=== PATIENT | female | born 1955 | race Caucasian/White ===

== ENCOUNTER 2017-12-13 15:14 | Inpatient (IN) | payer MEDICARE, OTHER ==
[~2017-12-13] VITALS: Ht 157.5 cm; Wt 87.1 kg
[2017-12-13 15:25] VITALS: BP 120/90
[2017-12-13] MEDS ORDERED: ACETAMINOPHEN 325 MG TABLET PO PRN (16:00)
[2017-12-13] MEDS ORDERED: MAG HYDROX/AL HYDROX/SIMETH 30 ML ORAL.SUSP PO PRN (16:00)
[2017-12-13] MEDS ORDERED: METHYL SALICYLATE/MENTHOL TOPICAL OINTMENT 29GM TUBE. TP PRN (16:00)
[2017-12-13 17:02] LABS: BASO % 0 % (0-3); EOS % 0 % (0-3); HEMATOCRIT 42.1 % (36.0-47.0); HEMOGLOBIN 13.8 g/dL (12.0-15.5); LYMPH # 1.4 x10^3/uL (1.0-4.8); LYMPH % 12 % (24-48); MEAN CORPUSCULAR HEMOGLOBIN 27 pg (25-35); MEAN CORPUSCULAR HGB CONC 33 g/dL (31-37); MEAN CORPUSCULAR VOLUME 83 fL (79-100); MONO # 0.9 x10^3/uL (0.0-1.1); MONO % 8 % (0-9); NEUT # 8.6 x10^3uL (1.8-7.7); NEUT % 79 % (31-73); PLATELET COUNT 289 x10^3/uL (140-400); RED BLOOD COUNT 5.05 x10^6/uL (3.50-5.40); RED CELL DISTRIBUTION WIDTH 15.6 % (11.5-14.5); WHITE BLOOD COUNT 10.8 x10^3/uL (4.0-11.0)
[2017-12-13 17:16] LABS: ALBUMIN 3.2 g/dL (3.4-5.0); ALBUMIN/GLOBULIN RATIO 0.9 (1.0-1.7); CALCIUM 8.9 mg/dL (8.5-10.1); CREATININE 1.1 mg/dL (0.6-1.0); GFR 50.5; MAGNESIUM 1.9 mg/dL (1.8-2.4); POTASSIUM 4.6 mmol/L (3.5-5.1); TOTAL BILIRUBIN 0.1 mg/dL (0.2-1.0); TOTAL PROTEIN 6.6 g/dL (6.4-8.2)
[2017-12-13] MEDS ORDERED: LOSA50TA7 PO (18:52)
[2017-12-13] MEDS ORDERED: VARI50KI IM (18:52)
[2017-12-13] MEDS ORDERED: BETH25TA PO (18:52)
[2017-12-13] MEDS ORDERED: DOXA4TAB3 PO (18:52)
[2017-12-13] MEDS ORDERED: LORA0.5T PO (18:52)
[2017-12-13] MEDS ORDERED: ATOR20TA PO (18:52)
[2017-12-13] MEDS ORDERED: PANT40TA5 PO (18:52)
[2017-12-13] MEDS ORDERED: CLOZ100T PO (18:52)
[2017-12-13] MEDS ORDERED: TRIA15CR2 TP (18:52)
[2017-12-13] MEDS ORDERED: METO50TA29 PO (18:52)
[2017-12-13] MEDS ORDERED: ZOST1940 SQ (18:52)
[2017-12-13] MEDS ORDERED: CLOT12CR2 TP (18:52)
[2017-12-13] MEDS ORDERED: PHEN100C PO (18:52)
[2017-12-13] MEDS ORDERED: GLIP5TAB10 PO (18:52)
[2017-12-13] MEDS ORDERED: FENO48TA16 PO (18:52)
[2017-12-13] MEDS ORDERED: LEVE100020 PO (18:52)
[2017-12-13] MEDS ORDERED: METF10007 PO (18:52)
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
[2017-12-13] MEDS ORDERED: LORazepam 0.5 MG TABLET PO PRN (20:45)
[2017-12-13] MEDS: TRIAMCINOLONE ACETONIDE 0.025% TP SCH (21:00)
[2017-12-13] MEDS: CLOTRIMAZOLE 1% TOPICAL CREAM 30GM TUBE. TP SCH (21:00)
--- NOTE | 2017-12-13 21:02 | PDOC ---
Exam Note: Arash Note: Please also refer to the separate dictated note~for this date of service dictated separately.~Patient seen individually. Discussed the patient with Nursing staff reviewed the chart.~Reviewed interim history and current functioning. Reviewed vital signs,~Labs/ Radiology~and current medications noted below. Continue current treatment with the changes noted in the dictated addendum note Assessment: Vital Signs: Vital Signs Date Time Temp Pulse Resp B/P (MAP) Pulse Ox O2 Delivery O2 Flow Rate FiO2 12/13/17 15:25 98.2 110 20 120/90 (100) 94 Labs: Laboratory Tests Test 12/13/17 16:45 White Blood Count 10.8 x10^3/uL (4.0-11.0) Red Blood Count 5.05 x10^6/uL (3.50-5.40) Hemoglobin 13.8 g/dL (12.0-15.5) Hematocrit 42.1 % (36.0-47.0) Mean Corpuscular Volume 83 fL (79-100) Mean Corpuscular Hemoglobin 27 pg (25-35) Mean Corpuscular Hemoglobin Concent 33 g/dL (31-37) Red Cell Distribution Width 15.6 % (11.5-14.5) H Platelet Count 289 x10^3/uL (140-400) Neutrophils (%) (Auto) 79 % (31-73) H Lymphocytes (%) (Auto) 12 % (24-48) L Monocytes (%) (Auto) 8 % (0-9) Eosinophils (%) (Auto) 0 % (0-3) Basophils (%) (Auto) 0 % (0-3) Neutrophils # (Auto) 8.6 x10^3uL (1.8-7.7) H Lymphocytes # (Auto) 1.4 x10^3/uL (1.0-4.8) Monocytes # (Auto) 0.9 x10^3/uL (0.0-1.1) Eosinophils # (Auto) 0.0 x10^3/uL (0.0-0.7) Basophils # (Auto) 0.0 x10^3/uL (0.0-0.2) Sodium Level 137 mmol/L (136-145) Potassium Level 4.6 mmol/L (3.5-5.1) Chloride Level 103 mmol/L (98-107) Carbon Dioxide Level 27 mmol/L (21-32) Anion Gap 7 (6-14) Blood Urea Nitrogen 19 mg/dL (7-20) Creatinine 1.1 mg/dL (0.6-1.0) H Estimated GFR (Cockcroft-Gault) 50.5 BUN/Creatinine Ratio 17 (6-20) Glucose Level 174 mg/dL (70-99) H Calcium Level 8.9 mg/dL (8.5-10.1) Magnesium Level 1.9 mg/dL (1.8-2.4) Total Bilirubin 0.1 mg/dL (0.2-1.0) L Aspartate Amino Transferase (AST) 39 U/L (15-37) H Alanine Aminotransferase (ALT) 39 U/L (14-59) Alkaline Phosphatase 79 U/L (46-116) Total Protein 6.6 g/dL (6.4-8.2) Albumin 3.2 g/dL (3.4-5.0) L Albumin/Globulin Ratio 0.9 (1.0-1.7) L Current Medications: Meds: Current Medications Acetaminophen (Tylenol) 650 mg PRN Q6HRS PRN PO PAIN / TEMP; Start 12/13/17 at 16:00 Multi-Ingredient Ointment (Analgesic Ono) 1 joey PRN QID PRN TP MUSCLE PAIN; Start 12/13/17 at 16:00 Al Hydroxide/Mg Hydroxide (Mylanta Plus Xs) 15 ml PRN AFTMEALHC PRN PO DYSPEPSIA; Start 12/13/17 at 16:00 Magnesium Hydroxide (Milk Of Magnesia) 2,400 mg PRN QHS PRN PO CONSTIPATION; Start 12/13/17 at 16:00 Clozapine (Clozaril) 300 mg DAILY PO ; Start 12/14/17 at 09:00 Lorazepam (Ativan) 0.5 mg PRN Q6HRS PRN PO ANXIETY / AGITATION; Start 12/13/17 at 20:45 Atorvastatin Calcium (Lipitor) 20 mg QHS PO ; Start 12/13/17 at 21:00 Bethanechol Chloride (Urecholine) 25 mg QID PO ; Start 12/13/17 at 21:00 Losartan Potassium (Cozaar) 50 mg DAILY PO ; Start 12/14/17 at 09:00 Triamcinolone Acetonide (Kenalog) 15 joey BID TP ; Start 12/13/17 at 21:00 Clotrimazole (Lotrimin) 1 joey BID TP ; Start 12/13/17 at 21:00 Fenofibrate (Tricor) 48 mg DAILY PO ; Start 12/14/17 at 09:00 Glipizide (Glucotrol Er) 5 mg DAILY08 PO ; Start 12/14/17 at 08:00 Levetiracetam (Keppra) 1,000 mg BID PO ; Start 12/13/17 at 21:00 Metformin HCl (Glucophage) 1,000 mg BIDWMEALS PO ; Start 12/14/17 at 08:00 Metoprolol Succinate (Toprol Xl) 50 mg DAILY PO ; Start 12/14/17 at 09:00 Pantoprazole Sodium (Protonix) 40 mg PRN DAILY PRN PO HEARTBURN / GAS; Start at 07:30 Phenytoin Sodium (Dilantin) 100 mg Q8HRS PO ; Start 12/13/17 at 22:00 Active Scripts Active Reported Shingrix Vial Kit (Varicella-Zoster Ge/As01b/Pf) 50 Mcg/0.5 Ml Kit 50 Mcg IM Zostavax Vial (Zoster Vaccine Live/Pf) 19,400 Unit/0.65 Ml Vial 19,400 Unit SQ Triamcinolone Acetonide 15 Gm Cream..g. 15 Gm TP BID Pantoprazole Sodium 40 Mg Tablet.dr 40 Mg PO PRN DAILY PRN Losartan Potassium 50 Mg Tablet 50 Mg PO DAILY Glipizide 5 Mg Tablet 5 Mg PO DAILY Tricor (Fenofibrate Nanocrystallized) 48 Mg Tablet 48 Mg PO DAILY Doxazosin Mesylate 4 Mg Tablet 4 Mg PO Lotrimin Af (Clotrimazole) 12 Gm Cream..g. 12 Gm TP BID Bethanechol Chloride 25 Mg Tablet 25 Mg PO QID Metoprolol Succinate ( Xl ) (Metoprolol Succinate) 50 Mg Tab.er.24h 50 Mg PO DAILY Metformin Hcl 1,000 Mg Tablet 1,000 Mg PO BID Clozaril (Clozapine) 100 Mg Tablet 300 Mg PO DAILY Dilantin (Phenytoin Sodium Extended) 100 Mg Capsule 100 Mg PO Q8HRS Lorazepam 0.5 Mg Tablet 0.5 Mg PO PRN Q6HRS PRN MDD 2mg Keppra (Levetiracetam) 1,000 Mg Tablet 1,000 Mg PO BID Lipitor (Atorvastatin Calcium) 20 Mg Tablet 20 Mg PO QHS I have reviewed the current psychotropics carefully including drug interactions. Risk benefit ratio favors no change other than as noted in my dictated progress note. Diagnosis: Problems: (1) Anxiety disorder (2) Bipolar affective, mixed, sev w/ psych (3) Schizoaffective disorder, chronic condition with acute exacerbation MANAS SHANKAR MD Dec 13, 2017 21:02
[2017-12-13] MEDS: PHENYTOIN SODIUM EXTENDED 100 MG CAPSULE PO SCH (21:05)
[2017-12-13] MEDS: ATORVASTATIN CALCIUM 20 MG TABLET PO SCH (21:05)
[2017-12-13] MEDS: levETIRAcetam 500 MG TABLET PO SCH (21:05)
[2017-12-13] MEDS: BETHANECHOL CHLORIDE 25 MG TABLET PO SCH (21:07)
[2017-12-14 03:10] LABS: THYROXINE 6.6 ug/dL (4.5-12.0)
[2017-12-14 04:08] LABS: HEMOGLOBIN A1C 6.6 % (4.8-5.6)
[2017-12-14 05:42] VITALS: BP 103/65
[2017-12-14] MEDS: PHENYTOIN SODIUM EXTENDED 100 MG CAPSULE PO SCH ×4 (06:33→20:06)
[2017-12-14] MEDS ORDERED: PANTOPRAZOLE 40 MG TABLET. PO PRN (07:30)
[2017-12-14 07:53] LABS: BACTERIA,URINE MOD /HPF (0-FEW); BILIRUBIN,URINE NEG (NEG); CLARITY,URINE CLOUDY; COLOR,URINE AMBER; GLUCOSE,URINE NEG (NEG); GRANULAR CASTS,URINE OCC /HPF; HYALINE CASTS, URINE MOD /HPF; NITRITE,URINE NEG (NEG); SQUAMOUS EPITHELIAL CELL,UR MANY /LPF; UROBILINOGEN,URINE 0.2 mg/dL (0.2 mg/dL)
[2017-12-14] MEDS ORDERED: cloZAPine 100 MG TABLET PO SCH (09:00)
[2017-12-14] MEDS: BETHANECHOL CHLORIDE 25 MG TABLET PO SCH ×6 (10:03→20:06)
[2017-12-14] MEDS: FENOFIBRATE NANOCRYSTALLIZED 48 MG TABLET PO SCH (10:03)
[2017-12-14] MEDS: METOPROLOL SUCC 24HR ER 50 MG TAB.ER.24H. PO SCH (10:03)
[2017-12-14] MEDS: levETIRAcetam 500 MG TABLET PO SCH ×2 (10:03→20:05)
[2017-12-14] MEDS: metFORMIN 500 MG TABLET PO SCH ×3 (10:03→17:22)
[2017-12-14] MEDS: LOSARTAN 50 MG TABLET. PO SCH (10:04)
[2017-12-14] MEDS: TRIAMCINOLONE ACETONIDE 0.025% TP SCH ×2 (10:04→20:06)
[2017-12-14] MEDS: CLOTRIMAZOLE 1% TOPICAL CREAM 30GM TUBE. TP SCH ×2 (10:04→20:06)
[2017-12-14 11:18] LABS: BASO % 0 % (0-3); EOS % 0 % (0-3); HEMOGLOBIN 12.5 g/dL (12.0-15.5); LYMPH # 1.7 x10^3/uL (1.0-4.8); LYMPH % 18 % (24-48); MEAN CORPUSCULAR HEMOGLOBIN 28 pg (25-35); MEAN CORPUSCULAR HGB CONC 33 g/dL (31-37); MEAN CORPUSCULAR VOLUME 84 fL (79-100); MONO # 0.8 x10^3/uL (0.0-1.1); MONO % 9 % (0-9); NEUT # 6.6 x10^3uL (1.8-7.7); NEUT % 73 % (31-73); PLATELET COUNT 244 x10^3/uL (140-400); RED BLOOD COUNT 4.53 x10^6/uL (3.50-5.40); RED CELL DISTRIBUTION WIDTH 15.6 % (11.5-14.5); WHITE BLOOD COUNT 9.1 x10^3/uL (4.0-11.0)
[2017-12-14 13:46] LABS: THYROID STIM HORMONE (TSH) 1.437 uIU/mL (0.358-3.740)
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
[2017-12-14 16:13] VITALS: BP 103/68
[2017-12-14] MEDS: DIVALPROEX ER 500 MG TAB.ER.24H PO SCH (20:05)
[2017-12-14] MEDS: ATORVASTATIN CALCIUM 20 MG TABLET PO SCH (20:05)
[2017-12-14] MEDS: cloZAPine 100 MG TABLET PO SCH (20:06)
--- NOTE | 2017-12-14 20:55 | PDOC ---
Exam Note: Arash Note: Please also refer to the separate dictated note~for this date of service dictated separately.~Patient seen individually. Discussed the patient with Nursing staff reviewed the chart.~Reviewed interim history and current functioning. Reviewed vital signs,~Labs/ Radiology~and current medications noted below. Continue current treatment with the changes noted in the dictated addendum note Assessment: Vital Signs: Vital Signs Date Time Temp Pulse Resp B/P (MAP) Pulse Ox O2 Delivery O2 Flow Rate FiO2 12/14/17 16:13 97.6 107 20 103/68 (80) 94 I&O Intake and Output 12/14/17 07:00 Intake Total 240 ml Balance 240 ml Intake Oral 240 ml Labs: Laboratory Tests Test 12/14/17 07:28 12/14/17 07:59 12/14/17 10:50 12/14/17 12:12 Urine Collection Type Unknown Urine Color [place] Urine Clarity Cloudy Urine pH 5.5 Urine Specific [place] 1.015 Urine Protein Neg (NEG-TRACE) Urine Glucose (UA) Neg mg/dL (NEG) Urine Ketones (Stick) Neg mg/dL (NEG) Urine Blood Neg (NEG) Urine Nitrite Neg (NEG) Urine Bilirubin Neg (NEG) Urine Urobilinogen Dipstick 0.2 mg/dL (0.2 mg/dL) Urine Leukocyte Esterase Mod (NEG) Urine RBC 1-2 /HPF (0-2) Urine WBC 5-10 /HPF (0-4) Urine Squamous Epithelial Cells Many /LPF Urine Transitional Epithelial Cells Few /LPF Urine Bacteria Mod /HPF (0-FEW) Urine Hyaline Casts Mod /HPF Urine Granular Casts Occ /HPF Urine Mucus Slight /LPF Glucose (Fingerstick) 155 mg/dL (70-99) H 200 mg/dL (70-99) H White Blood Count 9.1 x10^3/uL (4.0-11.0) Red Blood Count 4.53 x10^6/uL (3.50-5.40) Hemoglobin 12.5 g/dL (12.0-15.5) Hematocrit 38.0 % (36.0-47.0) Mean Corpuscular Volume 84 fL (79-100) Mean Corpuscular Hemoglobin 28 pg (25-35) Mean Corpuscular Hemoglobin Concent 33 g/dL (31-37) Red Cell Distribution Width 15.6 % (11.5-14.5) H Platelet Count 244 x10^3/uL (140-400) Neutrophils (%) (Auto) 73 % (31-73) Lymphocytes (%) (Auto) 18 % (24-48) L Monocytes (%) (Auto) 9 % (0-9) Eosinophils (%) (Auto) 0 % (0-3) Basophils (%) (Auto) 0 % (0-3) Neutrophils # (Auto) 6.6 x10^3uL (1.8-7.7) Lymphocytes # (Auto) 1.7 x10^3/uL (1.0-4.8) Monocytes # (Auto) 0.8 x10^3/uL (0.0-1.1) Eosinophils # (Auto) 0.0 x10^3/uL (0.0-0.7) Basophils # (Auto) 0.0 x10^3/uL (0.0-0.2) Test 12/14/17 16:43 12/14/17 19:01 Glucose (Fingerstick) 133 mg/dL (70-99) H 169 mg/dL (70-99) H Current Medications: Meds: Current Medications Acetaminophen (Tylenol) 650 mg PRN Q6HRS PRN PO PAIN / TEMP; Start 12/13/17 at 16:00 Multi-Ingredient Ointment (Analgesic [place]) 1 joey PRN QID PRN TP MUSCLE PAIN; Start 12/13/17 at 16:00 Al Hydroxide/Mg Hydroxide (Mylanta Plus Xs) 15 ml PRN AFTMEALHC PRN PO DYSPEPSIA Last administered on 12/13/17at 21:05; Start 12/13/17 at 16:00 Magnesium Hydroxide (Milk Of Magnesia) 2,400 mg PRN QHS PRN PO CONSTIPATION; Start 12/13/17 at 16:00 Clozapine (Clozaril) 300 mg DAILY PO Last administered on 12/14/17at 10:03; Start 12/14/17 at 09:00; Stop 12/14/17 at 10:27; Status DC Lorazepam (Ativan) 0.5 mg PRN Q6HRS PRN PO ANXIETY / AGITATION; Start 12/13/17 at 20:45 Atorvastatin Calcium (Lipitor) 20 mg QHS PO Last administered on 12/14/17 20: 05; Start 12/13/17 at 21:00 Bethanechol Chloride (Urecholine) 25 mg QID PO Last administered on 12/14/17 20:06; Start 12/13/17 at 21:00 Losartan Potassium (Cozaar) 50 mg DAILY PO Last administered on 12/14/17at 10:04 ; Start 12/14/17 at 09:00 Triamcinolone Acetonide (Kenalog) 15 joey BID TP Last administered on 12/14/17 20:06; Start 12/13/17 at 21:00 Clotrimazole (Lotrimin) 1 joey BID TP Last administered on 12/14/17 20:06; Start 12/13/17 at 21:00 Fenofibrate (Tricor) 48 mg DAILY PO Last administered on 12/14/17 10:03; Start 12/14/17 at 09:00 Glipizide (Glucotrol Er) 5 mg DAILY08 PO Last administered on 12/14/17 10:04; Start 12/14/17 at 08:00 Levetiracetam (Keppra) 1,000 mg BID PO Last administered on 12/14/17 20:05; Start 12/13/17 at 21:00 Metformin HCl (Glucophage) 1,000 mg BIDWMEALS PO Last administered on at 10:03; Start 12/14/17 at 08:00 Metoprolol Succinate (Toprol Xl) 50 mg DAILY PO Last administered on 12/14/17at 10:03; Start 12/14/17 at 09:00 Pantoprazole Sodium (Protonix) 40 mg PRN DAILY PRN PO HEARTBURN / GAS; Start at 07:30 Phenytoin Sodium (Dilantin) 100 mg Q8HRS PO Last administered on 12/14/17 20: 06; Start 12/13/17 at 22:00 Clozapine (Clozaril) 300 mg QHS PO Last administered on 12/14/17at 20:06; Start 12/14/17 at 21:00 Divalproex Sodium (Depakote Er) 500 mg QHS PO Last administered on 12/14/17at 20 :05; Start 12/14/17 at 21:00 Active Scripts Active Reported Shingrix Vial Kit (Varicella-Zoster Ge/As01b/Pf) 50 Mcg/0.5 Ml Kit 50 Mcg IM Zostavax Vial (Zoster Vaccine Live/Pf) 19,400 Unit/0.65 Ml Vial 19,400 Unit SQ Triamcinolone Acetonide 15 Gm Cream..g. 15 Gm TP BID Pantoprazole Sodium 40 Mg Tablet.dr 40 Mg PO PRN DAILY PRN Losartan Potassium 50 Mg Tablet 50 Mg PO DAILY Glipizide 5 Mg Tablet 5 Mg PO DAILY Tricor (Fenofibrate Nanocrystallized) 48 Mg Tablet 48 Mg PO DAILY Doxazosin Mesylate 4 Mg Tablet 4 Mg PO Lotrimin Af (Clotrimazole) 12 Gm Cream..g. 12 Gm TP BID Bethanechol Chloride 25 Mg Tablet 25 Mg PO QID Metoprolol Succinate ( Xl ) (Metoprolol Succinate) 50 Mg Tab.er.24h 50 Mg PO DAILY Metformin Hcl 1,000 Mg Tablet 1,000 Mg PO BID Clozaril (Clozapine) 100 Mg Tablet 300 Mg PO DAILY Dilantin (Phenytoin Sodium Extended) 100 Mg Capsule 100 Mg PO Q8HRS Lorazepam 0.5 Mg Tablet 0.5 Mg PO PRN Q6HRS PRN MDD 2mg Keppra (Levetiracetam) 1,000 Mg Tablet 1,000 Mg PO BID Lipitor (Atorvastatin Calcium) 20 Mg Tablet 20 Mg PO QHS I have reviewed the current psychotropics carefully including drug interactions. Risk benefit ratio favors no change other than as noted in my dictated progress note. Diagnosis: Problems: (1) Anxiety disorder (2) Bipolar affective, mixed, sev w/ psych (3) Schizoaffective disorder, chronic condition with acute exacerbation MANAS SHANKAR MD Dec 14, 2017 20:55
[2017-12-15 06:07] VITALS: BP 108/60
[2017-12-15] MEDS: PHENYTOIN SODIUM EXTENDED 100 MG CAPSULE PO SCH ×3 (06:31→20:30)
[2017-12-15] MEDS: metFORMIN 500 MG TABLET PO SCH ×2 (08:36→18:34)
[2017-12-15] MEDS: BETHANECHOL CHLORIDE 25 MG TABLET PO SCH ×4 (08:36→20:29)
[2017-12-15] MEDS: levETIRAcetam 500 MG TABLET PO SCH ×2 (08:36→20:26)
[2017-12-15] MEDS: CLOTRIMAZOLE 1% TOPICAL CREAM 30GM TUBE. TP SCH ×2 (08:38→20:28)
[2017-12-15] MEDS: TRIAMCINOLONE ACETONIDE 0.025% TP SCH ×2 (08:38→20:27)
[2017-12-15 08:48] VITALS: BP 98/62
[2017-12-15] MEDS: LOSARTAN 50 MG TABLET. PO SCH (08:49)
[2017-12-15] MEDS: METOPROLOL SUCC 24HR ER 50 MG TAB.ER.24H. PO SCH (08:50)
[2017-12-15] MEDS: FENOFIBRATE NANOCRYSTALLIZED 48 MG TABLET PO SCH (08:50)
[2017-12-15 15:37] VITALS: BP 121/65
[2017-12-15] MEDS: cloZAPine 100 MG TABLET PO SCH (20:25)
[2017-12-15] MEDS: ATORVASTATIN CALCIUM 20 MG TABLET PO SCH (20:26)
[2017-12-15] MEDS: DIVALPROEX ER 500 MG TAB.ER.24H PO SCH (20:26)
[2017-12-15] MEDS: CEPHALEXIN 250 MG CAPSULE PO SCH (20:28)
--- NOTE | 2017-12-15 20:51 | PDOC ---
Exam Note: Arash Note: Please also refer to the separate dictated note~for this date of service dictated separately.~Patient seen individually. Discussed the patient with Nursing staff reviewed the chart.~Reviewed interim history and current functioning. Reviewed vital signs,~Labs/ Radiology~and current medications noted below. Continue current treatment with the changes noted in the dictated addendum note Assessment: Vital Signs: Vital Signs Date Time Temp Pulse Resp B/P (MAP) Pulse Ox O2 Delivery O2 Flow Rate FiO2 12/15/17 15:37 98.1 95 18 121/65 (83) 95 Room Air I&O Intake and Output 12/15/17 07:00 Intake Total 720 ml Balance 720 ml Intake Oral 720 ml # Voids 2 # Bowel Movements 3 Labs: Laboratory Tests Test 12/15/17 11:55 12/15/17 19:02 Glucose (Fingerstick) 165 mg/dL (70-99) H 131 mg/dL (70-99) H Current Medications: Meds: Current Medications Acetaminophen (Tylenol) 650 mg PRN Q6HRS PRN PO PAIN / TEMP; Start 12/13/17 at 16:00 Multi-Ingredient Ointment (Analgesic [place]) 1 joey PRN QID PRN TP MUSCLE PAIN; Start 12/13/17 at 16:00 Al Hydroxide/Mg Hydroxide (Mylanta Plus Xs) 15 ml PRN AFTMEALHC PRN PO DYSPEPSIA Last administered on 12/13/17at 21:05; Start 12/13/17 at 16:00 Magnesium Hydroxide (Milk Of Magnesia) 2,400 mg PRN QHS PRN PO CONSTIPATION; Start 12/13/17 at 16:00 Clozapine (Clozaril) 300 mg DAILY PO Last administered on 12/14/17at 10:03; Start 12/14/17 at 09:00; Stop 12/14/17 at 10:27; Status DC Lorazepam (Ativan) 0.5 mg PRN Q6HRS PRN PO ANXIETY / AGITATION; Start 12/13/17 at 20:45 Atorvastatin Calcium (Lipitor) 20 mg QHS PO Last administered on 12/14/17at 20: 05; Start 12/13/17 at 21:00; Stop 12/15/17 at 15:00; Status DC Bethanechol Chloride (Urecholine) 25 mg QID PO Last administered on 12/15/17 20:29; Start 12/13/17 at 21:00 Losartan Potassium (Cozaar) 50 mg DAILY PO Last administered on 12/14/17at 10:04 ; Start 12/14/17 at 09:00 Triamcinolone Acetonide (Kenalog) 15 joey BID TP Last administered on 12/15/17 20:27; Start 12/13/17 at 21:00 Clotrimazole (Lotrimin) 1 joey BID TP Last administered on 12/15/17 20:28; Start 12/13/17 at 21:00 Fenofibrate (Tricor) 48 mg DAILY PO Last administered on 12/14/17at 10:03; Start 12/14/17 at 09:00 Glipizide (Glucotrol Er) 5 mg DAILY08 PO Last administered on 12/15/17at 08:36; Start 12/14/17 at 08:00; Stop 12/15/17 at 14:58; Status DC Levetiracetam (Keppra) 1,000 mg BID PO Last administered on 12/15/17 20:26; Start 12/13/17 at 21:00 Metformin HCl (Glucophage) 1,000 mg BIDWMEALS PO Last administered on at 18:34; Start 12/14/17 at 08:00 Metoprolol Succinate (Toprol Xl) 50 mg DAILY PO Last administered on 12/14/17at 10:03; Start 12/14/17 at 09:00 Pantoprazole Sodium (Protonix) 40 mg PRN DAILY PRN PO HEARTBURN / GAS; Start at 07:30 Phenytoin Sodium (Dilantin) 100 mg Q8HRS PO Last administered on 12/15/17at 20: 30; Start 12/13/17 at 22:00 Clozapine (Clozaril) 300 mg QHS PO Last administered on 12/15/17 20:25; Start 12/14/17 at 21:00 Divalproex Sodium (Depakote Er) 500 mg QHS PO Last administered on 12/15/17at 20 :26; Start 12/14/17 at 21:00 Glipizide (Glucotrol Er) 10 mg DAILY08 PO ; Start 12/16/17 at 08:00 Vitamin D (Vitamin D3) 50,000 unit WEEKLY PO ; Start 12/16/17 at 09:00 Cephalexin HCl (Keflex) 500 mg BID PO Last administered on 12/15/17at 20:28; Start 12/15/17 at 21:00; Stop 12/25/17 at 20:59 Atorvastatin Calcium (Lipitor) 40 mg QHS PO Last administered on 12/15/17at 20: 26; Start 12/15/17 at 21:00 Active Scripts Active Reported Shingrix Vial Kit (Varicella-Zoster Ge/As01b/Pf) 50 Mcg/0.5 Ml Kit 50 Mcg IM Zostavax Vial (Zoster Vaccine Live/Pf) 19,400 Unit/0.65 Ml Vial 19,400 Unit SQ Triamcinolone Acetonide 15 Gm Cream..g. 15 Gm TP BID Pantoprazole Sodium 40 Mg Tablet.dr 40 Mg PO PRN DAILY PRN Losartan Potassium 50 Mg Tablet 50 Mg PO DAILY Glipizide 5 Mg Tablet 5 Mg PO DAILY Tricor (Fenofibrate Nanocrystallized) 48 Mg Tablet 48 Mg PO DAILY Doxazosin Mesylate 4 Mg Tablet 4 Mg PO Lotrimin Af (Clotrimazole) 12 Gm Cream..g. 12 Gm TP BID Bethanechol Chloride 25 Mg Tablet 25 Mg PO QID Metoprolol Succinate ( Xl ) (Metoprolol Succinate) 50 Mg Tab.er.24h 50 Mg PO DAILY Metformin Hcl 1,000 Mg Tablet 1,000 Mg PO BID Clozaril (Clozapine) 100 Mg Tablet 300 Mg PO DAILY Dilantin (Phenytoin Sodium Extended) 100 Mg Capsule 100 Mg PO Q8HRS Lorazepam 0.5 Mg Tablet 0.5 Mg PO PRN Q6HRS PRN MDD 2mg Keppra (Levetiracetam) 1,000 Mg Tablet 1,000 Mg PO BID Lipitor (Atorvastatin Calcium) 20 Mg Tablet 20 Mg PO QHS I have reviewed the current psychotropics carefully including drug interactions. Risk benefit ratio favors no change other than as noted in my dictated progress note. Diagnosis: Problems: (1) Anxiety disorder (2) Bipolar affective, mixed, sev w/ psych (3) Schizoaffective disorder, chronic condition with acute exacerbation MANAS SHANKAR MD Dec 15, 2017 20:51
--- NOTE | 2017-12-16 02:59 | PN ---
DATE: 12/14/2017 PSYCHIATRIC PROGRESS NOTE This late entry 12/14/2017 covers elements not covered in my initial note. SUBJECTIVE: I met with the patient in the evening and staffed at a treatment team meeting with the entire team in the morning. The patient has been quite noncompliant with medications, resistive withdrawn, psychotic. She seemed to have significant pressure of speech, disorganized thought processes as I met with her. Her history, diagnosis, placement options, discharge plans, current treatment were addressed at length at the treatment team meeting morning of 12/14/2017. REVIEW OF SYSTEMS: No CV, , pulmonary, eye, ENT system symptoms on review. MENTAL STATUS EXAM: Oriented to herself and situation. Speech coherent, rapid. Abstraction fair, computation impaired, language function intact, attention span short. Mood and affect remain somewhat labile. LABORATORY DATA: Reviewed. IMPRESSION: Schizoaffective disorder, bipolar type, mixed with psychotic features. Rest unchanged from initial note. PLAN: Start Depakote ER 500 mg p.o. at bedtime. Check CBC, CMP, valproic acid level, ammonia level in 3 days. Continue rest, unchanged from initial note and we restarted Clozaril 300 mg at bedtime. CBC, absolute neutrophil count unremarkable for now. MAN Maikel SHANKAR MD DR: ASHLEIGH/cali JOB#: [id number] / [id number]
[2017-12-16] MEDS: PHENYTOIN SODIUM EXTENDED 100 MG CAPSULE PO SCH ×3 (06:00→20:31)
[2017-12-16 06:06] VITALS: BP 113/74
[2017-12-16] MEDS: LOSARTAN 50 MG TABLET. PO SCH (09:00)
[2017-12-16] MEDS: METOPROLOL SUCC 24HR ER 50 MG TAB.ER.24H. PO SCH (09:00)
[2017-12-16] MEDS: metFORMIN 500 MG TABLET PO SCH ×2 (09:32→17:12)
[2017-12-16] MEDS: LACTOBACILLUS RHAMNOSUS GG 1 CAPSULE. PO SCH ×2 (09:35→20:29)
[2017-12-16] MEDS: CHOLECALCIFEROL (VITAMIN D3) 50,000 UNIT CAPSULE PO SCH (09:36)
[2017-12-16] MEDS: BETHANECHOL CHLORIDE 25 MG TABLET PO SCH ×4 (09:36→20:31)
[2017-12-16] MEDS: FENOFIBRATE NANOCRYSTALLIZED 48 MG TABLET PO SCH (09:36)
[2017-12-16] MEDS: CEPHALEXIN 250 MG CAPSULE PO SCH ×2 (09:36→20:29)
[2017-12-16] MEDS: levETIRAcetam 500 MG TABLET PO SCH ×2 (09:36→20:29)
[2017-12-16] MEDS: TRIAMCINOLONE ACETONIDE 0.025% TP SCH ×2 (09:39→20:31)
[2017-12-16] MEDS: CLOTRIMAZOLE 1% TOPICAL CREAM 30GM TUBE. TP SCH ×2 (09:39→20:31)
[2017-12-16 15:47] VITALS: BP 109/62
[2017-12-16] MEDS: cloZAPine 100 MG TABLET PO SCH (20:29)
[2017-12-16] MEDS: ATORVASTATIN CALCIUM 20 MG TABLET PO SCH (20:29)
[2017-12-16] MEDS: DIVALPROEX ER 500 MG TAB.ER.24H PO SCH (20:29)
--- NOTE | 2017-12-16 22:54 | PDOC ---
Exam Note: Arash Note: Please also refer to the separate dictated note~for this date of service dictated separately.~Patient seen individually. Discussed the patient with Nursing staff reviewed the chart.~Reviewed interim history and current functioning. Reviewed vital signs,~Labs/ Radiology~and current medications noted below. Continue current treatment with the changes noted in the dictated addendum note Assessment: Vital Signs: Vital Signs Date Time Temp Pulse Resp B/P (MAP) Pulse Ox O2 Delivery O2 Flow Rate FiO2 12/16/17 15:47 97.3 97 20 109/62 (78) 96 12/15/17 15:37 Room Air I&O Intake and Output 12/16/17 07:00 Intake Total 1565 ml Balance 1565 ml Intake Oral 1565 ml Labs: Laboratory Tests Test 12/16/17 07:17 12/16/17 11:31 12/16/17 16:49 12/16/17 19:18 Glucose (Fingerstick) 149 mg/dL (70-99) H 221 mg/dL (70-99) H 155 mg/dL (70-99) H 152 mg/dL (70-99) H Current Medications: Meds: Current Medications Acetaminophen (Tylenol) 650 mg PRN Q6HRS PRN PO PAIN / TEMP; Start 12/13/17 at 16:00 Multi-Ingredient Ointment (Analgesic [place]) 1 joey PRN QID PRN TP MUSCLE PAIN; Start 12/13/17 at 16:00 Al Hydroxide/Mg Hydroxide (Mylanta Plus Xs) 15 ml PRN AFTMEALHC PRN PO DYSPEPSIA Last administered on 12/13/17at 21:05; Start 12/13/17 at 16:00 Magnesium Hydroxide (Milk Of Magnesia) 2,400 mg PRN QHS PRN PO CONSTIPATION; Start 12/13/17 at 16:00 Clozapine (Clozaril) 300 mg DAILY PO Last administered on 12/14/17at 10:03; Start 12/14/17 at 09:00; Stop 12/14/17 at 10:27; Status DC Lorazepam (Ativan) 0.5 mg PRN Q6HRS PRN PO ANXIETY / AGITATION; Start 12/13/17 at 20:45 Atorvastatin Calcium (Lipitor) 20 mg QHS PO Last administered on 12/14/17at 20: 05; Start 12/13/17 at 21:00; Stop 12/15/17 at 15:00; Status DC Bethanechol Chloride (Urecholine) 25 mg QID PO Last administered on 12/16/17 20:31; Start 12/13/17 at 21:00 Losartan Potassium (Cozaar) 50 mg DAILY PO Last administered on 12/14/17at 10:04 ; Start 12/14/17 at 09:00 Triamcinolone Acetonide (Kenalog) 15 joey BID TP Last administered on 12/16/17 20:31; Start 12/13/17 at 21:00 Clotrimazole (Lotrimin) 1 joey BID TP Last administered on 12/16/17 20:31; Start 12/13/17 at 21:00 Fenofibrate (Tricor) 48 mg DAILY PO Last administered on 12/16/17 09:36; Start 12/14/17 at 09:00 Glipizide (Glucotrol Er) 5 mg DAILY08 PO Last administered on 12/15/17at 08:36; Start 12/14/17 at 08:00; Stop 12/15/17 at 14:58; Status DC Levetiracetam (Keppra) 1,000 mg BID PO Last administered on 12/16/17 20:29; Start 12/13/17 at 21:00 Metformin HCl (Glucophage) 1,000 mg BIDWMEALS PO Last administered on 17:12; Start 12/14/17 at 08:00 Metoprolol Succinate (Toprol Xl) 50 mg DAILY PO Last administered on 12/14/17at 10:03; Start 12/14/17 at 09:00 Pantoprazole Sodium (Protonix) 40 mg PRN DAILY PRN PO HEARTBURN / GAS; Start at 07:30 Phenytoin Sodium (Dilantin) 100 mg Q8HRS PO Last administered on 12/16/17 20: 31; Start 12/13/17 at 22:00 Clozapine (Clozaril) 300 mg QHS PO Last administered on 12/16/17 20:29; Start 12/14/17 at 21:00 Divalproex Sodium (Depakote Er) 500 mg QHS PO Last administered on 12/16/17at 20 :29; Start 12/14/17 at 21:00 Glipizide (Glucotrol Er) 10 mg DAILY08 PO Last administered on 12/16/17at 09:35 ; Start 12/16/17 at 08:00 Vitamin D (Vitamin D3) 50,000 unit WEEKLY PO Last administered on 12/16/17at 09: 36; Start 12/16/17 at 09:00 Cephalexin HCl (Keflex) 500 mg BID PO Last administered on 12/16/17at 20:29; Start 12/15/17 at 21:00; Stop 12/25/17 at 20:59 Atorvastatin Calcium (Lipitor) 40 mg QHS PO Last administered on 12/16/17at 20: 29; Start 12/15/17 at 21:00 Lactobacillus Rhamnosus (Culturelle) 1 cap BID PO Last administered on at 20:29; Start 12/16/17 at 09:00 Active Scripts Active Reported Shingrix Vial Kit (Varicella-Zoster Ge/As01b/Pf) 50 Mcg/0.5 Ml Kit 50 Mcg IM Zostavax Vial (Zoster Vaccine Live/Pf) 19,400 Unit/0.65 Ml Vial 19,400 Unit SQ Triamcinolone Acetonide 15 Gm Cream..g. 15 Gm TP BID Pantoprazole Sodium 40 Mg Tablet.dr 40 Mg PO PRN DAILY PRN Losartan Potassium 50 Mg Tablet 50 Mg PO DAILY Glipizide 5 Mg Tablet 5 Mg PO DAILY Tricor (Fenofibrate Nanocrystallized) 48 Mg Tablet 48 Mg PO DAILY Doxazosin Mesylate 4 Mg Tablet 4 Mg PO Lotrimin Af (Clotrimazole) 12 Gm Cream..g. 12 Gm TP BID Bethanechol Chloride 25 Mg Tablet 25 Mg PO QID Metoprolol Succinate ( Xl ) (Metoprolol Succinate) 50 Mg Tab.er.24h 50 Mg PO DAILY Metformin Hcl 1,000 Mg Tablet 1,000 Mg PO BID Clozaril (Clozapine) 100 Mg Tablet 300 Mg PO DAILY Dilantin (Phenytoin Sodium Extended) 100 Mg Capsule 100 Mg PO Q8HRS Lorazepam 0.5 Mg Tablet 0.5 Mg PO PRN Q6HRS PRN MDD 2mg Keppra (Levetiracetam) 1,000 Mg Tablet 1,000 Mg PO BID Lipitor (Atorvastatin Calcium) 20 Mg Tablet 20 Mg PO QHS I have reviewed the current psychotropics carefully including drug interactions. Risk benefit ratio favors no change other than as noted in my dictated progress note. Diagnosis: Problems: (1) Anxiety disorder (2) Bipolar affective, mixed, sev w/ psych (3) Schizoaffective disorder, chronic condition with acute exacerbation MANAS SHANKAR MD Dec 16, 2017 22:54
[2017-12-17] MEDS: PHENYTOIN SODIUM EXTENDED 100 MG CAPSULE PO SCH ×3 (05:08→21:13)
[2017-12-17 05:56] VITALS: BP 126/62
[2017-12-17] MEDS: CLOTRIMAZOLE 1% TOPICAL CREAM 30GM TUBE. TP SCH ×3 (09:00→23:23)
[2017-12-17] MEDS: TRIAMCINOLONE ACETONIDE 0.025% TP SCH ×3 (09:00→23:23)
[2017-12-17] MEDS: metFORMIN 500 MG TABLET PO SCH ×2 (09:36→17:19)
[2017-12-17] MEDS: LACTOBACILLUS RHAMNOSUS GG 1 CAPSULE. PO SCH ×2 (09:46→21:13)
[2017-12-17] MEDS: CEPHALEXIN 250 MG CAPSULE PO SCH ×2 (09:46→21:13)
[2017-12-17] MEDS: LOSARTAN 50 MG TABLET. PO SCH (09:46)
[2017-12-17] MEDS: levETIRAcetam 500 MG TABLET PO SCH ×2 (09:46→21:13)
[2017-12-17] MEDS: FENOFIBRATE NANOCRYSTALLIZED 48 MG TABLET PO SCH (09:47)
[2017-12-17] MEDS: BETHANECHOL CHLORIDE 25 MG TABLET PO SCH ×4 (09:47→21:17)
[2017-12-17] MEDS: METOPROLOL SUCC 24HR ER 50 MG TAB.ER.24H. PO SCH (09:47)
[2017-12-17 12:01] LABS: BASO % 0 % (0-3); EOS % 0 % (0-3); HEMATOCRIT 39.9 % (36.0-47.0); LYMPH # 1.8 x10^3/uL (1.0-4.8); LYMPH % 26 % (24-48); MEAN CORPUSCULAR HEMOGLOBIN 28 pg (25-35); MEAN CORPUSCULAR HGB CONC 33 g/dL (31-37); MEAN CORPUSCULAR VOLUME 84 fL (79-100); MONO # 0.4 x10^3/uL (0.0-1.1); MONO % 6 % (0-9); NEUT # 4.6 x10^3uL (1.8-7.7); NEUT % 68 % (31-73); PLATELET COUNT 246 x10^3/uL (140-400); RED BLOOD COUNT 4.74 x10^6/uL (3.50-5.40); RED CELL DISTRIBUTION WIDTH 15.6 % (11.5-14.5); WHITE BLOOD COUNT 6.7 x10^3/uL (4.0-11.0)
[2017-12-17 12:12] LABS: ALBUMIN 3.2 g/dL (3.4-5.0); ALBUMIN/GLOBULIN RATIO 0.9 (1.0-1.7); CALCIUM 8.5 mg/dL (8.5-10.1); CREATININE 0.7 mg/dL (0.6-1.0); GFR 85.1; POTASSIUM 4.3 mmol/L (3.5-5.1); TOTAL BILIRUBIN 0.1 mg/dL (0.2-1.0); TOTAL PROTEIN 6.6 g/dL (6.4-8.2)
[2017-12-17 16:08] LABS: PHENY 3.6 mcg/mL (10.0-20.0)
[2017-12-17 16:11] LABS: VAL ACID 41 mcg/mL (50-100)
[2017-12-17 16:40] VITALS: BP 107/60
--- NOTE | 2017-12-17 21:04 | PDOC ---
Exam Note: Arash Note: Please also refer to the separate dictated note~for this date of service dictated separately.~Patient seen individually. Discussed the patient with Nursing staff reviewed the chart.~Reviewed interim history and current functioning. Reviewed vital signs,~Labs/ Radiology~and current medications noted below. Continue current treatment with the changes noted in the dictated addendum note Assessment: Vital Signs: Vital Signs Date Time Temp Pulse Resp B/P (MAP) Pulse Ox O2 Delivery O2 Flow Rate FiO2 12/17/17 16:40 98.6 104 18 107/60 (76) 97 12/15/17 15:37 Room Air I&O Intake and Output 12/17/17 07:00 Intake Total 1440 ml Balance 1440 ml Intake Oral 1440 ml Labs: Laboratory Tests Test 12/17/17 07:20 12/17/17 11:14 12/17/17 11:27 12/17/17 11:44 Glucose (Fingerstick) 126 mg/dL (70-99) H 209 mg/dL (70-99) H White Blood Count 6.7 x10^3/uL (4.0-11.0) Red Blood Count 4.74 x10^6/uL (3.50-5.40) Hemoglobin 13.0 g/dL (12.0-15.5) Hematocrit 39.9 % (36.0-47.0) Mean Corpuscular Volume 84 fL (79-100) Mean Corpuscular Hemoglobin 28 pg (25-35) Mean Corpuscular Hemoglobin Concent 33 g/dL (31-37) Red Cell Distribution Width 15.6 % (11.5-14.5) H Platelet Count 246 x10^3/uL (140-400) Neutrophils (%) (Auto) 68 % (31-73) Lymphocytes (%) (Auto) 26 % (24-48) Monocytes (%) (Auto) 6 % (0-9) Eosinophils (%) (Auto) 0 % (0-3) Basophils (%) (Auto) 0 % (0-3) Neutrophils # (Auto) 4.6 x10^3uL (1.8-7.7) Lymphocytes # (Auto) 1.8 x10^3/uL (1.0-4.8) Monocytes # (Auto) 0.4 x10^3/uL (0.0-1.1) Eosinophils # (Auto) 0.0 x10^3/uL (0.0-0.7) Basophils # (Auto) 0.0 x10^3/uL (0.0-0.2) Sodium Level 139 mmol/L (136-145) Potassium Level 4.3 mmol/L (3.5-5.1) Chloride Level 104 mmol/L (98-107) Carbon Dioxide Level 29 mmol/L (21-32) Anion Gap 6 (6-14) Blood Urea Nitrogen 12 mg/dL (7-20) Creatinine 0.7 mg/dL (0.6-1.0) Estimated GFR (Cockcroft-Gault) 85.1 BUN/Creatinine Ratio 17 (6-20) Glucose Level 217 mg/dL (70-99) H Calcium Level 8.5 mg/dL (8.5-10.1) Total Bilirubin 0.1 mg/dL (0.2-1.0) L Aspartate Amino Transferase (AST) 11 U/L (15-37) L Alanine Aminotransferase (ALT) 29 U/L (14-59) Alkaline Phosphatase 74 U/L (46-116) Total Protein 6.6 g/dL (6.4-8.2) Albumin 3.2 g/dL (3.4-5.0) L Albumin/Globulin Ratio 0.9 (1.0-1.7) L Phenytoin (Dilantin) Level 3.6 mcg/mL (10.0-20.0) L Phenytoin Last Dose Date 12/16/17 Phenytoin Last Dose Time 2200 Valproic Acid Level 41 mcg/mL (50-100) L Valproic Acid Last Dose Date 12/16/17 Valproic Acid Last Dose Time 2100 Ammonia 21 mcmol/L (11-34) Test 12/17/17 16:35 12/17/17 19:13 Glucose (Fingerstick) 91 mg/dL (70-99) 129 mg/dL (70-99) H Current Medications: Meds: Current Medications Acetaminophen (Tylenol) 650 mg PRN Q6HRS PRN PO PAIN / TEMP; Start 12/13/17 at 16:00 Multi-Ingredient Ointment (Analgesic [place]) 1 joey PRN QID PRN TP MUSCLE PAIN; Start 12/13/17 at 16:00 Al Hydroxide/Mg Hydroxide (Mylanta Plus Xs) 15 ml PRN AFTMEALHC PRN PO DYSPEPSIA Last administered on 12/13/17at 21:05; Start 12/13/17 at 16:00 Magnesium Hydroxide (Milk Of Magnesia) 2,400 mg PRN QHS PRN PO CONSTIPATION; Start 12/13/17 at 16:00 Clozapine (Clozaril) 300 mg DAILY PO Last administered on 12/14/17at 10:03; Start 12/14/17 at 09:00; Stop 12/14/17 at 10:27; Status DC Lorazepam (Ativan) 0.5 mg PRN Q6HRS PRN PO ANXIETY / AGITATION; Start 12/13/17 at 20:45 Atorvastatin Calcium (Lipitor) 20 mg QHS PO Last administered on 12/14/17at 20: 05; Start 12/13/17 at 21:00; Stop 12/15/17 at 15:00; Status DC Bethanechol Chloride (Urecholine) 25 mg QID PO Last administered on 12/17/17at 17:19; Start 12/13/17 at 21:00 Losartan Potassium (Cozaar) 50 mg DAILY PO Last administered on 12/17/17at 09:46 ; Start 12/14/17 at 09:00 Triamcinolone Acetonide (Kenalog) 15 joey BID TP Last administered on 12/16/17at 20:31; Start 12/13/17 at 21:00 Clotrimazole (Lotrimin) 1 joey BID TP Last administered on 12/16/17at 20:31; Start 12/13/17 at 21:00 Fenofibrate (Tricor) 48 mg DAILY PO Last administered on 12/17/17at 09:47; Start 12/14/17 at 09:00 Glipizide (Glucotrol Er) 5 mg DAILY08 PO Last administered on 12/15/17at 08:36; Start 12/14/17 at 08:00; Stop 12/15/17 at 14:58; Status DC Levetiracetam (Keppra) 1,000 mg BID PO Last administered on 12/17/17at 09:46; Start 12/13/17 at 21:00 Metformin HCl (Glucophage) 1,000 mg BIDWMEALS PO Last administered on 17:19; Start 12/14/17 at 08:00 Metoprolol Succinate (Toprol Xl) 50 mg DAILY PO Last administered on 12/17/17 09:47; Start 12/14/17 at 09:00 Pantoprazole Sodium (Protonix) 40 mg PRN DAILY PRN PO HEARTBURN / GAS; Start at 07:30 Phenytoin Sodium (Dilantin) 100 mg Q8HRS PO Last administered on 12/17/17 13: 54; Start 12/13/17 at 22:00 Clozapine (Clozaril) 300 mg QHS PO Last administered on 12/16/17 20:29; Start 12/14/17 at 21:00 Divalproex Sodium (Depakote Er) 500 mg QHS PO Last administered on 12/16/17 20 :29; Start 12/14/17 at 21:00; Stop 12/17/17 at 18:41; Status DC Glipizide (Glucotrol Er) 10 mg DAILY08 PO Last administered on 12/17/17 09:45 ; Start 12/16/17 at 08:00 Vitamin D (Vitamin D3) 50,000 unit WEEKLY PO Last administered on 12/16/17 09: 36; Start 12/16/17 at 09:00 Cephalexin HCl (Keflex) 500 mg BID PO Last administered on 12/17/17 09:46; Start 12/15/17 at 21:00; Stop 12/25/17 at 20:59 Atorvastatin Calcium (Lipitor) 40 mg QHS PO Last administered on 12/16/17 20: 29; Start 12/15/17 at 21:00 Lactobacillus Rhamnosus (Culturelle) 1 cap BID PO Last administered on 09:46; Start 12/16/17 at 09:00 Divalproex Sodium (Depakote Er) 1,000 mg QHS PO ; Start 12/17/17 at 21:00 Active Scripts Active Reported Shingrix Vial Kit (Varicella-Zoster Ge/As01b/Pf) 50 Mcg/0.5 Ml Kit 50 Mcg IM Zostavax Vial (Zoster Vaccine Live/Pf) 19,400 Unit/0.65 Ml Vial 19,400 Unit SQ Triamcinolone Acetonide 15 Gm Cream..g. 15 Gm TP BID Pantoprazole Sodium 40 Mg Tablet.dr 40 Mg PO PRN DAILY PRN Losartan Potassium 50 Mg Tablet 50 Mg PO DAILY Glipizide 5 Mg Tablet 5 Mg PO DAILY Tricor (Fenofibrate Nanocrystallized) 48 Mg Tablet 48 Mg PO DAILY Doxazosin Mesylate 4 Mg Tablet 4 Mg PO Lotrimin Af (Clotrimazole) 12 Gm Cream..g. 12 Gm TP BID Bethanechol Chloride 25 Mg Tablet 25 Mg PO QID Metoprolol Succinate ( Xl ) (Metoprolol Succinate) 50 Mg Tab.er.24h 50 Mg PO DAILY Metformin Hcl 1,000 Mg Tablet 1,000 Mg PO BID Clozaril (Clozapine) 100 Mg Tablet 300 Mg PO DAILY Dilantin (Phenytoin Sodium Extended) 100 Mg Capsule 100 Mg PO Q8HRS Lorazepam 0.5 Mg Tablet 0.5 Mg PO PRN Q6HRS PRN MDD 2mg Keppra (Levetiracetam) 1,000 Mg Tablet 1,000 Mg PO BID Lipitor (Atorvastatin Calcium) 20 Mg Tablet 20 Mg PO QHS I have reviewed the current psychotropics carefully including drug interactions. Risk benefit ratio favors no change other than as noted in my dictated progress note. Diagnosis: Problems: (1) Anxiety disorder (2) Bipolar affective, mixed, sev w/ psych (3) Schizoaffective disorder, chronic condition with acute exacerbation MANAS SHANKAR MD Dec 17, 2017 21:04
[2017-12-17] MEDS: ATORVASTATIN CALCIUM 20 MG TABLET PO SCH (21:13)
[2017-12-17] MEDS: DIVALPROEX ER 500 MG TAB.ER.24H PO SCH (21:15)
[2017-12-17] MEDS: cloZAPine 100 MG TABLET PO SCH (21:15)
[2017-12-18 06:29] LABS: BASO % 0 % (0-3); EOS % 0 % (0-3); HEMATOCRIT 38.7 % (36.0-47.0); HEMOGLOBIN 12.6 g/dL (12.0-15.5); LYMPH # 2.2 x10^3/uL (1.0-4.8); LYMPH % 31 % (24-48); MEAN CORPUSCULAR HEMOGLOBIN 27 pg (25-35); MEAN CORPUSCULAR HGB CONC 33 g/dL (31-37); MEAN CORPUSCULAR VOLUME 84 fL (79-100); MONO # 0.4 x10^3/uL (0.0-1.1); MONO % 7 % (0-9); NEUT # 4.3 x10^3uL (1.8-7.7); NEUT % 62 % (31-73); PLATELET COUNT 257 x10^3/uL (140-400); RED BLOOD COUNT 4.61 x10^6/uL (3.50-5.40); RED CELL DISTRIBUTION WIDTH 15.8 % (11.5-14.5); WHITE BLOOD COUNT 6.9 x10^3/uL (4.0-11.0)
[2017-12-18 06:38] LABS: ALBUMIN 2.8 g/dL (3.4-5.0); ALBUMIN/GLOBULIN RATIO 0.9 (1.0-1.7); CALCIUM 8.3 mg/dL (8.5-10.1); CREATININE 0.7 mg/dL (0.6-1.0); GFR 85.1; POTASSIUM 4.4 mmol/L (3.5-5.1); TOTAL BILIRUBIN 0.1 mg/dL (0.2-1.0); TOTAL PROTEIN 5.8 g/dL (6.4-8.2)
[2017-12-18 06:43] VITALS: BP 119/67
[2017-12-18] MEDS: PHENYTOIN SODIUM EXTENDED 100 MG CAPSULE PO SCH ×3 (06:44→20:32)
[2017-12-18] MEDS: metFORMIN 500 MG TABLET PO SCH ×2 (09:22→17:17)
[2017-12-18] MEDS: LACTOBACILLUS RHAMNOSUS GG 1 CAPSULE. PO SCH ×2 (09:24→20:32)
[2017-12-18] MEDS: LOSARTAN 50 MG TABLET. PO SCH (09:24)
[2017-12-18] MEDS: METOPROLOL SUCC 24HR ER 50 MG TAB.ER.24H. PO SCH (09:25)
[2017-12-18] MEDS: CEPHALEXIN 250 MG CAPSULE PO SCH ×2 (09:25→20:31)
[2017-12-18] MEDS: levETIRAcetam 500 MG TABLET PO SCH ×2 (09:25→20:31)
[2017-12-18] MEDS: CLOTRIMAZOLE 1% TOPICAL CREAM 30GM TUBE. TP SCH ×2 (09:26→20:33)
[2017-12-18] MEDS: TRIAMCINOLONE ACETONIDE 0.025% TP SCH ×2 (09:26→20:33)
[2017-12-18] MEDS: FENOFIBRATE NANOCRYSTALLIZED 48 MG TABLET PO SCH (09:26)
[2017-12-18] MEDS: BETHANECHOL CHLORIDE 25 MG TABLET PO SCH ×4 (09:26→20:32)
[2017-12-18 15:56] VITALS: BP 111/52
[2017-12-18] MEDS: cloZAPine 100 MG TABLET PO SCH (20:31)
[2017-12-18] MEDS: ATORVASTATIN CALCIUM 20 MG TABLET PO SCH (20:31)
[2017-12-18] MEDS: DIVALPROEX ER 500 MG TAB.ER.24H PO SCH (20:32)
--- NOTE | 2017-12-18 20:56 | PDOC ---
Exam Note: Arash Note: Please also refer to the separate dictated note~for this date of service dictated separately.~Patient seen individually. Discussed the patient with Nursing staff reviewed the chart.~Reviewed interim history and current functioning. Reviewed vital signs,~Labs/ Radiology~and current medications noted below. Continue current treatment with the changes noted in the dictated addendum note Assessment: Vital Signs: Vital Signs Date Time Temp Pulse Resp B/P (MAP) Pulse Ox O2 Delivery O2 Flow Rate FiO2 12/18/17 15:56 98.2 91 20 111/52 (71) 93 12/18/17 06:43 Room Air I&O Intake and Output 12/18/17 07:00 Intake Total 1897 ml Balance 1897 ml Intake Oral 1897 ml Labs: Laboratory Tests Test 12/18/17 06:13 12/18/17 07:28 12/18/17 11:22 12/18/17 16:28 White Blood Count 6.9 x10^3/uL (4.0-11.0) Red Blood Count 4.61 x10^6/uL (3.50-5.40) Hemoglobin 12.6 g/dL (12.0-15.5) Hematocrit 38.7 % (36.0-47.0) Mean Corpuscular Volume 84 fL (79-100) Mean Corpuscular Hemoglobin 27 pg (25-35) Mean Corpuscular Hemoglobin Concent 33 g/dL (31-37) Red Cell Distribution Width 15.8 % (11.5-14.5) H Platelet Count 257 x10^3/uL (140-400) Neutrophils (%) (Auto) 62 % (31-73) Lymphocytes (%) (Auto) 31 % (24-48) Monocytes (%) (Auto) 7 % (0-9) Eosinophils (%) (Auto) 0 % (0-3) Basophils (%) (Auto) 0 % (0-3) Neutrophils # (Auto) 4.3 x10^3uL (1.8-7.7) Lymphocytes # (Auto) 2.2 x10^3/uL (1.0-4.8) Monocytes # (Auto) 0.4 x10^3/uL (0.0-1.1) Eosinophils # (Auto) 0.0 x10^3/uL (0.0-0.7) Basophils # (Auto) 0.0 x10^3/uL (0.0-0.2) Sodium Level 140 mmol/L (136-145) Potassium Level 4.4 mmol/L (3.5-5.1) Chloride Level 106 mmol/L (98-107) Carbon Dioxide Level 27 mmol/L (21-32) Anion Gap 7 (6-14) Blood Urea Nitrogen 13 mg/dL (7-20) Creatinine 0.7 mg/dL (0.6-1.0) Estimated GFR (Cockcroft-Gault) 85.1 BUN/Creatinine Ratio 19 (6-20) Glucose Level 144 mg/dL (70-99) H Calcium Level 8.3 mg/dL (8.5-10.1) L Total Bilirubin 0.1 mg/dL (0.2-1.0) L Aspartate Amino Transferase (AST) 11 U/L (15-37) L Alanine Aminotransferase (ALT) 25 U/L (14-59) Alkaline Phosphatase 65 U/L (46-116) Total Protein 5.8 g/dL (6.4-8.2) L Albumin 2.8 g/dL (3.4-5.0) L Albumin/Globulin Ratio 0.9 (1.0-1.7) L Glucose (Fingerstick) 141 mg/dL (70-99) H 153 mg/dL (70-99) H 137 mg/dL (70-99) H Current Medications: Meds: Current Medications Acetaminophen (Tylenol) 650 mg PRN Q6HRS PRN PO PAIN / TEMP; Start 12/13/17 at 16:00 Multi-Ingredient Ointment (Analgesic [place]) 1 joey PRN QID PRN TP MUSCLE PAIN; Start 12/13/17 at 16:00 Al Hydroxide/Mg Hydroxide (Mylanta Plus Xs) 15 ml PRN AFTMEALHC PRN PO DYSPEPSIA Last administered on 12/13/17at 21:05; Start 12/13/17 at 16:00 Magnesium Hydroxide (Milk Of Magnesia) 2,400 mg PRN QHS PRN PO CONSTIPATION; Start 12/13/17 at 16:00 Clozapine (Clozaril) 300 mg DAILY PO Last administered on 12/14/17at 10:03; Start 12/14/17 at 09:00; Stop 12/14/17 at 10:27; Status DC Lorazepam (Ativan) 0.5 mg PRN Q6HRS PRN PO ANXIETY / AGITATION; Start 12/13/17 at 20:45 Atorvastatin Calcium (Lipitor) 20 mg QHS PO Last administered on 12/14/17at 20: 05; Start 12/13/17 at 21:00; Stop 12/15/17 at 15:00; Status DC Bethanechol Chloride (Urecholine) 25 mg QID PO Last administered on 12/18/17at 20:32; Start 12/13/17 at 21:00 Losartan Potassium (Cozaar) 50 mg DAILY PO Last administered on 12/18/17at 09:24 ; Start 12/14/17 at 09:00 Triamcinolone Acetonide (Kenalog) 15 joey BID TP Last administered on 12/18/17at 20:33; Start 12/13/17 at 21:00 Clotrimazole (Lotrimin) 1 joey BID TP Last administered on 12/18/17at 20:33; Start 12/13/17 at 21:00 Fenofibrate (Tricor) 48 mg DAILY PO Last administered on 12/18/17at 09:26; Start 12/14/17 at 09:00 Glipizide (Glucotrol Er) 5 mg DAILY08 PO Last administered on 12/15/17at 08:36; Start 12/14/17 at 08:00; Stop 12/15/17 at 14:58; Status DC Levetiracetam (Keppra) 1,000 mg BID PO Last administered on 12/18/17at 20:31; Start 12/13/17 at 21:00 Metformin HCl (Glucophage) 1,000 mg BIDWMEALS PO Last administered on at 17:17; Start 12/14/17 at 08:00 Metoprolol Succinate (Toprol Xl) 50 mg DAILY PO Last administered on 12/18/17at 09:25; Start 12/14/17 at 09:00 Pantoprazole Sodium (Protonix) 40 mg PRN DAILY PRN PO HEARTBURN / GAS; Start at 07:30 Phenytoin Sodium (Dilantin) 100 mg Q8HRS PO Last administered on 12/18/17at 20: 32; Start 12/13/17 at 22:00 Clozapine (Clozaril) 300 mg QHS PO Last administered on 12/18/17 20:31; Start 12/14/17 at 21:00 Divalproex Sodium (Depakote Er) 500 mg QHS PO Last administered on 12/16/17at 20 :29; Start 12/14/17 at 21:00; Stop 12/17/17 at 18:41; Status DC Glipizide (Glucotrol Er) 10 mg DAILY08 PO Last administered on 12/18/17at 09:23 ; Start 12/16/17 at 08:00 Vitamin D (Vitamin D3) 50,000 unit WEEKLY PO Last administered on 12/16/17 09: 36; Start 12/16/17 at 09:00 Cephalexin HCl (Keflex) 500 mg BID PO Last administered on 12/18/17 20:31; Start 12/15/17 at 21:00; Stop 12/25/17 at 20:59 Atorvastatin Calcium (Lipitor) 40 mg QHS PO Last administered on 12/18/17 20: 31; Start 12/15/17 at 21:00 Lactobacillus Rhamnosus (Culturelle) 1 cap BID PO Last administered on at 20:32; Start 12/16/17 at 09:00 Divalproex Sodium (Depakote Er) 1,000 mg QHS PO Last administered on 12/18/17at 20:32; Start 12/17/17 at 21:00 Active Scripts Active Reported Shingrix Vial Kit (Varicella-Zoster Ge/As01b/Pf) 50 Mcg/0.5 Ml Kit 50 Mcg IM Zostavax Vial (Zoster Vaccine Live/Pf) 19,400 Unit/0.65 Ml Vial 19,400 Unit SQ Triamcinolone Acetonide 15 Gm Cream..g. 15 Gm TP BID Pantoprazole Sodium 40 Mg Tablet.dr 40 Mg PO PRN DAILY PRN Losartan Potassium 50 Mg Tablet 50 Mg PO DAILY Glipizide 5 Mg Tablet 5 Mg PO DAILY Tricor (Fenofibrate Nanocrystallized) 48 Mg Tablet 48 Mg PO DAILY Doxazosin Mesylate 4 Mg Tablet 4 Mg PO Lotrimin Af (Clotrimazole) 12 Gm Cream..g. 12 Gm TP BID Bethanechol Chloride 25 Mg Tablet 25 Mg PO QID Metoprolol Succinate ( Xl ) (Metoprolol Succinate) 50 Mg Tab.er.24h 50 Mg PO DAILY Metformin Hcl 1,000 Mg Tablet 1,000 Mg PO BID Clozaril (Clozapine) 100 Mg Tablet 300 Mg PO DAILY Dilantin (Phenytoin Sodium Extended) 100 Mg Capsule 100 Mg PO Q8HRS Lorazepam 0.5 Mg Tablet 0.5 Mg PO PRN Q6HRS PRN MDD 2mg Keppra (Levetiracetam) 1,000 Mg Tablet 1,000 Mg PO BID Lipitor (Atorvastatin Calcium) 20 Mg Tablet 20 Mg PO QHS I have reviewed the current psychotropics carefully including drug interactions. Risk benefit ratio favors no change other than as noted in my dictated progress note. Diagnosis: Problems: (1) Anxiety disorder (2) Bipolar affective, mixed, sev w/ psych (3) Schizoaffective disorder, chronic condition with acute exacerbation MANAS SHANKAR MD Dec 18, 2017 20:56
--- NOTE | 2017-12-19 00:14 | PN ---
DATE: 12/15/2017 This is a late entry for 12/15/2017 covers elements not covered in my initial note. SUBJECTIVE: I met with the patient in the evening. The patient slept 7-1/4 hours previous night. She is compliant with her medications at night, arguing about her 06:00 a.m. Dilantin, took it later, irritable with Med [facility], somewhat withdrawn to her room. She was started on Keflex for possible UTI at 500 twice a day. REVIEW OF SYSTEMS: Ambulation impaired. No CV, , pulmonary, eye system symptoms on review. MENTAL STATUS EXAM: Oriented to herself and situation. Speech moderate latency, often responses monosyllabic. Abstraction fair, computation impaired, language function intact, attention span short. Mood and affect somewhat withdrawn. LABORATORY DATA: Reviewed. CBC and ANC unremarkable. IMPRESSION: Schizoaffective disorder, bipolar type, mixed with psychotic features. Rest unchanged. PLAN: Treat the UTI. Continue rest of psychotropics. She has been started on Depakote ER 500 at bedtime with CBC, CMP, valproic acid level to be checked on 12/17/2017 and then adjusted. MAN Maikel SHANKAR MD DR: ASHLEIGH/cali JOB#: [id number] / [id number]
--- NOTE | 2017-12-19 01:06 | PN ---
DATE: 12/17/2017 This is a late entry for 12/17/2017 covers elements not covered in my initial note. SUBJECTIVE: I met with the patient in the evening in her room. The patient slept 8-1/4 hours previous night. She remains somewhat withdrawn, resistive with medications. Valproic acid level is in the 40s, on Depakote ER 500 at bedtime. We will increase this to 1 gram at bedtime. Check CBC, CMP, valproic acid level in 3 days. REVIEW OF SYSTEMS: No CV, , pulmonary, eye, ENT system symptoms on review. MENTAL STATUS EXAM: Oriented to herself and situation. Speech coherent, abstraction fair, computation impaired, language function intact. Mood and affect somewhat withdrawn, spends much time in her room, still paranoid. LABORATORY DATA: Reviewed. IMPRESSION: Unchanged from initial note. PLAN: Continue current psychotropics including Clozaril 300 mg at bedtime. We may need to increase this as we adjust the Depakote. Rest unchanged. MAN Maikel SHANKAR MD DR: ASHLEIGH/cali JOB#: [id number] / [id number]
--- NOTE | 2017-12-19 01:41 | PN ---
DATE: 12/16/2017 PSYCHIATRIC PROGRESS NOTE This is a late entry 12/16/2017 and covers elements not covered in my initial note. SUBJECTIVE: I met with the patient in the evening. Overall, the patient tried to refuse her fingersticks and meds and took it after firmly being told that she had to have her fingersticks done. She spends much time in bed and remains somewhat psychotic per nursing report. REVIEW OF SYSTEMS: I met with her in her room, complains of some tiredness. No CV, , pulmonary, eye, ENT system symptoms on review. MENTAL STATUS EXAM: The patient is reasonably oriented. Speech has some latency, coherent. Abstraction fair, computation impaired, language function intact, still somewhat paranoid. No suicidal or homicidal ideation. LABORATORY DATA: Reviewed. IMPRESSION: Unchanged from initial note. PLAN: Continue psychotropics mentioned in my initial note including Keppra 1000 b.i.d., Ativan p.r.n., Dilantin 100 mg q. 8 hours, Clozaril 300 mg at bedtime, Depakote ER started 500 mg p.o. at bedtime. We are awaiting past records from ____ and we have just received records from [facility] with a diagnosis of schizoaffective disorder, diabetes, hyperlipidemia, hypertension, seizure disorder, and the patient had bilateral humeral heads subluxed inferiorly, consequent to a seizure. The CT head shows no acute changes. Plan is as noted, we will adjust the Depakote following the next set of labs. MANAS SHANKAR MD DR: ASHLEIGH/cali JOB#: [id number] / [id number]
[2017-12-19 06:06] VITALS: BP 139/77
[2017-12-19] MEDS: PHENYTOIN SODIUM EXTENDED 100 MG CAPSULE PO SCH ×3 (06:27→20:36)
[2017-12-19] MEDS: levETIRAcetam 500 MG TABLET PO SCH ×2 (08:55→20:37)
[2017-12-19] MEDS: LOSARTAN 50 MG TABLET. PO SCH (08:55)
[2017-12-19] MEDS: LACTOBACILLUS RHAMNOSUS GG 1 CAPSULE. PO SCH ×2 (08:55→20:37)
[2017-12-19] MEDS: BETHANECHOL CHLORIDE 25 MG TABLET PO SCH ×4 (08:56→20:39)
[2017-12-19] MEDS: METOPROLOL SUCC 24HR ER 50 MG TAB.ER.24H. PO SCH (08:56)
[2017-12-19] MEDS: metFORMIN 500 MG TABLET PO SCH ×2 (08:56→17:42)
[2017-12-19] MEDS: FENOFIBRATE NANOCRYSTALLIZED 48 MG TABLET PO SCH (08:56)
[2017-12-19] MEDS: CEPHALEXIN 250 MG CAPSULE PO SCH ×2 (08:56→20:37)
[2017-12-19] MEDS: TRIAMCINOLONE ACETONIDE 0.025% TP SCH ×2 (09:00→20:37)
[2017-12-19] MEDS: CLOTRIMAZOLE 1% TOPICAL CREAM 30GM TUBE. TP SCH ×2 (09:00→20:37)
[2017-12-19 15:56] VITALS: BP 131/86
[2017-12-19] MEDS: ATORVASTATIN CALCIUM 20 MG TABLET PO SCH (20:36)
[2017-12-19] MEDS: DIVALPROEX ER 500 MG TAB.ER.24H PO SCH (20:36)
[2017-12-19] MEDS: cloZAPine 100 MG TABLET PO SCH (20:36)
[2017-12-19] MEDS: cloZAPine 25 MG TABLET PO SCH (20:41)
--- NOTE | 2017-12-19 20:55 | PDOC ---
Exam Note: Arash Note: Please also refer to the separate dictated note~for this date of service dictated separately.~Patient seen individually. Discussed the patient with Nursing staff reviewed the chart.~Reviewed interim history and current functioning. Reviewed vital signs,~Labs/ Radiology~and current medications noted below. Continue current treatment with the changes noted in the dictated addendum note Assessment: Vital Signs: Vital Signs Date Time Temp Pulse Resp B/P (MAP) Pulse Ox O2 Delivery O2 Flow Rate FiO2 12/19/17 15:56 98.0 98 18 131/86 (101) 95 12/18/17 06:43 Room Air I&O Intake and Output 12/19/17 07:00 Intake Total 1560 ml Balance 1560 ml Intake Oral 1560 ml # Voids 1 # Bowel Movements 1 Labs: Laboratory Tests Test 12/19/17 07:30 12/19/17 11:40 12/19/17 16:50 12/19/17 19:23 Glucose (Fingerstick) 168 mg/dL (70-99) H 139 mg/dL (70-99) H 134 mg/dL (70-99) H 126 mg/dL (70-99) H Current Medications: Meds: Current Medications Acetaminophen (Tylenol) 650 mg PRN Q6HRS PRN PO PAIN / TEMP; Start 12/13/17 at 16:00 Multi-Ingredient Ointment (Analgesic [place]) 1 joey PRN QID PRN TP MUSCLE PAIN; Start 12/13/17 at 16:00 Al Hydroxide/Mg Hydroxide (Mylanta Plus Xs) 15 ml PRN AFTMEALHC PRN PO DYSPEPSIA Last administered on 12/13/17at 21:05; Start 12/13/17 at 16:00 Magnesium Hydroxide (Milk Of Magnesia) 2,400 mg PRN QHS PRN PO CONSTIPATION; Start 12/13/17 at 16:00 Clozapine (Clozaril) 300 mg DAILY PO Last administered on 12/14/17at 10:03; Start 12/14/17 at 09:00; Stop 12/14/17 at 10:27; Status DC Lorazepam (Ativan) 0.5 mg PRN Q6HRS PRN PO ANXIETY / AGITATION; Start 12/13/17 at 20:45 Atorvastatin Calcium (Lipitor) 20 mg QHS PO Last administered on 12/14/17at 20: 05; Start 12/13/17 at 21:00; Stop 12/15/17 at 15:00; Status DC Bethanechol Chloride (Urecholine) 25 mg QID PO Last administered on 12/19/17 20:39; Start 12/13/17 at 21:00 Losartan Potassium (Cozaar) 50 mg DAILY PO Last administered on 12/19/17at 08:55 ; Start 12/14/17 at 09:00 Triamcinolone Acetonide (Kenalog) 15 joey BID TP Last administered on 12/18/17at 20:33; Start 12/13/17 at 21:00 Clotrimazole (Lotrimin) 1 joey BID TP Last administered on 12/18/17 20:33; Start 12/13/17 at 21:00 Fenofibrate (Tricor) 48 mg DAILY PO Last administered on 12/19/17 08:56; Start 12/14/17 at 09:00 Glipizide (Glucotrol Er) 5 mg DAILY08 PO Last administered on 12/15/17at 08:36; Start 12/14/17 at 08:00; Stop 12/15/17 at 14:58; Status DC Levetiracetam (Keppra) 1,000 mg BID PO Last administered on 12/19/17 20:37; Start 12/13/17 at 21:00 Metformin HCl (Glucophage) 1,000 mg BIDWMEALS PO Last administered on at 17:42; Start 12/14/17 at 08:00 Metoprolol Succinate (Toprol Xl) 50 mg DAILY PO Last administered on 12/19/17at 08:56; Start 12/14/17 at 09:00 Pantoprazole Sodium (Protonix) 40 mg PRN DAILY PRN PO HEARTBURN / GAS; Start at 07:30 Phenytoin Sodium (Dilantin) 100 mg Q8HRS PO Last administered on 12/19/17 20: 36; Start 12/13/17 at 22:00 Clozapine (Clozaril) 300 mg QHS PO Last administered on 12/18/17at 20:31; Start 12/14/17 at 21:00; Stop 12/19/17 at 17:05; Status DC Divalproex Sodium (Depakote Er) 500 mg QHS PO Last administered on 12/16/17at 20 :29; Start 12/14/17 at 21:00; Stop 12/17/17 at 18:41; Status DC Glipizide (Glucotrol Er) 10 mg DAILY08 PO Last administered on 12/19/17 08:56 ; Start 12/16/17 at 08:00 Vitamin D (Vitamin D3) 50,000 unit WEEKLY PO Last administered on 12/16/17at 09: 36; Start 12/16/17 at 09:00 Cephalexin HCl (Keflex) 500 mg BID PO Last administered on 12/19/17 20:37; Start 12/15/17 at 21:00; Stop 12/25/17 at 20:59 Atorvastatin Calcium (Lipitor) 40 mg QHS PO Last administered on 12/19/17at 20: 36; Start 12/15/17 at 21:00 Lactobacillus Rhamnosus (Culturelle) 1 cap BID PO Last administered on 20:37; Start 12/16/17 at 09:00 Divalproex Sodium (Depakote Er) 1,000 mg QHS PO Last administered on 12/19/17at 20:36; Start 12/17/17 at 21:00 Clozapine (Clozaril) 300 mg QHS PO Last administered on 12/19/17 20:36; Start 12/19/17 at 21:00 Clozapine (Clozaril) 25 mg QHS PO Last administered on 12/19/17at 20:41; Start 12/19/17 at 21:00 Active Scripts Active Reported Shingrix Vial Kit (Varicella-Zoster Ge/As01b/Pf) 50 Mcg/0.5 Ml Kit 50 Mcg IM Zostavax Vial (Zoster Vaccine Live/Pf) 19,400 Unit/0.65 Ml Vial 19,400 Unit SQ Triamcinolone Acetonide 15 Gm Cream..g. 15 Gm TP BID Pantoprazole Sodium 40 Mg Tablet.dr 40 Mg PO PRN DAILY PRN Losartan Potassium 50 Mg Tablet 50 Mg PO DAILY Glipizide 5 Mg Tablet 5 Mg PO DAILY Tricor (Fenofibrate Nanocrystallized) 48 Mg Tablet 48 Mg PO DAILY Doxazosin Mesylate 4 Mg Tablet 4 Mg PO Lotrimin Af (Clotrimazole) 12 Gm Cream..g. 12 Gm TP BID Bethanechol Chloride 25 Mg Tablet 25 Mg PO QID Metoprolol Succinate ( Xl ) (Metoprolol Succinate) 50 Mg Tab.er.24h 50 Mg PO DAILY Metformin Hcl 1,000 Mg Tablet 1,000 Mg PO BID Clozaril (Clozapine) 100 Mg Tablet 300 Mg PO DAILY Dilantin (Phenytoin Sodium Extended) 100 Mg Capsule 100 Mg PO Q8HRS Lorazepam 0.5 Mg Tablet 0.5 Mg PO PRN Q6HRS PRN MDD 2mg Keppra (Levetiracetam) 1,000 Mg Tablet 1,000 Mg PO BID Lipitor (Atorvastatin Calcium) 20 Mg Tablet 20 Mg PO QHS I have reviewed the current psychotropics carefully including drug interactions. Risk benefit ratio favors no change other than as noted in my dictated progress note. Diagnosis: Problems: (1) Anxiety disorder (2) Bipolar affective, mixed, sev w/ psych (3) Schizoaffective disorder, chronic condition with acute exacerbation MANAS SHANKAR MD Dec 19, 2017 20:55
--- NOTE | 2017-12-19 23:26 | PN ---
DATE: 12/18/2017 PSYCHIATRIC PROGRESS NOTE This is a late entry of 12/18/2017, covers elements not covered in my initial note. SUBJECTIVE: I met with the patient in the evening at length in her room. The patient slept 6-1/2 hours previous evening, did well at night, good in the evening hours, refused 2 p.m. medications 12/18/2017 and took it later. She was convinced the medication was causing leukemia. She wanted to talk to me. I discussed this with her at some length the evening of 12/18/2017, and she was later agreeable to taking her medications. REVIEW OF SYSTEMS: No CV, , pulmonary, eye, ENT system symptoms on review. MENTAL STATUS EXAM: Oriented to herself and situation. Speech is coherent, has some latency. Abstraction fair, computation impaired, language function intact, attention span short. Mood and affect still somewhat withdrawn. LABORATORY DATA: Reviewed. Depakote has been increased. IMPRESSION: Unchanged from initial note. PLAN: Follow labs level on the increased Depakote. Rest unchanged, and we will increase the Clozaril on 12/19/2017 to 325 mg instead of the 300 mg at bedtime she is getting at this time. MANAS SHANKAR MD DR: ASHLEIGH/cali JOB#: [id number] / [id number]
[2017-12-20 06:00] VITALS: BP 122/70
[2017-12-20] MEDS: PHENYTOIN SODIUM EXTENDED 100 MG CAPSULE PO SCH ×3 (06:16→20:50)
[2017-12-20 07:34] LABS: BASO % 0 % (0-3); EOS % 0 % (0-3); HEMATOCRIT 36.4 % (36.0-47.0); HEMOGLOBIN 11.9 g/dL (12.0-15.5); LYMPH # 2.2 x10^3/uL (1.0-4.8); LYMPH % 33 % (24-48); MEAN CORPUSCULAR HEMOGLOBIN 27 pg (25-35); MEAN CORPUSCULAR HGB CONC 33 g/dL (31-37); MEAN CORPUSCULAR VOLUME 84 fL (79-100); MONO # 0.5 x10^3/uL (0.0-1.1); MONO % 7 % (0-9); NEUT % 60 % (31-73); PLATELET COUNT 226 x10^3/uL (140-400); RED BLOOD COUNT 4.33 x10^6/uL (3.50-5.40); RED CELL DISTRIBUTION WIDTH 15.7 % (11.5-14.5); WHITE BLOOD COUNT 6.6 x10^3/uL (4.0-11.0)
[2017-12-20 07:46] LABS: ALBUMIN 2.6 g/dL (3.4-5.0); ALBUMIN/GLOBULIN RATIO 0.9 (1.0-1.7); ALK PHOS 54 U/L (46-116); ALT (SGPT) 19 U/L (14-59); ANION GAP 5 (6-14); AST (SGOT) 8 U/L (15-37); BLOOD UREA NITROGEN 15 mg/dL (7-20); BUN/CREATININE RATIO 21 (6-20); CALCIUM 7.9 mg/dL (8.5-10.1); CARBON DIOXIDE 30 mmol/L (21-32); CHLORIDE 105 mmol/L (98-107); CREATININE 0.7 mg/dL (0.6-1.0); GFR 85.1; GLUCOSE 95 mg/dL (70-99); POTASSIUM 4.3 mmol/L (3.5-5.1); SODIUM 140 mmol/L (136-145); TOTAL BILIRUBIN 0.1 mg/dL (0.2-1.0); TOTAL PROTEIN 5.5 g/dL (6.4-8.2)
[2017-12-20] MEDS: METOPROLOL SUCC 24HR ER 50 MG TAB.ER.24H. PO SCH (07:47)
[2017-12-20] MEDS: CEPHALEXIN 250 MG CAPSULE PO SCH ×2 (07:47→20:51)
[2017-12-20] MEDS: LACTOBACILLUS RHAMNOSUS GG 1 CAPSULE. PO SCH ×2 (07:47→20:50)
[2017-12-20] MEDS: levETIRAcetam 500 MG TABLET PO SCH ×2 (07:47→20:51)
[2017-12-20] MEDS: FENOFIBRATE NANOCRYSTALLIZED 48 MG TABLET PO SCH (07:47)
[2017-12-20] MEDS: metFORMIN 500 MG TABLET PO SCH ×2 (07:47→15:53)
[2017-12-20] MEDS: BETHANECHOL CHLORIDE 25 MG TABLET PO SCH ×4 (07:48→20:50)
[2017-12-20] MEDS: LOSARTAN 50 MG TABLET. PO SCH (07:48)
[2017-12-20 07:49] LABS: VAL ACID 44 mcg/mL (50-100)
[2017-12-20] MEDS: TRIAMCINOLONE ACETONIDE 0.025% TP SCH ×2 (07:49→20:51)
[2017-12-20] MEDS: CLOTRIMAZOLE 1% TOPICAL CREAM 30GM TUBE. TP SCH ×2 (07:49→20:51)
[2017-12-20 16:59] VITALS: BP 110/70
[2017-12-20] MEDS: DIVALPROEX ER 500 MG TAB.ER.24H PO SCH (20:50)
[2017-12-20] MEDS: cloZAPine 100 MG TABLET PO SCH (20:50)
[2017-12-20] MEDS: cloZAPine 25 MG TABLET PO SCH (20:50)
[2017-12-20] MEDS: ATORVASTATIN CALCIUM 20 MG TABLET PO SCH (20:51)
--- NOTE | 2017-12-20 21:15 | PDOC ---
Exam Note: Arash Note: Please also refer to the separate dictated note~for this date of service dictated separately.~Patient seen individually. Discussed the patient with Nursing staff reviewed the chart.~Reviewed interim history and current functioning. Reviewed vital signs,~Labs/ Radiology~and current medications noted below. Continue current treatment with the changes noted in the dictated addendum note Assessment: Vital Signs: Vital Signs Date Time Temp Pulse Resp B/P (MAP) Pulse Ox O2 Delivery O2 Flow Rate FiO2 12/20/17 16:59 97.7 98 18 110/70 (83) 97 Room Air I&O Intake and Output 12/20/17 07:00 Intake Total 1800 ml Balance 1800 ml Intake Oral 1800 ml # Voids 1 # Bowel Movements 1 Labs: Laboratory Tests Test 12/20/17 07:18 12/20/17 07:46 12/20/17 11:42 12/20/17 16:38 White Blood Count 6.6 x10^3/uL (4.0-11.0) Red Blood Count 4.33 x10^6/uL (3.50-5.40) Hemoglobin 11.9 g/dL (12.0-15.5) L Hematocrit 36.4 % (36.0-47.0) Mean Corpuscular Volume 84 fL (79-100) Mean Corpuscular Hemoglobin 27 pg (25-35) Mean Corpuscular Hemoglobin Concent 33 g/dL (31-37) Red Cell Distribution Width 15.7 % (11.5-14.5) H Platelet Count 226 x10^3/uL (140-400) Neutrophils (%) (Auto) 60 % (31-73) Lymphocytes (%) (Auto) 33 % (24-48) Monocytes (%) (Auto) 7 % (0-9) Eosinophils (%) (Auto) 0 % (0-3) Basophils (%) (Auto) 0 % (0-3) Neutrophils # (Auto) 4.0 x10^3uL (1.8-7.7) Lymphocytes # (Auto) 2.2 x10^3/uL (1.0-4.8) Monocytes # (Auto) 0.5 x10^3/uL (0.0-1.1) Eosinophils # (Auto) 0.0 x10^3/uL (0.0-0.7) Basophils # (Auto) 0.0 x10^3/uL (0.0-0.2) Sodium Level 140 mmol/L (136-145) Potassium Level 4.3 mmol/L (3.5-5.1) Chloride Level 105 mmol/L (98-107) Carbon Dioxide Level 30 mmol/L (21-32) Anion Gap 5 (6-14) L Blood Urea Nitrogen 15 mg/dL (7-20) Creatinine 0.7 mg/dL (0.6-1.0) Estimated GFR (Cockcroft-Gault) 85.1 BUN/Creatinine Ratio 21 (6-20) H Glucose Level 95 mg/dL (70-99) Calcium Level 7.9 mg/dL (8.5-10.1) L Total Bilirubin 0.1 mg/dL (0.2-1.0) L Aspartate Amino Transferase (AST) 8 U/L (15-37) L Alanine Aminotransferase (ALT) 19 U/L (14-59) Alkaline Phosphatase 54 U/L (46-116) Total Protein 5.5 g/dL (6.4-8.2) L Albumin 2.6 g/dL (3.4-5.0) L Albumin/Globulin Ratio 0.9 (1.0-1.7) L Valproic Acid Level 44 mcg/mL (50-100) L Valproic Acid Last Dose Date 12/19/2017 Valproic Acid Last Dose Time 2100 Glucose (Fingerstick) 157 mg/dL (70-99) H 146 mg/dL (70-99) H 95 mg/dL (70-99) Test 12/20/17 19:28 Glucose (Fingerstick) 98 mg/dL (70-99) Current Medications: Meds: Current Medications Acetaminophen (Tylenol) 650 mg PRN Q6HRS PRN PO PAIN / TEMP; Start 12/13/17 at 16:00 Multi-Ingredient Ointment (Analgesic [place]) 1 joey PRN QID PRN TP MUSCLE PAIN; Start 12/13/17 at 16:00 Al Hydroxide/Mg Hydroxide (Mylanta Plus Xs) 15 ml PRN AFTMEALHC PRN PO DYSPEPSIA Last administered on 12/13/17at 21:05; Start 12/13/17 at 16:00 Magnesium Hydroxide (Milk Of Magnesia) 2,400 mg PRN QHS PRN PO CONSTIPATION; Start 12/13/17 at 16:00 Clozapine (Clozaril) 300 mg DAILY PO Last administered on 12/14/17at 10:03; Start 12/14/17 at 09:00; Stop 12/14/17 at 10:27; Status DC Lorazepam (Ativan) 0.5 mg PRN Q6HRS PRN PO ANXIETY / AGITATION; Start 12/13/17 at 20:45 Atorvastatin Calcium (Lipitor) 20 mg QHS PO Last administered on 12/14/17at 20: 05; Start 12/13/17 at 21:00; Stop 12/15/17 at 15:00; Status DC Bethanechol Chloride (Urecholine) 25 mg QID PO Last administered on 12/20/17at 20:50; Start 12/13/17 at 21:00 Losartan Potassium (Cozaar) 50 mg DAILY PO Last administered on 12/20/17at 07:48 ; Start 12/14/17 at 09:00 Triamcinolone Acetonide (Kenalog) 15 joey BID TP Last administered on 12/20/17at 07:49; Start 12/13/17 at 21:00 Clotrimazole (Lotrimin) 1 joey BID TP Last administered on 12/20/17at 07:49; Start 12/13/17 at 21:00 Fenofibrate (Tricor) 48 mg DAILY PO Last administered on 12/20/17at 07:47; Start 12/14/17 at 09:00 Glipizide (Glucotrol Er) 5 mg DAILY08 PO Last administered on 12/15/17at 08:36; Start 12/14/17 at 08:00; Stop 12/15/17 at 14:58; Status DC Levetiracetam (Keppra) 1,000 mg BID PO Last administered on 12/20/17at 20:51; Start 12/13/17 at 21:00 Metformin HCl (Glucophage) 1,000 mg BIDWMEALS PO Last administered on at 15:53; Start 12/14/17 at 08:00 Metoprolol Succinate (Toprol Xl) 50 mg DAILY PO Last administered on 12/20/17at 07:47; Start 12/14/17 at 09:00 Pantoprazole Sodium (Protonix) 40 mg PRN DAILY PRN PO HEARTBURN / GAS; Start at 07:30 Phenytoin Sodium (Dilantin) 100 mg Q8HRS PO Last administered on 12/20/17 20: 50; Start 12/13/17 at 22:00 Clozapine (Clozaril) 300 mg QHS PO Last administered on 12/18/17at 20:31; Start 12/14/17 at 21:00; Stop 12/19/17 at 17:05; Status DC Divalproex Sodium (Depakote Er) 500 mg QHS PO Last administered on 12/16/17 20 :29; Start 12/14/17 at 21:00; Stop 12/17/17 at 18:41; Status DC Glipizide (Glucotrol Er) 10 mg DAILY08 PO Last administered on 12/20/17at 07:47 ; Start 12/16/17 at 08:00 Vitamin D (Vitamin D3) 50,000 unit WEEKLY PO Last administered on 12/16/17 09: 36; Start 12/16/17 at 09:00 Cephalexin HCl (Keflex) 500 mg BID PO Last administered on 12/20/17at 20:51; Start 12/15/17 at 21:00; Stop 12/25/17 at 20:59 Atorvastatin Calcium (Lipitor) 40 mg QHS PO Last administered on 12/20/17 20: 51; Start 12/15/17 at 21:00 Lactobacillus Rhamnosus (Culturelle) 1 cap BID PO Last administered on at 20:50; Start 12/16/17 at 09:00 Divalproex Sodium (Depakote Er) 1,000 mg QHS PO Last administered on 12/20/17at 20:50; Start 12/17/17 at 21:00 Clozapine (Clozaril) 300 mg QHS PO Last administered on 12/20/17 20:50; Start 12/19/17 at 21:00 Clozapine (Clozaril) 25 mg QHS PO Last administered on 12/20/17at 20:50; Start 12/19/17 at 21:00 Active Scripts Active Reported Shingrix Vial Kit (Varicella-Zoster Ge/As01b/Pf) 50 Mcg/0.5 Ml Kit 50 Mcg IM Zostavax Vial (Zoster Vaccine Live/Pf) 19,400 Unit/0.65 Ml Vial 19,400 Unit SQ Triamcinolone Acetonide 15 Gm Cream..g. 15 Gm TP BID Pantoprazole Sodium 40 Mg Tablet.dr 40 Mg PO PRN DAILY PRN Losartan Potassium 50 Mg Tablet 50 Mg PO DAILY Glipizide 5 Mg Tablet 5 Mg PO DAILY Tricor (Fenofibrate Nanocrystallized) 48 Mg Tablet 48 Mg PO DAILY Doxazosin Mesylate 4 Mg Tablet 4 Mg PO Lotrimin Af (Clotrimazole) 12 Gm Cream..g. 12 Gm TP BID Bethanechol Chloride 25 Mg Tablet 25 Mg PO QID Metoprolol Succinate ( Xl ) (Metoprolol Succinate) 50 Mg Tab.er.24h 50 Mg PO DAILY Metformin Hcl 1,000 Mg Tablet 1,000 Mg PO BID Clozaril (Clozapine) 100 Mg Tablet 300 Mg PO DAILY Dilantin (Phenytoin Sodium Extended) 100 Mg Capsule 100 Mg PO Q8HRS Lorazepam 0.5 Mg Tablet 0.5 Mg PO PRN Q6HRS PRN MDD 2mg Keppra (Levetiracetam) 1,000 Mg Tablet 1,000 Mg PO BID Lipitor (Atorvastatin Calcium) 20 Mg Tablet 20 Mg PO QHS I have reviewed the current psychotropics carefully including drug interactions. Risk benefit ratio favors no change other than as noted in my dictated progress note. Diagnosis: Problems: (1) Anxiety disorder (2) Bipolar affective, mixed, sev w/ psych (3) Schizoaffective disorder, chronic condition with acute exacerbation MANAS SHANKAR MD Dec 20, 2017 21:15
--- NOTE | 2017-12-21 00:07 | PN ---
DATE: 12/19/2017 PSYCHIATRIC PROGRESS NOTE This late entry 12/19/2017 covers elements, not covered in my initial note. SUBJECTIVE: I met with the patient in the evening. I also met with the patient's [id number] since the patient's sister is her court-appointed guardian. Discussed treatment team meeting on to address their concerns and discussed the patient's progress, noncompliance with medications. The patient slept 7-1/2 hours previous night. She has been a little more compliant with her medication, took a nap after lunch, still paranoid. REVIEW OF SYSTEMS: No CV, , pulmonary, eye, ENT system symptoms on review. I met with her in her room. MENTAL STATUS EXAM: Reasonably oriented. Speech is coherent, somewhat pressured at times. Abstraction fair, computation impaired, language function intact, attention span short. Mood and affect remains withdrawn and she is paranoid, psychotic, but improved. LABORATORY DATA: Reviewed. IMPRESSION: Schizoaffective disorder, bipolar type, mixed with psychotic features. Rest unchanged. PLAN: Continue Depakote ER 1000 mg at bedtime. Check CBC, CMP, valproic acid level on 12/20/2017. Maintain Keppra 1000 b.i.d. for her seizures, Ativan p.r.n., Dilantin, Clozaril 325 mg p.o. at bedtime. Adjust further as clinically indicated. MANAS SHANKAR MD DR: ASHLEIGH/cali JOB#: [id number] / [id number]
[2017-12-21 05:57] VITALS: BP 108/64
[2017-12-21 06:01] VITALS: BP 108/64
[2017-12-21] MEDS: PHENYTOIN SODIUM EXTENDED 100 MG CAPSULE PO SCH ×3 (06:07→20:16)
[2017-12-21] MEDS: METOPROLOL SUCC 24HR ER 50 MG TAB.ER.24H. PO SCH (09:00)
[2017-12-21] MEDS: LOSARTAN 50 MG TABLET. PO SCH (09:00)
[2017-12-21] MEDS: CLOTRIMAZOLE 1% TOPICAL CREAM 30GM TUBE. TP SCH ×2 (09:00→20:17)
[2017-12-21] MEDS: TRIAMCINOLONE ACETONIDE 0.025% TP SCH ×2 (09:00→20:17)
[2017-12-21] MEDS: metFORMIN 500 MG TABLET PO SCH ×2 (09:23→17:17)
[2017-12-21] MEDS: levETIRAcetam 500 MG TABLET PO SCH ×2 (09:24→20:15)
[2017-12-21] MEDS: LACTOBACILLUS RHAMNOSUS GG 1 CAPSULE. PO SCH ×2 (09:24→20:15)
[2017-12-21] MEDS: CEPHALEXIN 250 MG CAPSULE PO SCH ×2 (09:24→20:16)
[2017-12-21] MEDS: BETHANECHOL CHLORIDE 25 MG TABLET PO SCH ×4 (09:25→20:17)
[2017-12-21] MEDS: FENOFIBRATE NANOCRYSTALLIZED 48 MG TABLET PO SCH (09:25)
[2017-12-21 16:54] VITALS: BP 119/72
[2017-12-21] MEDS: ATORVASTATIN CALCIUM 20 MG TABLET PO SCH (20:14)
[2017-12-21] MEDS: DIVALPROEX ER 500 MG TAB.ER.24H PO SCH (20:15)
[2017-12-21] MEDS: cloZAPine 100 MG TABLET PO SCH (20:15)
[2017-12-21] MEDS: cloZAPine 25 MG TABLET PO SCH (20:16)
--- NOTE | 2017-12-21 20:48 | PDOC ---
Exam Note: Arash Note: Please also refer to the separate dictated note~for this date of service dictated separately.~Patient seen individually. Discussed the patient with Nursing staff reviewed the chart.~Reviewed interim history and current functioning. Reviewed vital signs,~Labs/ Radiology~and current medications noted below. Continue current treatment with the changes noted in the dictated addendum note Assessment: Vital Signs: Vital Signs Date Time Temp Pulse Resp B/P (MAP) Pulse Ox O2 Delivery O2 Flow Rate FiO2 12/21/17 16:54 98.6 103 20 119/72 (88) 95 12/20/17 16:59 Room Air I&O Intake and Output 12/21/17 07:00 Intake Total 1200 ml Balance 1200 ml Intake Oral 1200 ml # Voids 1 Labs: Laboratory Tests Test 12/21/17 07:41 12/21/17 12:06 12/21/17 16:47 12/21/17 19:08 Glucose (Fingerstick) 103 mg/dL (70-99) H 232 mg/dL (70-99) H 116 mg/dL (70-99) H 172 mg/dL (70-99) H Current Medications: Meds: Current Medications Acetaminophen (Tylenol) 650 mg PRN Q6HRS PRN PO PAIN / TEMP; Start 12/13/17 at 16:00 Multi-Ingredient Ointment (Analgesic [place]) 1 joey PRN QID PRN TP MUSCLE PAIN; Start 12/13/17 at 16:00 Al Hydroxide/Mg Hydroxide (Mylanta Plus Xs) 15 ml PRN AFTMEALHC PRN PO DYSPEPSIA Last administered on 12/13/17at 21:05; Start 12/13/17 at 16:00 Magnesium Hydroxide (Milk Of Magnesia) 2,400 mg PRN QHS PRN PO CONSTIPATION; Start 12/13/17 at 16:00 Clozapine (Clozaril) 300 mg DAILY PO Last administered on 12/14/17at 10:03; Start 12/14/17 at 09:00; Stop 12/14/17 at 10:27; Status DC Lorazepam (Ativan) 0.5 mg PRN Q6HRS PRN PO ANXIETY / AGITATION; Start 12/13/17 at 20:45 Atorvastatin Calcium (Lipitor) 20 mg QHS PO Last administered on 12/14/17at 20: 05; Start 12/13/17 at 21:00; Stop 12/15/17 at 15:00; Status DC Bethanechol Chloride (Urecholine) 25 mg QID PO Last administered on 12/21/17at 20:17; Start 12/13/17 at 21:00 Losartan Potassium (Cozaar) 50 mg DAILY PO Last administered on 12/20/17at 07:48 ; Start 12/14/17 at 09:00 Triamcinolone Acetonide (Kenalog) 15 joey BID TP Last administered on 12/21/17at 20:17; Start 12/13/17 at 21:00 Clotrimazole (Lotrimin) 1 joey BID TP Last administered on 12/21/17at 20:17; Start 12/13/17 at 21:00 Fenofibrate (Tricor) 48 mg DAILY PO Last administered on 12/21/17at 09:25; Start 12/14/17 at 09:00 Glipizide (Glucotrol Er) 5 mg DAILY08 PO Last administered on 12/15/17at 08:36; Start 12/14/17 at 08:00; Stop 12/15/17 at 14:58; Status DC Levetiracetam (Keppra) 1,000 mg BID PO Last administered on 12/21/17at 20:15; Start 12/13/17 at 21:00 Metformin HCl (Glucophage) 1,000 mg BIDWMEALS PO Last administered on at 17:17; Start 12/14/17 at 08:00 Metoprolol Succinate (Toprol Xl) 50 mg DAILY PO Last administered on 12/20/17at 07:47; Start 12/14/17 at 09:00 Pantoprazole Sodium (Protonix) 40 mg PRN DAILY PRN PO HEARTBURN / GAS; Start at 07:30 Phenytoin Sodium (Dilantin) 100 mg Q8HRS PO Last administered on 12/21/17at 20: 16; Start 12/13/17 at 22:00 Clozapine (Clozaril) 300 mg QHS PO Last administered on 12/18/17at 20:31; Start 12/14/17 at 21:00; Stop 12/19/17 at 17:05; Status DC Divalproex Sodium (Depakote Er) 500 mg QHS PO Last administered on 12/16/17 20 :29; Start 12/14/17 at 21:00; Stop 12/17/17 at 18:41; Status DC Glipizide (Glucotrol Er) 10 mg DAILY08 PO Last administered on 12/21/17at 09:24 ; Start 12/16/17 at 08:00 Vitamin D (Vitamin D3) 50,000 unit WEEKLY PO Last administered on 12/16/17at 09: 36; Start 12/16/17 at 09:00 Cephalexin HCl (Keflex) 500 mg BID PO Last administered on 12/21/17 20:16; Start 12/15/17 at 21:00; Stop 12/25/17 at 20:59 Atorvastatin Calcium (Lipitor) 40 mg QHS PO Last administered on 12/21/17 20: 14; Start 12/15/17 at 21:00 Lactobacillus Rhamnosus (Culturelle) 1 cap BID PO Last administered on 20:15; Start 12/16/17 at 09:00 Divalproex Sodium (Depakote Er) 1,000 mg QHS PO Last administered on 12/21/17 20:15; Start 12/17/17 at 21:00 Clozapine (Clozaril) 300 mg QHS PO Last administered on 12/21/17 20:15; Start 12/19/17 at 21:00 Clozapine (Clozaril) 25 mg QHS PO Last administered on 12/21/17at 20:16; Start 12/19/17 at 21:00 Active Scripts Active Reported Shingrix Vial Kit (Varicella-Zoster Ge/As01b/Pf) 50 Mcg/0.5 Ml Kit 50 Mcg IM Zostavax Vial (Zoster Vaccine Live/Pf) 19,400 Unit/0.65 Ml Vial 19,400 Unit SQ Triamcinolone Acetonide 15 Gm Cream..g. 15 Gm TP BID Pantoprazole Sodium 40 Mg Tablet.dr 40 Mg PO PRN DAILY PRN Losartan Potassium 50 Mg Tablet 50 Mg PO DAILY Glipizide 5 Mg Tablet 5 Mg PO DAILY Tricor (Fenofibrate Nanocrystallized) 48 Mg Tablet 48 Mg PO DAILY Doxazosin Mesylate 4 Mg Tablet 4 Mg PO Lotrimin Af (Clotrimazole) 12 Gm Cream..g. 12 Gm TP BID Bethanechol Chloride 25 Mg Tablet 25 Mg PO QID Metoprolol Succinate ( Xl ) (Metoprolol Succinate) 50 Mg Tab.er.24h 50 Mg PO DAILY Metformin Hcl 1,000 Mg Tablet 1,000 Mg PO BID Clozaril (Clozapine) 100 Mg Tablet 300 Mg PO DAILY Dilantin (Phenytoin Sodium Extended) 100 Mg Capsule 100 Mg PO Q8HRS Lorazepam 0.5 Mg Tablet 0.5 Mg PO PRN Q6HRS PRN MDD 2mg Keppra (Levetiracetam) 1,000 Mg Tablet 1,000 Mg PO BID Lipitor (Atorvastatin Calcium) 20 Mg Tablet 20 Mg PO QHS I have reviewed the current psychotropics carefully including drug interactions. Risk benefit ratio favors no change other than as noted in my dictated progress note. Diagnosis: Problems: (1) Anxiety disorder (2) Bipolar affective, mixed, sev w/ psych (3) Schizoaffective disorder, chronic condition with acute exacerbation MANAS SHANKAR MD Dec 21, 2017 20:48
[2017-12-22] MEDS ORDERED: ONDANSETRON ODT 4 MG TAB.RAPDIS PO PRN (00:30)
[2017-12-22] MEDS: PHENYTOIN SODIUM EXTENDED 100 MG CAPSULE PO SCH ×3 (05:23→20:10)
[2017-12-22 06:32] VITALS: BP 132/62
[2017-12-22 07:50] LABS: VAL ACID 64 mcg/mL (50-100)
[2017-12-22] MEDS: TRIAMCINOLONE ACETONIDE 0.025% TP SCH ×2 (09:00→20:10)
[2017-12-22] MEDS: CLOTRIMAZOLE 1% TOPICAL CREAM 30GM TUBE. TP SCH ×2 (09:00→20:10)
[2017-12-22] MEDS: FENOFIBRATE NANOCRYSTALLIZED 48 MG TABLET PO SCH (10:17)
[2017-12-22] MEDS: metFORMIN 500 MG TABLET PO SCH ×2 (10:17→17:09)
[2017-12-22] MEDS: LACTOBACILLUS RHAMNOSUS GG 1 CAPSULE. PO SCH ×2 (10:18→20:09)
[2017-12-22] MEDS: levETIRAcetam 500 MG TABLET PO SCH ×2 (10:18→20:09)
[2017-12-22] MEDS: CEPHALEXIN 250 MG CAPSULE PO SCH ×2 (10:18→20:09)
[2017-12-22] MEDS: LOSARTAN 50 MG TABLET. PO SCH (10:18)
[2017-12-22] MEDS: METOPROLOL SUCC 24HR ER 50 MG TAB.ER.24H. PO SCH (10:18)
[2017-12-22] MEDS: BETHANECHOL CHLORIDE 25 MG TABLET PO SCH ×4 (10:19→20:10)
[2017-12-22 16:56] VITALS: BP 97/60
[2017-12-22] MEDS: DIVALPROEX ER 500 MG TAB.ER.24H PO SCH (20:09)
[2017-12-22] MEDS: ATORVASTATIN CALCIUM 20 MG TABLET PO SCH (20:09)
[2017-12-22] MEDS: cloZAPine 100 MG TABLET PO SCH (20:09)
[2017-12-22] MEDS: cloZAPine 25 MG TABLET PO SCH (20:09)
--- NOTE | 2017-12-22 20:56 | PDOC ---
Exam Note: Arash Note: Please also refer to the separate dictated note~for this date of service dictated separately.~Patient seen individually. Discussed the patient with Nursing staff reviewed the chart.~Reviewed interim history and current functioning. Reviewed vital signs,~Labs/ Radiology~and current medications noted below. Continue current treatment with the changes noted in the dictated addendum note Assessment: Vital Signs: Vital Signs Date Time Temp Pulse Resp B/P (MAP) Pulse Ox O2 Delivery O2 Flow Rate FiO2 12/22/17 16:56 98.0 90 18 97/60 (72) 95 12/20/17 16:59 Room Air I&O Intake and Output 12/22/17 07:00 Intake Total 1200 ml Balance 1200 ml Intake Oral 1200 ml # Voids 1 Labs: Laboratory Tests Test 12/22/17 07:24 12/22/17 07:42 12/22/17 12:11 12/22/17 16:56 Valproic Acid Level 64 mcg/mL (50-100) Valproic Acid Last Dose Date 12/21/17 Valproic Acid Last Dose Time 2100 Glucose (Fingerstick) 129 mg/dL (70-99) H 147 mg/dL (70-99) H 129 mg/dL (70-99) H Test 12/22/17 19:22 Glucose (Fingerstick) 143 mg/dL (70-99) H Current Medications: Meds: Current Medications Acetaminophen (Tylenol) 650 mg PRN Q6HRS PRN PO PAIN / TEMP; Start 12/13/17 at 16:00 Multi-Ingredient Ointment (Analgesic [place]) 1 joey PRN QID PRN TP MUSCLE PAIN; Start 12/13/17 at 16:00 Al Hydroxide/Mg Hydroxide (Mylanta Plus Xs) 15 ml PRN AFTMEALHC PRN PO DYSPEPSIA Last administered on 12/13/17at 21:05; Start 12/13/17 at 16:00 Magnesium Hydroxide (Milk Of Magnesia) 2,400 mg PRN QHS PRN PO CONSTIPATION; Start 12/13/17 at 16:00 Clozapine (Clozaril) 300 mg DAILY PO Last administered on 12/14/17at 10:03; Start 12/14/17 at 09:00; Stop 12/14/17 at 10:27; Status DC Lorazepam (Ativan) 0.5 mg PRN Q6HRS PRN PO ANXIETY / AGITATION; Start 12/13/17 at 20:45 Atorvastatin Calcium (Lipitor) 20 mg QHS PO Last administered on 12/14/17at 20: 05; Start 12/13/17 at 21:00; Stop 12/15/17 at 15:00; Status DC Bethanechol Chloride (Urecholine) 25 mg QID PO Last administered on 12/22/17at 20:10; Start 12/13/17 at 21:00 Losartan Potassium (Cozaar) 50 mg DAILY PO Last administered on 12/22/17at 10:18 ; Start 12/14/17 at 09:00 Triamcinolone Acetonide (Kenalog) 15 joey BID TP Last administered on 12/22/17at 20:10; Start 12/13/17 at 21:00 Clotrimazole (Lotrimin) 1 joey BID TP Last administered on 12/22/17at 20:10; Start 12/13/17 at 21:00 Fenofibrate (Tricor) 48 mg DAILY PO Last administered on 12/22/17at 10:17; Start 12/14/17 at 09:00 Glipizide (Glucotrol Er) 5 mg DAILY08 PO Last administered on 12/15/17at 08:36; Start 12/14/17 at 08:00; Stop 12/15/17 at 14:58; Status DC Levetiracetam (Keppra) 1,000 mg BID PO Last administered on 12/22/17at 20:09; Start 12/13/17 at 21:00 Metformin HCl (Glucophage) 1,000 mg BIDWMEALS PO Last administered on at 17:09; Start 12/14/17 at 08:00 Metoprolol Succinate (Toprol Xl) 50 mg DAILY PO Last administered on 12/22/17at 10:18; Start 12/14/17 at 09:00 Pantoprazole Sodium (Protonix) 40 mg PRN DAILY PRN PO HEARTBURN / GAS; Start at 07:30 Phenytoin Sodium (Dilantin) 100 mg Q8HRS PO Last administered on 12/22/17at 20: 10; Start 12/13/17 at 22:00 Clozapine (Clozaril) 300 mg QHS PO Last administered on 12/18/17at 20:31; Start 12/14/17 at 21:00; Stop 12/19/17 at 17:05; Status DC Divalproex Sodium (Depakote Er) 500 mg QHS PO Last administered on 12/16/17 20 :29; Start 12/14/17 at 21:00; Stop 12/17/17 at 18:41; Status DC Glipizide (Glucotrol Er) 10 mg DAILY08 PO Last administered on 12/22/17 10:17 ; Start 12/16/17 at 08:00 Vitamin D (Vitamin D3) 50,000 unit WEEKLY PO Last administered on 12/16/17 09: 36; Start 12/16/17 at 09:00 Cephalexin HCl (Keflex) 500 mg BID PO Last administered on 12/22/17 20:09; Start 12/15/17 at 21:00; Stop 12/25/17 at 20:59 Atorvastatin Calcium (Lipitor) 40 mg QHS PO Last administered on 12/22/17 20: 09; Start 12/15/17 at 21:00 Lactobacillus Rhamnosus (Culturelle) 1 cap BID PO Last administered on 20:09; Start 12/16/17 at 09:00 Divalproex Sodium (Depakote Er) 1,000 mg QHS PO Last administered on 12/22/17 20:09; Start 12/17/17 at 21:00 Clozapine (Clozaril) 300 mg QHS PO Last administered on 12/22/17 20:09; Start 12/19/17 at 21:00 Clozapine (Clozaril) 25 mg QHS PO Last administered on 12/22/17at 20:09; Start 12/19/17 at 21:00 Ondansetron HCl (Zofran Odt) 4 mg PRN Q8HRS PRN PO NAUSEA/VOMITING Last administered on 12/22/17at 05:50; Start 12/22/17 at 00:30 Active Scripts Active Reported Shingrix Vial Kit (Varicella-Zoster Ge/As01b/Pf) 50 Mcg/0.5 Ml Kit 50 Mcg IM Zostavax Vial (Zoster Vaccine Live/Pf) 19,400 Unit/0.65 Ml Vial 19,400 Unit SQ Triamcinolone Acetonide 15 Gm Cream..g. 15 Gm TP BID Pantoprazole Sodium 40 Mg Tablet.dr 40 Mg PO PRN DAILY PRN Losartan Potassium 50 Mg Tablet 50 Mg PO DAILY Glipizide 5 Mg Tablet 5 Mg PO DAILY Tricor (Fenofibrate Nanocrystallized) 48 Mg Tablet 48 Mg PO DAILY Doxazosin Mesylate 4 Mg Tablet 4 Mg PO Lotrimin Af (Clotrimazole) 12 Gm Cream..g. 12 Gm TP BID Bethanechol Chloride 25 Mg Tablet 25 Mg PO QID Metoprolol Succinate ( Xl ) (Metoprolol Succinate) 50 Mg Tab.er.24h 50 Mg PO DAILY Metformin Hcl 1,000 Mg Tablet 1,000 Mg PO BID Clozaril (Clozapine) 100 Mg Tablet 300 Mg PO DAILY Dilantin (Phenytoin Sodium Extended) 100 Mg Capsule 100 Mg PO Q8HRS Lorazepam 0.5 Mg Tablet 0.5 Mg PO PRN Q6HRS PRN MDD 2mg Keppra (Levetiracetam) 1,000 Mg Tablet 1,000 Mg PO BID Lipitor (Atorvastatin Calcium) 20 Mg Tablet 20 Mg PO QHS I have reviewed the current psychotropics carefully including drug interactions. Risk benefit ratio favors no change other than as noted in my dictated progress note. Diagnosis: Problems: (1) Anxiety disorder (2) Bipolar affective, mixed, sev w/ psych (3) Schizoaffective disorder, chronic condition with acute exacerbation MANAS SHANKAR MD Dec 22, 2017 20:56
--- NOTE | 2017-12-23 00:02 | PN ---
DATE: 12/20/2017 This is a late entry for 12/20/2017 covers elements not covered in my initial note. SUBJECTIVE: I met with the patient in the evening. The patient slept 7-3/4 hours previous night, pleasant, compliant. Valproic acid level 44. Nursing doing mouth check to make sure she takes her medications since we have increased the Depakote, level has not changed very much if anything dropped a little. We will repeat a level on 12/22/2017. I met with her in her room. REVIEW OF SYSTEMS: No CV, , pulmonary, eye system symptoms on review. MENTAL STATUS EXAM: Oriented to herself and situation. Speech is coherent, abstraction fair, computation somewhat impaired, language function intact, attention span short. Mood and affect showing improvement. LABORATORY DATA: Reviewed. IMPRESSION: Unchanged from initial note. PLAN: No change from initial note. MAN Maikel SHANKAR MD DR: ASHLEIGH/cali JOB#: [id number] / [id number]
--- NOTE | 2017-12-23 00:04 | PN ---
DATE: 12/21/2017 This is a late entry for 12/21/2017 covers elements not covered in my initial note. SUBJECTIVE: I met with the patient in the evening and staffed at a treatment team meeting with the entire team in the morning. The patient's sister who is the DPOA/guardian, Moiz attended the conference together with Moiz's , Zander. Lengthy discussion about the patient's diagnosis, guardians suggestion about placement in a secure facility rather than returning home due to her repeated noncompliance with psychotropics, which I am agreeable with. Social service staff will facilitate this. REVIEW OF SYSTEMS: No CV, , pulmonary, eye system symptoms on review. MENTAL STATUS EXAM: Reasonably oriented. Abstraction fair, computation impaired, language function intact. No suicidal or homicidal ideation. Mood and affect is improved. I talked to her at length about compliance with her medications. IMPRESSION: Unchanged from initial note. PLAN: No change from initial note. MANAS SHANKAR MD DR: ASHLEIGH/cali JOB#: [id number] / [id number]
[2017-12-23] MEDS: PHENYTOIN SODIUM EXTENDED 100 MG CAPSULE PO SCH ×3 (05:36→20:16)
[2017-12-23 06:51] VITALS: BP 126/87
[2017-12-23] MEDS: metFORMIN 500 MG TABLET PO SCH ×2 (09:10→17:14)
[2017-12-23] MEDS: levETIRAcetam 500 MG TABLET PO SCH ×2 (09:11→20:16)
[2017-12-23] MEDS: LOSARTAN 50 MG TABLET. PO SCH (09:11)
[2017-12-23] MEDS: CEPHALEXIN 250 MG CAPSULE PO SCH ×2 (09:11→20:16)
[2017-12-23] MEDS: LACTOBACILLUS RHAMNOSUS GG 1 CAPSULE. PO SCH ×2 (09:11→20:15)
[2017-12-23] MEDS: BETHANECHOL CHLORIDE 25 MG TABLET PO SCH ×4 (09:12→20:17)
[2017-12-23] MEDS: METOPROLOL SUCC 24HR ER 50 MG TAB.ER.24H. PO SCH (09:12)
[2017-12-23] MEDS: FENOFIBRATE NANOCRYSTALLIZED 48 MG TABLET PO SCH (09:12)
[2017-12-23] MEDS: TRIAMCINOLONE ACETONIDE 0.025% TP SCH ×2 (09:13→20:17)
[2017-12-23] MEDS: CHOLECALCIFEROL (VITAMIN D3) 50,000 UNIT CAPSULE PO SCH (09:13)
[2017-12-23] MEDS: CLOTRIMAZOLE 1% TOPICAL CREAM 30GM TUBE. TP SCH ×2 (09:13→20:17)
[2017-12-23 16:38] VITALS: BP 108/68
[2017-12-23] MEDS: cloZAPine 100 MG TABLET PO SCH (20:15)
[2017-12-23] MEDS: cloZAPine 25 MG TABLET PO SCH (20:15)
[2017-12-23] MEDS: ATORVASTATIN CALCIUM 20 MG TABLET PO SCH (20:15)
[2017-12-23] MEDS: DIVALPROEX ER 500 MG TAB.ER.24H PO SCH (20:16)
--- NOTE | 2017-12-23 23:07 | PDOC ---
Exam Note: Arash Note: Please also refer to the separate dictated note~for this date of service dictated separately.~Patient seen individually. Discussed the patient with Nursing staff reviewed the chart.~Reviewed interim history and current functioning. Reviewed vital signs,~Labs/ Radiology~and current medications noted below. Continue current treatment with the changes noted in the dictated addendum note Assessment: Vital Signs: Vital Signs Date Time Temp Pulse Resp B/P (MAP) Pulse Ox O2 Delivery O2 Flow Rate FiO2 12/23/17 16:38 99.0 92 18 108/68 (81) 93 12/20/17 16:59 Room Air I&O Intake and Output 12/23/17 07:00 Intake Total 1200 ml Balance 1200 ml Intake Oral 1200 ml Labs: Laboratory Tests Test 12/23/17 07:37 12/23/17 12:17 12/23/17 16:41 Glucose (Fingerstick) 114 mg/dL (70-99) H 174 mg/dL (70-99) H 81 mg/dL (70-99) Current Medications: Meds: Current Medications Acetaminophen (Tylenol) 650 mg PRN Q6HRS PRN PO PAIN / TEMP; Start 12/13/17 at 16:00 Multi-Ingredient Ointment (Analgesic [place]) 1 joey PRN QID PRN TP MUSCLE PAIN; Start 12/13/17 at 16:00 Al Hydroxide/Mg Hydroxide (Mylanta Plus Xs) 15 ml PRN AFTMEALHC PRN PO DYSPEPSIA Last administered on 12/13/17at 21:05; Start 12/13/17 at 16:00 Magnesium Hydroxide (Milk Of Magnesia) 2,400 mg PRN QHS PRN PO CONSTIPATION; Start 12/13/17 at 16:00 Clozapine (Clozaril) 300 mg DAILY PO Last administered on 12/14/17at 10:03; Start 12/14/17 at 09:00; Stop 12/14/17 at 10:27; Status DC Lorazepam (Ativan) 0.5 mg PRN Q6HRS PRN PO ANXIETY / AGITATION; Start 12/13/17 at 20:45 Atorvastatin Calcium (Lipitor) 20 mg QHS PO Last administered on 12/14/17at 20: 05; Start 12/13/17 at 21:00; Stop 12/15/17 at 15:00; Status DC Bethanechol Chloride (Urecholine) 25 mg QID PO Last administered on 12/23/17 20:17; Start 12/13/17 at 21:00 Losartan Potassium (Cozaar) 50 mg DAILY PO Last administered on 12/23/17at 09:11 ; Start 12/14/17 at 09:00 Triamcinolone Acetonide (Kenalog) 15 joey BID TP Last administered on 12/23/17 20:17; Start 12/13/17 at 21:00 Clotrimazole (Lotrimin) 1 joey BID TP Last administered on 12/23/17 20:17; Start 12/13/17 at 21:00 Fenofibrate (Tricor) 48 mg DAILY PO Last administered on 12/23/17 09:12; Start 12/14/17 at 09:00 Glipizide (Glucotrol Er) 5 mg DAILY08 PO Last administered on 12/15/17at 08:36; Start 12/14/17 at 08:00; Stop 12/15/17 at 14:58; Status DC Levetiracetam (Keppra) 1,000 mg BID PO Last administered on 12/23/17 20:16; Start 12/13/17 at 21:00 Metformin HCl (Glucophage) 1,000 mg BIDWMEALS PO Last administered on at 17:14; Start 12/14/17 at 08:00 Metoprolol Succinate (Toprol Xl) 50 mg DAILY PO Last administered on 12/23/17at 09:12; Start 12/14/17 at 09:00 Pantoprazole Sodium (Protonix) 40 mg PRN DAILY PRN PO HEARTBURN / GAS; Start at 07:30 Phenytoin Sodium (Dilantin) 100 mg Q8HRS PO Last administered on 12/23/17 20: 16; Start 12/13/17 at 22:00 Clozapine (Clozaril) 300 mg QHS PO Last administered on 12/18/17at 20:31; Start 12/14/17 at 21:00; Stop 12/19/17 at 17:05; Status DC Divalproex Sodium (Depakote Er) 500 mg QHS PO Last administered on 12/16/17at 20 :29; Start 12/14/17 at 21:00; Stop 12/17/17 at 18:41; Status DC Glipizide (Glucotrol Er) 10 mg DAILY08 PO Last administered on 12/23/17at 09:10 ; Start 12/16/17 at 08:00 Vitamin D (Vitamin D3) 50,000 unit WEEKLY PO Last administered on 12/23/17at 09: 13; Start 12/16/17 at 09:00 Cephalexin HCl (Keflex) 500 mg BID PO Last administered on 12/23/17at 20:16; Start 12/15/17 at 21:00; Stop 12/25/17 at 20:59 Atorvastatin Calcium (Lipitor) 40 mg QHS PO Last administered on 12/23/17at 20: 15; Start 12/15/17 at 21:00 Lactobacillus Rhamnosus (Culturelle) 1 cap BID PO Last administered on at 20:15; Start 12/16/17 at 09:00 Divalproex Sodium (Depakote Er) 1,000 mg QHS PO Last administered on 12/23/17at 20:16; Start 12/17/17 at 21:00 Clozapine (Clozaril) 300 mg QHS PO Last administered on 12/23/17at 20:15; Start 12/19/17 at 21:00 Clozapine (Clozaril) 25 mg QHS PO Last administered on 12/23/17at 20:15; Start 12/19/17 at 21:00 Ondansetron HCl (Zofran Odt) 4 mg PRN Q8HRS PRN PO NAUSEA/VOMITING Last administered on 12/22/17at 05:50; Start 12/22/17 at 00:30 Active Scripts Active Reported Shingrix Vial Kit (Varicella-Zoster Ge/As01b/Pf) 50 Mcg/0.5 Ml Kit 50 Mcg IM Zostavax Vial (Zoster Vaccine Live/Pf) 19,400 Unit/0.65 Ml Vial 19,400 Unit SQ Triamcinolone Acetonide 15 Gm Cream..g. 15 Gm TP BID Pantoprazole Sodium 40 Mg Tablet.dr 40 Mg PO PRN DAILY PRN Losartan Potassium 50 Mg Tablet 50 Mg PO DAILY Glipizide 5 Mg Tablet 5 Mg PO DAILY Tricor (Fenofibrate Nanocrystallized) 48 Mg Tablet 48 Mg PO DAILY Doxazosin Mesylate 4 Mg Tablet 4 Mg PO Lotrimin Af (Clotrimazole) 12 Gm Cream..g. 12 Gm TP BID Bethanechol Chloride 25 Mg Tablet 25 Mg PO QID Metoprolol Succinate ( Xl ) (Metoprolol Succinate) 50 Mg Tab.er.24h 50 Mg PO DAILY Metformin Hcl 1,000 Mg Tablet 1,000 Mg PO BID Clozaril (Clozapine) 100 Mg Tablet 300 Mg PO DAILY Dilantin (Phenytoin Sodium Extended) 100 Mg Capsule 100 Mg PO Q8HRS Lorazepam 0.5 Mg Tablet 0.5 Mg PO PRN Q6HRS PRN MDD 2mg Keppra (Levetiracetam) 1,000 Mg Tablet 1,000 Mg PO BID Lipitor (Atorvastatin Calcium) 20 Mg Tablet 20 Mg PO QHS I have reviewed the current psychotropics carefully including drug interactions. Risk benefit ratio favors no change other than as noted in my dictated progress note. Diagnosis: Problems: (1) Anxiety disorder (2) Bipolar affective, mixed, sev w/ psych (3) Schizoaffective disorder, chronic condition with acute exacerbation MANAS SHANKAR MD Dec 23, 2017 23:07
[2017-12-24] MEDS: PHENYTOIN SODIUM EXTENDED 100 MG CAPSULE PO SCH ×3 (05:21→20:58)
[2017-12-24 06:30] VITALS: BP 118/70
[2017-12-24] MEDS: LOSARTAN 50 MG TABLET. PO SCH (09:43)
[2017-12-24] MEDS: metFORMIN 500 MG TABLET PO SCH ×2 (09:43→17:33)
[2017-12-24] MEDS: levETIRAcetam 500 MG TABLET PO SCH ×2 (09:44→20:57)
[2017-12-24] MEDS: CEPHALEXIN 250 MG CAPSULE PO SCH ×2 (09:44→20:57)
[2017-12-24] MEDS: LACTOBACILLUS RHAMNOSUS GG 1 CAPSULE. PO SCH ×2 (09:44→20:56)
[2017-12-24] MEDS: TRIAMCINOLONE ACETONIDE 0.025% TP SCH ×2 (09:45→21:02)
[2017-12-24] MEDS: FENOFIBRATE NANOCRYSTALLIZED 48 MG TABLET PO SCH (09:45)
[2017-12-24] MEDS: BETHANECHOL CHLORIDE 25 MG TABLET PO SCH ×4 (09:45→20:59)
[2017-12-24] MEDS: METOPROLOL SUCC 24HR ER 50 MG TAB.ER.24H. PO SCH (09:45)
[2017-12-24] MEDS: CLOTRIMAZOLE 1% TOPICAL CREAM 30GM TUBE. TP SCH ×2 (09:46→21:02)
[2017-12-24 16:47] VITALS: BP 128/83
--- NOTE | 2017-12-24 17:59 | PN ---
DATE: 12/22/2017 PSYCHIATRIC PROGRESS NOTE This is a late entry of 12/22/2017, covers elements not covered in my initial note. SUBJECTIVE: I met with the patient in the evening. The patient has been pleasant and tranquil per nursing report, at times resistive to medications and I addressed this at length with her. She took them later. REVIEW OF SYSTEMS: No CV, , pulmonary, eye, ENT system symptoms on review. MENTAL STATUS EXAMINATION: Oriented to herself and situation. Speech coherent, abstraction fair, computation impaired, language function intact, attention span short. Mood and affect somewhat improved, more amiable and forthcoming, less paranoid. LABORATORY DATA: Reviewed. IMPRESSION: Unchanged from initial note. PLAN: Continue psychotropics from initial note, encourage compliance. Adjust as clinically indicated. MAN Maikel SHANKAR MD DR: ASHLEIGH/cali JOB#: [id number] / [id number]
[2017-12-24] MEDS: ATORVASTATIN CALCIUM 20 MG TABLET PO SCH (20:56)
[2017-12-24] MEDS: cloZAPine 100 MG TABLET PO SCH (20:57)
[2017-12-24] MEDS: cloZAPine 25 MG TABLET PO SCH (20:57)
[2017-12-24] MEDS: DIVALPROEX ER 500 MG TAB.ER.24H PO SCH (20:57)
--- NOTE | 2017-12-24 21:09 | PDOC ---
Exam Note: Arash Note: Please also refer to the separate dictated note~for this date of service dictated separately.~Patient seen individually. Discussed the patient with Nursing staff reviewed the chart.~Reviewed interim history and current functioning. Reviewed vital signs,~Labs/ Radiology~and current medications noted below. Continue current treatment with the changes noted in the dictated addendum note Assessment: Vital Signs: Vital Signs Date Time Temp Pulse Resp B/P (MAP) Pulse Ox O2 Delivery O2 Flow Rate FiO2 12/24/17 16:47 98.2 92 18 128/83 (98) 97 12/24/17 06:30 Room Air I&O Intake and Output 12/24/17 07:00 Intake Total 1200 ml Balance 1200 ml Intake Oral 1200 ml Labs: Laboratory Tests Test 12/24/17 07:21 12/24/17 12:35 12/24/17 16:43 12/24/17 19:59 Glucose (Fingerstick) 122 mg/dL (70-99) H 167 mg/dL (70-99) H 99 mg/dL (70-99) 70 mg/dL (70-99) Current Medications: Meds: Current Medications Acetaminophen (Tylenol) 650 mg PRN Q6HRS PRN PO PAIN / TEMP; Start 12/13/17 at 16:00 Multi-Ingredient Ointment (Analgesic [place]) 1 joey PRN QID PRN TP MUSCLE PAIN; Start 12/13/17 at 16:00 Al Hydroxide/Mg Hydroxide (Mylanta Plus Xs) 15 ml PRN AFTMEALHC PRN PO DYSPEPSIA Last administered on 12/13/17at 21:05; Start 12/13/17 at 16:00 Magnesium Hydroxide (Milk Of Magnesia) 2,400 mg PRN QHS PRN PO CONSTIPATION; Start 12/13/17 at 16:00 Clozapine (Clozaril) 300 mg DAILY PO Last administered on 12/14/17at 10:03; Start 12/14/17 at 09:00; Stop 12/14/17 at 10:27; Status DC Lorazepam (Ativan) 0.5 mg PRN Q6HRS PRN PO ANXIETY / AGITATION; Start 12/13/17 at 20:45 Atorvastatin Calcium (Lipitor) 20 mg QHS PO Last administered on 12/14/17at 20: 05; Start 12/13/17 at 21:00; Stop 12/15/17 at 15:00; Status DC Bethanechol Chloride (Urecholine) 25 mg QID PO Last administered on 12/24/17 20:59; Start 12/13/17 at 21:00 Losartan Potassium (Cozaar) 50 mg DAILY PO Last administered on 12/24/17 09:43 ; Start 12/14/17 at 09:00 Triamcinolone Acetonide (Kenalog) 15 joey BID TP Last administered on 12/23/17 20:17; Start 12/13/17 at 21:00 Clotrimazole (Lotrimin) 1 joey BID TP Last administered on 12/23/17 20:17; Start 12/13/17 at 21:00 Fenofibrate (Tricor) 48 mg DAILY PO Last administered on 12/24/17 09:45; Start 12/14/17 at 09:00 Glipizide (Glucotrol Er) 5 mg DAILY08 PO Last administered on 12/15/17at 08:36; Start 12/14/17 at 08:00; Stop 12/15/17 at 14:58; Status DC Levetiracetam (Keppra) 1,000 mg BID PO Last administered on 12/24/17 20:57; Start 12/13/17 at 21:00 Metformin HCl (Glucophage) 1,000 mg BIDWMEALS PO Last administered on 17:33; Start 12/14/17 at 08:00 Metoprolol Succinate (Toprol Xl) 50 mg DAILY PO Last administered on 12/24/17 09:45; Start 12/14/17 at 09:00 Pantoprazole Sodium (Protonix) 40 mg PRN DAILY PRN PO HEARTBURN / GAS; Start at 07:30 Phenytoin Sodium (Dilantin) 100 mg Q8HRS PO Last administered on 12/24/17 20: 58; Start 12/13/17 at 22:00 Clozapine (Clozaril) 300 mg QHS PO Last administered on 12/18/17at 20:31; Start 12/14/17 at 21:00; Stop 12/19/17 at 17:05; Status DC Divalproex Sodium (Depakote Er) 500 mg QHS PO Last administered on 9/15/18at 20 :29; Start 12/14/17 at 21:00; Stop 12/17/17 at 18:41; Status DC Glipizide (Glucotrol Er) 10 mg DAILY08 PO Last administered on 12/24/17at 09:42 ; Start 12/16/17 at 08:00 Vitamin D (Vitamin D3) 50,000 unit WEEKLY PO Last administered on 12/23/17 09: 13; Start 12/16/17 at 09:00 Cephalexin HCl (Keflex) 500 mg BID PO Last administered on 12/24/17 20:57; Start 12/15/17 at 21:00; Stop 12/25/17 at 20:59 Atorvastatin Calcium (Lipitor) 40 mg QHS PO Last administered on 12/24/17 20: 56; Start 12/15/17 at 21:00 Lactobacillus Rhamnosus (Culturelle) 1 cap BID PO Last administered on 20:56; Start 12/16/17 at 09:00 Divalproex Sodium (Depakote Er) 1,000 mg QHS PO Last administered on 12/24/17at 20:57; Start 12/17/17 at 21:00 Clozapine (Clozaril) 300 mg QHS PO Last administered on 12/24/17 20:57; Start 12/19/17 at 21:00 Clozapine (Clozaril) 25 mg QHS PO Last administered on 12/24/17at 20:57; Start 12/19/17 at 21:00 Ondansetron HCl (Zofran Odt) 4 mg PRN Q8HRS PRN PO NAUSEA/VOMITING Last administered on 12/22/17at 05:50; Start 12/22/17 at 00:30 Active Scripts Active Reported Shingrix Vial Kit (Varicella-Zoster Ge/As01b/Pf) 50 Mcg/0.5 Ml Kit 50 Mcg IM Zostavax Vial (Zoster Vaccine Live/Pf) 19,400 Unit/0.65 Ml Vial 19,400 Unit SQ Triamcinolone Acetonide 15 Gm Cream..g. 15 Gm TP BID Pantoprazole Sodium 40 Mg Tablet.dr 40 Mg PO PRN DAILY PRN Losartan Potassium 50 Mg Tablet 50 Mg PO DAILY Glipizide 5 Mg Tablet 5 Mg PO DAILY Tricor (Fenofibrate Nanocrystallized) 48 Mg Tablet 48 Mg PO DAILY Doxazosin Mesylate 4 Mg Tablet 4 Mg PO Lotrimin Af (Clotrimazole) 12 Gm Cream..g. 12 Gm TP BID Bethanechol Chloride 25 Mg Tablet 25 Mg PO QID Metoprolol Succinate ( Xl ) (Metoprolol Succinate) 50 Mg Tab.er.24h 50 Mg PO DAILY Metformin Hcl 1,000 Mg Tablet 1,000 Mg PO BID Clozaril (Clozapine) 100 Mg Tablet 300 Mg PO DAILY Dilantin (Phenytoin Sodium Extended) 100 Mg Capsule 100 Mg PO Q8HRS Lorazepam 0.5 Mg Tablet 0.5 Mg PO PRN Q6HRS PRN MDD 2mg Keppra (Levetiracetam) 1,000 Mg Tablet 1,000 Mg PO BID Lipitor (Atorvastatin Calcium) 20 Mg Tablet 20 Mg PO QHS I have reviewed the current psychotropics carefully including drug interactions. Risk benefit ratio favors no change other than as noted in my dictated progress note. Diagnosis: Problems: (1) Anxiety disorder (2) Bipolar affective, mixed, sev w/ psych (3) Schizoaffective disorder, chronic condition with acute exacerbation MANAS SHANKAR MD Dec 24, 2017 21:09
[2017-12-25 06:11] VITALS: BP 96/67
[2017-12-25] MEDS: PHENYTOIN SODIUM EXTENDED 100 MG CAPSULE PO SCH ×3 (06:15→19:47)
[2017-12-25 07:06] LABS: BASO % 0 % (0-3); EOS % 0 % (0-3); HEMATOCRIT 36.4 % (36.0-47.0); LYMPH # 2.4 x10^3/uL (1.0-4.8); LYMPH % 35 % (24-48); MEAN CORPUSCULAR HEMOGLOBIN 28 pg (25-35); MEAN CORPUSCULAR HGB CONC 33 g/dL (31-37); MEAN CORPUSCULAR VOLUME 84 fL (79-100); MONO # 0.4 x10^3/uL (0.0-1.1); MONO % 6 % (0-9); NEUT # 4.1 x10^3uL (1.8-7.7); NEUT % 59 % (31-73); PLATELET COUNT 236 x10^3/uL (140-400); RED BLOOD COUNT 4.32 x10^6/uL (3.50-5.40); RED CELL DISTRIBUTION WIDTH 15.9 % (11.5-14.5); WHITE BLOOD COUNT 6.9 x10^3/uL (4.0-11.0)
[2017-12-25 07:19] LABS: ALBUMIN 2.7 g/dL (3.4-5.0); ALBUMIN/GLOBULIN RATIO 0.9 (1.0-1.7); CALCIUM 8.2 mg/dL (8.5-10.1); CREATININE 0.7 mg/dL (0.6-1.0); GFR 85.1; POTASSIUM 4.2 mmol/L (3.5-5.1); TOTAL BILIRUBIN 0.1 mg/dL (0.2-1.0); TOTAL PROTEIN 5.6 g/dL (6.4-8.2)
[2017-12-25] MEDS: levETIRAcetam 500 MG TABLET PO SCH ×2 (08:11→19:47)
[2017-12-25] MEDS: LOSARTAN 50 MG TABLET. PO SCH (08:11)
[2017-12-25] MEDS: LACTOBACILLUS RHAMNOSUS GG 1 CAPSULE. PO SCH ×2 (08:11→19:47)
[2017-12-25] MEDS: metFORMIN 500 MG TABLET PO SCH ×2 (08:12→18:06)
[2017-12-25] MEDS: CEPHALEXIN 250 MG CAPSULE PO SCH (08:13)
[2017-12-25] MEDS: METOPROLOL SUCC 24HR ER 50 MG TAB.ER.24H. PO SCH (08:13)
[2017-12-25] MEDS: FENOFIBRATE NANOCRYSTALLIZED 48 MG TABLET PO SCH (08:17)
[2017-12-25] MEDS: BETHANECHOL CHLORIDE 25 MG TABLET PO SCH ×4 (08:17→19:47)
[2017-12-25] MEDS: TRIAMCINOLONE ACETONIDE 0.025% TP SCH ×2 (08:19→19:48)
[2017-12-25] MEDS: CLOTRIMAZOLE 1% TOPICAL CREAM 30GM TUBE. TP SCH ×2 (08:20→19:48)
[2017-12-25 16:15] VITALS: BP 108/67
[2017-12-25] MEDS: ATORVASTATIN CALCIUM 20 MG TABLET PO SCH (19:47)
[2017-12-25] MEDS: DIVALPROEX ER 500 MG TAB.ER.24H PO SCH (19:48)
[2017-12-25] MEDS: cloZAPine 100 MG TABLET PO SCH (19:48)
[2017-12-25] MEDS: cloZAPine 25 MG TABLET PO SCH (19:48)
--- NOTE | 2017-12-25 22:42 | PN ---
DATE: 12/23/2017 This is a late entry for 12/23/2017 covers elements not covered in my initial note. SUBJECTIVE: I met with the patient in the evening in her room at length. The patient slept for 8-1/2 hours previous night. She remains somewhat withdrawn, had some flight of ideas and loose associations, but less paranoid. Valproic acid level was 64 on the . REVIEW OF SYSTEMS: Positive for some tiredness. No CV, , pulmonary, eye system symptoms on review. MENTAL STATUS EXAM: Oriented reasonably. Speech is coherent, abstraction fair, computation impaired, language function intact. Memory short-term is somewhat impaired. No suicidal or homicidal ideation. LABORATORY DATA: Reviewed. IMPRESSION: Unchanged from initial note. PLAN: Continue psychotropics from initial note. May need to increase Clozaril further. MAN Maikel SHANKAR MD DR: ASHLEIGH/cali JOB#: [id number] / [id number]
--- NOTE | 2017-12-25 22:44 | PN ---
DATE: 12/24/2017 This is a late entry for 12/24/2017 covers elements not covered in my initial note. SUBJECTIVE: I met with the patient in the evening. The patient slept 7-1/2 hours previous night. She did well at night, less flight of ideas during the day on 12/24/2017. I met with her in her room. Complains of being tired. REVIEW OF SYSTEMS: No CV, , pulmonary, eye system symptoms on review. MENTAL STATUS EXAM: Oriented to herself and situation. Speech has some latency, coherent. Abstraction fair, computation impaired, language function intact. Mood and affect somewhat withdrawn, less so than before. LABORATORY DATA: Reviewed. Valproic acid level is therapeutic. IMPRESSION: Unchanged from initial note. PLAN: No change from initial note. MAN Maikel SHANKAR MD DR: ASHLEIGH/cali JOB#: [id number] / [id number]
--- NOTE | 2017-12-25 22:51 | PDOC ---
Exam Note: Arash Note: Please also refer to the separate dictated note~for this date of service dictated separately.~Patient seen individually. Discussed the patient with Nursing staff reviewed the chart.~Reviewed interim history and current functioning. Reviewed vital signs,~Labs/ Radiology~and current medications noted below. Continue current treatment with the changes noted in the dictated addendum note Assessment: Vital Signs: Vital Signs Date Time Temp Pulse Resp B/P (MAP) Pulse Ox O2 Delivery O2 Flow Rate FiO2 12/25/17 16:15 97.6 90 17 108/67 (81) 96 Room Air I&O Intake and Output 12/25/17 07:00 Intake Total 1800 ml Balance 1800 ml Intake Oral 1800 ml Labs: Laboratory Tests Test 12/25/17 06:45 12/25/17 07:38 12/25/17 11:22 12/25/17 16:20 White Blood Count 6.9 x10^3/uL (4.0-11.0) Red Blood Count 4.32 x10^6/uL (3.50-5.40) Hemoglobin 12.0 g/dL (12.0-15.5) Hematocrit 36.4 % (36.0-47.0) Mean Corpuscular Volume 84 fL (79-100) Mean Corpuscular Hemoglobin 28 pg (25-35) Mean Corpuscular Hemoglobin Concent 33 g/dL (31-37) Red Cell Distribution Width 15.9 % (11.5-14.5) H Platelet Count 236 x10^3/uL (140-400) Neutrophils (%) (Auto) 59 % (31-73) Lymphocytes (%) (Auto) 35 % (24-48) Monocytes (%) (Auto) 6 % (0-9) Eosinophils (%) (Auto) 0 % (0-3) Basophils (%) (Auto) 0 % (0-3) Neutrophils # (Auto) 4.1 x10^3uL (1.8-7.7) Lymphocytes # (Auto) 2.4 x10^3/uL (1.0-4.8) Monocytes # (Auto) 0.4 x10^3/uL (0.0-1.1) Eosinophils # (Auto) 0.0 x10^3/uL (0.0-0.7) Basophils # (Auto) 0.0 x10^3/uL (0.0-0.2) Sodium Level 142 mmol/L (136-145) Potassium Level 4.2 mmol/L (3.5-5.1) Chloride Level 107 mmol/L (98-107) Carbon Dioxide Level 28 mmol/L (21-32) Anion Gap 7 (6-14) Blood Urea Nitrogen 18 mg/dL (7-20) Creatinine 0.7 mg/dL (0.6-1.0) Estimated GFR (Cockcroft-Gault) 85.1 BUN/Creatinine Ratio 26 (6-20) H Glucose Level 81 mg/dL (70-99) Calcium Level 8.2 mg/dL (8.5-10.1) L Total Bilirubin 0.1 mg/dL (0.2-1.0) L Aspartate Amino Transferase (AST) 8 U/L (15-37) L Alanine Aminotransferase (ALT) 15 U/L (14-59) Alkaline Phosphatase 51 U/L (46-116) Total Protein 5.6 g/dL (6.4-8.2) L Albumin 2.7 g/dL (3.4-5.0) L Albumin/Globulin Ratio 0.9 (1.0-1.7) L Glucose (Fingerstick) 86 mg/dL (70-99) 151 mg/dL (70-99) H 75 mg/dL (70-99) Test 12/25/17 20:15 Glucose (Fingerstick) 158 mg/dL (70-99) H Current Medications: Meds: Current Medications Acetaminophen (Tylenol) 650 mg PRN Q6HRS PRN PO PAIN / TEMP; Start 12/13/17 at 16:00 Multi-Ingredient Ointment (Analgesic [place]) 1 joey PRN QID PRN TP MUSCLE PAIN; Start 12/13/17 at 16:00 Al Hydroxide/Mg Hydroxide (Mylanta Plus Xs) 15 ml PRN AFTMEALHC PRN PO DYSPEPSIA Last administered on 12/13/17at 21:05; Start 12/13/17 at 16:00 Magnesium Hydroxide (Milk Of Magnesia) 2,400 mg PRN QHS PRN PO CONSTIPATION; Start 12/13/17 at 16:00 Clozapine (Clozaril) 300 mg DAILY PO Last administered on 12/14/17at 10:03; Start 12/14/17 at 09:00; Stop 12/14/17 at 10:27; Status DC Lorazepam (Ativan) 0.5 mg PRN Q6HRS PRN PO ANXIETY / AGITATION; Start 12/13/17 at 20:45 Atorvastatin Calcium (Lipitor) 20 mg QHS PO Last administered on 12/14/17at 20: 05; Start 12/13/17 at 21:00; Stop 12/15/17 at 15:00; Status DC Bethanechol Chloride (Urecholine) 25 mg QID PO Last administered on 12/25/17 19:47; Start 12/13/17 at 21:00 Losartan Potassium (Cozaar) 50 mg DAILY PO Last administered on 12/25/17 08:11 ; Start 12/14/17 at 09:00 Triamcinolone Acetonide (Kenalog) 15 joey BID TP Last administered on 12/25/17 08:19; Start 12/13/17 at 21:00 Clotrimazole (Lotrimin) 1 joey BID TP Last administered on 12/25/17 08:20; Start 12/13/17 at 21:00 Fenofibrate (Tricor) 48 mg DAILY PO Last administered on 12/25/17 08:17; Start 12/14/17 at 09:00 Glipizide (Glucotrol Er) 5 mg DAILY08 PO Last administered on 12/15/17at 08:36; Start 12/14/17 at 08:00; Stop 12/15/17 at 14:58; Status DC Levetiracetam (Keppra) 1,000 mg BID PO Last administered on 12/25/17 19:47; Start 12/13/17 at 21:00 Metformin HCl (Glucophage) 1,000 mg BIDWMEALS PO Last administered on 18:06; Start 12/14/17 at 08:00 Metoprolol Succinate (Toprol Xl) 50 mg DAILY PO Last administered on 12/25/17 08:13; Start 12/14/17 at 09:00 Pantoprazole Sodium (Protonix) 40 mg PRN DAILY PRN PO HEARTBURN / GAS; Start at 07:30 Phenytoin Sodium (Dilantin) 100 mg Q8HRS PO Last administered on 12/25/17 19: 47; Start 12/13/17 at 22:00 Clozapine (Clozaril) 300 mg QHS PO Last administered on 12/18/17 20:31; Start 12/14/17 at 21:00; Stop 12/19/17 at 17:05; Status DC Divalproex Sodium (Depakote Er) 500 mg QHS PO Last administered on 12/16/17 20 :29; Start 12/14/17 at 21:00; Stop 12/17/17 at 18:41; Status DC Glipizide (Glucotrol Er) 10 mg DAILY08 PO Last administered on 12/25/17 08:09 ; Start 12/16/17 at 08:00 Vitamin D (Vitamin D3) 50,000 unit WEEKLY PO Last administered on 12/23/17 09: 13; Start 12/16/17 at 09:00 Cephalexin HCl (Keflex) 500 mg BID PO Last administered on 12/25/17 08:13; Start 12/15/17 at 21:00; Stop 12/25/17 at 20:59; Status DC Atorvastatin Calcium (Lipitor) 40 mg QHS PO Last administered on 12/25/17 19: 47; Start 12/15/17 at 21:00 Lactobacillus Rhamnosus (Culturelle) 1 cap BID PO Last administered on 19:47; Start 12/16/17 at 09:00 Divalproex Sodium (Depakote Er) 1,000 mg QHS PO Last administered on 12/25/17 19:48; Start 12/17/17 at 21:00 Clozapine (Clozaril) 300 mg QHS PO Last administered on 12/25/17 19:48; Start 12/19/17 at 21:00 Clozapine (Clozaril) 25 mg QHS PO Last administered on 12/25/17 19:48; Start 12/19/17 at 21:00 Ondansetron HCl (Zofran Odt) 4 mg PRN Q8HRS PRN PO NAUSEA/VOMITING Last administered on 12/22/17at 05:50; Start 12/22/17 at 00:30 Active Scripts Active Reported Shingrix Vial Kit (Varicella-Zoster Ge/As01b/Pf) 50 Mcg/0.5 Ml Kit 50 Mcg IM Zostavax Vial (Zoster Vaccine Live/Pf) 19,400 Unit/0.65 Ml Vial 19,400 Unit SQ Triamcinolone Acetonide 15 Gm Cream..g. 15 Gm TP BID Pantoprazole Sodium 40 Mg Tablet.dr 40 Mg PO PRN DAILY PRN Losartan Potassium 50 Mg Tablet 50 Mg PO DAILY Glipizide 5 Mg Tablet 5 Mg PO DAILY Tricor (Fenofibrate Nanocrystallized) 48 Mg Tablet 48 Mg PO DAILY Doxazosin Mesylate 4 Mg Tablet 4 Mg PO Lotrimin Af (Clotrimazole) 12 Gm Cream..g. 12 Gm TP BID Bethanechol Chloride 25 Mg Tablet 25 Mg PO QID Metoprolol Succinate ( Xl ) (Metoprolol Succinate) 50 Mg Tab.er.24h 50 Mg PO DAILY Metformin Hcl 1,000 Mg Tablet 1,000 Mg PO BID Clozaril (Clozapine) 100 Mg Tablet 300 Mg PO DAILY Dilantin (Phenytoin Sodium Extended) 100 Mg Capsule 100 Mg PO Q8HRS Lorazepam 0.5 Mg Tablet 0.5 Mg PO PRN Q6HRS PRN MDD 2mg Keppra (Levetiracetam) 1,000 Mg Tablet 1,000 Mg PO BID Lipitor (Atorvastatin Calcium) 20 Mg Tablet 20 Mg PO QHS I have reviewed the current psychotropics carefully including drug interactions. Risk benefit ratio favors no change other than as noted in my dictated progress note. Diagnosis: Problems: (1) Anxiety disorder (2) Bipolar affective, mixed, sev w/ psych (3) Schizoaffective disorder, chronic condition with acute exacerbation MANAS SHANKAR MD Dec 25, 2017 22:51
[2017-12-26] MEDS: PHENYTOIN SODIUM EXTENDED 100 MG CAPSULE PO SCH ×3 (05:24→21:07)
[2017-12-26 05:53] VITALS: BP 111/78
[2017-12-26] MEDS: FENOFIBRATE NANOCRYSTALLIZED 48 MG TABLET PO SCH (10:37)
[2017-12-26] MEDS: LACTOBACILLUS RHAMNOSUS GG 1 CAPSULE. PO SCH ×2 (10:37→21:08)
[2017-12-26] MEDS: LOSARTAN 50 MG TABLET. PO SCH (10:38)
[2017-12-26] MEDS: BETHANECHOL CHLORIDE 25 MG TABLET PO SCH ×4 (10:38→21:09)
[2017-12-26] MEDS: levETIRAcetam 500 MG TABLET PO SCH ×2 (10:38→21:08)
[2017-12-26] MEDS: METOPROLOL SUCC 24HR ER 50 MG TAB.ER.24H. PO SCH (10:38)
[2017-12-26] MEDS: TRIAMCINOLONE ACETONIDE 0.025% TP SCH (11:48)
[2017-12-26] MEDS: CLOTRIMAZOLE 1% TOPICAL CREAM 30GM TUBE. TP SCH (11:49)
[2017-12-26] MEDS: metFORMIN 500 MG TABLET PO SCH ×2 (12:35→17:52)
[2017-12-26 15:48] VITALS: BP 115/77
--- NOTE | 2017-12-26 21:02 | PDOC ---
Exam Note: Arash Note: Please also refer to the separate dictated note~for this date of service dictated separately.~Patient seen individually. Discussed the patient with Nursing staff reviewed the chart.~Reviewed interim history and current functioning. Reviewed vital signs,~Labs/ Radiology~and current medications noted below. Continue current treatment with the changes noted in the dictated addendum note Assessment: Vital Signs: Vital Signs Date Time Temp Pulse Resp B/P (MAP) Pulse Ox O2 Delivery O2 Flow Rate FiO2 12/26/17 15:48 97.5 90 20 115/77 (90) 97 Room Air I&O Intake and Output 12/26/17 07:00 Intake Total 1320 ml Balance 1320 ml Intake Oral 1320 ml Labs: Laboratory Tests Test 12/26/17 07:40 12/26/17 11:30 12/26/17 16:36 12/26/17 19:16 Glucose (Fingerstick) 95 mg/dL (70-99) 189 mg/dL (70-99) H 239 mg/dL (70-99) H 134 mg/dL (70-99) H Current Medications: Meds: Current Medications Acetaminophen (Tylenol) 650 mg PRN Q6HRS PRN PO PAIN / TEMP; Start 12/13/17 at 16:00 Multi-Ingredient Ointment (Analgesic [place]) 1 joey PRN QID PRN TP MUSCLE PAIN; Start 12/13/17 at 16:00 Al Hydroxide/Mg Hydroxide (Mylanta Plus Xs) 15 ml PRN AFTMEALHC PRN PO DYSPEPSIA Last administered on 12/13/17at 21:05; Start 12/13/17 at 16:00 Magnesium Hydroxide (Milk Of Magnesia) 2,400 mg PRN QHS PRN PO CONSTIPATION; Start 12/13/17 at 16:00 Clozapine (Clozaril) 300 mg DAILY PO Last administered on 12/14/17at 10:03; Start 12/14/17 at 09:00; Stop 12/14/17 at 10:27; Status DC Lorazepam (Ativan) 0.5 mg PRN Q6HRS PRN PO ANXIETY / AGITATION; Start 12/13/17 at 20:45 Atorvastatin Calcium (Lipitor) 20 mg QHS PO Last administered on 12/14/17at 20: 05; Start 12/13/17 at 21:00; Stop 12/15/17 at 15:00; Status DC Bethanechol Chloride (Urecholine) 25 mg QID PO Last administered on 12/26/17at 17:52; Start 12/13/17 at 21:00 Losartan Potassium (Cozaar) 50 mg DAILY PO Last administered on 12/26/17at 10:38 ; Start 12/14/17 at 09:00 Triamcinolone Acetonide (Kenalog) 15 joey BID TP Last administered on 12/25/17at 08:19; Start 12/13/17 at 21:00; Stop 12/26/17 at 12:12; Status DC Clotrimazole (Lotrimin) 1 joey BID TP Last administered on 12/25/17at 08:20; Start 12/13/17 at 21:00; Stop 12/26/17 at 12:12; Status DC Fenofibrate (Tricor) 48 mg DAILY PO Last administered on 12/26/17at 10:37; Start 12/14/17 at 09:00 Glipizide (Glucotrol Er) 5 mg DAILY08 PO Last administered on 12/15/17at 08:36; Start 12/14/17 at 08:00; Stop 12/15/17 at 14:58; Status DC Levetiracetam (Keppra) 1,000 mg BID PO Last administered on 12/26/17at 10:38; Start 12/13/17 at 21:00 Metformin HCl (Glucophage) 1,000 mg BIDWMEALS PO Last administered on at 17:52; Start 12/14/17 at 08:00 Metoprolol Succinate (Toprol Xl) 50 mg DAILY PO Last administered on 12/26/17at 10:38; Start 12/14/17 at 09:00 Pantoprazole Sodium (Protonix) 40 mg PRN DAILY PRN PO HEARTBURN / GAS; Start at 07:30 Phenytoin Sodium (Dilantin) 100 mg Q8HRS PO Last administered on 12/26/17at 12: 37; Start 12/13/17 at 22:00 Clozapine (Clozaril) 300 mg QHS PO Last administered on 12/18/17at 20:31; Start 12/14/17 at 21:00; Stop 12/19/17 at 17:05; Status DC Divalproex Sodium (Depakote Er) 500 mg QHS PO Last administered on 12/16/17at 20 :29; Start 12/14/17 at 21:00; Stop 12/17/17 at 18:41; Status DC Glipizide (Glucotrol Er) 10 mg DAILY08 PO Last administered on 12/26/17at 12:34 ; Start 12/16/17 at 08:00 Vitamin D (Vitamin D3) 50,000 unit WEEKLY PO Last administered on 12/23/17at 09: 13; Start 12/16/17 at 09:00 Cephalexin HCl (Keflex) 500 mg BID PO Last administered on 12/25/17at 08:13; Start 12/15/17 at 21:00; Stop 12/25/17 at 20:59; Status DC Atorvastatin Calcium (Lipitor) 40 mg QHS PO Last administered on 12/25/17at 19: 47; Start 12/15/17 at 21:00 Lactobacillus Rhamnosus (Culturelle) 1 cap BID PO Last administered on at 10:37; Start 12/16/17 at 09:00 Divalproex Sodium (Depakote Er) 1,000 mg QHS PO Last administered on 12/25/17at 19:48; Start 12/17/17 at 21:00 Clozapine (Clozaril) 300 mg QHS PO Last administered on 12/25/17at 19:48; Start 12/19/17 at 21:00 Clozapine (Clozaril) 25 mg QHS PO Last administered on 12/25/17at 19:48; Start 12/19/17 at 21:00 Ondansetron HCl (Zofran Odt) 4 mg PRN Q8HRS PRN PO NAUSEA/VOMITING Last administered on 12/22/17at 05:50; Start 12/22/17 at 00:30 Active Scripts Active Reported Shingrix Vial Kit (Varicella-Zoster Ge/As01b/Pf) 50 Mcg/0.5 Ml Kit 50 Mcg IM Zostavax Vial (Zoster Vaccine Live/Pf) 19,400 Unit/0.65 Ml Vial 19,400 Unit SQ Triamcinolone Acetonide 15 Gm Cream..g. 15 Gm TP BID Pantoprazole Sodium 40 Mg Tablet.dr 40 Mg PO PRN DAILY PRN Losartan Potassium 50 Mg Tablet 50 Mg PO DAILY Glipizide 5 Mg Tablet 5 Mg PO DAILY Tricor (Fenofibrate Nanocrystallized) 48 Mg Tablet 48 Mg PO DAILY Doxazosin Mesylate 4 Mg Tablet 4 Mg PO Lotrimin Af (Clotrimazole) 12 Gm Cream..g. 12 Gm TP BID Bethanechol Chloride 25 Mg Tablet 25 Mg PO QID Metoprolol Succinate ( Xl ) (Metoprolol Succinate) 50 Mg Tab.er.24h 50 Mg PO DAILY Metformin Hcl 1,000 Mg Tablet 1,000 Mg PO BID Clozaril (Clozapine) 100 Mg Tablet 300 Mg PO DAILY Dilantin (Phenytoin Sodium Extended) 100 Mg Capsule 100 Mg PO Q8HRS Lorazepam 0.5 Mg Tablet 0.5 Mg PO PRN Q6HRS PRN MDD 2mg Keppra (Levetiracetam) 1,000 Mg Tablet 1,000 Mg PO BID Lipitor (Atorvastatin Calcium) 20 Mg Tablet 20 Mg PO QHS I have reviewed the current psychotropics carefully including drug interactions. Risk benefit ratio favors no change other than as noted in my dictated progress note. Diagnosis: Problems: (1) Anxiety disorder (2) Bipolar affective, mixed, sev w/ psych (3) Schizoaffective disorder, chronic condition with acute exacerbation MANAS SHANKAR MD Dec 26, 2017 21:02
[2017-12-26] MEDS: ATORVASTATIN CALCIUM 20 MG TABLET PO SCH (21:07)
[2017-12-26] MEDS: cloZAPine 100 MG TABLET PO SCH (21:07)
[2017-12-26] MEDS: DIVALPROEX ER 500 MG TAB.ER.24H PO SCH (21:07)
[2017-12-26] MEDS: cloZAPine 25 MG TABLET PO SCH (21:08)
--- NOTE | 2017-12-27 03:34 | PN ---
DATE: 12/25/2017 This is a late entry for 12/25/2017 covers elements not covered in my initial note. SUBJECTIVE: I met with the patient in her room. The patient slept 10 hours previous evening. Complains of being tired. Valproic acid level is 64 therapeutic. She is somewhat suspicious of her medications, addressed this with her individually. REVIEW OF SYSTEMS: No CV, , pulmonary, eye system symptoms on review other than being tired. MENTAL STATUS EXAM: Reasonably oriented. Speech is coherent, abstraction fair, computation somewhat impaired, able to do one step serial 7's. No active suicidal or homicidal ideation. Seems less anxious. LABORATORY DATA: Reviewed. IMPRESSION: Schizoaffective disorder, bipolar type, mixed with psychotic features, in partial remission. Rest unchanged. PLAN: Continue psychotropics from initial note including Keppra for her seizures along with Dilantin and Clozaril 325 mg at bedtime, Depakote ER 1000 mg p.o. at bedtime. Valproic acid level is 84 therapeutic. MANAS SHANKAR MD DR: ASHLEIGH/cali JOB#: [id number] / [id number]
[2017-12-27 05:41] VITALS: BP 100/68
[2017-12-27] MEDS: PHENYTOIN SODIUM EXTENDED 100 MG CAPSULE PO SCH ×3 (05:52→20:21)
[2017-12-27] MEDS: levETIRAcetam 500 MG TABLET PO SCH ×2 (08:44→20:21)
[2017-12-27] MEDS: LACTOBACILLUS RHAMNOSUS GG 1 CAPSULE. PO SCH ×2 (08:45→20:22)
[2017-12-27] MEDS: LOSARTAN 50 MG TABLET. PO SCH (08:45)
[2017-12-27] MEDS: METOPROLOL SUCC 24HR ER 50 MG TAB.ER.24H. PO SCH (08:45)
[2017-12-27] MEDS: metFORMIN 500 MG TABLET PO SCH ×2 (08:46→18:16)
[2017-12-27] MEDS: BETHANECHOL CHLORIDE 25 MG TABLET PO SCH ×4 (08:48→20:22)
[2017-12-27] MEDS: FENOFIBRATE NANOCRYSTALLIZED 48 MG TABLET PO SCH (08:48)
[2017-12-27 16:31] VITALS: BP 110/84
[2017-12-27] MEDS: cloZAPine 100 MG TABLET PO SCH (20:21)
[2017-12-27] MEDS: DIVALPROEX ER 500 MG TAB.ER.24H PO SCH (20:21)
[2017-12-27] MEDS: cloZAPine 25 MG TABLET PO SCH (20:21)
[2017-12-27] MEDS: ATORVASTATIN CALCIUM 20 MG TABLET PO SCH (20:22)
--- NOTE | 2017-12-27 20:51 | PDOC ---
Exam Note: Arash Note: Please also refer to the separate dictated note~for this date of service dictated separately.~Patient seen individually. Discussed the patient with Nursing staff reviewed the chart.~Reviewed interim history and current functioning. Reviewed vital signs,~Labs/ Radiology~and current medications noted below. Continue current treatment with the changes noted in the dictated addendum note Assessment: Vital Signs: Vital Signs Date Time Temp Pulse Resp B/P (MAP) Pulse Ox O2 Delivery O2 Flow Rate FiO2 12/27/17 16:31 97.2 91 17 110/84 (93) 93 12/26/17 15:48 Room Air I&O Intake and Output 12/27/17 07:00 Intake Total 1680 ml Balance 1680 ml Intake Oral 1680 ml Labs: Laboratory Tests Test 12/27/17 07:56 12/27/17 11:48 12/27/17 17:13 12/27/17 19:25 Glucose (Fingerstick) 93 mg/dL (70-99) 146 mg/dL (70-99) H 134 mg/dL (70-99) H 143 mg/dL (70-99) H Current Medications: Meds: Current Medications Acetaminophen (Tylenol) 650 mg PRN Q6HRS PRN PO PAIN / TEMP; Start 12/13/17 at 16:00 Multi-Ingredient Ointment (Analgesic [place]) 1 joey PRN QID PRN TP MUSCLE PAIN; Start 12/13/17 at 16:00 Al Hydroxide/Mg Hydroxide (Mylanta Plus Xs) 15 ml PRN AFTMEALHC PRN PO DYSPEPSIA Last administered on 12/13/17at 21:05; Start 12/13/17 at 16:00 Magnesium Hydroxide (Milk Of Magnesia) 2,400 mg PRN QHS PRN PO CONSTIPATION; Start 12/13/17 at 16:00 Clozapine (Clozaril) 300 mg DAILY PO Last administered on 12/14/17at 10:03; Start 12/14/17 at 09:00; Stop 12/14/17 at 10:27; Status DC Lorazepam (Ativan) 0.5 mg PRN Q6HRS PRN PO ANXIETY / AGITATION; Start 12/13/17 at 20:45 Atorvastatin Calcium (Lipitor) 20 mg QHS PO Last administered on 12/14/17at 20: 05; Start 12/13/17 at 21:00; Stop 12/15/17 at 15:00; Status DC Bethanechol Chloride (Urecholine) 25 mg QID PO Last administered on 12/27/17at 20:22; Start 12/13/17 at 21:00 Losartan Potassium (Cozaar) 50 mg DAILY PO Last administered on 12/27/17at 08:45 ; Start 12/14/17 at 09:00 Triamcinolone Acetonide (Kenalog) 15 joey BID TP Last administered on 12/25/17at 08:19; Start 12/13/17 at 21:00; Stop 12/26/17 at 12:12; Status DC Clotrimazole (Lotrimin) 1 joey BID TP Last administered on 12/25/17at 08:20; Start 12/13/17 at 21:00; Stop 12/26/17 at 12:12; Status DC Fenofibrate (Tricor) 48 mg DAILY PO Last administered on 12/27/17at 08:48; Start 12/14/17 at 09:00 Glipizide (Glucotrol Er) 5 mg DAILY08 PO Last administered on 12/15/17at 08:36; Start 12/14/17 at 08:00; Stop 12/15/17 at 14:58; Status DC Levetiracetam (Keppra) 1,000 mg BID PO Last administered on 12/27/17at 20:21; Start 12/13/17 at 21:00 Metformin HCl (Glucophage) 1,000 mg BIDWMEALS PO Last administered on at 18:16; Start 12/14/17 at 08:00 Metoprolol Succinate (Toprol Xl) 50 mg DAILY PO Last administered on 12/27/17at 08:45; Start 12/14/17 at 09:00 Pantoprazole Sodium (Protonix) 40 mg PRN DAILY PRN PO HEARTBURN / GAS; Start at 07:30 Phenytoin Sodium (Dilantin) 100 mg Q8HRS PO Last administered on 12/27/17at 20: 21; Start 12/13/17 at 22:00 Clozapine (Clozaril) 300 mg QHS PO Last administered on 12/18/17at 20:31; Start 12/14/17 at 21:00; Stop 12/19/17 at 17:05; Status DC Divalproex Sodium (Depakote Er) 500 mg QHS PO Last administered on 12/16/17at 20 :29; Start 12/14/17 at 21:00; Stop 12/17/17 at 18:41; Status DC Glipizide (Glucotrol Er) 10 mg DAILY08 PO Last administered on 12/27/17at 08:49 ; Start 12/16/17 at 08:00 Vitamin D (Vitamin D3) 50,000 unit WEEKLY PO Last administered on 12/23/17at 09: 13; Start 12/16/17 at 09:00 Cephalexin HCl (Keflex) 500 mg BID PO Last administered on 12/25/17 08:13; Start 12/15/17 at 21:00; Stop 12/25/17 at 20:59; Status DC Atorvastatin Calcium (Lipitor) 40 mg QHS PO Last administered on 12/27/17at 20: 22; Start 12/15/17 at 21:00 Lactobacillus Rhamnosus (Culturelle) 1 cap BID PO Last administered on at 20:22; Start 12/16/17 at 09:00 Divalproex Sodium (Depakote Er) 1,000 mg QHS PO Last administered on 12/27/17at 20:21; Start 12/17/17 at 21:00 Clozapine (Clozaril) 300 mg QHS PO Last administered on 12/27/17 20:21; Start 12/19/17 at 21:00 Clozapine (Clozaril) 25 mg QHS PO Last administered on 12/27/17at 20:21; Start 12/19/17 at 21:00 Ondansetron HCl (Zofran Odt) 4 mg PRN Q8HRS PRN PO NAUSEA/VOMITING Last administered on 12/22/17at 05:50; Start 12/22/17 at 00:30 Active Scripts Active Reported Shingrix Vial Kit (Varicella-Zoster Ge/As01b/Pf) 50 Mcg/0.5 Ml Kit 50 Mcg IM Zostavax Vial (Zoster Vaccine Live/Pf) 19,400 Unit/0.65 Ml Vial 19,400 Unit SQ Triamcinolone Acetonide 15 Gm Cream..g. 15 Gm TP BID Pantoprazole Sodium 40 Mg Tablet.dr 40 Mg PO PRN DAILY PRN Losartan Potassium 50 Mg Tablet 50 Mg PO DAILY Glipizide 5 Mg Tablet 5 Mg PO DAILY Tricor (Fenofibrate Nanocrystallized) 48 Mg Tablet 48 Mg PO DAILY Doxazosin Mesylate 4 Mg Tablet 4 Mg PO Lotrimin Af (Clotrimazole) 12 Gm Cream..g. 12 Gm TP BID Bethanechol Chloride 25 Mg Tablet 25 Mg PO QID Metoprolol Succinate ( Xl ) (Metoprolol Succinate) 50 Mg Tab.er.24h 50 Mg PO DAILY Metformin Hcl 1,000 Mg Tablet 1,000 Mg PO BID Clozaril (Clozapine) 100 Mg Tablet 300 Mg PO DAILY Dilantin (Phenytoin Sodium Extended) 100 Mg Capsule 100 Mg PO Q8HRS Lorazepam 0.5 Mg Tablet 0.5 Mg PO PRN Q6HRS PRN MDD 2mg Keppra (Levetiracetam) 1,000 Mg Tablet 1,000 Mg PO BID Lipitor (Atorvastatin Calcium) 20 Mg Tablet 20 Mg PO QHS I have reviewed the current psychotropics carefully including drug interactions. Risk benefit ratio favors no change other than as noted in my dictated progress note. Diagnosis: Problems: (1) Anxiety disorder (2) Bipolar affective, mixed, sev w/ psych (3) Schizoaffective disorder, chronic condition with acute exacerbation MANAS SHANKAR MD Dec 27, 2017 20:51
--- NOTE | 2017-12-27 23:38 | PN ---
DATE: 12/26/2017 This is a late entry for 12/26/2017 covers elements not covered in my initial note. SUBJECTIVE: I met with the patient in the evening at length in her room. The patient slept 8-3/4 hours previous night. She is withdrawn, spends much time in her room, refuses medications, sleeps off and on all day. Valproic acid level therapeutic at 84. REVIEW OF SYSTEMS: No CV, , pulmonary, eye, ENT system symptoms on review. Does complain of some tiredness. MENTAL STATUS EXAM: Oriented reasonably. Speech is coherent, abstraction fair, computation impaired, language function intact. Mood and affect withdrawn, but improved. LABORATORY DATA: Reviewed. IMPRESSION: Unchanged from initial note. PLAN: No change from initial note. MAN Maikel SHANKAR MD DR: ASHLEIGH/cali JOB#: [id number] / [id number]
[2017-12-28 05:27] VITALS: BP 118/76
[2017-12-28] MEDS: PHENYTOIN SODIUM EXTENDED 100 MG CAPSULE PO SCH ×3 (05:57→19:56)
[2017-12-28] MEDS: metFORMIN 500 MG TABLET PO SCH ×2 (08:30→17:25)
[2017-12-28] MEDS: levETIRAcetam 500 MG TABLET PO SCH ×2 (08:30→19:56)
[2017-12-28] MEDS: METOPROLOL SUCC 24HR ER 50 MG TAB.ER.24H. PO SCH (08:31)
[2017-12-28] MEDS: LACTOBACILLUS RHAMNOSUS GG 1 CAPSULE. PO SCH ×2 (08:31→19:57)
[2017-12-28] MEDS: BETHANECHOL CHLORIDE 25 MG TABLET PO SCH ×4 (08:31→19:58)
[2017-12-28] MEDS: LOSARTAN 50 MG TABLET. PO SCH (08:31)
[2017-12-28] MEDS: FENOFIBRATE NANOCRYSTALLIZED 48 MG TABLET PO SCH (08:31)
[2017-12-28 15:58] VITALS: BP 107/67
[2017-12-28] MEDS: ATORVASTATIN CALCIUM 20 MG TABLET PO SCH (19:56)
[2017-12-28] MEDS: DIVALPROEX ER 500 MG TAB.ER.24H PO SCH (19:57)
[2017-12-28] MEDS: cloZAPine 25 MG TABLET PO SCH (19:57)
[2017-12-28] MEDS: cloZAPine 100 MG TABLET PO SCH (19:57)
--- NOTE | 2017-12-28 20:31 | PDOC ---
Exam Note: Arash Note: Please also refer to the separate dictated note~for this date of service dictated separately.~Patient seen individually. Discussed the patient with Nursing staff reviewed the chart.~Reviewed interim history and current functioning. Reviewed vital signs,~Labs/ Radiology~and current medications noted below. Continue current treatment with the changes noted in the dictated addendum note Assessment: Vital Signs: Vital Signs Date Time Temp Pulse Resp B/P (MAP) Pulse Ox O2 Delivery O2 Flow Rate FiO2 12/28/17 15:58 98.5 87 18 107/67 (80) 94 Room Air I&O Intake and Output 12/28/17 07:00 Intake Total 2160 ml Balance 2160 ml Intake Oral 2160 ml Labs: Laboratory Tests Test 12/28/17 07:25 12/28/17 12:12 12/28/17 17:04 12/28/17 19:20 Glucose (Fingerstick) 94 mg/dL (70-99) 106 mg/dL (70-99) H 93 mg/dL (70-99) 169 mg/dL (70-99) H Current Medications: Meds: Current Medications Acetaminophen (Tylenol) 650 mg PRN Q6HRS PRN PO PAIN / TEMP; Start 12/13/17 at 16:00 Multi-Ingredient Ointment (Analgesic [place]) 1 joey PRN QID PRN TP MUSCLE PAIN; Start 12/13/17 at 16:00 Al Hydroxide/Mg Hydroxide (Mylanta Plus Xs) 15 ml PRN AFTMEALHC PRN PO DYSPEPSIA Last administered on 12/13/17at 21:05; Start 12/13/17 at 16:00 Magnesium Hydroxide (Milk Of Magnesia) 2,400 mg PRN QHS PRN PO CONSTIPATION; Start 12/13/17 at 16:00 Clozapine (Clozaril) 300 mg DAILY PO Last administered on 12/14/17at 10:03; Start 12/14/17 at 09:00; Stop 12/14/17 at 10:27; Status DC Lorazepam (Ativan) 0.5 mg PRN Q6HRS PRN PO ANXIETY / AGITATION; Start 12/13/17 at 20:45 Atorvastatin Calcium (Lipitor) 20 mg QHS PO Last administered on 12/14/17at 20: 05; Start 12/13/17 at 21:00; Stop 12/15/17 at 15:00; Status DC Bethanechol Chloride (Urecholine) 25 mg QID PO Last administered on 12/28/17 19:58; Start 12/13/17 at 21:00 Losartan Potassium (Cozaar) 50 mg DAILY PO Last administered on 12/28/17 08:31 ; Start 12/14/17 at 09:00 Triamcinolone Acetonide (Kenalog) 15 joey BID TP Last administered on 12/25/17 08:19; Start 12/13/17 at 21:00; Stop 12/26/17 at 12:12; Status DC Clotrimazole (Lotrimin) 1 joey BID TP Last administered on 12/25/17 08:20; Start 12/13/17 at 21:00; Stop 12/26/17 at 12:12; Status DC Fenofibrate (Tricor) 48 mg DAILY PO Last administered on 12/28/17 08:31; Start 12/14/17 at 09:00 Glipizide (Glucotrol Er) 5 mg DAILY08 PO Last administered on 12/15/17at 08:36; Start 12/14/17 at 08:00; Stop 12/15/17 at 14:58; Status DC Levetiracetam (Keppra) 1,000 mg BID PO Last administered on 12/28/17 19:56; Start 12/13/17 at 21:00 Metformin HCl (Glucophage) 1,000 mg BIDWMEALS PO Last administered on at 17:25; Start 12/14/17 at 08:00 Metoprolol Succinate (Toprol Xl) 50 mg DAILY PO Last administered on 12/28/17at 08:31; Start 12/14/17 at 09:00 Pantoprazole Sodium (Protonix) 40 mg PRN DAILY PRN PO HEARTBURN / GAS; Start at 07:30 Phenytoin Sodium (Dilantin) 100 mg Q8HRS PO Last administered on 12/28/17at 19: 56; Start 12/13/17 at 22:00 Clozapine (Clozaril) 300 mg QHS PO Last administered on 12/18/17at 20:31; Start 12/14/17 at 21:00; Stop 12/19/17 at 17:05; Status DC Divalproex Sodium (Depakote Er) 500 mg QHS PO Last administered on 12/16/17at 20 :29; Start 12/14/17 at 21:00; Stop 12/17/17 at 18:41; Status DC Glipizide (Glucotrol Er) 10 mg DAILY08 PO Last administered on 12/28/17at 08:30 ; Start 12/16/17 at 08:00 Vitamin D (Vitamin D3) 50,000 unit WEEKLY PO Last administered on 12/23/17at 09: 13; Start 12/16/17 at 09:00 Cephalexin HCl (Keflex) 500 mg BID PO Last administered on 12/25/17at 08:13; Start 12/15/17 at 21:00; Stop 12/25/17 at 20:59; Status DC Atorvastatin Calcium (Lipitor) 40 mg QHS PO Last administered on 12/28/17 19: 56; Start 12/15/17 at 21:00 Lactobacillus Rhamnosus (Culturelle) 1 cap BID PO Last administered on at 19:57; Start 12/16/17 at 09:00 Divalproex Sodium (Depakote Er) 1,000 mg QHS PO Last administered on 12/28/17at 19:57; Start 12/17/17 at 21:00 Clozapine (Clozaril) 300 mg QHS PO Last administered on 12/28/17 19:57; Start 12/19/17 at 21:00 Clozapine (Clozaril) 25 mg QHS PO Last administered on 12/28/17 19:57; Start 12/19/17 at 21:00 Ondansetron HCl (Zofran Odt) 4 mg PRN Q8HRS PRN PO NAUSEA/VOMITING Last administered on 12/22/17at 05:50; Start 12/22/17 at 00:30 Active Scripts Active Reported Shingrix Vial Kit (Varicella-Zoster Ge/As01b/Pf) 50 Mcg/0.5 Ml Kit 50 Mcg IM Zostavax Vial (Zoster Vaccine Live/Pf) 19,400 Unit/0.65 Ml Vial 19,400 Unit SQ Triamcinolone Acetonide 15 Gm Cream..g. 15 Gm TP BID Pantoprazole Sodium 40 Mg Tablet.dr 40 Mg PO PRN DAILY PRN Losartan Potassium 50 Mg Tablet 50 Mg PO DAILY Glipizide 5 Mg Tablet 5 Mg PO DAILY Tricor (Fenofibrate Nanocrystallized) 48 Mg Tablet 48 Mg PO DAILY Doxazosin Mesylate 4 Mg Tablet 4 Mg PO Lotrimin Af (Clotrimazole) 12 Gm Cream..g. 12 Gm TP BID Bethanechol Chloride 25 Mg Tablet 25 Mg PO QID Metoprolol Succinate ( Xl ) (Metoprolol Succinate) 50 Mg Tab.er.24h 50 Mg PO DAILY Metformin Hcl 1,000 Mg Tablet 1,000 Mg PO BID Clozaril (Clozapine) 100 Mg Tablet 300 Mg PO DAILY Dilantin (Phenytoin Sodium Extended) 100 Mg Capsule 100 Mg PO Q8HRS Lorazepam 0.5 Mg Tablet 0.5 Mg PO PRN Q6HRS PRN MDD 2mg Keppra (Levetiracetam) 1,000 Mg Tablet 1,000 Mg PO BID Lipitor (Atorvastatin Calcium) 20 Mg Tablet 20 Mg PO QHS I have reviewed the current psychotropics carefully including drug interactions. Risk benefit ratio favors no change other than as noted in my dictated progress note. Diagnosis: Problems: (1) Anxiety disorder (2) Bipolar affective, mixed, sev w/ psych (3) Schizoaffective disorder, chronic condition with acute exacerbation MANAS SHANKAR MD Dec 28, 2017 20:31
[2017-12-29] MEDS: PHENYTOIN SODIUM EXTENDED 100 MG CAPSULE PO SCH ×3 (04:57→19:35)
[2017-12-29 05:54] VITALS: BP 115/77
[2017-12-29] MEDS: LACTOBACILLUS RHAMNOSUS GG 1 CAPSULE. PO SCH ×2 (09:24→19:35)
[2017-12-29] MEDS: BETHANECHOL CHLORIDE 25 MG TABLET PO SCH ×4 (09:24→19:38)
[2017-12-29] MEDS: FENOFIBRATE NANOCRYSTALLIZED 48 MG TABLET PO SCH (09:24)
[2017-12-29] MEDS: LOSARTAN 50 MG TABLET. PO SCH (09:25)
[2017-12-29] MEDS: metFORMIN 500 MG TABLET PO SCH ×2 (09:25→17:17)
[2017-12-29] MEDS: METOPROLOL SUCC 24HR ER 50 MG TAB.ER.24H. PO SCH (09:25)
[2017-12-29] MEDS: levETIRAcetam 500 MG TABLET PO SCH ×2 (09:25→19:36)
[2017-12-29 16:06] VITALS: BP 111/68
[2017-12-29] MEDS: ATORVASTATIN CALCIUM 20 MG TABLET PO SCH (19:35)
[2017-12-29] MEDS: DIVALPROEX ER 500 MG TAB.ER.24H PO SCH (19:36)
[2017-12-29] MEDS: DOCUSATE SODIUM 100 MG CAPSULE PO PRN (19:38)
[2017-12-29] MEDS: cloZAPine 25 MG TABLET PO SCH (19:38)
[2017-12-29] MEDS: cloZAPine 100 MG TABLET PO SCH (19:38)
--- NOTE | 2017-12-29 20:49 | PDOC ---
Exam Note: Arash Note: Please also refer to the separate dictated note~for this date of service dictated separately.~Patient seen individually. Discussed the patient with Nursing staff reviewed the chart.~Reviewed interim history and current functioning. Reviewed vital signs,~Labs/ Radiology~and current medications noted below. Continue current treatment with the changes noted in the dictated addendum note Assessment: Vital Signs: Vital Signs Date Time Temp Pulse Resp B/P (MAP) Pulse Ox O2 Delivery O2 Flow Rate FiO2 12/29/17 16:06 97.9 86 18 111/68 (82) 95 Room Air I&O Intake and Output 12/29/17 07:00 Intake Total 1040 ml Balance 1040 ml Intake Oral 1040 ml # Voids 2 Labs: Laboratory Tests Test 12/29/17 07:19 12/29/17 11:26 12/29/17 16:23 Glucose (Fingerstick) 102 mg/dL (70-99) H 98 mg/dL (70-99) 85 mg/dL (70-99) Current Medications: Meds: Current Medications Acetaminophen (Tylenol) 650 mg PRN Q6HRS PRN PO PAIN / TEMP; Start 12/13/17 at 16:00 Multi-Ingredient Ointment (Analgesic [place]) 1 joey PRN QID PRN TP MUSCLE PAIN; Start 12/13/17 at 16:00 Al Hydroxide/Mg Hydroxide (Mylanta Plus Xs) 15 ml PRN AFTMEALHC PRN PO DYSPEPSIA Last administered on 12/13/17at 21:05; Start 12/13/17 at 16:00 Magnesium Hydroxide (Milk Of Magnesia) 2,400 mg PRN QHS PRN PO CONSTIPATION; Start 12/13/17 at 16:00 Clozapine (Clozaril) 300 mg DAILY PO Last administered on 12/14/17at 10:03; Start 12/14/17 at 09:00; Stop 12/14/17 at 10:27; Status DC Lorazepam (Ativan) 0.5 mg PRN Q6HRS PRN PO ANXIETY / AGITATION; Start 12/13/17 at 20:45 Atorvastatin Calcium (Lipitor) 20 mg QHS PO Last administered on 12/14/17at 20: 05; Start 12/13/17 at 21:00; Stop 12/15/17 at 15:00; Status DC Bethanechol Chloride (Urecholine) 25 mg QID PO Last administered on 12/29/17 19:38; Start 12/13/17 at 21:00 Losartan Potassium (Cozaar) 50 mg DAILY PO Last administered on 12/29/17 09:25 ; Start 12/14/17 at 09:00 Triamcinolone Acetonide (Kenalog) 15 joey BID TP Last administered on 12/25/17 08:19; Start 12/13/17 at 21:00; Stop 12/26/17 at 12:12; Status DC Clotrimazole (Lotrimin) 1 joey BID TP Last administered on 12/25/17 08:20; Start 12/13/17 at 21:00; Stop 12/26/17 at 12:12; Status DC Fenofibrate (Tricor) 48 mg DAILY PO Last administered on 12/29/17 09:24; Start 12/14/17 at 09:00 Glipizide (Glucotrol Er) 5 mg DAILY08 PO Last administered on 12/15/17at 08:36; Start 12/14/17 at 08:00; Stop 12/15/17 at 14:58; Status DC Levetiracetam (Keppra) 1,000 mg BID PO Last administered on 12/29/17 19:36; Start 12/13/17 at 21:00 Metformin HCl (Glucophage) 1,000 mg BIDWMEALS PO Last administered on 17:17; Start 12/14/17 at 08:00 Metoprolol Succinate (Toprol Xl) 50 mg DAILY PO Last administered on 12/29/17 09:25; Start 12/14/17 at 09:00 Pantoprazole Sodium (Protonix) 40 mg PRN DAILY PRN PO HEARTBURN / GAS; Start at 07:30 Phenytoin Sodium (Dilantin) 100 mg Q8HRS PO Last administered on 12/29/17 19: 35; Start 12/13/17 at 22:00 Clozapine (Clozaril) 300 mg QHS PO Last administered on 12/18/17at 20:31; Start 12/14/17 at 21:00; Stop 12/19/17 at 17:05; Status DC Divalproex Sodium (Depakote Er) 500 mg QHS PO Last administered on 12/16/17 20 :29; Start 12/14/17 at 21:00; Stop 12/17/17 at 18:41; Status DC Glipizide (Glucotrol Er) 10 mg DAILY08 PO Last administered on 12/29/17 09:24 ; Start 12/16/17 at 08:00 Vitamin D (Vitamin D3) 50,000 unit WEEKLY PO Last administered on 12/23/17 09: 13; Start 12/16/17 at 09:00 Cephalexin HCl (Keflex) 500 mg BID PO Last administered on 12/25/17 08:13; Start 12/15/17 at 21:00; Stop 12/25/17 at 20:59; Status DC Atorvastatin Calcium (Lipitor) 40 mg QHS PO Last administered on 12/29/17 19: 35; Start 12/15/17 at 21:00 Lactobacillus Rhamnosus (Culturelle) 1 cap BID PO Last administered on 19:35; Start 12/16/17 at 09:00 Divalproex Sodium (Depakote Er) 1,000 mg QHS PO Last administered on 12/29/17 19:36; Start 12/17/17 at 21:00 Clozapine (Clozaril) 300 mg QHS PO Last administered on 12/29/17 19:38; Start 12/19/17 at 21:00 Clozapine (Clozaril) 25 mg QHS PO Last administered on 12/29/17 19:38; Start 12/19/17 at 21:00 Ondansetron HCl (Zofran Odt) 4 mg PRN Q8HRS PRN PO NAUSEA/VOMITING Last administered on 12/22/17at 05:50; Start 12/22/17 at 00:30 Docusate Sodium (Colace) 100 mg PRN DAILY PRN PO CONSTIPATION Last administered on 12/29/17 19:38; Start 12/29/17 at 09:30 Active Scripts Active Reported Shingrix Vial Kit (Varicella-Zoster Ge/As01b/Pf) 50 Mcg/0.5 Ml Kit 50 Mcg IM Zostavax Vial (Zoster Vaccine Live/Pf) 19,400 Unit/0.65 Ml Vial 19,400 Unit SQ Triamcinolone Acetonide 15 Gm Cream..g. 15 Gm TP BID Pantoprazole Sodium 40 Mg Tablet.dr 40 Mg PO PRN DAILY PRN Losartan Potassium 50 Mg Tablet 50 Mg PO DAILY Glipizide 5 Mg Tablet 5 Mg PO DAILY Tricor (Fenofibrate Nanocrystallized) 48 Mg Tablet 48 Mg PO DAILY Doxazosin Mesylate 4 Mg Tablet 4 Mg PO Lotrimin Af (Clotrimazole) 12 Gm Cream..g. 12 Gm TP BID Bethanechol Chloride 25 Mg Tablet 25 Mg PO QID Metoprolol Succinate ( Xl ) (Metoprolol Succinate) 50 Mg Tab.er.24h 50 Mg PO DAILY Metformin Hcl 1,000 Mg Tablet 1,000 Mg PO BID Clozaril (Clozapine) 100 Mg Tablet 300 Mg PO DAILY Dilantin (Phenytoin Sodium Extended) 100 Mg Capsule 100 Mg PO Q8HRS Lorazepam 0.5 Mg Tablet 0.5 Mg PO PRN Q6HRS PRN MDD 2mg Keppra (Levetiracetam) 1,000 Mg Tablet 1,000 Mg PO BID Lipitor (Atorvastatin Calcium) 20 Mg Tablet 20 Mg PO QHS I have reviewed the current psychotropics carefully including drug interactions. Risk benefit ratio favors no change other than as noted in my dictated progress note. Diagnosis: Problems: (1) Anxiety disorder (2) Bipolar affective, mixed, sev w/ psych (3) Schizoaffective disorder, chronic condition with acute exacerbation MANSA SHANKAR MD Dec 29, 2017 20:49
--- NOTE | 2017-12-29 22:21 | PN ---
DATE: 12/27/2017 This is a late entry for 12/27/2017 covers elements not covered in my initial note. SUBJECTIVE: I met with the patient at length in her room. The patient slept 9-1/4 hours previous night. She spends much time in her room, resistive at times, sarcastic to staff during medication administration, day before complaining of sedation. On 12/27/2017, she was more compliant with her medications. She talked about having been at the [facility] in the past till they moved down to [place]. REVIEW OF SYSTEMS: No CV, , pulmonary, eye, ENT system symptoms on review. MENTAL STATUS EXAM: Oriented to herself and situation. Speech is coherent, has some latency. Abstraction fair, computation impaired, language function intact, attention span short. Mood and affect somewhat withdrawn. LABORATORY DATA: Reviewed. IMPRESSION: Schizoaffective disorder, bipolar type, mixed with psychotic features. Rest unchanged. PLAN: No change from initial note. Continue Keppra for her seizures, Ativan p.r.n., Dilantin for seizures, Clozaril 325 mg at bedtime, Depakote ER 1000 mg at bedtime. Repeat labs level to reach therapeutic level. MANAS SHANKAR MD DR: ASHLEIGH/cali JOB#: [id number] / [id number]
--- NOTE | 2017-12-30 00:43 | PN ---
DATE: 12/28/2017 This is a late entry for 12/28/2017 covers elements not covered in my initial note. SUBJECTIVE: I met with the patient in the evening at length in her room and staffed at treatment team meeting in the morning with Zander, the patient's [id number] attending. I had a very lengthy discussion about the patient's diagnosis, progress, need for a more structured placement at discharge rather than going back home. The patient slept 6-3/4 hours. Appetite 100%, isolates in her room. Valproic acid level 84. REVIEW OF SYSTEMS: No CV, , pulmonary, eye, ENT system symptoms on review. Does admit to some tiredness. MENTAL STATUS EXAM: Reasonably oriented. Speech is coherent, abstraction fair, computation able to do one step in serial 7's. No suicidal or homicidal ideation. LABORATORY DATA: Reviewed. IMPRESSION: Schizoaffective disorder, bipolar type, depressed, in partial remission. Rest unchanged. PLAN: No change from a psychiatric standpoint for now. MANAS SHANKAR MD DR: ASHLEIGH/cali JOB#: [id number] / [id number]
[2017-12-30] MEDS: PHENYTOIN SODIUM EXTENDED 100 MG CAPSULE PO SCH ×3 (05:42→19:24)
[2017-12-30 05:56] VITALS: BP 114/53
[2017-12-30] MEDS: LACTOBACILLUS RHAMNOSUS GG 1 CAPSULE. PO SCH (08:42)
[2017-12-30] MEDS: metFORMIN 500 MG TABLET PO SCH ×2 (08:42→17:17)
[2017-12-30] MEDS: FENOFIBRATE NANOCRYSTALLIZED 48 MG TABLET PO SCH (08:43)
[2017-12-30] MEDS: BETHANECHOL CHLORIDE 25 MG TABLET PO SCH ×4 (08:43→19:25)
[2017-12-30] MEDS: levETIRAcetam 500 MG TABLET PO SCH ×2 (08:43→19:23)
[2017-12-30] MEDS: CHOLECALCIFEROL (VITAMIN D3) 50,000 UNIT CAPSULE PO SCH (08:44)
[2017-12-30] MEDS: LOSARTAN 50 MG TABLET. PO SCH (09:00)
[2017-12-30] MEDS: METOPROLOL SUCC 24HR ER 50 MG TAB.ER.24H. PO SCH (09:00)
[2017-12-30 12:19] LABS: BASO % 0 % (0-3); EOS % 0 % (0-3); HEMATOCRIT 39.2 % (36.0-47.0); HEMOGLOBIN 12.8 g/dL (12.0-15.5); LYMPH # 1.7 x10^3/uL (1.0-4.8); LYMPH % 27 % (24-48); MEAN CORPUSCULAR HEMOGLOBIN 28 pg (25-35); MEAN CORPUSCULAR HGB CONC 33 g/dL (31-37); MEAN CORPUSCULAR VOLUME 85 fL (79-100); MONO # 0.3 x10^3/uL (0.0-1.1); MONO % 5 % (0-9); NEUT # 4.2 x10^3uL (1.8-7.7); NEUT % 67 % (31-73); PLATELET COUNT 236 x10^3/uL (140-400); RED CELL DISTRIBUTION WIDTH 16.2 % (11.5-14.5); WHITE BLOOD COUNT 6.2 x10^3/uL (4.0-11.0)
[2017-12-30 12:22] LABS: ALBUMIN 3.1 g/dL (3.4-5.0); ALBUMIN/GLOBULIN RATIO 0.9 (1.0-1.7); CALCIUM 8.4 mg/dL (8.5-10.1); CREATININE 0.9 mg/dL (0.6-1.0); GFR 63.7; TOTAL BILIRUBIN 0.1 mg/dL (0.2-1.0); TOTAL PROTEIN 6.5 g/dL (6.4-8.2)
[2017-12-30 15:58] VITALS: BP 104/65
[2017-12-30] MEDS: DIVALPROEX ER 500 MG TAB.ER.24H PO SCH (19:23)
[2017-12-30] MEDS: cloZAPine 25 MG TABLET PO SCH (19:23)
[2017-12-30] MEDS: cloZAPine 100 MG TABLET PO SCH (19:23)
[2017-12-30] MEDS: ATORVASTATIN CALCIUM 20 MG TABLET PO SCH (19:24)
[2017-12-30] MEDS: MAGNESIUM HYDROXIDE 2,400 MG/30 ML ORAL.SUSP. PO PRN (19:25)
[2017-12-30] MEDS: DOCUSATE SODIUM 100 MG CAPSULE PO PRN (19:25)
--- NOTE | 2017-12-30 23:06 | PDOC ---
Exam Note: Arash Note: Please also refer to the separate dictated note~for this date of service dictated separately.~Patient seen individually. Discussed the patient with Nursing staff reviewed the chart.~Reviewed interim history and current functioning. Reviewed vital signs,~Labs/ Radiology~and current medications noted below. Continue current treatment with the changes noted in the dictated addendum note Assessment: Vital Signs: Vital Signs Date Time Temp Pulse Resp B/P (MAP) Pulse Ox O2 Delivery O2 Flow Rate FiO2 12/30/17 15:58 98.0 89 18 104/65 (78) 98 12/30/17 05:56 Room Air I&O Intake and Output 12/30/17 07:00 Intake Total 920 ml Balance 920 ml Intake Oral 920 ml Labs: Laboratory Tests Test 12/30/17 07:13 12/30/17 11:23 12/30/17 11:45 12/30/17 16:50 Glucose (Fingerstick) 74 mg/dL (70-99) 233 mg/dL (70-99) H 117 mg/dL (70-99) H White Blood Count 6.2 x10^3/uL (4.0-11.0) Red Blood Count 4.60 x10^6/uL (3.50-5.40) Hemoglobin 12.8 g/dL (12.0-15.5) Hematocrit 39.2 % (36.0-47.0) Mean Corpuscular Volume 85 fL (79-100) Mean Corpuscular Hemoglobin 28 pg (25-35) Mean Corpuscular Hemoglobin Concent 33 g/dL (31-37) Red Cell Distribution Width 16.2 % (11.5-14.5) H Platelet Count 236 x10^3/uL (140-400) Neutrophils (%) (Auto) 67 % (31-73) Lymphocytes (%) (Auto) 27 % (24-48) Monocytes (%) (Auto) 5 % (0-9) Eosinophils (%) (Auto) 0 % (0-3) Basophils (%) (Auto) 0 % (0-3) Neutrophils # (Auto) 4.2 x10^3uL (1.8-7.7) Lymphocytes # (Auto) 1.7 x10^3/uL (1.0-4.8) Monocytes # (Auto) 0.3 x10^3/uL (0.0-1.1) Eosinophils # (Auto) 0.0 x10^3/uL (0.0-0.7) Basophils # (Auto) 0.0 x10^3/uL (0.0-0.2) Sodium Level 137 mmol/L (136-145) Potassium Level 4.0 mmol/L (3.5-5.1) Chloride Level 101 mmol/L (98-107) Carbon Dioxide Level 30 mmol/L (21-32) Anion Gap 6 (6-14) Blood Urea Nitrogen 18 mg/dL (7-20) Creatinine 0.9 mg/dL (0.6-1.0) Estimated GFR (Cockcroft-Gault) 63.7 BUN/Creatinine Ratio 20 (6-20) Glucose Level 238 mg/dL (70-99) H Calcium Level 8.4 mg/dL (8.5-10.1) L Total Bilirubin 0.1 mg/dL (0.2-1.0) L Aspartate Amino Transferase (AST) 10 U/L (15-37) L Alanine Aminotransferase (ALT) 16 U/L (14-59) Alkaline Phosphatase 55 U/L (46-116) Total Protein 6.5 g/dL (6.4-8.2) Albumin 3.1 g/dL (3.4-5.0) L Albumin/Globulin Ratio 0.9 (1.0-1.7) L Test 12/30/17 20:14 Glucose (Fingerstick) 98 mg/dL (70-99) Current Medications: Meds: Current Medications Acetaminophen (Tylenol) 650 mg PRN Q6HRS PRN PO PAIN / TEMP; Start 12/13/17 at 16:00 Multi-Ingredient Ointment (Analgesic [place]) 1 joey PRN QID PRN TP MUSCLE PAIN; Start 12/13/17 at 16:00 Al Hydroxide/Mg Hydroxide (Mylanta Plus Xs) 15 ml PRN AFTMEALHC PRN PO DYSPEPSIA Last administered on 12/13/17at 21:05; Start 12/13/17 at 16:00 Magnesium Hydroxide (Milk Of Magnesia) 2,400 mg PRN QHS PRN PO CONSTIPATION Last administered on 12/30/17at 19:25; Start 12/13/17 at 16:00 Clozapine (Clozaril) 300 mg DAILY PO Last administered on 12/14/17at 10:03; Start 12/14/17 at 09:00; Stop 12/14/17 at 10:27; Status DC Lorazepam (Ativan) 0.5 mg PRN Q6HRS PRN PO ANXIETY / AGITATION; Start 12/13/17 at 20:45 Atorvastatin Calcium (Lipitor) 20 mg QHS PO Last administered on 12/14/17at 20: 05; Start 12/13/17 at 21:00; Stop 12/15/17 at 15:00; Status DC Bethanechol Chloride (Urecholine) 25 mg QID PO Last administered on 12/30/17 19:25; Start 12/13/17 at 21:00 Losartan Potassium (Cozaar) 50 mg DAILY PO Last administered on 12/29/17 09:25 ; Start 12/14/17 at 09:00 Triamcinolone Acetonide (Kenalog) 15 joey BID TP Last administered on 12/25/17at 08:19; Start 12/13/17 at 21:00; Stop 12/26/17 at 12:12; Status DC Clotrimazole (Lotrimin) 1 joey BID TP Last administered on 12/25/17 08:20; Start 12/13/17 at 21:00; Stop 12/26/17 at 12:12; Status DC Fenofibrate (Tricor) 48 mg DAILY PO Last administered on 12/30/17at 08:43; Start 12/14/17 at 09:00 Glipizide (Glucotrol Er) 5 mg DAILY08 PO Last administered on 12/15/17at 08:36; Start 12/14/17 at 08:00; Stop 12/15/17 at 14:58; Status DC Levetiracetam (Keppra) 1,000 mg BID PO Last administered on 12/30/17 19:23; Start 12/13/17 at 21:00 Metformin HCl (Glucophage) 1,000 mg BIDWMEALS PO Last administered on 17:17; Start 12/14/17 at 08:00 Metoprolol Succinate (Toprol Xl) 50 mg DAILY PO Last administered on 12/29/17at 09:25; Start 12/14/17 at 09:00 Pantoprazole Sodium (Protonix) 40 mg PRN DAILY PRN PO HEARTBURN / GAS; Start at 07:30 Phenytoin Sodium (Dilantin) 100 mg Q8HRS PO Last administered on 12/30/17 19: 24; Start 12/13/17 at 22:00 Clozapine (Clozaril) 300 mg QHS PO Last administered on 12/18/17at 20:31; Start 12/14/17 at 21:00; Stop 12/19/17 at 17:05; Status DC Divalproex Sodium (Depakote Er) 500 mg QHS PO Last administered on 12/16/17 20 :29; Start 12/14/17 at 21:00; Stop 12/17/17 at 18:41; Status DC Glipizide (Glucotrol Er) 10 mg DAILY08 PO Last administered on 12/30/17 08:42 ; Start 12/16/17 at 08:00 Vitamin D (Vitamin D3) 50,000 unit WEEKLY PO Last administered on 12/30/17at 08: 44; Start 12/16/17 at 09:00 Cephalexin HCl (Keflex) 500 mg BID PO Last administered on 12/25/17 08:13; Start 12/15/17 at 21:00; Stop 12/25/17 at 20:59; Status DC Atorvastatin Calcium (Lipitor) 40 mg QHS PO Last administered on 12/30/17 19: 24; Start 12/15/17 at 21:00 Lactobacillus Rhamnosus (Culturelle) 1 cap BID PO Last administered on 08:42; Start 12/16/17 at 09:00; Stop 12/30/17 at 18:01; Status DC Divalproex Sodium (Depakote Er) 1,000 mg QHS PO Last administered on 12/30/17 19:23; Start 12/17/17 at 21:00 Clozapine (Clozaril) 300 mg QHS PO Last administered on 12/30/17 19:23; Start 12/19/17 at 21:00 Clozapine (Clozaril) 25 mg QHS PO Last administered on 12/30/17 19:23; Start 12/19/17 at 21:00 Ondansetron HCl (Zofran Odt) 4 mg PRN Q8HRS PRN PO NAUSEA/VOMITING Last administered on 12/22/17at 05:50; Start 12/22/17 at 00:30 Docusate Sodium (Colace) 100 mg PRN DAILY PRN PO CONSTIPATION Last administered on 12/30/17at 19:25; Start 12/29/17 at 09:30 Influenza Virus Vaccine (Afluria Trivalent 3210-7867 Syringe) 0.5 ml ONCE ONCE VAX IM ; Start 12/31/17 at 09:00; Stop 12/31/17 at 09:01 Active Scripts Active Reported Shingrix Vial Kit (Varicella-Zoster Ge/As01b/Pf) 50 Mcg/0.5 Ml Kit 50 Mcg IM Zostavax Vial (Zoster Vaccine Live/Pf) 19,400 Unit/0.65 Ml Vial 19,400 Unit SQ Triamcinolone Acetonide 15 Gm Cream..g. 15 Gm TP BID Pantoprazole Sodium 40 Mg Tablet.dr 40 Mg PO PRN DAILY PRN Losartan Potassium 50 Mg Tablet 50 Mg PO DAILY Glipizide 5 Mg Tablet 5 Mg PO DAILY Tricor (Fenofibrate Nanocrystallized) 48 Mg Tablet 48 Mg PO DAILY Doxazosin Mesylate 4 Mg Tablet 4 Mg PO Lotrimin Af (Clotrimazole) 12 Gm Cream..g. 12 Gm TP BID Bethanechol Chloride 25 Mg Tablet 25 Mg PO QID Metoprolol Succinate ( Xl ) (Metoprolol Succinate) 50 Mg Tab.er.24h 50 Mg PO DAILY Metformin Hcl 1,000 Mg Tablet 1,000 Mg PO BID Clozaril (Clozapine) 100 Mg Tablet 300 Mg PO DAILY Dilantin (Phenytoin Sodium Extended) 100 Mg Capsule 100 Mg PO Q8HRS Lorazepam 0.5 Mg Tablet 0.5 Mg PO PRN Q6HRS PRN MDD 2mg Keppra (Levetiracetam) 1,000 Mg Tablet 1,000 Mg PO BID Lipitor (Atorvastatin Calcium) 20 Mg Tablet 20 Mg PO QHS I have reviewed the current psychotropics carefully including drug interactions. Risk benefit ratio favors no change other than as noted in my dictated progress note. Diagnosis: Problems: (1) Anxiety disorder (2) Bipolar affective, mixed, sev w/ psych (3) Schizoaffective disorder, chronic condition with acute exacerbation MANAS SHANKAR MD Dec 30, 2017 23:06
[2017-12-31 05:49] VITALS: BP 116/87
[2017-12-31] MEDS: PHENYTOIN SODIUM EXTENDED 100 MG CAPSULE PO SCH ×3 (06:34→20:32)
[2017-12-31] MEDS: metFORMIN 500 MG TABLET PO SCH ×2 (07:58→17:29)
[2017-12-31] MEDS: BETHANECHOL CHLORIDE 25 MG TABLET PO SCH ×4 (08:00→20:32)
[2017-12-31] MEDS: levETIRAcetam 500 MG TABLET PO SCH ×2 (08:00→20:31)
[2017-12-31] MEDS: FENOFIBRATE NANOCRYSTALLIZED 48 MG TABLET PO SCH (08:01)
[2017-12-31] MEDS: METOPROLOL SUCC 24HR ER 50 MG TAB.ER.24H. PO SCH (09:00)
[2017-12-31] MEDS: LOSARTAN 50 MG TABLET. PO SCH (09:00)
[2017-12-31 15:20] VITALS: BP 131/79
--- NOTE | 2017-12-31 17:42 | PN ---
DATE: 12/29/2017 This is a late entry of 12/29/2017 covers elements not covered in my initial note. SUBJECTIVE: I met with the patient in the evening. The patient slept 7-1/2 hours previous night. She remains withdrawn to her room between meals, but otherwise cooperative and complained of feeling cold and I informed the nursing staff, they will adjust the room temperature. No CV, , pulmonary, eye system symptoms on review. Does have some constipation. MENTAL STATUS EXAM: Reasonably oriented. Speech is coherent, abstraction fair; computation, able to do one step on serial 7's. No suicidal or homicidal ideation. Paranoia is much improved and thought processes seem much more goal directed than at admission. LABORATORY DATA: Reviewed. IMPRESSION: Schizoaffective disorder, bipolar type, mixed with psychotic features. Rest unchanged. PLAN: No change from initial note. We have adjusted the Clozaril, Depakote ER for now. MANAS SHANKAR MD DR: ASHLEIGH/cali JOB#: [id number] / [id number]
--- NOTE | 2017-12-31 20:07 | PDOC ---
Exam Note: Arash Note: Please also refer to the separate dictated note~for this date of service dictated separately.~Patient seen individually. Discussed the patient with Nursing staff reviewed the chart.~Reviewed interim history and current functioning. Reviewed vital signs,~Labs/ Radiology~and current medications noted below. Continue current treatment with the changes noted in the dictated addendum note Assessment: Vital Signs: Vital Signs Date Time Temp Pulse Resp B/P (MAP) Pulse Ox O2 Delivery O2 Flow Rate FiO2 12/31/17 15:20 97.0 85 18 131/79 (96) 96 12/31/17 05:49 Room Air I&O Intake and Output 12/31/17 07:00 Intake Total 676 ml Balance 676 ml Intake Oral 676 ml # Bowel Movements 1 Labs: Laboratory Tests Test 12/30/17 20:14 12/31/17 07:19 12/31/17 11:22 Glucose (Fingerstick) 98 mg/dL (70-99) 89 mg/dL (70-99) 142 mg/dL (70-99) H Current Medications: Meds: Current Medications Acetaminophen (Tylenol) 650 mg PRN Q6HRS PRN PO PAIN / TEMP; Start 12/13/17 at 16:00 Multi-Ingredient Ointment (Analgesic [place]) 1 joey PRN QID PRN TP MUSCLE PAIN; Start 12/13/17 at 16:00 Al Hydroxide/Mg Hydroxide (Mylanta Plus Xs) 15 ml PRN AFTMEALHC PRN PO DYSPEPSIA Last administered on 12/13/17at 21:05; Start 12/13/17 at 16:00 Magnesium Hydroxide (Milk Of Magnesia) 2,400 mg PRN QHS PRN PO CONSTIPATION Last administered on 12/30/17at 19:25; Start 12/13/17 at 16:00 Clozapine (Clozaril) 300 mg DAILY PO Last administered on 12/14/17at 10:03; Start 12/14/17 at 09:00; Stop 12/14/17 at 10:27; Status DC Lorazepam (Ativan) 0.5 mg PRN Q6HRS PRN PO ANXIETY / AGITATION; Start 12/13/17 at 20:45 Atorvastatin Calcium (Lipitor) 20 mg QHS PO Last administered on 12/14/17at 20: 05; Start 12/13/17 at 21:00; Stop 12/15/17 at 15:00; Status DC Bethanechol Chloride (Urecholine) 25 mg QID PO Last administered on 12/31/17 17:29; Start 12/13/17 at 21:00 Losartan Potassium (Cozaar) 50 mg DAILY PO Last administered on 12/29/17 09:25 ; Start 12/14/17 at 09:00; Stop 12/31/17 at 12:28; Status DC Triamcinolone Acetonide (Kenalog) 15 joey BID TP Last administered on 12/25/17 08:19; Start 12/13/17 at 21:00; Stop 12/26/17 at 12:12; Status DC Clotrimazole (Lotrimin) 1 joey BID TP Last administered on 12/25/17 08:20; Start 12/13/17 at 21:00; Stop 12/26/17 at 12:12; Status DC Fenofibrate (Tricor) 48 mg DAILY PO Last administered on 12/31/17at 08:01; Start 12/14/17 at 09:00 Glipizide (Glucotrol Er) 5 mg DAILY08 PO Last administered on 12/15/17at 08:36; Start 12/14/17 at 08:00; Stop 12/15/17 at 14:58; Status DC Levetiracetam (Keppra) 1,000 mg BID PO Last administered on 12/31/17 08:00; Start 12/13/17 at 21:00 Metformin HCl (Glucophage) 1,000 mg BIDWMEALS PO Last administered on at 17:29; Start 12/14/17 at 08:00 Metoprolol Succinate (Toprol Xl) 50 mg DAILY PO Last administered on 12/29/17 09:25; Start 12/14/17 at 09:00 Pantoprazole Sodium (Protonix) 40 mg PRN DAILY PRN PO HEARTBURN / GAS; Start at 07:30 Phenytoin Sodium (Dilantin) 100 mg Q8HRS PO Last administered on 12/31/17at 13: 43; Start 12/13/17 at 22:00 Clozapine (Clozaril) 300 mg QHS PO Last administered on 12/18/17at 20:31; Start 12/14/17 at 21:00; Stop 12/19/17 at 17:05; Status DC Divalproex Sodium (Depakote Er) 500 mg QHS PO Last administered on 12/16/17at 20 :29; Start 12/14/17 at 21:00; Stop 12/17/17 at 18:41; Status DC Glipizide (Glucotrol Er) 10 mg DAILY08 PO Last administered on 12/31/17 07:58 ; Start 12/16/17 at 08:00 Vitamin D (Vitamin D3) 50,000 unit WEEKLY PO Last administered on 12/30/17 08: 44; Start 12/16/17 at 09:00 Cephalexin HCl (Keflex) 500 mg BID PO Last administered on 12/25/17at 08:13; Start 12/15/17 at 21:00; Stop 12/25/17 at 20:59; Status DC Atorvastatin Calcium (Lipitor) 40 mg QHS PO Last administered on 12/30/17 19: 24; Start 12/15/17 at 21:00 Lactobacillus Rhamnosus (Culturelle) 1 cap BID PO Last administered on at 08:42; Start 12/16/17 at 09:00; Stop 12/30/17 at 18:01; Status DC Divalproex Sodium (Depakote Er) 1,000 mg QHS PO Last administered on 12/30/17 19:23; Start 12/17/17 at 21:00 Clozapine (Clozaril) 300 mg QHS PO Last administered on 12/30/17 19:23; Start 12/19/17 at 21:00 Clozapine (Clozaril) 25 mg QHS PO Last administered on 12/30/17 19:23; Start 12/19/17 at 21:00 Ondansetron HCl (Zofran Odt) 4 mg PRN Q8HRS PRN PO NAUSEA/VOMITING Last administered on 12/22/17at 05:50; Start 12/22/17 at 00:30 Docusate Sodium (Colace) 100 mg PRN DAILY PRN PO CONSTIPATION Last administered on 12/30/17at 19:25; Start 12/29/17 at 09:30 Influenza Virus Vaccine (Afluria Trivalent [id number] Syringe) 0.5 ml ONCE ONCE VAX IM Last administered on 12/31/17at 11:39; Start 12/31/17 at 09:00; Stop at 09:01; Status DC Losartan Potassium (Cozaar) 25 mg DAILY PO ; Start 01/01/18 at 09:00 Active Scripts Active Reported Shingrix Vial Kit (Varicella-Zoster Ge/As01b/Pf) 50 Mcg/0.5 Ml Kit 50 Mcg IM Zostavax Vial (Zoster Vaccine Live/Pf) 19,400 Unit/0.65 Ml Vial 19,400 Unit SQ Triamcinolone Acetonide 15 Gm Cream..g. 15 Gm TP BID Pantoprazole Sodium 40 Mg Tablet.dr 40 Mg PO PRN DAILY PRN Losartan Potassium 50 Mg Tablet 50 Mg PO DAILY Glipizide 5 Mg Tablet 5 Mg PO DAILY Tricor (Fenofibrate Nanocrystallized) 48 Mg Tablet 48 Mg PO DAILY Doxazosin Mesylate 4 Mg Tablet 4 Mg PO Lotrimin Af (Clotrimazole) 12 Gm Cream..g. 12 Gm TP BID Bethanechol Chloride 25 Mg Tablet 25 Mg PO QID Metoprolol Succinate ( Xl ) (Metoprolol Succinate) 50 Mg Tab.er.24h 50 Mg PO DAILY Metformin Hcl 1,000 Mg Tablet 1,000 Mg PO BID Clozaril (Clozapine) 100 Mg Tablet 300 Mg PO DAILY Dilantin (Phenytoin Sodium Extended) 100 Mg Capsule 100 Mg PO Q8HRS Lorazepam 0.5 Mg Tablet 0.5 Mg PO PRN Q6HRS PRN MDD 2mg Keppra (Levetiracetam) 1,000 Mg Tablet 1,000 Mg PO BID Lipitor (Atorvastatin Calcium) 20 Mg Tablet 20 Mg PO QHS I have reviewed the current psychotropics carefully including drug interactions. Risk benefit ratio favors no change other than as noted in my dictated progress note. Diagnosis: Problems: (1) Anxiety disorder (2) Bipolar affective, mixed, sev w/ psych (3) Schizoaffective disorder, chronic condition with acute exacerbation MANAS SHANKAR MD Dec 31, 2017 20:07
[2017-12-31] MEDS: cloZAPine 25 MG TABLET PO SCH (20:31)
[2017-12-31] MEDS: cloZAPine 100 MG TABLET PO SCH (20:31)
[2017-12-31] MEDS: DIVALPROEX ER 500 MG TAB.ER.24H PO SCH (20:31)
[2017-12-31] MEDS: ATORVASTATIN CALCIUM 20 MG TABLET PO SCH (20:32)
[2018-01-01 05:34] VITALS: BP 106/71
[2018-01-01] MEDS: PHENYTOIN SODIUM EXTENDED 100 MG CAPSULE PO SCH ×3 (05:53→20:09)
[2018-01-01] MEDS: METOPROLOL SUCC 24HR ER 50 MG TAB.ER.24H. PO SCH (09:08)
[2018-01-01] MEDS: levETIRAcetam 500 MG TABLET PO SCH ×2 (09:08→20:09)
[2018-01-01] MEDS: FENOFIBRATE NANOCRYSTALLIZED 48 MG TABLET PO SCH (09:09)
[2018-01-01] MEDS: metFORMIN 500 MG TABLET PO SCH ×2 (09:09→17:53)
[2018-01-01] MEDS: BETHANECHOL CHLORIDE 25 MG TABLET PO SCH ×4 (09:09→20:09)
[2018-01-01] MEDS: LOSARTAN 25 MG TABLET. PO SCH (09:12)
[2018-01-01 16:23] VITALS: BP 90/55
[2018-01-01] MEDS: cloZAPine 100 MG TABLET PO SCH (20:08)
[2018-01-01] MEDS: DIVALPROEX ER 500 MG TAB.ER.24H PO SCH (20:08)
[2018-01-01] MEDS: cloZAPine 25 MG TABLET PO SCH (20:09)
[2018-01-01] MEDS: ATORVASTATIN CALCIUM 20 MG TABLET PO SCH (20:09)
--- NOTE | 2018-01-01 20:23 | PDOC ---
Exam Note: Arash Note: Please also refer to the separate dictated note~for this date of service dictated separately.~Patient seen individually. Discussed the patient with Nursing staff reviewed the chart.~Reviewed interim history and current functioning. Reviewed vital signs,~Labs/ Radiology~and current medications noted below. Continue current treatment with the changes noted in the dictated addendum note Assessment: Vital Signs: Vital Signs Date Time Temp Pulse Resp B/P (MAP) Pulse Ox O2 Delivery O2 Flow Rate FiO2 01/01/18 16:23 98.0 88 18 90/55 (67) 96 12/31/17 05:49 Room Air I&O Intake and Output 01/01/18 07:00 Intake Total 1780 ml Balance 1780 ml Intake Oral 1780 ml # Voids 1 Labs: Laboratory Tests Test 01/01/18 07:31 Glucose (Fingerstick) 76 mg/dL (70-99) Current Medications: Meds: Current Medications Acetaminophen (Tylenol) 650 mg PRN Q6HRS PRN PO PAIN / TEMP; Start 12/13/17 at 16:00 Multi-Ingredient Ointment (Analgesic [place]) 1 joey PRN QID PRN TP MUSCLE PAIN; Start 12/13/17 at 16:00 Al Hydroxide/Mg Hydroxide (Mylanta Plus Xs) 15 ml PRN AFTMEALHC PRN PO DYSPEPSIA Last administered on 12/13/17at 21:05; Start 12/13/17 at 16:00 Magnesium Hydroxide (Milk Of Magnesia) 2,400 mg PRN QHS PRN PO CONSTIPATION Last administered on 12/30/17at 19:25; Start 12/13/17 at 16:00 Clozapine (Clozaril) 300 mg DAILY PO Last administered on 12/14/17at 10:03; Start 12/14/17 at 09:00; Stop 12/14/17 at 10:27; Status DC Lorazepam (Ativan) 0.5 mg PRN Q6HRS PRN PO ANXIETY / AGITATION; Start 12/13/17 at 20:45 Atorvastatin Calcium (Lipitor) 20 mg QHS PO Last administered on 12/14/17at 20: 05; Start 12/13/17 at 21:00; Stop 12/15/17 at 15:00; Status DC Bethanechol Chloride (Urecholine) 25 mg QID PO Last administered on 01/01/18 20:09; Start 12/13/17 at 21:00 Losartan Potassium (Cozaar) 50 mg DAILY PO Last administered on 12/29/17at 09:25 ; Start 12/14/17 at 09:00; Stop 12/31/17 at 12:28; Status DC Triamcinolone Acetonide (Kenalog) 15 joey BID TP Last administered on 12/25/17at 08:19; Start 12/13/17 at 21:00; Stop 12/26/17 at 12:12; Status DC Clotrimazole (Lotrimin) 1 joey BID TP Last administered on 12/25/17at 08:20; Start 12/13/17 at 21:00; Stop 12/26/17 at 12:12; Status DC Fenofibrate (Tricor) 48 mg DAILY PO Last administered on 01/01/18at 09:09; Start 12/14/17 at 09:00 Glipizide (Glucotrol Er) 5 mg DAILY08 PO Last administered on 12/15/17at 08:36; Start 12/14/17 at 08:00; Stop 12/15/17 at 14:58; Status DC Levetiracetam (Keppra) 1,000 mg BID PO Last administered on 01/01/18 20:09; Start 12/13/17 at 21:00 Metformin HCl (Glucophage) 1,000 mg BIDWMEALS PO Last administered on at 17:53; Start 12/14/17 at 08:00 Metoprolol Succinate (Toprol Xl) 50 mg DAILY PO Last administered on 01/01/18at 09:08; Start 12/14/17 at 09:00 Pantoprazole Sodium (Protonix) 40 mg PRN DAILY PRN PO HEARTBURN / GAS; Start at 07:30 Phenytoin Sodium (Dilantin) 100 mg Q8HRS PO Last administered on 01/01/18at 20: 09; Start 12/13/17 at 22:00 Clozapine (Clozaril) 300 mg QHS PO Last administered on 12/18/17at 20:31; Start 12/14/17 at 21:00; Stop 12/19/17 at 17:05; Status DC Divalproex Sodium (Depakote Er) 500 mg QHS PO Last administered on 12/16/17 20 :29; Start 12/14/17 at 21:00; Stop 12/17/17 at 18:41; Status DC Glipizide (Glucotrol Er) 10 mg DAILY08 PO Last administered on 01/01/18 09:12 ; Start 12/16/17 at 08:00 Vitamin D (Vitamin D3) 50,000 unit WEEKLY PO Last administered on 12/30/17 08: 44; Start 12/16/17 at 09:00 Cephalexin HCl (Keflex) 500 mg BID PO Last administered on 12/25/17 08:13; Start 12/15/17 at 21:00; Stop 12/25/17 at 20:59; Status DC Atorvastatin Calcium (Lipitor) 40 mg QHS PO Last administered on 01/01/18 20: 09; Start 12/15/17 at 21:00 Lactobacillus Rhamnosus (Culturelle) 1 cap BID PO Last administered on 08:42; Start 12/16/17 at 09:00; Stop 12/30/17 at 18:01; Status DC Divalproex Sodium (Depakote Er) 1,000 mg QHS PO Last administered on 01/01/18 20:08; Start 12/17/17 at 21:00 Clozapine (Clozaril) 300 mg QHS PO Last administered on 01/01/18at 20:08; Start 12/19/17 at 21:00 Clozapine (Clozaril) 25 mg QHS PO Last administered on 01/01/18 20:09; Start 12/19/17 at 21:00 Ondansetron HCl (Zofran Odt) 4 mg PRN Q8HRS PRN PO NAUSEA/VOMITING Last administered on 12/22/17at 05:50; Start 12/22/17 at 00:30 Docusate Sodium (Colace) 100 mg PRN DAILY PRN PO CONSTIPATION Last administered on 12/30/17 19:25; Start 12/29/17 at 09:30 Influenza Virus Vaccine (Afluria Trivalent [id number] Syringe) 0.5 ml ONCE ONCE VAX IM Last administered on 12/31/17at 11:39; Start 12/31/17 at 09:00; Stop at 09:01; Status DC Losartan Potassium (Cozaar) 25 mg DAILY PO Last administered on 01/01/18at 09:12 ; Start 01/01/18 at 09:00 Active Scripts Active Reported Shingrix Vial Kit (Varicella-Zoster Ge/As01b/Pf) 50 Mcg/0.5 Ml Kit 50 Mcg IM Zostavax Vial (Zoster Vaccine Live/Pf) 19,400 Unit/0.65 Ml Vial 19,400 Unit SQ Triamcinolone Acetonide 15 Gm Cream..g. 15 Gm TP BID Pantoprazole Sodium 40 Mg Tablet.dr 40 Mg PO PRN DAILY PRN Losartan Potassium 50 Mg Tablet 50 Mg PO DAILY Glipizide 5 Mg Tablet 5 Mg PO DAILY Tricor (Fenofibrate Nanocrystallized) 48 Mg Tablet 48 Mg PO DAILY Doxazosin Mesylate 4 Mg Tablet 4 Mg PO Lotrimin Af (Clotrimazole) 12 Gm Cream..g. 12 Gm TP BID Bethanechol Chloride 25 Mg Tablet 25 Mg PO QID Metoprolol Succinate ( Xl ) (Metoprolol Succinate) 50 Mg Tab.er.24h 50 Mg PO DAILY Metformin Hcl 1,000 Mg Tablet 1,000 Mg PO BID Clozaril (Clozapine) 100 Mg Tablet 300 Mg PO DAILY Dilantin (Phenytoin Sodium Extended) 100 Mg Capsule 100 Mg PO Q8HRS Lorazepam 0.5 Mg Tablet 0.5 Mg PO PRN Q6HRS PRN MDD 2mg Keppra (Levetiracetam) 1,000 Mg Tablet 1,000 Mg PO BID Lipitor (Atorvastatin Calcium) 20 Mg Tablet 20 Mg PO QHS I have reviewed the current psychotropics carefully including drug interactions. Risk benefit ratio favors no change other than as noted in my dictated progress note. Diagnosis: Problems: (1) Anxiety disorder (2) Bipolar affective, mixed, sev w/ psych (3) Schizoaffective disorder, chronic condition with acute exacerbation MANAS SHANKAR MD Jan 01, 2018 20:23
--- NOTE | 2018-01-01 23:01 | PN ---
DATE: 12/30/2017 PSYCHIATRIC PROGRESS NOTE This late entry 12/30/2017 covers elements not covered in my initial note. SUBJECTIVE: I met with the patient in the evening at length in her room. The patient slept 9-3/4 hours previous night. She has been withdrawn to her room, compliant with medications, pleasant, cooperative. No behaviors noted. REVIEW OF SYSTEMS: No CV, , pulmonary, eye, ENT system symptoms on review, does complain of some tiredness. MENTAL STATUS EXAM: Oriented reasonably. Speech is coherent, abstraction fair. Computation, able to do two steps on serial 7'S, remembered 2/3 objects at 3 minutes. No active psychotic symptoms, suicidal or homicidal ideation. Mood is improved, less anxious, euthymic, somewhat withdrawn at times. Affect, mood congruent. LABORATORY DATA: Reviewed. IMPRESSION: Schizoaffective disorder, bipolar type, depressed, in partial remission. The patient was able to process how she feels her thought processes are much more linear and she feels comfortable with this. Labs reviewed. PLAN: Continue psychotropics from initial note. MAN Maikel SHANKAR MD DR: ASHLEIGH/cali JOB#: [id number] / [id number]
--- NOTE | 2018-01-01 23:05 | PN ---
DATE: 12/31/2017 PSYCHIATRIC PROGRESS NOTE This late entry 12/31/2017 covers elements not covered in my initial note. SUBJECTIVE: I met with the patient in the evening. The patient slept 7-3/4 hours previous night. I met with her in her room. She still isolates in her room, but otherwise, pleasant. No clear psychotic symptoms noted. Complains of being tired, but able to accept her psychotropics. No CV, , pulmonary, eye system symptoms on review. MENTAL STATUS EXAM: Reasonably oriented. Speech is coherent, abstraction fair. Computation, able to do two steps on serial 7's. No suicidal or homicidal ideation. Psychotic symptoms appeared improved. LABORATORY DATA: Reviewed. IMPRESSION: Schizoaffective disorder, bipolar type, depressed, in partial remission. Rest unchanged. PLAN: No change from initial note. MAN Maikel SHANKAR MD DR: ASHLEIGH/cali JOB#: [id number] / [id number]
[2018-01-02 05:36] VITALS: BP 102/69
[2018-01-02] MEDS: PHENYTOIN SODIUM EXTENDED 100 MG CAPSULE PO SCH ×3 (05:49→19:44)
[2018-01-02] MEDS: metFORMIN 500 MG TABLET PO SCH ×2 (09:43→17:34)
[2018-01-02] MEDS: LOSARTAN 25 MG TABLET. PO SCH (09:44)
[2018-01-02] MEDS: METOPROLOL SUCC 24HR ER 50 MG TAB.ER.24H. PO SCH (09:44)
[2018-01-02] MEDS: BETHANECHOL CHLORIDE 25 MG TABLET PO SCH ×4 (09:44→19:46)
[2018-01-02] MEDS: levETIRAcetam 500 MG TABLET PO SCH ×2 (09:44→19:45)
[2018-01-02] MEDS: FENOFIBRATE NANOCRYSTALLIZED 48 MG TABLET PO SCH (09:45)
[2018-01-02 16:03] VITALS: BP 99/65
[2018-01-02] MEDS: cloZAPine 100 MG TABLET PO SCH (19:44)
[2018-01-02] MEDS: cloZAPine 25 MG TABLET PO SCH (19:44)
[2018-01-02] MEDS: ATORVASTATIN CALCIUM 20 MG TABLET PO SCH (19:44)
[2018-01-02] MEDS: DIVALPROEX ER 500 MG TAB.ER.24H PO SCH (19:45)
--- NOTE | 2018-01-02 20:47 | PDOC ---
Exam Note: Arash Note: Please also refer to the separate dictated note~for this date of service dictated separately.~Patient seen individually. Discussed the patient with Nursing staff reviewed the chart.~Reviewed interim history and current functioning. Reviewed vital signs,~Labs/ Radiology~and current medications noted below. Continue current treatment with the changes noted in the dictated addendum note Assessment: Vital Signs: Vital Signs Date Time Temp Pulse Resp B/P (MAP) Pulse Ox O2 Delivery O2 Flow Rate FiO2 01/02/18 16:03 97.7 84 20 99/65 (76) 97 Room Air I&O Intake and Output 01/02/18 07:00 Intake Total 1680 ml Balance 1680 ml Intake Oral 1680 ml # Voids 1 Labs: Laboratory Tests Test 01/02/18 07:55 Glucose (Fingerstick) 77 mg/dL (70-99) Current Medications: Meds: Current Medications Acetaminophen (Tylenol) 650 mg PRN Q6HRS PRN PO PAIN / TEMP; Start 12/13/17 at 16:00 Multi-Ingredient Ointment (Analgesic [place]) 1 joey PRN QID PRN TP MUSCLE PAIN; Start 12/13/17 at 16:00 Al Hydroxide/Mg Hydroxide (Mylanta Plus Xs) 15 ml PRN AFTMEALHC PRN PO DYSPEPSIA Last administered on 12/13/17at 21:05; Start 12/13/17 at 16:00 Magnesium Hydroxide (Milk Of Magnesia) 2,400 mg PRN QHS PRN PO CONSTIPATION Last administered on 12/30/17at 19:25; Start 12/13/17 at 16:00 Clozapine (Clozaril) 300 mg DAILY PO Last administered on 12/14/17at 10:03; Start 12/14/17 at 09:00; Stop 12/14/17 at 10:27; Status DC Lorazepam (Ativan) 0.5 mg PRN Q6HRS PRN PO ANXIETY / AGITATION; Start 12/13/17 at 20:45 Atorvastatin Calcium (Lipitor) 20 mg QHS PO Last administered on 12/14/17at 20: 05; Start 12/13/17 at 21:00; Stop 12/15/17 at 15:00; Status DC Bethanechol Chloride (Urecholine) 25 mg QID PO Last administered on 01/02/18at 19:46; Start 12/13/17 at 21:00 Losartan Potassium (Cozaar) 50 mg DAILY PO Last administered on 12/29/17 09:25 ; Start 12/14/17 at 09:00; Stop 12/31/17 at 12:28; Status DC Triamcinolone Acetonide (Kenalog) 15 joey BID TP Last administered on 12/25/17at 08:19; Start 12/13/17 at 21:00; Stop 12/26/17 at 12:12; Status DC Clotrimazole (Lotrimin) 1 joey BID TP Last administered on 12/25/17at 08:20; Start 12/13/17 at 21:00; Stop 12/26/17 at 12:12; Status DC Fenofibrate (Tricor) 48 mg DAILY PO Last administered on 01/02/18at 09:45; Start 12/14/17 at 09:00 Glipizide (Glucotrol Er) 5 mg DAILY08 PO Last administered on 12/15/17at 08:36; Start 12/14/17 at 08:00; Stop 12/15/17 at 14:58; Status DC Levetiracetam (Keppra) 1,000 mg BID PO Last administered on 01/02/18 19:45; Start 12/13/17 at 21:00 Metformin HCl (Glucophage) 1,000 mg BIDWMEALS PO Last administered on 17:34; Start 12/14/17 at 08:00 Metoprolol Succinate (Toprol Xl) 50 mg DAILY PO Last administered on 01/02/18at 09:44; Start 12/14/17 at 09:00 Pantoprazole Sodium (Protonix) 40 mg PRN DAILY PRN PO HEARTBURN / GAS; Start at 07:30 Phenytoin Sodium (Dilantin) 100 mg Q8HRS PO Last administered on 01/02/18 19: 44; Start 12/13/17 at 22:00 Clozapine (Clozaril) 300 mg QHS PO Last administered on 12/18/17at 20:31; Start 12/14/17 at 21:00; Stop 12/19/17 at 17:05; Status DC Divalproex Sodium (Depakote Er) 500 mg QHS PO Last administered on 9/15/18at 20 :29; Start 12/14/17 at 21:00; Stop 12/17/17 at 18:41; Status DC Glipizide (Glucotrol Er) 10 mg DAILY08 PO Last administered on 01/02/18 09:44 ; Start 12/16/17 at 08:00 Vitamin D (Vitamin D3) 50,000 unit WEEKLY PO Last administered on 12/30/17 08: 44; Start 12/16/17 at 09:00 Cephalexin HCl (Keflex) 500 mg BID PO Last administered on 12/25/17 08:13; Start 12/15/17 at 21:00; Stop 12/25/17 at 20:59; Status DC Atorvastatin Calcium (Lipitor) 40 mg QHS PO Last administered on 01/02/18 19: 44; Start 12/15/17 at 21:00 Lactobacillus Rhamnosus (Culturelle) 1 cap BID PO Last administered on 08:42; Start 12/16/17 at 09:00; Stop 12/30/17 at 18:01; Status DC Divalproex Sodium (Depakote Er) 1,000 mg QHS PO Last administered on 01/02/18 19:45; Start 12/17/17 at 21:00 Clozapine (Clozaril) 300 mg QHS PO Last administered on 01/02/18 19:44; Start 12/19/17 at 21:00 Clozapine (Clozaril) 25 mg QHS PO Last administered on 01/02/18 19:44; Start 12/19/17 at 21:00 Ondansetron HCl (Zofran Odt) 4 mg PRN Q8HRS PRN PO NAUSEA/VOMITING Last administered on 12/22/17at 05:50; Start 12/22/17 at 00:30 Docusate Sodium (Colace) 100 mg PRN DAILY PRN PO CONSTIPATION Last administered on 12/30/17 19:25; Start 12/29/17 at 09:30 Influenza Virus Vaccine (Afluria Trivalent [id number] Syringe) 0.5 ml ONCE ONCE VAX IM Last administered on 12/31/17at 11:39; Start 12/31/17 at 09:00; Stop at 09:01; Status DC Losartan Potassium (Cozaar) 25 mg DAILY PO Last administered on 01/02/18at 09:44 ; Start 01/01/18 at 09:00 Active Scripts Active Reported Shingrix Vial Kit (Varicella-Zoster Ge/As01b/Pf) 50 Mcg/0.5 Ml Kit 50 Mcg IM Zostavax Vial (Zoster Vaccine Live/Pf) 19,400 Unit/0.65 Ml Vial 19,400 Unit SQ Triamcinolone Acetonide 15 Gm Cream..g. 15 Gm TP BID Pantoprazole Sodium 40 Mg Tablet.dr 40 Mg PO PRN DAILY PRN Losartan Potassium 50 Mg Tablet 50 Mg PO DAILY Glipizide 5 Mg Tablet 5 Mg PO DAILY Tricor (Fenofibrate Nanocrystallized) 48 Mg Tablet 48 Mg PO DAILY Doxazosin Mesylate 4 Mg Tablet 4 Mg PO Lotrimin Af (Clotrimazole) 12 Gm Cream..g. 12 Gm TP BID Bethanechol Chloride 25 Mg Tablet 25 Mg PO QID Metoprolol Succinate ( Xl ) (Metoprolol Succinate) 50 Mg Tab.er.24h 50 Mg PO DAILY Metformin Hcl 1,000 Mg Tablet 1,000 Mg PO BID Clozaril (Clozapine) 100 Mg Tablet 300 Mg PO DAILY Dilantin (Phenytoin Sodium Extended) 100 Mg Capsule 100 Mg PO Q8HRS Lorazepam 0.5 Mg Tablet 0.5 Mg PO PRN Q6HRS PRN MDD 2mg Keppra (Levetiracetam) 1,000 Mg Tablet 1,000 Mg PO BID Lipitor (Atorvastatin Calcium) 20 Mg Tablet 20 Mg PO QHS I have reviewed the current psychotropics carefully including drug interactions. Risk benefit ratio favors no change other than as noted in my dictated progress note. Diagnosis: Problems: (1) Anxiety disorder (2) Bipolar affective, mixed, sev w/ psych (3) Schizoaffective disorder, chronic condition with acute exacerbation MANAS SHANKAR MD Jan 02, 2018 20:47
--- NOTE | 2018-01-02 22:40 | PN ---
DATE: 01/01/2018 This is a late entry for 01/01/2018 covers elements not covered in my initial note. SUBJECTIVE: I met with the patient in the evening. The patient slept 7-1/2 hours previous night. She has been pleasant, withdrawn to her room, which is where I met with her at length. She is well oriented. REVIEW OF SYSTEMS: No CV, , pulmonary, eye system symptoms on review. Does admit to some daytime tiredness. MENTAL STATUS EXAM: Reasonably oriented. Speech is coherent, has some latency. Abstraction fair. Computation able to do one step on serial sevens, remembered 2/3 objects at 3 minutes. No overt psychotic symptoms, suicidal or homicidal ideation. Thought processes appeared more linear as compared to when she was first admitted. LABORATORY DATA: Reviewed. Valproic acid level therapeutic at 84. IMPRESSION: Major schizoaffective disorder, bipolar type, mixed with psychotic features. Rest unchanged. PLAN: No change from initial note. MANAS SHANKAR MD DR: ASHLEIGH/cali JOB#: [id number] / [id number]
[2018-01-03 05:24] VITALS: BP 131/75
[2018-01-03] MEDS: PHENYTOIN SODIUM EXTENDED 100 MG CAPSULE PO SCH ×3 (05:51→20:00)
[2018-01-03] MEDS: LOSARTAN 25 MG TABLET. PO SCH (09:03)
[2018-01-03] MEDS: metFORMIN 500 MG TABLET PO SCH ×2 (09:03→17:00)
[2018-01-03] MEDS: BETHANECHOL CHLORIDE 25 MG TABLET PO SCH ×4 (09:03→20:04)
[2018-01-03] MEDS: METOPROLOL SUCC 24HR ER 50 MG TAB.ER.24H. PO SCH (09:03)
[2018-01-03] MEDS: levETIRAcetam 500 MG TABLET PO SCH ×2 (09:04→20:00)
[2018-01-03] MEDS: FENOFIBRATE NANOCRYSTALLIZED 48 MG TABLET PO SCH (09:04)
[2018-01-03 16:39] VITALS: BP 110/72
[2018-01-03] MEDS: cloZAPine 25 MG TABLET PO SCH (20:01)
[2018-01-03] MEDS: cloZAPine 100 MG TABLET PO SCH (20:01)
[2018-01-03] MEDS: DIVALPROEX ER 500 MG TAB.ER.24H PO SCH (20:01)
[2018-01-03] MEDS: ATORVASTATIN CALCIUM 20 MG TABLET PO SCH (20:02)
--- NOTE | 2018-01-03 21:14 | PDOC ---
Exam Note: Arash Note: Please also refer to the separate dictated note~for this date of service dictated separately.~Patient seen individually. Discussed the patient with Nursing staff reviewed the chart.~Reviewed interim history and current functioning. Reviewed vital signs,~Labs/ Radiology~and current medications noted below. Continue current treatment with the changes noted in the dictated addendum note Assessment: Vital Signs: Vital Signs Date Time Temp Pulse Resp B/P (MAP) Pulse Ox O2 Delivery O2 Flow Rate FiO2 01/03/18 16:39 97.8 87 16 110/72 (85) 94 Room Air I&O Intake and Output 01/03/18 07:00 Intake Total 1320 ml Balance 1320 ml Intake Oral 1320 ml # Bowel Movements 1 Labs: Laboratory Tests Test 01/03/18 07:34 Glucose (Fingerstick) 83 mg/dL (70-99) Current Medications: Meds: Current Medications Acetaminophen (Tylenol) 650 mg PRN Q6HRS PRN PO PAIN / TEMP; Start 12/13/17 at 16:00 Multi-Ingredient Ointment (Analgesic [place]) 1 joey PRN QID PRN TP MUSCLE PAIN; Start 12/13/17 at 16:00 Al Hydroxide/Mg Hydroxide (Mylanta Plus Xs) 15 ml PRN AFTMEALHC PRN PO DYSPEPSIA Last administered on 12/13/17at 21:05; Start 12/13/17 at 16:00 Magnesium Hydroxide (Milk Of Magnesia) 2,400 mg PRN QHS PRN PO CONSTIPATION Last administered on 12/30/17at 19:25; Start 12/13/17 at 16:00 Clozapine (Clozaril) 300 mg DAILY PO Last administered on 12/14/17at 10:03; Start 12/14/17 at 09:00; Stop 12/14/17 at 10:27; Status DC Lorazepam (Ativan) 0.5 mg PRN Q6HRS PRN PO ANXIETY / AGITATION; Start 12/13/17 at 20:45 Atorvastatin Calcium (Lipitor) 20 mg QHS PO Last administered on 12/14/17at 20: 05; Start 12/13/17 at 21:00; Stop 12/15/17 at 15:00; Status DC Bethanechol Chloride (Urecholine) 25 mg QID PO Last administered on 01/03/18at 20:04; Start 12/13/17 at 21:00 Losartan Potassium (Cozaar) 50 mg DAILY PO Last administered on 12/29/17 09:25 ; Start 12/14/17 at 09:00; Stop 12/31/17 at 12:28; Status DC Triamcinolone Acetonide (Kenalog) 15 joey BID TP Last administered on 12/25/17at 08:19; Start 12/13/17 at 21:00; Stop 12/26/17 at 12:12; Status DC Clotrimazole (Lotrimin) 1 joey BID TP Last administered on 12/25/17at 08:20; Start 12/13/17 at 21:00; Stop 12/26/17 at 12:12; Status DC Fenofibrate (Tricor) 48 mg DAILY PO Last administered on 01/03/18 09:04; Start 12/14/17 at 09:00 Glipizide (Glucotrol Er) 5 mg DAILY08 PO Last administered on 12/15/17at 08:36; Start 12/14/17 at 08:00; Stop 12/15/17 at 14:58; Status DC Levetiracetam (Keppra) 1,000 mg BID PO Last administered on 01/03/18 20:00; Start 12/13/17 at 21:00 Metformin HCl (Glucophage) 1,000 mg BIDWMEALS PO Last administered on 17:00; Start 12/14/17 at 08:00 Metoprolol Succinate (Toprol Xl) 50 mg DAILY PO Last administered on 01/03/18 09:03; Start 12/14/17 at 09:00 Pantoprazole Sodium (Protonix) 40 mg PRN DAILY PRN PO HEARTBURN / GAS; Start at 07:30 Phenytoin Sodium (Dilantin) 100 mg Q8HRS PO Last administered on 01/03/18 20: 00; Start 12/13/17 at 22:00 Clozapine (Clozaril) 300 mg QHS PO Last administered on 12/18/17at 20:31; Start 12/14/17 at 21:00; Stop 12/19/17 at 17:05; Status DC Divalproex Sodium (Depakote Er) 500 mg QHS PO Last administered on 9/15/18at 20 :29; Start 12/14/17 at 21:00; Stop 12/17/17 at 18:41; Status DC Glipizide (Glucotrol Er) 10 mg DAILY08 PO Last administered on 01/03/18 09:03 ; Start 12/16/17 at 08:00 Vitamin D (Vitamin D3) 50,000 unit WEEKLY PO Last administered on 12/30/17 08: 44; Start 12/16/17 at 09:00 Cephalexin HCl (Keflex) 500 mg BID PO Last administered on 12/25/17 08:13; Start 12/15/17 at 21:00; Stop 12/25/17 at 20:59; Status DC Atorvastatin Calcium (Lipitor) 40 mg QHS PO Last administered on 01/03/18 20: 02; Start 12/15/17 at 21:00 Lactobacillus Rhamnosus (Culturelle) 1 cap BID PO Last administered on at 08:42; Start 12/16/17 at 09:00; Stop 12/30/17 at 18:01; Status DC Divalproex Sodium (Depakote Er) 1,000 mg QHS PO Last administered on 01/03/18 20:01; Start 12/17/17 at 21:00 Clozapine (Clozaril) 300 mg QHS PO Last administered on 01/03/18 20:01; Start 12/19/17 at 21:00 Clozapine (Clozaril) 25 mg QHS PO Last administered on 01/03/18 20:01; Start 12/19/17 at 21:00 Ondansetron HCl (Zofran Odt) 4 mg PRN Q8HRS PRN PO NAUSEA/VOMITING Last administered on 12/22/17at 05:50; Start 12/22/17 at 00:30 Docusate Sodium (Colace) 100 mg PRN DAILY PRN PO CONSTIPATION Last administered on 12/30/17 19:25; Start 12/29/17 at 09:30 Influenza Virus Vaccine (Afluria Trivalent [id number] Syringe) 0.5 ml ONCE ONCE VAX IM Last administered on 12/31/17at 11:39; Start 12/31/17 at 09:00; Stop at 09:01; Status DC Losartan Potassium (Cozaar) 25 mg DAILY PO Last administered on 01/03/18at 09:03 ; Start 01/01/18 at 09:00 Active Scripts Active Reported Shingrix Vial Kit (Varicella-Zoster Ge/As01b/Pf) 50 Mcg/0.5 Ml Kit 50 Mcg IM Zostavax Vial (Zoster Vaccine Live/Pf) 19,400 Unit/0.65 Ml Vial 19,400 Unit SQ Triamcinolone Acetonide 15 Gm Cream..g. 15 Gm TP BID Pantoprazole Sodium 40 Mg Tablet.dr 40 Mg PO PRN DAILY PRN Losartan Potassium 50 Mg Tablet 50 Mg PO DAILY Glipizide 5 Mg Tablet 5 Mg PO DAILY Tricor (Fenofibrate Nanocrystallized) 48 Mg Tablet 48 Mg PO DAILY Doxazosin Mesylate 4 Mg Tablet 4 Mg PO Lotrimin Af (Clotrimazole) 12 Gm Cream..g. 12 Gm TP BID Bethanechol Chloride 25 Mg Tablet 25 Mg PO QID Metoprolol Succinate ( Xl ) (Metoprolol Succinate) 50 Mg Tab.er.24h 50 Mg PO DAILY Metformin Hcl 1,000 Mg Tablet 1,000 Mg PO BID Clozaril (Clozapine) 100 Mg Tablet 300 Mg PO DAILY Dilantin (Phenytoin Sodium Extended) 100 Mg Capsule 100 Mg PO Q8HRS Lorazepam 0.5 Mg Tablet 0.5 Mg PO PRN Q6HRS PRN MDD 2mg Keppra (Levetiracetam) 1,000 Mg Tablet 1,000 Mg PO BID Lipitor (Atorvastatin Calcium) 20 Mg Tablet 20 Mg PO QHS I have reviewed the current psychotropics carefully including drug interactions. Risk benefit ratio favors no change other than as noted in my dictated progress note. Diagnosis: Problems: (1) Anxiety disorder (2) Bipolar affective, mixed, sev w/ psych (3) Schizoaffective disorder, chronic condition with acute exacerbation MANAS SHANKAR MD Jan 03, 2018 21:14
--- NOTE | 2018-01-04 00:41 | PN ---
DATE: 01/02/2018 PSYCHIATRIC PROGRESS NOTE This late entry 01/02/2018 covers elements not covered in my initial note. SUBJECTIVE: I met with the patient in the evening at some length in her room. The patient slept 6-3/4 hours previous evening. She has been withdrawn, spends much time in her room, but coming out more than before. WBC 6.2, absolute neutrophil count is 4.2. She has been little obsessive talking about tornadoes, but not overtly psychotic. REVIEW OF SYSTEMS: No CV, , pulmonary, eye, ENT system symptoms on review. MENTAL STATUS EXAM: Reasonably oriented. Speech is coherent, abstraction fair. Computation, able to do one step of serial 7's. Thought processes are linear. Psychotic symptoms are much improved. No suicidal or homicidal ideation. Intellect average. Insight good. Judgment intact. LABORATORY DATA: Reviewed. IMPRESSION: Schizoaffective disorder, bipolar type, mixed with psychotic features, in partial remission. Rest unchanged including seizure disorder. PLAN: Continue current psychotropics, Clozaril 325 mg p.o. at bedtime. Valproic acid is 84 on Depakote ER 1000 mg at bedtime. She remains on Keppra and Dilantin as well. Adjust further as clinically indicated. MANAS SHANKAR MD DR: ASHLEIGH/cali JOB#: [id number] / [id number]
[2018-01-04 06:06] VITALS: BP 120/94
[2018-01-04] MEDS: PHENYTOIN SODIUM EXTENDED 100 MG CAPSULE PO SCH ×3 (06:29→19:27)
[2018-01-04] MEDS: metFORMIN 500 MG TABLET PO SCH ×2 (09:31→17:18)
[2018-01-04] MEDS: LOSARTAN 25 MG TABLET. PO SCH (09:32)
[2018-01-04] MEDS: levETIRAcetam 500 MG TABLET PO SCH ×2 (09:32→19:27)
[2018-01-04] MEDS: METOPROLOL SUCC 24HR ER 50 MG TAB.ER.24H. PO SCH (09:33)
[2018-01-04] MEDS: BETHANECHOL CHLORIDE 25 MG TABLET PO SCH ×4 (09:34→19:29)
[2018-01-04] MEDS: FENOFIBRATE NANOCRYSTALLIZED 48 MG TABLET PO SCH (09:36)
[2018-01-04 09:42] LABS: BASO % 0 % (0-3); EOS % 0 % (0-3); HEMATOCRIT 37.2 % (36.0-47.0); HEMOGLOBIN 12.2 g/dL (12.0-15.5); LYMPH # 1.7 x10^3/uL (1.0-4.8); LYMPH % 30 % (24-48); MEAN CORPUSCULAR HEMOGLOBIN 28 pg (25-35); MEAN CORPUSCULAR HGB CONC 33 g/dL (31-37); MEAN CORPUSCULAR VOLUME 85 fL (79-100); MONO # 0.6 x10^3/uL (0.0-1.1); MONO % 10 % (0-9); NEUT # 3.5 x10^3uL (1.8-7.7); NEUT % 60 % (31-73); PLATELET COUNT 206 x10^3/uL (140-400); RED BLOOD COUNT 4.37 x10^6/uL (3.50-5.40); RED CELL DISTRIBUTION WIDTH 15.9 % (11.5-14.5); WHITE BLOOD COUNT 5.9 x10^3/uL (4.0-11.0)
[2018-01-04 10:03] LABS: ALBUMIN 2.8 g/dL (3.4-5.0); ALBUMIN/GLOBULIN RATIO 0.9 (1.0-1.7); CALCIUM 8.7 mg/dL (8.5-10.1); CREATININE 0.9 mg/dL (0.6-1.0); GFR 63.7; TOTAL BILIRUBIN 0.1 mg/dL (0.2-1.0); TOTAL PROTEIN 5.9 g/dL (6.4-8.2)
[2018-01-04 15:54] VITALS: BP 115/78
[2018-01-04] MEDS: cloZAPine 100 MG TABLET PO SCH (19:26)
[2018-01-04] MEDS: cloZAPine 25 MG TABLET PO SCH (19:26)
[2018-01-04] MEDS: DIVALPROEX ER 500 MG TAB.ER.24H PO SCH (19:27)
[2018-01-04] MEDS: ATORVASTATIN CALCIUM 20 MG TABLET PO SCH (19:28)
--- NOTE | 2018-01-04 20:56 | PDOC ---
Exam Note: Arash Note: Please also refer to the separate dictated note~for this date of service dictated separately.~Patient seen individually. Discussed the patient with Nursing staff reviewed the chart.~Reviewed interim history and current functioning. Reviewed vital signs,~Labs/ Radiology~and current medications noted below. Continue current treatment with the changes noted in the dictated addendum note Assessment: Vital Signs: Vital Signs Date Time Temp Pulse Resp B/P (MAP) Pulse Ox O2 Delivery O2 Flow Rate FiO2 01/04/18 15:54 98.0 82 20 115/78 (90) 96 Room Air I&O Intake and Output 01/04/18 07:00 Intake Total 1680 ml Balance 1680 ml Intake Oral 1680 ml # Voids 1 Labs: Laboratory Tests Test 01/04/18 07:31 01/04/18 09:28 Glucose (Fingerstick) 68 mg/dL (70-99) L White Blood Count 5.9 x10^3/uL (4.0-11.0) Red Blood Count 4.37 x10^6/uL (3.50-5.40) Hemoglobin 12.2 g/dL (12.0-15.5) Hematocrit 37.2 % (36.0-47.0) Mean Corpuscular Volume 85 fL (79-100) Mean Corpuscular Hemoglobin 28 pg (25-35) Mean Corpuscular Hemoglobin Concent 33 g/dL (31-37) Red Cell Distribution Width 15.9 % (11.5-14.5) H Platelet Count 206 x10^3/uL (140-400) Neutrophils (%) (Auto) 60 % (31-73) Lymphocytes (%) (Auto) 30 % (24-48) Monocytes (%) (Auto) 10 % (0-9) H Eosinophils (%) (Auto) 0 % (0-3) Basophils (%) (Auto) 0 % (0-3) Neutrophils # (Auto) 3.5 x10^3uL (1.8-7.7) Lymphocytes # (Auto) 1.7 x10^3/uL (1.0-4.8) Monocytes # (Auto) 0.6 x10^3/uL (0.0-1.1) Eosinophils # (Auto) 0.0 x10^3/uL (0.0-0.7) Basophils # (Auto) 0.0 x10^3/uL (0.0-0.2) Sodium Level 142 mmol/L (136-145) Potassium Level 4.0 mmol/L (3.5-5.1) Chloride Level 104 mmol/L (98-107) Carbon Dioxide Level 30 mmol/L (21-32) Anion Gap 8 (6-14) Blood Urea Nitrogen 20 mg/dL (7-20) Creatinine 0.9 mg/dL (0.6-1.0) Estimated GFR (Cockcroft-Gault) 63.7 BUN/Creatinine Ratio 22 (6-20) H Glucose Level 185 mg/dL (70-99) H Calcium Level 8.7 mg/dL (8.5-10.1) Total Bilirubin 0.1 mg/dL (0.2-1.0) L Aspartate Amino Transferase (AST) 10 U/L (15-37) L Alanine Aminotransferase (ALT) 18 U/L (14-59) Alkaline Phosphatase 54 U/L (46-116) Total Protein 5.9 g/dL (6.4-8.2) L Albumin 2.8 g/dL (3.4-5.0) L Albumin/Globulin Ratio 0.9 (1.0-1.7) L Current Medications: Meds: Current Medications Acetaminophen (Tylenol) 650 mg PRN Q6HRS PRN PO PAIN / TEMP; Start 12/13/17 at 16:00 Multi-Ingredient Ointment (Analgesic [place]) 1 joey PRN QID PRN TP MUSCLE PAIN; Start 12/13/17 at 16:00 Al Hydroxide/Mg Hydroxide (Mylanta Plus Xs) 15 ml PRN AFTMEALHC PRN PO DYSPEPSIA Last administered on 12/13/17at 21:05; Start 12/13/17 at 16:00 Magnesium Hydroxide (Milk Of Magnesia) 2,400 mg PRN QHS PRN PO CONSTIPATION Last administered on 12/30/17at 19:25; Start 12/13/17 at 16:00 Clozapine (Clozaril) 300 mg DAILY PO Last administered on 12/14/17at 10:03; Start 12/14/17 at 09:00; Stop 12/14/17 at 10:27; Status DC Lorazepam (Ativan) 0.5 mg PRN Q6HRS PRN PO ANXIETY / AGITATION; Start 12/13/17 at 20:45 Atorvastatin Calcium (Lipitor) 20 mg QHS PO Last administered on 12/14/17at 20: 05; Start 12/13/17 at 21:00; Stop 12/15/17 at 15:00; Status DC Bethanechol Chloride (Urecholine) 25 mg QID PO Last administered on 01/04/18 19:29; Start 12/13/17 at 21:00 Losartan Potassium (Cozaar) 50 mg DAILY PO Last administered on 12/29/17at 09:25 ; Start 12/14/17 at 09:00; Stop 12/31/17 at 12:28; Status DC Triamcinolone Acetonide (Kenalog) 15 joey BID TP Last administered on 12/25/17at 08:19; Start 12/13/17 at 21:00; Stop 12/26/17 at 12:12; Status DC Clotrimazole (Lotrimin) 1 joey BID TP Last administered on 12/25/17at 08:20; Start 12/13/17 at 21:00; Stop 12/26/17 at 12:12; Status DC Fenofibrate (Tricor) 48 mg DAILY PO Last administered on 01/04/18 09:36; Start 12/14/17 at 09:00 Glipizide (Glucotrol Er) 5 mg DAILY08 PO Last administered on 12/15/17at 08:36; Start 12/14/17 at 08:00; Stop 12/15/17 at 14:58; Status DC Levetiracetam (Keppra) 1,000 mg BID PO Last administered on 01/04/18 19:27; Start 12/13/17 at 21:00 Metformin HCl (Glucophage) 1,000 mg BIDWMEALS PO Last administered on 17:18; Start 12/14/17 at 08:00 Metoprolol Succinate (Toprol Xl) 50 mg DAILY PO Last administered on 01/04/18at 09:33; Start 12/14/17 at 09:00 Pantoprazole Sodium (Protonix) 40 mg PRN DAILY PRN PO HEARTBURN / GAS; Start at 07:30 Phenytoin Sodium (Dilantin) 100 mg Q8HRS PO Last administered on 01/04/18 19: 27; Start 12/13/17 at 22:00 Clozapine (Clozaril) 300 mg QHS PO Last administered on 12/18/17 20:31; Start 12/14/17 at 21:00; Stop 12/19/17 at 17:05; Status DC Divalproex Sodium (Depakote Er) 500 mg QHS PO Last administered on 12/16/17 20 :29; Start 12/14/17 at 21:00; Stop 12/17/17 at 18:41; Status DC Glipizide (Glucotrol Er) 10 mg DAILY08 PO Last administered on 01/04/18 09:31 ; Start 12/16/17 at 08:00 Vitamin D (Vitamin D3) 50,000 unit WEEKLY PO Last administered on 12/30/17 08: 44; Start 12/16/17 at 09:00 Cephalexin HCl (Keflex) 500 mg BID PO Last administered on 12/25/17 08:13; Start 12/15/17 at 21:00; Stop 12/25/17 at 20:59; Status DC Atorvastatin Calcium (Lipitor) 40 mg QHS PO Last administered on 01/04/18 19: 28; Start 12/15/17 at 21:00 Lactobacillus Rhamnosus (Culturelle) 1 cap BID PO Last administered on 08:42; Start 12/16/17 at 09:00; Stop 12/30/17 at 18:01; Status DC Divalproex Sodium (Depakote Er) 1,000 mg QHS PO Last administered on 01/04/18 19:27; Start 12/17/17 at 21:00 Clozapine (Clozaril) 300 mg QHS PO Last administered on 01/04/18 19:26; Start 12/19/17 at 21:00 Clozapine (Clozaril) 25 mg QHS PO Last administered on 01/04/18 19:26; Start 12/19/17 at 21:00 Ondansetron HCl (Zofran Odt) 4 mg PRN Q8HRS PRN PO NAUSEA/VOMITING Last administered on 12/22/17at 05:50; Start 12/22/17 at 00:30 Docusate Sodium (Colace) 100 mg PRN DAILY PRN PO CONSTIPATION Last administered on 12/30/17at 19:25; Start 12/29/17 at 09:30 Influenza Virus Vaccine (Afluria Trivalent [id number] Syringe) 0.5 ml ONCE ONCE VAX IM Last administered on 12/31/17at 11:39; Start 12/31/17 at 09:00; Stop at 09:01; Status DC Losartan Potassium (Cozaar) 25 mg DAILY PO Last administered on 01/04/18at 09:32 ; Start 01/01/18 at 09:00 Active Scripts Active Reported Shingrix Vial Kit (Varicella-Zoster Ge/As01b/Pf) 50 Mcg/0.5 Ml Kit 50 Mcg IM Zostavax Vial (Zoster Vaccine Live/Pf) 19,400 Unit/0.65 Ml Vial 19,400 Unit SQ Triamcinolone Acetonide 15 Gm Cream..g. 15 Gm TP BID Pantoprazole Sodium 40 Mg Tablet.dr 40 Mg PO PRN DAILY PRN Losartan Potassium 50 Mg Tablet 50 Mg PO DAILY Glipizide 5 Mg Tablet 5 Mg PO DAILY Tricor (Fenofibrate Nanocrystallized) 48 Mg Tablet 48 Mg PO DAILY Doxazosin Mesylate 4 Mg Tablet 4 Mg PO Lotrimin Af (Clotrimazole) 12 Gm Cream..g. 12 Gm TP BID Bethanechol Chloride 25 Mg Tablet 25 Mg PO QID Metoprolol Succinate ( Xl ) (Metoprolol Succinate) 50 Mg Tab.er.24h 50 Mg PO DAILY Metformin Hcl 1,000 Mg Tablet 1,000 Mg PO BID Clozaril (Clozapine) 100 Mg Tablet 300 Mg PO DAILY Dilantin (Phenytoin Sodium Extended) 100 Mg Capsule 100 Mg PO Q8HRS Lorazepam 0.5 Mg Tablet 0.5 Mg PO PRN Q6HRS PRN MDD 2mg Keppra (Levetiracetam) 1,000 Mg Tablet 1,000 Mg PO BID Lipitor (Atorvastatin Calcium) 20 Mg Tablet 20 Mg PO QHS I have reviewed the current psychotropics carefully including drug interactions. Risk benefit ratio favors no change other than as noted in my dictated progress note. Diagnosis: Problems: (1) Anxiety disorder (2) Bipolar affective, mixed, sev w/ psych (3) Schizoaffective disorder, chronic condition with acute exacerbation MANAS SHANKAR MD Jan 04, 2018 20:56
--- NOTE | 2018-01-04 23:30 | PN ---
DATE: 01/03/2018 This late entry for 01/03/2018 covers elements not covered in my initial note. SUBJECTIVE: I met with the patient in the evening. The patient slept 8-3/4 hours previous evening. She has had a better day. This has gone to the day room; otherwise, isolative. I met with her in her room. REVIEW OF SYSTEMS: No CV, , pulmonary, eye, ENT system symptoms on review. MENTAL STATUS EXAM: Reasonably oriented. Speech is coherent, abstraction fair, computation able to do one step on serial 7's. No suicidal or homicidal ideation. LABORATORY DATA: Reviewed. IMPRESSION: Unchanged from initial note. PLAN: No change from initial note. MAN Maikel SHANKAR MD DR: ASHLEIGH/cali JOB#: [id number] / [id number]
[2018-01-05 05:54] VITALS: BP 114/79
[2018-01-05] MEDS: PHENYTOIN SODIUM EXTENDED 100 MG CAPSULE PO SCH ×3 (06:28→19:56)
[2018-01-05] MEDS: metFORMIN 500 MG TABLET PO SCH ×2 (08:00→18:07)
[2018-01-05] MEDS: METOPROLOL SUCC 24HR ER 50 MG TAB.ER.24H. PO SCH (08:00)
[2018-01-05] MEDS: BETHANECHOL CHLORIDE 25 MG TABLET PO SCH ×4 (08:00→19:56)
[2018-01-05] MEDS: LOSARTAN 25 MG TABLET. PO SCH (08:00)
[2018-01-05] MEDS: levETIRAcetam 500 MG TABLET PO SCH ×2 (08:01→19:56)
[2018-01-05] MEDS: FENOFIBRATE NANOCRYSTALLIZED 48 MG TABLET PO SCH (08:01)
[2018-01-05 16:22] VITALS: BP 96/66
[2018-01-05] MEDS: cloZAPine 25 MG TABLET PO SCH (19:56)
[2018-01-05] MEDS: cloZAPine 100 MG TABLET PO SCH (19:57)
[2018-01-05] MEDS: DIVALPROEX ER 500 MG TAB.ER.24H PO SCH (19:57)
[2018-01-05] MEDS: ATORVASTATIN CALCIUM 20 MG TABLET PO SCH (19:57)
--- NOTE | 2018-01-05 20:21 | PDOC ---
Exam Note: Arash Note: Please also refer to the separate dictated note~for this date of service dictated separately.~Patient seen individually. Discussed the patient with Nursing staff reviewed the chart.~Reviewed interim history and current functioning. Reviewed vital signs,~Labs/ Radiology~and current medications noted below. Continue current treatment with the changes noted in the dictated addendum note Assessment: Vital Signs: Vital Signs Date Time Temp Pulse Resp B/P (MAP) Pulse Ox O2 Delivery O2 Flow Rate FiO2 01/05/18 16:22 97.4 89 18 96/66 (76) 99 Room Air I&O Intake and Output 01/05/18 07:00 Intake Total 1680 ml Balance 1680 ml Intake Oral 1680 ml Labs: Laboratory Tests Test 01/05/18 07:54 Glucose (Fingerstick) 88 mg/dL (70-99) Current Medications: Meds: Current Medications Acetaminophen (Tylenol) 650 mg PRN Q6HRS PRN PO PAIN / TEMP; Start 12/13/17 at 16:00 Multi-Ingredient Ointment (Analgesic [place]) 1 joey PRN QID PRN TP MUSCLE PAIN; Start 12/13/17 at 16:00 Al Hydroxide/Mg Hydroxide (Mylanta Plus Xs) 15 ml PRN AFTMEALHC PRN PO DYSPEPSIA Last administered on 12/13/17at 21:05; Start 12/13/17 at 16:00 Magnesium Hydroxide (Milk Of Magnesia) 2,400 mg PRN QHS PRN PO CONSTIPATION Last administered on 12/30/17at 19:25; Start 12/13/17 at 16:00 Clozapine (Clozaril) 300 mg DAILY PO Last administered on 12/14/17at 10:03; Start 12/14/17 at 09:00; Stop 12/14/17 at 10:27; Status DC Lorazepam (Ativan) 0.5 mg PRN Q6HRS PRN PO ANXIETY / AGITATION; Start 12/13/17 at 20:45 Atorvastatin Calcium (Lipitor) 20 mg QHS PO Last administered on 12/14/17at 20: 05; Start 12/13/17 at 21:00; Stop 12/15/17 at 15:00; Status DC Bethanechol Chloride (Urecholine) 25 mg QID PO Last administered on 01/05/18at 19:56; Start 12/13/17 at 21:00 Losartan Potassium (Cozaar) 50 mg DAILY PO Last administered on 12/29/17at 09:25 ; Start 12/14/17 at 09:00; Stop 12/31/17 at 12:28; Status DC Triamcinolone Acetonide (Kenalog) 15 joey BID TP Last administered on 12/25/17at 08:19; Start 12/13/17 at 21:00; Stop 12/26/17 at 12:12; Status DC Clotrimazole (Lotrimin) 1 joey BID TP Last administered on 12/25/17at 08:20; Start 12/13/17 at 21:00; Stop 12/26/17 at 12:12; Status DC Fenofibrate (Tricor) 48 mg DAILY PO Last administered on 01/05/18 08:01; Start 12/14/17 at 09:00 Glipizide (Glucotrol Er) 5 mg DAILY08 PO Last administered on 12/15/17at 08:36; Start 12/14/17 at 08:00; Stop 12/15/17 at 14:58; Status DC Levetiracetam (Keppra) 1,000 mg BID PO Last administered on 01/05/18 19:56; Start 12/13/17 at 21:00 Metformin HCl (Glucophage) 1,000 mg BIDWMEALS PO Last administered on 18:07; Start 12/14/17 at 08:00 Metoprolol Succinate (Toprol Xl) 50 mg DAILY PO Last administered on 01/05/18at 08:00; Start 12/14/17 at 09:00 Pantoprazole Sodium (Protonix) 40 mg PRN DAILY PRN PO HEARTBURN / GAS; Start at 07:30 Phenytoin Sodium (Dilantin) 100 mg Q8HRS PO Last administered on 01/05/18 19: 56; Start 12/13/17 at 22:00 Clozapine (Clozaril) 300 mg QHS PO Last administered on 12/18/17at 20:31; Start 12/14/17 at 21:00; Stop 12/19/17 at 17:05; Status DC Divalproex Sodium (Depakote Er) 500 mg QHS PO Last administered on 12/16/17at 20 :29; Start 12/14/17 at 21:00; Stop 12/17/17 at 18:41; Status DC Glipizide (Glucotrol Er) 10 mg DAILY08 PO Last administered on 01/05/18 08:01 ; Start 12/16/17 at 08:00 Vitamin D (Vitamin D3) 50,000 unit WEEKLY PO Last administered on 12/30/17at 08: 44; Start 12/16/17 at 09:00 Cephalexin HCl (Keflex) 500 mg BID PO Last administered on 12/25/17 08:13; Start 12/15/17 at 21:00; Stop 12/25/17 at 20:59; Status DC Atorvastatin Calcium (Lipitor) 40 mg QHS PO Last administered on 01/05/18 19: 57; Start 12/15/17 at 21:00 Lactobacillus Rhamnosus (Culturelle) 1 cap BID PO Last administered on at 08:42; Start 12/16/17 at 09:00; Stop 12/30/17 at 18:01; Status DC Divalproex Sodium (Depakote Er) 1,000 mg QHS PO Last administered on 01/05/18 19:57; Start 12/17/17 at 21:00 Clozapine (Clozaril) 300 mg QHS PO Last administered on 01/05/18 19:57; Start 12/19/17 at 21:00 Clozapine (Clozaril) 25 mg QHS PO Last administered on 01/05/18 19:56; Start 12/19/17 at 21:00 Ondansetron HCl (Zofran Odt) 4 mg PRN Q8HRS PRN PO NAUSEA/VOMITING Last administered on 12/22/17at 05:50; Start 12/22/17 at 00:30 Docusate Sodium (Colace) 100 mg PRN DAILY PRN PO CONSTIPATION Last administered on 12/30/17 19:25; Start 12/29/17 at 09:30 Influenza Virus Vaccine (Afluria Trivalent [id number] Syringe) 0.5 ml ONCE ONCE VAX IM Last administered on 12/31/17at 11:39; Start 12/31/17 at 09:00; Stop at 09:01; Status DC Losartan Potassium (Cozaar) 25 mg DAILY PO Last administered on 01/05/18at 08:00 ; Start 01/01/18 at 09:00 Active Scripts Active Reported Shingrix Vial Kit (Varicella-Zoster Ge/As01b/Pf) 50 Mcg/0.5 Ml Kit 50 Mcg IM Zostavax Vial (Zoster Vaccine Live/Pf) 19,400 Unit/0.65 Ml Vial 19,400 Unit SQ Triamcinolone Acetonide 15 Gm Cream..g. 15 Gm TP BID Pantoprazole Sodium 40 Mg Tablet.dr 40 Mg PO PRN DAILY PRN Losartan Potassium 50 Mg Tablet 50 Mg PO DAILY Glipizide 5 Mg Tablet 5 Mg PO DAILY Tricor (Fenofibrate Nanocrystallized) 48 Mg Tablet 48 Mg PO DAILY Doxazosin Mesylate 4 Mg Tablet 4 Mg PO Lotrimin Af (Clotrimazole) 12 Gm Cream..g. 12 Gm TP BID Bethanechol Chloride 25 Mg Tablet 25 Mg PO QID Metoprolol Succinate ( Xl ) (Metoprolol Succinate) 50 Mg Tab.er.24h 50 Mg PO DAILY Metformin Hcl 1,000 Mg Tablet 1,000 Mg PO BID Clozaril (Clozapine) 100 Mg Tablet 300 Mg PO DAILY Dilantin (Phenytoin Sodium Extended) 100 Mg Capsule 100 Mg PO Q8HRS Lorazepam 0.5 Mg Tablet 0.5 Mg PO PRN Q6HRS PRN MDD 2mg Keppra (Levetiracetam) 1,000 Mg Tablet 1,000 Mg PO BID Lipitor (Atorvastatin Calcium) 20 Mg Tablet 20 Mg PO QHS I have reviewed the current psychotropics carefully including drug interactions. Risk benefit ratio favors no change other than as noted in my dictated progress note. Diagnosis: Problems: (1) Anxiety disorder (2) Bipolar affective, mixed, sev w/ psych (3) Schizoaffective disorder, chronic condition with acute exacerbation MANAS SHANKAR MD Jan 05, 2018 20:21
[2018-01-06] MEDS: PHENYTOIN SODIUM EXTENDED 100 MG CAPSULE PO SCH ×3 (05:33→19:57)
[2018-01-06 05:58] VITALS: BP 96/64
[2018-01-06] MEDS: METOPROLOL SUCC 24HR ER 50 MG TAB.ER.24H. PO SCH (09:00)
[2018-01-06] MEDS: LOSARTAN 25 MG TABLET. PO SCH (09:00)
[2018-01-06] MEDS: metFORMIN 500 MG TABLET PO SCH ×2 (09:52→17:13)
[2018-01-06] MEDS: CHOLECALCIFEROL (VITAMIN D3) 50,000 UNIT CAPSULE PO SCH (09:53)
[2018-01-06] MEDS: levETIRAcetam 500 MG TABLET PO SCH ×2 (09:53→19:57)
[2018-01-06] MEDS: FENOFIBRATE NANOCRYSTALLIZED 48 MG TABLET PO SCH (09:53)
[2018-01-06] MEDS: BETHANECHOL CHLORIDE 25 MG TABLET PO SCH ×4 (09:53→19:56)
[2018-01-06 15:53] VITALS: BP 110/62
--- NOTE | 2018-01-06 16:11 | PN ---
DATE: 01/04/2018 This is a late entry 01/04/2018 covers elements not covered in my initial note. SUBJECTIVE: I met with the patient in the evening at length in her room and staffed at a treatment team meeting with the entire team in the morning and her sister Moiz MEZA and [id number], Zander, attended the conference. A lengthy discussion about her history progress, placement options, which are being coordinated by social service staff. Family is looking at level 2 placement. REVIEW OF SYSTEMS: No CV, , pulmonary, eye, ENT system symptoms on review. She is less fixated on tiredness. MENTAL STATUS EXAM: Reasonably oriented. Speech is coherent, has some latency. Abstraction fair, computation impaired, language function intact. Mood and affect showing improvement. LABORATORY DATA: Reviewed. IMPRESSION: Unchanged from initial note. PLAN: No change from initial note. MAN Maikel SHANKAR MD DR: ASHLEIGH/cali JOB#: [id number] / [id number]
[2018-01-06] MEDS: cloZAPine 25 MG TABLET PO SCH (19:56)
[2018-01-06] MEDS: cloZAPine 100 MG TABLET PO SCH (19:56)
[2018-01-06] MEDS: ATORVASTATIN CALCIUM 20 MG TABLET PO SCH (19:57)
[2018-01-06] MEDS: DIVALPROEX ER 500 MG TAB.ER.24H PO SCH (19:57)
[2018-01-07] MEDS: PHENYTOIN SODIUM EXTENDED 100 MG CAPSULE PO SCH ×3 (05:27→20:15)
[2018-01-07 06:37] VITALS: BP 124/72
[2018-01-07] MEDS: metFORMIN 500 MG TABLET PO SCH ×2 (08:03→17:32)
[2018-01-07] MEDS: levETIRAcetam 500 MG TABLET PO SCH ×2 (08:05→20:16)
[2018-01-07] MEDS: BETHANECHOL CHLORIDE 25 MG TABLET PO SCH ×4 (08:06→20:15)
[2018-01-07] MEDS: METOPROLOL SUCC 24HR ER 50 MG TAB.ER.24H. PO SCH (08:06)
[2018-01-07] MEDS: FENOFIBRATE NANOCRYSTALLIZED 48 MG TABLET PO SCH (08:06)
[2018-01-07] MEDS: LOSARTAN 25 MG TABLET. PO SCH (08:07)
[2018-01-07 15:37] VITALS: BP 139/82
[2018-01-07] MEDS: cloZAPine 25 MG TABLET PO SCH (20:14)
[2018-01-07] MEDS: ATORVASTATIN CALCIUM 20 MG TABLET PO SCH (20:15)
[2018-01-07] MEDS: DIVALPROEX ER 500 MG TAB.ER.24H PO SCH (20:15)
[2018-01-07] MEDS: cloZAPine 100 MG TABLET PO SCH (20:15)
--- NOTE | 2018-01-07 20:32 | PDOC ---
Exam Note: Arash Note: Late entry for date of service January. Please also refer to the separate dictated note~for this date of service dictated separately.~Patient seen individually. Discussed the patient with Nursing staff reviewed the chart.~ Reviewed interim history and current functioning. Reviewed vital signs,~Labs/ Radiology~and current medications noted below. Continue current treatment with the changes noted in the dictated addendum note Assessment: Vital Signs: VS - Last 72 Hours, by Label Date Time Temp Pulse Resp B/P (MAP) Pulse Ox O2 Delivery O2 Flow Rate FiO2 01/07/18 15:37 97.1 64 18 139/82 (101) 90 01/07/18 08:07 87 124/72 01/07/18 08:06 87 124/72 01/07/18 06:37 97.1 87 16 124/72 (89) 97 Room Air 01/06/18 15:53 97.5 84 18 110/62 (78) 97 01/06/18 05:58 97.8 79 18 96/64 (75) 96 Room Air 01/05/18 16:22 97.4 89 18 96/66 (76) 99 Room Air 01/05/18 08:00 84 114/79 01/05/18 08:00 84 114/79 01/05/18 05:54 98.1 84 18 114/79 (91) 97 Room Air Vital Signs Date Time Temp Pulse Resp B/P (MAP) Pulse Ox O2 Delivery O2 Flow Rate FiO2 01/07/18 15:37 97.1 64 18 139/82 (101) 90 01/07/18 06:37 Room Air I&O Intake and Output 01/07/18 06:59 Intake Total 1200 ml Balance 1200 ml Intake Oral 1200 ml Labs: Laboratory Tests Test 01/07/18 07:20 Glucose (Fingerstick) 78 mg/dL (70-99) Current Medications: Meds: Current Medications Acetaminophen (Tylenol) 650 mg PRN Q6HRS PRN PO PAIN / TEMP; Start 12/13/17 at 16:00 Multi-Ingredient Ointment (Analgesic [place]) 1 joey PRN QID PRN TP MUSCLE PAIN; Start 12/13/17 at 16:00 Al Hydroxide/Mg Hydroxide (Mylanta Plus Xs) 15 ml PRN AFTMEALHC PRN PO DYSPEPSIA Last administered on 12/13/17at 21:05; Start 12/13/17 at 16:00 Magnesium Hydroxide (Milk Of Magnesia) 2,400 mg PRN QHS PRN PO CONSTIPATION Last administered on 12/30/17at 19:25; Start 12/13/17 at 16:00 Clozapine (Clozaril) 300 mg DAILY PO Last administered on 12/14/17at 10:03; Start 12/14/17 at 09:00; Stop 12/14/17 at 10:27; Status DC Lorazepam (Ativan) 0.5 mg PRN Q6HRS PRN PO ANXIETY / AGITATION; Start 12/13/17 at 20:45 Atorvastatin Calcium (Lipitor) 20 mg QHS PO Last administered on 12/14/17at 20: 05; Start 12/13/17 at 21:00; Stop 12/15/17 at 15:00; Status DC Bethanechol Chloride (Urecholine) 25 mg QID PO Last administered on 01/07/18at 20:15; Start 12/13/17 at 21:00 Losartan Potassium (Cozaar) 50 mg DAILY PO Last administered on 12/29/17at 09:25 ; Start 12/14/17 at 09:00; Stop 12/31/17 at 12:28; Status DC Triamcinolone Acetonide (Kenalog) 15 joey BID TP Last administered on 12/25/17 08:19; Start 12/13/17 at 21:00; Stop 12/26/17 at 12:12; Status DC Clotrimazole (Lotrimin) 1 joey BID TP Last administered on 12/25/17at 08:20; Start 12/13/17 at 21:00; Stop 12/26/17 at 12:12; Status DC Fenofibrate (Tricor) 48 mg DAILY PO Last administered on 01/07/18at 08:06; Start 12/14/17 at 09:00 Glipizide (Glucotrol Er) 5 mg DAILY08 PO Last administered on 12/15/17at 08:36; Start 12/14/17 at 08:00; Stop 12/15/17 at 14:58; Status DC Levetiracetam (Keppra) 1,000 mg BID PO Last administered on 01/07/18at 20:16; Start 12/13/17 at 21:00 Metformin HCl (Glucophage) 1,000 mg BIDWMEALS PO Last administered on 17:32; Start 12/14/17 at 08:00 Metoprolol Succinate (Toprol Xl) 50 mg DAILY PO Last administered on 01/07/18 08:06; Start 12/14/17 at 09:00 Pantoprazole Sodium (Protonix) 40 mg PRN DAILY PRN PO HEARTBURN / GAS; Start at 07:30 Phenytoin Sodium (Dilantin) 100 mg Q8HRS PO Last administered on 01/07/18 20: 15; Start 12/13/17 at 22:00 Clozapine (Clozaril) 300 mg QHS PO Last administered on 12/18/17at 20:31; Start 12/14/17 at 21:00; Stop 12/19/17 at 17:05; Status DC Divalproex Sodium (Depakote Er) 500 mg QHS PO Last administered on 12/16/17at 20 :29; Start 12/14/17 at 21:00; Stop 12/17/17 at 18:41; Status DC Glipizide (Glucotrol Er) 10 mg DAILY08 PO Last administered on 01/07/18 08:04 ; Start 12/16/17 at 08:00 Vitamin D (Vitamin D3) 50,000 unit WEEKLY PO Last administered on 01/06/18at 09: 53; Start 12/16/17 at 09:00 Cephalexin HCl (Keflex) 500 mg BID PO Last administered on 12/25/17 08:13; Start 12/15/17 at 21:00; Stop 12/25/17 at 20:59; Status DC Atorvastatin Calcium (Lipitor) 40 mg QHS PO Last administered on 01/07/18 20: 15; Start 12/15/17 at 21:00 Lactobacillus Rhamnosus (Culturelle) 1 cap BID PO Last administered on at 08:42; Start 12/16/17 at 09:00; Stop 12/30/17 at 18:01; Status DC Divalproex Sodium (Depakote Er) 1,000 mg QHS PO Last administered on 01/07/18at 20:15; Start 12/17/17 at 21:00 Clozapine (Clozaril) 300 mg QHS PO Last administered on 01/07/18 20:15; Start 12/19/17 at 21:00 Clozapine (Clozaril) 25 mg QHS PO Last administered on 01/07/18at 20:14; Start 12/19/17 at 21:00 Ondansetron HCl (Zofran Odt) 4 mg PRN Q8HRS PRN PO NAUSEA/VOMITING Last administered on 12/22/17at 05:50; Start 12/22/17 at 00:30 Docusate Sodium (Colace) 100 mg PRN DAILY PRN PO CONSTIPATION Last administered on 12/30/17at 19:25; Start 12/29/17 at 09:30 Influenza Virus Vaccine (Afluria Trivalent [id number] Syringe) 0.5 ml ONCE ONCE VAX IM Last administered on 12/31/17at 11:39; Start 12/31/17 at 09:00; Stop at 09:01; Status DC Losartan Potassium (Cozaar) 25 mg DAILY PO Last administered on 01/07/18at 08:07 ; Start 01/01/18 at 09:00 Active Scripts Active Reported Shingrix Vial Kit (Varicella-Zoster Ge/As01b/Pf) 50 Mcg/0.5 Ml Kit 50 Mcg IM Zostavax Vial (Zoster Vaccine Live/Pf) 19,400 Unit/0.65 Ml Vial 19,400 Unit SQ Triamcinolone Acetonide 15 Gm Cream..g. 15 Gm TP BID Pantoprazole Sodium 40 Mg Tablet.dr 40 Mg PO PRN DAILY PRN Losartan Potassium 50 Mg Tablet 50 Mg PO DAILY Glipizide 5 Mg Tablet 5 Mg PO DAILY Tricor (Fenofibrate Nanocrystallized) 48 Mg Tablet 48 Mg PO DAILY Doxazosin Mesylate 4 Mg Tablet 4 Mg PO Lotrimin Af (Clotrimazole) 12 Gm Cream..g. 12 Gm TP BID Bethanechol Chloride 25 Mg Tablet 25 Mg PO QID Metoprolol Succinate ( Xl ) (Metoprolol Succinate) 50 Mg Tab.er.24h 50 Mg PO DAILY Metformin Hcl 1,000 Mg Tablet 1,000 Mg PO BID Clozaril (Clozapine) 100 Mg Tablet 300 Mg PO DAILY Dilantin (Phenytoin Sodium Extended) 100 Mg Capsule 100 Mg PO Q8HRS Lorazepam 0.5 Mg Tablet 0.5 Mg PO PRN Q6HRS PRN MDD 2mg Keppra (Levetiracetam) 1,000 Mg Tablet 1,000 Mg PO BID Lipitor (Atorvastatin Calcium) 20 Mg Tablet 20 Mg PO QHS I have reviewed the current psychotropics carefully including drug interactions. Risk benefit ratio favors no change other than as noted in my dictated progress note. Diagnosis: Problems: (1) Anxiety disorder (2) Bipolar affective, mixed, sev w/ psych (3) Schizoaffective disorder, chronic condition with acute exacerbation MANAS SHANKAR MD Jan 07, 2018 20:32
--- NOTE | 2018-01-07 20:32 | PDOC ---
Exam Note: Arash Note: Please also refer to the separate dictated note~for this date of service dictated separately.~Patient seen individually. Discussed the patient with Nursing staff reviewed the chart.~Reviewed interim history and current functioning. Reviewed vital signs,~Labs/ Radiology~and current medications noted below. Continue current treatment with the changes noted in the dictated addendum note Assessment: Vital Signs: Vital Signs Date Time Temp Pulse Resp B/P (MAP) Pulse Ox O2 Delivery O2 Flow Rate FiO2 01/07/18 15:37 97.1 64 18 139/82 (101) 90 01/07/18 06:37 Room Air I&O Intake and Output 01/07/18 06:59 Intake Total 1200 ml Balance 1200 ml Intake Oral 1200 ml Labs: Laboratory Tests Test 01/07/18 07:20 Glucose (Fingerstick) 78 mg/dL (70-99) Current Medications: Meds: Current Medications Acetaminophen (Tylenol) 650 mg PRN Q6HRS PRN PO PAIN / TEMP; Start 12/13/17 at 16:00 Multi-Ingredient Ointment (Analgesic [place]) 1 joey PRN QID PRN TP MUSCLE PAIN; Start 12/13/17 at 16:00 Al Hydroxide/Mg Hydroxide (Mylanta Plus Xs) 15 ml PRN AFTMEALHC PRN PO DYSPEPSIA Last administered on 12/13/17at 21:05; Start 12/13/17 at 16:00 Magnesium Hydroxide (Milk Of Magnesia) 2,400 mg PRN QHS PRN PO CONSTIPATION Last administered on 12/30/17at 19:25; Start 12/13/17 at 16:00 Clozapine (Clozaril) 300 mg DAILY PO Last administered on 12/14/17at 10:03; Start 12/14/17 at 09:00; Stop 12/14/17 at 10:27; Status DC Lorazepam (Ativan) 0.5 mg PRN Q6HRS PRN PO ANXIETY / AGITATION; Start 12/13/17 at 20:45 Atorvastatin Calcium (Lipitor) 20 mg QHS PO Last administered on 12/14/17at 20: 05; Start 12/13/17 at 21:00; Stop 12/15/17 at 15:00; Status DC Bethanechol Chloride (Urecholine) 25 mg QID PO Last administered on 01/07/18at 20:15; Start 12/13/17 at 21:00 Losartan Potassium (Cozaar) 50 mg DAILY PO Last administered on 12/29/17at 09:25 ; Start 12/14/17 at 09:00; Stop 12/31/17 at 12:28; Status DC Triamcinolone Acetonide (Kenalog) 15 joey BID TP Last administered on 12/25/17at 08:19; Start 12/13/17 at 21:00; Stop 12/26/17 at 12:12; Status DC Clotrimazole (Lotrimin) 1 joey BID TP Last administered on 12/25/17at 08:20; Start 12/13/17 at 21:00; Stop 12/26/17 at 12:12; Status DC Fenofibrate (Tricor) 48 mg DAILY PO Last administered on 01/07/18at 08:06; Start 12/14/17 at 09:00 Glipizide (Glucotrol Er) 5 mg DAILY08 PO Last administered on 12/15/17at 08:36; Start 12/14/17 at 08:00; Stop 12/15/17 at 14:58; Status DC Levetiracetam (Keppra) 1,000 mg BID PO Last administered on 01/07/18 20:16; Start 12/13/17 at 21:00 Metformin HCl (Glucophage) 1,000 mg BIDWMEALS PO Last administered on at 17:32; Start 12/14/17 at 08:00 Metoprolol Succinate (Toprol Xl) 50 mg DAILY PO Last administered on 01/07/18at 08:06; Start 12/14/17 at 09:00 Pantoprazole Sodium (Protonix) 40 mg PRN DAILY PRN PO HEARTBURN / GAS; Start at 07:30 Phenytoin Sodium (Dilantin) 100 mg Q8HRS PO Last administered on 01/07/18 20: 15; Start 12/13/17 at 22:00 Clozapine (Clozaril) 300 mg QHS PO Last administered on 12/18/17at 20:31; Start 12/14/17 at 21:00; Stop 12/19/17 at 17:05; Status DC Divalproex Sodium (Depakote Er) 500 mg QHS PO Last administered on 12/16/17 20 :29; Start 12/14/17 at 21:00; Stop 12/17/17 at 18:41; Status DC Glipizide (Glucotrol Er) 10 mg DAILY08 PO Last administered on 01/07/18 08:04 ; Start 12/16/17 at 08:00 Vitamin D (Vitamin D3) 50,000 unit WEEKLY PO Last administered on 01/06/18 09: 53; Start 12/16/17 at 09:00 Cephalexin HCl (Keflex) 500 mg BID PO Last administered on 12/25/17 08:13; Start 12/15/17 at 21:00; Stop 12/25/17 at 20:59; Status DC Atorvastatin Calcium (Lipitor) 40 mg QHS PO Last administered on 01/07/18 20: 15; Start 12/15/17 at 21:00 Lactobacillus Rhamnosus (Culturelle) 1 cap BID PO Last administered on 08:42; Start 12/16/17 at 09:00; Stop 12/30/17 at 18:01; Status DC Divalproex Sodium (Depakote Er) 1,000 mg QHS PO Last administered on 01/07/18 20:15; Start 12/17/17 at 21:00 Clozapine (Clozaril) 300 mg QHS PO Last administered on 01/07/18 20:15; Start 12/19/17 at 21:00 Clozapine (Clozaril) 25 mg QHS PO Last administered on 01/07/18 20:14; Start 12/19/17 at 21:00 Ondansetron HCl (Zofran Odt) 4 mg PRN Q8HRS PRN PO NAUSEA/VOMITING Last administered on 12/22/17at 05:50; Start 12/22/17 at 00:30 Docusate Sodium (Colace) 100 mg PRN DAILY PRN PO CONSTIPATION Last administered on 12/30/17 19:25; Start 12/29/17 at 09:30 Influenza Virus Vaccine (Afluria Trivalent [id number] Syringe) 0.5 ml ONCE ONCE VAX IM Last administered on 12/31/17at 11:39; Start 12/31/17 at 09:00; Stop at 09:01; Status DC Losartan Potassium (Cozaar) 25 mg DAILY PO Last administered on 01/07/18at 08:07 ; Start 01/01/18 at 09:00 Active Scripts Active Reported Shingrix Vial Kit (Varicella-Zoster Ge/As01b/Pf) 50 Mcg/0.5 Ml Kit 50 Mcg IM Zostavax Vial (Zoster Vaccine Live/Pf) 19,400 Unit/0.65 Ml Vial 19,400 Unit SQ Triamcinolone Acetonide 15 Gm Cream..g. 15 Gm TP BID Pantoprazole Sodium 40 Mg Tablet.dr 40 Mg PO PRN DAILY PRN Losartan Potassium 50 Mg Tablet 50 Mg PO DAILY Glipizide 5 Mg Tablet 5 Mg PO DAILY Tricor (Fenofibrate Nanocrystallized) 48 Mg Tablet 48 Mg PO DAILY Doxazosin Mesylate 4 Mg Tablet 4 Mg PO Lotrimin Af (Clotrimazole) 12 Gm Cream..g. 12 Gm TP BID Bethanechol Chloride 25 Mg Tablet 25 Mg PO QID Metoprolol Succinate ( Xl ) (Metoprolol Succinate) 50 Mg Tab.er.24h 50 Mg PO DAILY Metformin Hcl 1,000 Mg Tablet 1,000 Mg PO BID Clozaril (Clozapine) 100 Mg Tablet 300 Mg PO DAILY Dilantin (Phenytoin Sodium Extended) 100 Mg Capsule 100 Mg PO Q8HRS Lorazepam 0.5 Mg Tablet 0.5 Mg PO PRN Q6HRS PRN MDD 2mg Keppra (Levetiracetam) 1,000 Mg Tablet 1,000 Mg PO BID Lipitor (Atorvastatin Calcium) 20 Mg Tablet 20 Mg PO QHS I have reviewed the current psychotropics carefully including drug interactions. Risk benefit ratio favors no change other than as noted in my dictated progress note. Diagnosis: Problems: (1) Anxiety disorder (2) Bipolar affective, mixed, sev w/ psych (3) Schizoaffective disorder, chronic condition with acute exacerbation MANAS HSANKAR MD Jan 07, 2018 20:32
--- NOTE | 2018-01-08 01:17 | PN ---
DATE: 01/05/2018 This is a late entry for 01/05/2018 covers elements not covered in my initial note. SUBJECTIVE: I met with the patient in the evening. The patient slept 7-3/4 hours previous evening, met with her in her room at some length. She has come out to the day room for part of the activities, host her ____ dining room for meals. Rest of the time, withdrawn in her room. REVIEW OF SYSTEMS: No CV, , pulmonary, eye system symptoms on review. MENTAL STATUS EXAM: Reasonably oriented. Speech is coherent, has some latency. Abstraction fair, computation impaired, language function intact, attention span short. Mood and affect is improved. LABORATORY DATA: Reviewed. IMPRESSION: Unchanged from initial note. PLAN: No change from initial note. MAN Maikel SHANKAR MD DR: ASHLEIGH/cali JOB#: [id number] / [id number]
[2018-01-08] MEDS: PHENYTOIN SODIUM EXTENDED 100 MG CAPSULE PO SCH ×3 (05:43→19:56)
[2018-01-08 06:07] VITALS: BP 114/78
[2018-01-08 07:01] LABS: BASO % 0 % (0-3); EOS % 0 % (0-3); HEMATOCRIT 36.5 % (36.0-47.0); HEMOGLOBIN 11.9 g/dL (12.0-15.5); LYMPH # 2.7 x10^3/uL (1.0-4.8); LYMPH % 38 % (24-48); MEAN CORPUSCULAR HEMOGLOBIN 28 pg (25-35); MEAN CORPUSCULAR HGB CONC 33 g/dL (31-37); MEAN CORPUSCULAR VOLUME 85 fL (79-100); MONO # 0.7 x10^3/uL (0.0-1.1); MONO % 10 % (0-9); NEUT # 3.6 x10^3uL (1.8-7.7); NEUT % 52 % (31-73); PLATELET COUNT 219 x10^3/uL (140-400); RED BLOOD COUNT 4.27 x10^6/uL (3.50-5.40); RED CELL DISTRIBUTION WIDTH 16.3 % (11.5-14.5)
[2018-01-08 07:09] LABS: ALBUMIN 2.8 g/dL (3.4-5.0); ALBUMIN/GLOBULIN RATIO 0.9 (1.0-1.7); CALCIUM 8.3 mg/dL (8.5-10.1); CREATININE 0.7 mg/dL (0.6-1.0); GFR 85.1; POTASSIUM 4.7 mmol/L (3.5-5.1); TOTAL BILIRUBIN 0.1 mg/dL (0.2-1.0)
[2018-01-08] MEDS: LOSARTAN 25 MG TABLET. PO SCH (09:00)
[2018-01-08] MEDS: metFORMIN 500 MG TABLET PO SCH ×2 (09:18→17:18)
[2018-01-08] MEDS: METOPROLOL SUCC 24HR ER 50 MG TAB.ER.24H. PO SCH (09:19)
[2018-01-08] MEDS: levETIRAcetam 500 MG TABLET PO SCH ×2 (09:20→19:57)
[2018-01-08] MEDS: FENOFIBRATE NANOCRYSTALLIZED 48 MG TABLET PO SCH (09:20)
[2018-01-08] MEDS: BETHANECHOL CHLORIDE 25 MG TABLET PO SCH ×4 (09:20→20:01)
--- NOTE | 2018-01-08 14:34 | PN ---
DATE: 01/06/2018 PSYCHIATRIC PROGRESS NOTE This late entry 01/06/2018 covers elements not covered in my initial note. SUBJECTIVE: Met with the patient in the evening. The patient slept 7-1/2 hours previous night. met with her in her room at some length. REVIEW OF SYSTEMS: No CV, , pulmonary, eye, ENT system symptoms on review. She is pleasant, calm, cooperative, compliant, withdrawn to room, friendly with staff. MENTAL STATUS EXAM: Oriented to herself. Speech is coherent, has some latency. Abstraction fair, computation impaired, language function is intact. Mood and affect somewhat withdrawn, but improved. LABORATORY DATA: Reviewed. IMPRESSION: Unchanged from initial note. PLAN: No change from initial note. MAN Maikel SHANKAR MD DR: ASHLEIGH/cali JOB#: [id number] / [id number]
--- NOTE | 2018-01-08 15:02 | PN ---
DATE: 01/07/2018 This note covers elements not covered in my initial note. SUBJECTIVE: I met with the patient in the evening. The patient slept 8-1/2 hours previous night. I met with her in her room at length. She remains somewhat withdrawn, pleasant, calm, cooperative, friendly with staff. REVIEW OF SYSTEMS: No CV, , pulmonary, eye, ENT system symptoms on review. MENTAL STATUS EXAM: Oriented to herself and situation. Speech coherent, has some latency. Abstraction fair, computation impaired, language function intact. Mood and affect is improved. IMPRESSION: Schizoaffective disorder, bipolar type, mixed with psychotic features, in partial remission. Rest unchanged. PLAN: No change from initial note. Valproic acid level therapeutic at 81. MAN Maikel SHANKAR MD DR: ASHLEIGH/cali JOB#: [id number] / [id number]
[2018-01-08 15:57] VITALS: BP 137/89
[2018-01-08] MEDS: cloZAPine 100 MG TABLET PO SCH (19:56)
[2018-01-08] MEDS: cloZAPine 25 MG TABLET PO SCH (19:56)
[2018-01-08] MEDS: ATORVASTATIN CALCIUM 20 MG TABLET PO SCH (19:57)
[2018-01-08] MEDS: DIVALPROEX ER 500 MG TAB.ER.24H PO SCH (19:57)
--- NOTE | 2018-01-08 20:59 | PDOC ---
Exam Note: Arash Note: Please also refer to the separate dictated note~for this date of service dictated separately.~Patient seen individually. Discussed the patient with Nursing staff reviewed the chart.~Reviewed interim history and current functioning. Reviewed vital signs,~Labs/ Radiology~and current medications noted below. Continue current treatment with the changes noted in the dictated addendum note Assessment: Vital Signs: Vital Signs Date Time Temp Pulse Resp B/P (MAP) Pulse Ox O2 Delivery O2 Flow Rate FiO2 01/08/18 15:57 97.5 94 20 137/89 (105) 98 01/08/18 06:07 Room Air I&O Intake and Output 01/08/18 06:59 Intake Total 720 ml Balance 720 ml Intake Oral 720 ml Labs: Laboratory Tests Test 01/08/18 06:42 01/08/18 07:25 White Blood Count 7.0 x10^3/uL (4.0-11.0) Red Blood Count 4.27 x10^6/uL (3.50-5.40) Hemoglobin 11.9 g/dL (12.0-15.5) L Hematocrit 36.5 % (36.0-47.0) Mean Corpuscular Volume 85 fL (79-100) Mean Corpuscular Hemoglobin 28 pg (25-35) Mean Corpuscular Hemoglobin Concent 33 g/dL (31-37) Red Cell Distribution Width 16.3 % (11.5-14.5) H Platelet Count 219 x10^3/uL (140-400) Neutrophils (%) (Auto) 52 % (31-73) Lymphocytes (%) (Auto) 38 % (24-48) Monocytes (%) (Auto) 10 % (0-9) H Eosinophils (%) (Auto) 0 % (0-3) Basophils (%) (Auto) 0 % (0-3) Neutrophils # (Auto) 3.6 x10^3uL (1.8-7.7) Lymphocytes # (Auto) 2.7 x10^3/uL (1.0-4.8) Monocytes # (Auto) 0.7 x10^3/uL (0.0-1.1) Eosinophils # (Auto) 0.0 x10^3/uL (0.0-0.7) Basophils # (Auto) 0.0 x10^3/uL (0.0-0.2) Sodium Level 142 mmol/L (136-145) Potassium Level 4.7 mmol/L (3.5-5.1) Chloride Level 108 mmol/L (98-107) H Carbon Dioxide Level 28 mmol/L (21-32) Anion Gap 6 (6-14) Blood Urea Nitrogen 20 mg/dL (7-20) Creatinine 0.7 mg/dL (0.6-1.0) Estimated GFR (Cockcroft-Gault) 85.1 BUN/Creatinine Ratio 29 (6-20) H Glucose Level 74 mg/dL (70-99) Calcium Level 8.3 mg/dL (8.5-10.1) L Total Bilirubin 0.1 mg/dL (0.2-1.0) L Aspartate Amino Transferase (AST) 10 U/L (15-37) L Alanine Aminotransferase (ALT) 18 U/L (14-59) Alkaline Phosphatase 48 U/L (46-116) Total Protein 6.0 g/dL (6.4-8.2) L Albumin 2.8 g/dL (3.4-5.0) L Albumin/Globulin Ratio 0.9 (1.0-1.7) L Glucose (Fingerstick) 83 mg/dL (70-99) Current Medications: Meds: Current Medications Acetaminophen (Tylenol) 650 mg PRN Q6HRS PRN PO PAIN / TEMP; Start 12/13/17 at 16:00 Multi-Ingredient Ointment (Analgesic [place]) 1 joey PRN QID PRN TP MUSCLE PAIN; Start 12/13/17 at 16:00 Al Hydroxide/Mg Hydroxide (Mylanta Plus Xs) 15 ml PRN AFTMEALHC PRN PO DYSPEPSIA Last administered on 12/13/17at 21:05; Start 12/13/17 at 16:00 Magnesium Hydroxide (Milk Of Magnesia) 2,400 mg PRN QHS PRN PO CONSTIPATION Last administered on 12/30/17at 19:25; Start 12/13/17 at 16:00 Clozapine (Clozaril) 300 mg DAILY PO Last administered on 12/14/17at 10:03; Start 12/14/17 at 09:00; Stop 12/14/17 at 10:27; Status DC Lorazepam (Ativan) 0.5 mg PRN Q6HRS PRN PO ANXIETY / AGITATION; Start 12/13/17 at 20:45 Atorvastatin Calcium (Lipitor) 20 mg QHS PO Last administered on 12/14/17at 20: 05; Start 12/13/17 at 21:00; Stop 12/15/17 at 15:00; Status DC Bethanechol Chloride (Urecholine) 25 mg QID PO Last administered on 01/08/18at 20:01; Start 12/13/17 at 21:00 Losartan Potassium (Cozaar) 50 mg DAILY PO Last administered on 12/29/17at 09:25 ; Start 12/14/17 at 09:00; Stop 12/31/17 at 12:28; Status DC Triamcinolone Acetonide (Kenalog) 15 joey BID TP Last administered on 12/25/17at 08:19; Start 12/13/17 at 21:00; Stop 12/26/17 at 12:12; Status DC Clotrimazole (Lotrimin) 1 joey BID TP Last administered on 12/25/17at 08:20; Start 12/13/17 at 21:00; Stop 12/26/17 at 12:12; Status DC Fenofibrate (Tricor) 48 mg DAILY PO Last administered on 01/08/18 09:20; Start 12/14/17 at 09:00 Glipizide (Glucotrol Er) 5 mg DAILY08 PO Last administered on 12/15/17at 08:36; Start 12/14/17 at 08:00; Stop 12/15/17 at 14:58; Status DC Levetiracetam (Keppra) 1,000 mg BID PO Last administered on 01/08/18at 19:57; Start 12/13/17 at 21:00 Metformin HCl (Glucophage) 1,000 mg BIDWMEALS PO Last administered on 17:18; Start 12/14/17 at 08:00 Metoprolol Succinate (Toprol Xl) 50 mg DAILY PO Last administered on 01/08/18 09:19; Start 12/14/17 at 09:00 Pantoprazole Sodium (Protonix) 40 mg PRN DAILY PRN PO HEARTBURN / GAS; Start at 07:30 Phenytoin Sodium (Dilantin) 100 mg Q8HRS PO Last administered on 01/08/18 19: 56; Start 12/13/17 at 22:00 Clozapine (Clozaril) 300 mg QHS PO Last administered on 12/18/17at 20:31; Start 12/14/17 at 21:00; Stop 12/19/17 at 17:05; Status DC Divalproex Sodium (Depakote Er) 500 mg QHS PO Last administered on 12/16/17 20 :29; Start 12/14/17 at 21:00; Stop 12/17/17 at 18:41; Status DC Glipizide (Glucotrol Er) 10 mg DAILY08 PO Last administered on 01/08/18 09:19 ; Start 12/16/17 at 08:00 Vitamin D (Vitamin D3) 50,000 unit WEEKLY PO Last administered on 01/06/18 09: 53; Start 12/16/17 at 09:00 Cephalexin HCl (Keflex) 500 mg BID PO Last administered on 12/25/17 08:13; Start 12/15/17 at 21:00; Stop 12/25/17 at 20:59; Status DC Atorvastatin Calcium (Lipitor) 40 mg QHS PO Last administered on 01/08/18 19: 57; Start 12/15/17 at 21:00 Lactobacillus Rhamnosus (Culturelle) 1 cap BID PO Last administered on 08:42; Start 12/16/17 at 09:00; Stop 12/30/17 at 18:01; Status DC Divalproex Sodium (Depakote Er) 1,000 mg QHS PO Last administered on 01/08/18 19:57; Start 12/17/17 at 21:00 Clozapine (Clozaril) 300 mg QHS PO Last administered on 01/08/18 19:56; Start 12/19/17 at 21:00 Clozapine (Clozaril) 25 mg QHS PO Last administered on 01/08/18 19:56; Start 12/19/17 at 21:00 Ondansetron HCl (Zofran Odt) 4 mg PRN Q8HRS PRN PO NAUSEA/VOMITING Last administered on 12/22/17at 05:50; Start 12/22/17 at 00:30 Docusate Sodium (Colace) 100 mg PRN DAILY PRN PO CONSTIPATION Last administered on 12/30/17at 19:25; Start 12/29/17 at 09:30 Influenza Virus Vaccine (Afluria Trivalent [id number] Syringe) 0.5 ml ONCE ONCE VAX IM Last administered on 12/31/17at 11:39; Start 12/31/17 at 09:00; Stop at 09:01; Status DC Losartan Potassium (Cozaar) 25 mg DAILY PO Last administered on 01/07/18at 08:07 ; Start 01/01/18 at 09:00 Active Scripts Active Reported Shingrix Vial Kit (Varicella-Zoster Ge/As01b/Pf) 50 Mcg/0.5 Ml Kit 50 Mcg IM Zostavax Vial (Zoster Vaccine Live/Pf) 19,400 Unit/0.65 Ml Vial 19,400 Unit SQ Triamcinolone Acetonide 15 Gm Cream..g. 15 Gm TP BID Pantoprazole Sodium 40 Mg Tablet.dr 40 Mg PO PRN DAILY PRN Losartan Potassium 50 Mg Tablet 50 Mg PO DAILY Glipizide 5 Mg Tablet 5 Mg PO DAILY Tricor (Fenofibrate Nanocrystallized) 48 Mg Tablet 48 Mg PO DAILY Doxazosin Mesylate 4 Mg Tablet 4 Mg PO Lotrimin Af (Clotrimazole) 12 Gm Cream..g. 12 Gm TP BID Bethanechol Chloride 25 Mg Tablet 25 Mg PO QID Metoprolol Succinate ( Xl ) (Metoprolol Succinate) 50 Mg Tab.er.24h 50 Mg PO DAILY Metformin Hcl 1,000 Mg Tablet 1,000 Mg PO BID Clozaril (Clozapine) 100 Mg Tablet 300 Mg PO DAILY Dilantin (Phenytoin Sodium Extended) 100 Mg Capsule 100 Mg PO Q8HRS Lorazepam 0.5 Mg Tablet 0.5 Mg PO PRN Q6HRS PRN MDD 2mg Keppra (Levetiracetam) 1,000 Mg Tablet 1,000 Mg PO BID Lipitor (Atorvastatin Calcium) 20 Mg Tablet 20 Mg PO QHS I have reviewed the current psychotropics carefully including drug interactions. Risk benefit ratio favors no change other than as noted in my dictated progress note. Diagnosis: Problems: (1) Anxiety disorder (2) Bipolar affective, mixed, sev w/ psych (3) Schizoaffective disorder, chronic condition with acute exacerbation MANAS SHANKAR MD Jan 08, 2018 20:59
[2018-01-09] MEDS: PHENYTOIN SODIUM EXTENDED 100 MG CAPSULE PO SCH ×3 (06:11→21:44)
[2018-01-09 06:15] VITALS: BP 106/65
[2018-01-09] MEDS: levETIRAcetam 500 MG TABLET PO SCH ×2 (10:11→21:43)
[2018-01-09] MEDS: METOPROLOL SUCC 24HR ER 50 MG TAB.ER.24H. PO SCH (10:11)
[2018-01-09] MEDS: LOSARTAN 25 MG TABLET. PO SCH (10:12)
[2018-01-09] MEDS: BETHANECHOL CHLORIDE 25 MG TABLET PO SCH ×4 (10:12→21:45)
[2018-01-09] MEDS: metFORMIN 500 MG TABLET PO SCH ×2 (10:12→17:21)
[2018-01-09] MEDS: FENOFIBRATE NANOCRYSTALLIZED 48 MG TABLET PO SCH (10:13)
[2018-01-09 16:49] VITALS: BP 112/67
--- NOTE | 2018-01-09 21:11 | PDOC ---
Exam Note: Arash Note: Please also refer to the separate dictated note~for this date of service dictated separately.~Patient seen individually. Discussed the patient with Nursing staff reviewed the chart.~Reviewed interim history and current functioning. Reviewed vital signs,~Labs/ Radiology~and current medications noted below. Continue current treatment with the changes noted in the dictated addendum note Assessment: Vital Signs: Vital Signs Date Time Temp Pulse Resp B/P (MAP) Pulse Ox O2 Delivery O2 Flow Rate FiO2 01/09/18 16:49 97.9 84 16 112/67 (82) 96 01/08/18 06:07 Room Air I&O Intake and Output 01/09/18 07:00 Intake Total 1320 ml Balance 1320 ml Intake Oral 1320 ml # Voids 1 Labs: Laboratory Tests Test 01/09/18 07:54 Glucose (Fingerstick) 95 mg/dL (70-99) Current Medications: Meds: Current Medications Acetaminophen (Tylenol) 650 mg PRN Q6HRS PRN PO PAIN / TEMP; Start 12/13/17 at 16:00 Multi-Ingredient Ointment (Analgesic [place]) 1 joey PRN QID PRN TP MUSCLE PAIN; Start 12/13/17 at 16:00 Al Hydroxide/Mg Hydroxide (Mylanta Plus Xs) 15 ml PRN AFTMEALHC PRN PO DYSPEPSIA Last administered on 12/13/17at 21:05; Start 12/13/17 at 16:00 Magnesium Hydroxide (Milk Of Magnesia) 2,400 mg PRN QHS PRN PO CONSTIPATION Last administered on 12/30/17at 19:25; Start 12/13/17 at 16:00 Clozapine (Clozaril) 300 mg DAILY PO Last administered on 12/14/17at 10:03; Start 12/14/17 at 09:00; Stop 12/14/17 at 10:27; Status DC Lorazepam (Ativan) 0.5 mg PRN Q6HRS PRN PO ANXIETY / AGITATION; Start 12/13/17 at 20:45 Atorvastatin Calcium (Lipitor) 20 mg QHS PO Last administered on 12/14/17at 20: 05; Start 12/13/17 at 21:00; Stop 12/15/17 at 15:00; Status DC Bethanechol Chloride (Urecholine) 25 mg QID PO Last administered on 01/09/18 17:21; Start 12/13/17 at 21:00 Losartan Potassium (Cozaar) 50 mg DAILY PO Last administered on 12/29/17at 09:25 ; Start 12/14/17 at 09:00; Stop 12/31/17 at 12:28; Status DC Triamcinolone Acetonide (Kenalog) 15 joey BID TP Last administered on 12/25/17 08:19; Start 12/13/17 at 21:00; Stop 12/26/17 at 12:12; Status DC Clotrimazole (Lotrimin) 1 joey BID TP Last administered on 12/25/17 08:20; Start 12/13/17 at 21:00; Stop 12/26/17 at 12:12; Status DC Fenofibrate (Tricor) 48 mg DAILY PO Last administered on 01/09/18at 10:13; Start 12/14/17 at 09:00 Glipizide (Glucotrol Er) 5 mg DAILY08 PO Last administered on 12/15/17at 08:36; Start 12/14/17 at 08:00; Stop 12/15/17 at 14:58; Status DC Levetiracetam (Keppra) 1,000 mg BID PO Last administered on 01/09/18 10:11; Start 12/13/17 at 21:00 Metformin HCl (Glucophage) 1,000 mg BIDWMEALS PO Last administered on 17:21; Start 12/14/17 at 08:00 Metoprolol Succinate (Toprol Xl) 50 mg DAILY PO Last administered on 01/09/18at 10:11; Start 12/14/17 at 09:00 Pantoprazole Sodium (Protonix) 40 mg PRN DAILY PRN PO HEARTBURN / GAS; Start at 07:30 Phenytoin Sodium (Dilantin) 100 mg Q8HRS PO Last administered on 01/09/18at 13: 19; Start 12/13/17 at 22:00 Clozapine (Clozaril) 300 mg QHS PO Last administered on 12/18/17at 20:31; Start 12/14/17 at 21:00; Stop 12/19/17 at 17:05; Status DC Divalproex Sodium (Depakote Er) 500 mg QHS PO Last administered on 12/16/17 20 :29; Start 12/14/17 at 21:00; Stop 12/17/17 at 18:41; Status DC Glipizide (Glucotrol Er) 10 mg DAILY08 PO Last administered on 01/09/18at 10:11 ; Start 12/16/17 at 08:00 Vitamin D (Vitamin D3) 50,000 unit WEEKLY PO Last administered on 01/06/18 09: 53; Start 12/16/17 at 09:00 Cephalexin HCl (Keflex) 500 mg BID PO Last administered on 12/25/17 08:13; Start 12/15/17 at 21:00; Stop 12/25/17 at 20:59; Status DC Atorvastatin Calcium (Lipitor) 40 mg QHS PO Last administered on 01/08/18 19: 57; Start 12/15/17 at 21:00 Lactobacillus Rhamnosus (Culturelle) 1 cap BID PO Last administered on 08:42; Start 12/16/17 at 09:00; Stop 12/30/17 at 18:01; Status DC Divalproex Sodium (Depakote Er) 1,000 mg QHS PO Last administered on 01/08/18 19:57; Start 12/17/17 at 21:00 Clozapine (Clozaril) 300 mg QHS PO Last administered on 01/08/18 19:56; Start 12/19/17 at 21:00 Clozapine (Clozaril) 25 mg QHS PO Last administered on 01/08/18 19:56; Start 12/19/17 at 21:00 Ondansetron HCl (Zofran Odt) 4 mg PRN Q8HRS PRN PO NAUSEA/VOMITING Last administered on 12/22/17at 05:50; Start 12/22/17 at 00:30 Docusate Sodium (Colace) 100 mg PRN DAILY PRN PO CONSTIPATION Last administered on 12/30/17 19:25; Start 12/29/17 at 09:30 Influenza Virus Vaccine (Afluria Trivalent [id number] Syringe) 0.5 ml ONCE ONCE VAX IM Last administered on 12/31/17at 11:39; Start 12/31/17 at 09:00; Stop at 09:01; Status DC Losartan Potassium (Cozaar) 25 mg DAILY PO Last administered on 01/09/18at 10:12 ; Start 01/01/18 at 09:00 Active Scripts Active Reported Shingrix Vial Kit (Varicella-Zoster Ge/As01b/Pf) 50 Mcg/0.5 Ml Kit 50 Mcg IM Zostavax Vial (Zoster Vaccine Live/Pf) 19,400 Unit/0.65 Ml Vial 19,400 Unit SQ Triamcinolone Acetonide 15 Gm Cream..g. 15 Gm TP BID Pantoprazole Sodium 40 Mg Tablet.dr 40 Mg PO PRN DAILY PRN Losartan Potassium 50 Mg Tablet 50 Mg PO DAILY Glipizide 5 Mg Tablet 5 Mg PO DAILY Tricor (Fenofibrate Nanocrystallized) 48 Mg Tablet 48 Mg PO DAILY Doxazosin Mesylate 4 Mg Tablet 4 Mg PO Lotrimin Af (Clotrimazole) 12 Gm Cream..g. 12 Gm TP BID Bethanechol Chloride 25 Mg Tablet 25 Mg PO QID Metoprolol Succinate ( Xl ) (Metoprolol Succinate) 50 Mg Tab.er.24h 50 Mg PO DAILY Metformin Hcl 1,000 Mg Tablet 1,000 Mg PO BID Clozaril (Clozapine) 100 Mg Tablet 300 Mg PO DAILY Dilantin (Phenytoin Sodium Extended) 100 Mg Capsule 100 Mg PO Q8HRS Lorazepam 0.5 Mg Tablet 0.5 Mg PO PRN Q6HRS PRN MDD 2mg Keppra (Levetiracetam) 1,000 Mg Tablet 1,000 Mg PO BID Lipitor (Atorvastatin Calcium) 20 Mg Tablet 20 Mg PO QHS I have reviewed the current psychotropics carefully including drug interactions. Risk benefit ratio favors no change other than as noted in my dictated progress note. Diagnosis: Problems: (1) Anxiety disorder (2) Bipolar affective, mixed, sev w/ psych (3) Schizoaffective disorder, chronic condition with acute exacerbation MANAS SHANKAR MD Jan 09, 2018 21:11
[2018-01-09] MEDS: cloZAPine 25 MG TABLET PO SCH (21:42)
[2018-01-09] MEDS: cloZAPine 100 MG TABLET PO SCH (21:42)
[2018-01-09] MEDS: ATORVASTATIN CALCIUM 20 MG TABLET PO SCH (21:42)
[2018-01-09] MEDS: DIVALPROEX ER 500 MG TAB.ER.24H PO SCH (21:43)
--- NOTE | 2018-01-09 23:35 | PN ---
DATE: 01/08/2018 This late entry for 01/08/2018 covers elements not covered in my initial note. SUBJECTIVE: I met with the patient in the evening. I met with her in her room. She slept 8 hours previous evening. Generally, she did well the previous night, had a good day per nursing report. Absolute neutrophil count is 3640. REVIEW OF SYSTEMS: No CV, , pulmonary, eye, ENT system symptoms on review. She remains withdrawn to her room somewhat, but less so than before. MENTAL STATUS EXAM: Reasonably oriented. Speech is coherent with some latency. Abstraction fair. Computation able to do two step serial 7's. No active suicidal or homicidal ideation. Psychotic symptoms are improved. She is fixated on wanting to go back home rather than at the nursing facility and I addressed at length with her. LABORATORY DATA: Reviewed. IMPRESSION: Schizoaffective disorder, bipolar type, mixed with psychotic features, in partial remission. Rest unchanged. PLAN: No change from initial note. Maintain Clozaril 325 mg at bedtime ____. MAN Maikel SHANKAR MD DR: ASHLEIGH/cali JOB#: [id number] / [id number]
[2018-01-10] MEDS: PHENYTOIN SODIUM EXTENDED 100 MG CAPSULE PO SCH ×3 (05:37→20:08)
[2018-01-10 06:10] VITALS: BP 104/74
[2018-01-10] MEDS: BETHANECHOL CHLORIDE 25 MG TABLET PO SCH ×4 (10:00→20:11)
[2018-01-10] MEDS: FENOFIBRATE NANOCRYSTALLIZED 48 MG TABLET PO SCH (10:00)
[2018-01-10] MEDS: levETIRAcetam 500 MG TABLET PO SCH ×2 (10:22→20:09)
[2018-01-10] MEDS: LOSARTAN 25 MG TABLET. PO SCH (10:22)
[2018-01-10] MEDS: metFORMIN 500 MG TABLET PO SCH ×2 (10:23→17:28)
[2018-01-10] MEDS: METOPROLOL SUCC 24HR ER 50 MG TAB.ER.24H. PO SCH (10:23)
[2018-01-10 16:20] VITALS: BP 103/61
[2018-01-10] MEDS: ATORVASTATIN CALCIUM 20 MG TABLET PO SCH (20:07)
[2018-01-10] MEDS: cloZAPine 25 MG TABLET PO SCH (20:08)
[2018-01-10] MEDS: DIVALPROEX ER 500 MG TAB.ER.24H PO SCH (20:08)
[2018-01-10] MEDS: cloZAPine 100 MG TABLET PO SCH (20:08)
--- NOTE | 2018-01-10 21:07 | PDOC ---
Exam Note: Arash Note: Please also refer to the separate dictated note~for this date of service dictated separately.~Patient seen individually. Discussed the patient with Nursing staff reviewed the chart.~Reviewed interim history and current functioning. Reviewed vital signs,~Labs/ Radiology~and current medications noted below. Continue current treatment with the changes noted in the dictated addendum note Assessment: Vital Signs: Vital Signs Date Time Temp Pulse Resp B/P (MAP) Pulse Ox O2 Delivery O2 Flow Rate FiO2 01/10/18 16:20 98.4 81 16 103/61 (75) 97 01/08/18 06:07 Room Air I&O Intake and Output 01/10/18 07:00 Intake Total 1680 ml Balance 1680 ml Intake Oral 1680 ml Labs: Laboratory Tests Test 01/10/18 07:34 Glucose (Fingerstick) 73 mg/dL (70-99) Current Medications: Meds: Current Medications Acetaminophen (Tylenol) 650 mg PRN Q6HRS PRN PO PAIN / TEMP; Start 12/13/17 at 16:00 Multi-Ingredient Ointment (Analgesic [place]) 1 joey PRN QID PRN TP MUSCLE PAIN; Start 12/13/17 at 16:00 Al Hydroxide/Mg Hydroxide (Mylanta Plus Xs) 15 ml PRN AFTMEALHC PRN PO DYSPEPSIA Last administered on 12/13/17at 21:05; Start 12/13/17 at 16:00 Magnesium Hydroxide (Milk Of Magnesia) 2,400 mg PRN QHS PRN PO CONSTIPATION Last administered on 12/30/17at 19:25; Start 12/13/17 at 16:00 Clozapine (Clozaril) 300 mg DAILY PO Last administered on 12/14/17at 10:03; Start 12/14/17 at 09:00; Stop 12/14/17 at 10:27; Status DC Lorazepam (Ativan) 0.5 mg PRN Q6HRS PRN PO ANXIETY / AGITATION; Start 12/13/17 at 20:45 Atorvastatin Calcium (Lipitor) 20 mg QHS PO Last administered on 12/14/17at 20: 05; Start 12/13/17 at 21:00; Stop 12/15/17 at 15:00; Status DC Bethanechol Chloride (Urecholine) 25 mg QID PO Last administered on 01/10/18at 20:11; Start 12/13/17 at 21:00 Losartan Potassium (Cozaar) 50 mg DAILY PO Last administered on 12/29/17 09:25 ; Start 12/14/17 at 09:00; Stop 12/31/17 at 12:28; Status DC Triamcinolone Acetonide (Kenalog) 15 joey BID TP Last administered on 12/25/17 08:19; Start 12/13/17 at 21:00; Stop 12/26/17 at 12:12; Status DC Clotrimazole (Lotrimin) 1 joey BID TP Last administered on 12/25/17 08:20; Start 12/13/17 at 21:00; Stop 12/26/17 at 12:12; Status DC Fenofibrate (Tricor) 48 mg DAILY PO Last administered on 01/10/18 10:00; Start 12/14/17 at 09:00 Glipizide (Glucotrol Er) 5 mg DAILY08 PO Last administered on 12/15/17at 08:36; Start 12/14/17 at 08:00; Stop 12/15/17 at 14:58; Status DC Levetiracetam (Keppra) 1,000 mg BID PO Last administered on 01/10/18 20:09; Start 12/13/17 at 21:00 Metformin HCl (Glucophage) 1,000 mg BIDWMEALS PO Last administered on 17:28; Start 12/14/17 at 08:00 Metoprolol Succinate (Toprol Xl) 50 mg DAILY PO Last administered on 10:23; Start 12/14/17 at 09:00 Pantoprazole Sodium (Protonix) 40 mg PRN DAILY PRN PO HEARTBURN / GAS; Start at 07:30 Phenytoin Sodium (Dilantin) 100 mg Q8HRS PO Last administered on 01/10/18 20: 08; Start 12/13/17 at 22:00 Clozapine (Clozaril) 300 mg QHS PO Last administered on 12/18/17at 20:31; Start 12/14/17 at 21:00; Stop 12/19/17 at 17:05; Status DC Divalproex Sodium (Depakote Er) 500 mg QHS PO Last administered on 12/16/17 20 :29; Start 12/14/17 at 21:00; Stop 12/17/17 at 18:41; Status DC Glipizide (Glucotrol Er) 10 mg DAILY08 PO Last administered on 01/10/18 10:22 ; Start 12/16/17 at 08:00 Vitamin D (Vitamin D3) 50,000 unit WEEKLY PO Last administered on 01/06/18 09: 53; Start 12/16/17 at 09:00 Cephalexin HCl (Keflex) 500 mg BID PO Last administered on 12/25/17 08:13; Start 12/15/17 at 21:00; Stop 12/25/17 at 20:59; Status DC Atorvastatin Calcium (Lipitor) 40 mg QHS PO Last administered on 01/10/18 20: 07; Start 12/15/17 at 21:00 Lactobacillus Rhamnosus (Culturelle) 1 cap BID PO Last administered on 08:42; Start 12/16/17 at 09:00; Stop 12/30/17 at 18:01; Status DC Divalproex Sodium (Depakote Er) 1,000 mg QHS PO Last administered on 20:08; Start 12/17/17 at 21:00 Clozapine (Clozaril) 300 mg QHS PO Last administered on 01/10/18 20:08; Start 12/19/17 at 21:00 Clozapine (Clozaril) 25 mg QHS PO Last administered on 01/10/18 20:08; Start 12/19/17 at 21:00 Ondansetron HCl (Zofran Odt) 4 mg PRN Q8HRS PRN PO NAUSEA/VOMITING Last administered on 12/22/17at 05:50; Start 12/22/17 at 00:30 Docusate Sodium (Colace) 100 mg PRN DAILY PRN PO CONSTIPATION Last administered on 12/30/17 19:25; Start 12/29/17 at 09:30 Influenza Virus Vaccine (Afluria Trivalent [id number] Syringe) 0.5 ml ONCE ONCE VAX IM Last administered on 12/31/17at 11:39; Start 12/31/17 at 09:00; Stop at 09:01; Status DC Losartan Potassium (Cozaar) 25 mg DAILY PO Last administered on 01/10/18at 10: 22; Start 01/01/18 at 09:00 Active Scripts Active Reported Shingrix Vial Kit (Varicella-Zoster Ge/As01b/Pf) 50 Mcg/0.5 Ml Kit 50 Mcg IM Zostavax Vial (Zoster Vaccine Live/Pf) 19,400 Unit/0.65 Ml Vial 19,400 Unit SQ Triamcinolone Acetonide 15 Gm Cream..g. 15 Gm TP BID Pantoprazole Sodium 40 Mg Tablet.dr 40 Mg PO PRN DAILY PRN Losartan Potassium 50 Mg Tablet 50 Mg PO DAILY Glipizide 5 Mg Tablet 5 Mg PO DAILY Tricor (Fenofibrate Nanocrystallized) 48 Mg Tablet 48 Mg PO DAILY Doxazosin Mesylate 4 Mg Tablet 4 Mg PO Lotrimin Af (Clotrimazole) 12 Gm Cream..g. 12 Gm TP BID Bethanechol Chloride 25 Mg Tablet 25 Mg PO QID Metoprolol Succinate ( Xl ) (Metoprolol Succinate) 50 Mg Tab.er.24h 50 Mg PO DAILY Metformin Hcl 1,000 Mg Tablet 1,000 Mg PO BID Clozaril (Clozapine) 100 Mg Tablet 300 Mg PO DAILY Dilantin (Phenytoin Sodium Extended) 100 Mg Capsule 100 Mg PO Q8HRS Lorazepam 0.5 Mg Tablet 0.5 Mg PO PRN Q6HRS PRN MDD 2mg Keppra (Levetiracetam) 1,000 Mg Tablet 1,000 Mg PO BID Lipitor (Atorvastatin Calcium) 20 Mg Tablet 20 Mg PO QHS I have reviewed the current psychotropics carefully including drug interactions. Risk benefit ratio favors no change other than as noted in my dictated progress note. Diagnosis: Problems: (1) Anxiety disorder (2) Bipolar affective, mixed, sev w/ psych (3) Schizoaffective disorder, chronic condition with acute exacerbation MANAS SHANKAR MD Jan 10, 2018 21:07
--- NOTE | 2018-01-10 21:48 | PN ---
DATE: 01/09/2018 PSYCHIATRIC PROGRESS NOTE This late entry 01/09/2018 covers elements not covered in my initial note. SUBJECTIVE: I met with the patient at length in her room. The patient slept 7-1/4 hours previous night. She has been talking about not wanting to take her medications post discharge. Discharge plans with her in structured placement, she is not agreeable to this, but recognizes her sister is her DPOA. She has been withdrawn. REVIEW OF SYSTEMS: No CV, , pulmonary, eye, ENT system symptoms on review. MENTAL STATUS EXAM: Oriented to herself and situation. Speech coherent, has some latency. Abstraction fair, computation impaired, language function intact. Mood and affect withdrawn. During the individual visit, she talked about going up with her twin brother, who has since . She talked about being raised on a farm and they will go down to play in the [place] with xochitl. She would order picker the rocks and find snakes and scorpions that she would share with her brother. She was fairly animated discussing all of this childhood events. LABORATORY DATA: Reviewed. IMPRESSION: Unchanged from initial note. PLAN: No change from initial note. MAN Maikel SHANKAR MD DR: ASHLEIGH/cali JOB#: [id number] / [id number]
[2018-01-11 06:22] VITALS: BP 103/80
[2018-01-11] MEDS: PHENYTOIN SODIUM EXTENDED 100 MG CAPSULE PO SCH ×3 (06:27→19:35)
[2018-01-11] MEDS: metFORMIN 500 MG TABLET PO SCH ×2 (10:11→17:22)
[2018-01-11] MEDS: METOPROLOL SUCC 24HR ER 50 MG TAB.ER.24H. PO SCH (10:12)
[2018-01-11] MEDS: levETIRAcetam 500 MG TABLET PO SCH ×2 (10:12→19:35)
[2018-01-11] MEDS: LOSARTAN 25 MG TABLET. PO SCH (10:12)
[2018-01-11] MEDS: BETHANECHOL CHLORIDE 25 MG TABLET PO SCH ×4 (10:14→19:35)
[2018-01-11] MEDS: FENOFIBRATE NANOCRYSTALLIZED 48 MG TABLET PO SCH (10:14)
[2018-01-11 16:43] VITALS: BP 129/85
[2018-01-11] MEDS: ATORVASTATIN CALCIUM 20 MG TABLET PO SCH (19:34)
[2018-01-11] MEDS: DIVALPROEX ER 500 MG TAB.ER.24H PO SCH (19:34)
[2018-01-11] MEDS: cloZAPine 25 MG TABLET PO SCH (19:34)
[2018-01-11] MEDS: cloZAPine 100 MG TABLET PO SCH (19:34)
--- NOTE | 2018-01-11 20:51 | PDOC ---
Exam Note: Arash Note: Please also refer to the separate dictated note~for this date of service dictated separately.~Patient seen individually. Discussed the patient with Nursing staff reviewed the chart.~Reviewed interim history and current functioning. Reviewed vital signs,~Labs/ Radiology~and current medications noted below. Continue current treatment with the changes noted in the dictated addendum note Assessment: Vital Signs: Vital Signs Date Time Temp Pulse Resp B/P (MAP) Pulse Ox O2 Delivery O2 Flow Rate FiO2 01/11/18 16:43 97.9 95 20 129/85 (100) 95 Room Air I&O Intake and Output 01/11/18 07:00 Intake Total 920 ml Balance 920 ml Intake Oral 920 ml # Voids 1 # Bowel Movements 3 Labs: Laboratory Tests Test 01/11/18 07:14 Glucose (Fingerstick) 87 mg/dL (70-99) Current Medications: Meds: Current Medications Acetaminophen (Tylenol) 650 mg PRN Q6HRS PRN PO PAIN / TEMP; Start 12/13/17 at 16:00 Multi-Ingredient Ointment (Analgesic [place]) 1 joey PRN QID PRN TP MUSCLE PAIN; Start 12/13/17 at 16:00 Al Hydroxide/Mg Hydroxide (Mylanta Plus Xs) 15 ml PRN AFTMEALHC PRN PO DYSPEPSIA Last administered on 12/13/17at 21:05; Start 12/13/17 at 16:00 Magnesium Hydroxide (Milk Of Magnesia) 2,400 mg PRN QHS PRN PO CONSTIPATION Last administered on 12/30/17at 19:25; Start 12/13/17 at 16:00 Clozapine (Clozaril) 300 mg DAILY PO Last administered on 12/14/17at 10:03; Start 12/14/17 at 09:00; Stop 12/14/17 at 10:27; Status DC Lorazepam (Ativan) 0.5 mg PRN Q6HRS PRN PO ANXIETY / AGITATION; Start 12/13/17 at 20:45 Atorvastatin Calcium (Lipitor) 20 mg QHS PO Last administered on 12/14/17at 20: 05; Start 12/13/17 at 21:00; Stop 12/15/17 at 15:00; Status DC Bethanechol Chloride (Urecholine) 25 mg QID PO Last administered on 01/11/18at 19:35; Start 12/13/17 at 21:00 Losartan Potassium (Cozaar) 50 mg DAILY PO Last administered on 12/29/17 09:25 ; Start 12/14/17 at 09:00; Stop 12/31/17 at 12:28; Status DC Triamcinolone Acetonide (Kenalog) 15 joey BID TP Last administered on 12/25/17 08:19; Start 12/13/17 at 21:00; Stop 12/26/17 at 12:12; Status DC Clotrimazole (Lotrimin) 1 joey BID TP Last administered on 12/25/17 08:20; Start 12/13/17 at 21:00; Stop 12/26/17 at 12:12; Status DC Fenofibrate (Tricor) 48 mg DAILY PO Last administered on 01/11/18 10:14; Start 12/14/17 at 09:00 Glipizide (Glucotrol Er) 5 mg DAILY08 PO Last administered on 12/15/17at 08:36; Start 12/14/17 at 08:00; Stop 12/15/17 at 14:58; Status DC Levetiracetam (Keppra) 1,000 mg BID PO Last administered on 01/11/18 19:35; Start 12/13/17 at 21:00 Metformin HCl (Glucophage) 1,000 mg BIDWMEALS PO Last administered on 17:22; Start 12/14/17 at 08:00 Metoprolol Succinate (Toprol Xl) 50 mg DAILY PO Last administered on at 10:12; Start 12/14/17 at 09:00 Pantoprazole Sodium (Protonix) 40 mg PRN DAILY PRN PO HEARTBURN / GAS; Start at 07:30 Phenytoin Sodium (Dilantin) 100 mg Q8HRS PO Last administered on 01/11/18 19: 35; Start 12/13/17 at 22:00 Clozapine (Clozaril) 300 mg QHS PO Last administered on 12/18/17at 20:31; Start 12/14/17 at 21:00; Stop 12/19/17 at 17:05; Status DC Divalproex Sodium (Depakote Er) 500 mg QHS PO Last administered on 12/16/17 20 :29; Start 12/14/17 at 21:00; Stop 12/17/17 at 18:41; Status DC Glipizide (Glucotrol Er) 10 mg DAILY08 PO Last administered on 01/11/18at 10:11 ; Start 12/16/17 at 08:00 Vitamin D (Vitamin D3) 50,000 unit WEEKLY PO Last administered on 01/06/18 09: 53; Start 12/16/17 at 09:00 Cephalexin HCl (Keflex) 500 mg BID PO Last administered on 12/25/17 08:13; Start 12/15/17 at 21:00; Stop 12/25/17 at 20:59; Status DC Atorvastatin Calcium (Lipitor) 40 mg QHS PO Last administered on 01/11/18 19: 34; Start 12/15/17 at 21:00 Lactobacillus Rhamnosus (Culturelle) 1 cap BID PO Last administered on at 08:42; Start 12/16/17 at 09:00; Stop 12/30/17 at 18:01; Status DC Divalproex Sodium (Depakote Er) 1,000 mg QHS PO Last administered on 19:34; Start 12/17/17 at 21:00 Clozapine (Clozaril) 300 mg QHS PO Last administered on 01/11/18 19:34; Start 12/19/17 at 21:00 Clozapine (Clozaril) 25 mg QHS PO Last administered on 01/11/18 19:34; Start 12/19/17 at 21:00 Ondansetron HCl (Zofran Odt) 4 mg PRN Q8HRS PRN PO NAUSEA/VOMITING Last administered on 12/22/17at 05:50; Start 12/22/17 at 00:30 Docusate Sodium (Colace) 100 mg PRN DAILY PRN PO CONSTIPATION Last administered on 12/30/17 19:25; Start 12/29/17 at 09:30 Influenza Virus Vaccine (Afluria Trivalent [id number] Syringe) 0.5 ml ONCE ONCE VAX IM Last administered on 12/31/17 11:39; Start 12/31/17 at 09:00; Stop at 09:01; Status DC Losartan Potassium (Cozaar) 25 mg DAILY PO Last administered on 01/11/18at 10: 12; Start 01/01/18 at 09:00 Active Scripts Active Reported Shingrix Vial Kit (Varicella-Zoster Ge/As01b/Pf) 50 Mcg/0.5 Ml Kit 50 Mcg IM Zostavax Vial (Zoster Vaccine Live/Pf) 19,400 Unit/0.65 Ml Vial 19,400 Unit SQ Triamcinolone Acetonide 15 Gm Cream..g. 15 Gm TP BID Pantoprazole Sodium 40 Mg Tablet.dr 40 Mg PO PRN DAILY PRN Losartan Potassium 50 Mg Tablet 50 Mg PO DAILY Glipizide 5 Mg Tablet 5 Mg PO DAILY Tricor (Fenofibrate Nanocrystallized) 48 Mg Tablet 48 Mg PO DAILY Doxazosin Mesylate 4 Mg Tablet 4 Mg PO Lotrimin Af (Clotrimazole) 12 Gm Cream..g. 12 Gm TP BID Bethanechol Chloride 25 Mg Tablet 25 Mg PO QID Metoprolol Succinate ( Xl ) (Metoprolol Succinate) 50 Mg Tab.er.24h 50 Mg PO DAILY Metformin Hcl 1,000 Mg Tablet 1,000 Mg PO BID Clozaril (Clozapine) 100 Mg Tablet 300 Mg PO DAILY Dilantin (Phenytoin Sodium Extended) 100 Mg Capsule 100 Mg PO Q8HRS Lorazepam 0.5 Mg Tablet 0.5 Mg PO PRN Q6HRS PRN MDD 2mg Keppra (Levetiracetam) 1,000 Mg Tablet 1,000 Mg PO BID Lipitor (Atorvastatin Calcium) 20 Mg Tablet 20 Mg PO QHS I have reviewed the current psychotropics carefully including drug interactions. Risk benefit ratio favors no change other than as noted in my dictated progress note. Diagnosis: Problems: (1) Anxiety disorder (2) Bipolar affective, mixed, sev w/ psych (3) Schizoaffective disorder, chronic condition with acute exacerbation MANAS SHANKAR MD Jan 11, 2018 20:51
[2018-01-12] MEDS: PHENYTOIN SODIUM EXTENDED 100 MG CAPSULE PO SCH ×3 (05:25→19:31)
[2018-01-12 06:15] VITALS: BP 142/84
[2018-01-12] MEDS ORDERED: NYSTATIN TOPICAL POWDER 15GM BOTTLE. TP PRN (07:30)
[2018-01-12] MEDS: metFORMIN 500 MG TABLET PO SCH ×2 (09:13→16:56)
[2018-01-12] MEDS: levETIRAcetam 500 MG TABLET PO SCH ×2 (09:13→19:30)
[2018-01-12] MEDS: METOPROLOL SUCC 24HR ER 50 MG TAB.ER.24H. PO SCH (09:13)
[2018-01-12] MEDS: BETHANECHOL CHLORIDE 25 MG TABLET PO SCH ×4 (09:14→19:33)
[2018-01-12] MEDS: LOSARTAN 25 MG TABLET. PO SCH (09:14)
[2018-01-12] MEDS: FENOFIBRATE NANOCRYSTALLIZED 48 MG TABLET PO SCH (09:14)
[2018-01-12 15:52] VITALS: BP 92/64
[2018-01-12] MEDS: ATORVASTATIN CALCIUM 20 MG TABLET PO SCH (19:29)
[2018-01-12] MEDS: cloZAPine 100 MG TABLET PO SCH (19:30)
[2018-01-12] MEDS: DIVALPROEX ER 500 MG TAB.ER.24H PO SCH (19:30)
[2018-01-12] MEDS: cloZAPine 25 MG TABLET PO SCH (19:31)
--- NOTE | 2018-01-12 20:54 | PDOC ---
Exam Note: Arash Note: Please also refer to the separate dictated note~for this date of service dictated separately.~Patient seen individually. Discussed the patient with Nursing staff reviewed the chart.~Reviewed interim history and current functioning. Reviewed vital signs,~Labs/ Radiology~and current medications noted below. Continue current treatment with the changes noted in the dictated addendum note Assessment: Vital Signs: Vital Signs Date Time Temp Pulse Resp B/P (MAP) Pulse Ox O2 Delivery O2 Flow Rate FiO2 01/12/18 15:52 97.8 81 20 92/64 (73) 96 Room Air I&O Intake and Output 01/12/18 07:00 Intake Total 1440 ml Balance 1440 ml Intake Oral 1440 ml Labs: Laboratory Tests Test 01/12/18 07:27 Glucose (Fingerstick) 81 mg/dL (70-99) Current Medications: Meds: Current Medications Acetaminophen (Tylenol) 650 mg PRN Q6HRS PRN PO PAIN / TEMP; Start 12/13/17 at 16:00 Multi-Ingredient Ointment (Analgesic [place]) 1 joey PRN QID PRN TP MUSCLE PAIN; Start 12/13/17 at 16:00 Al Hydroxide/Mg Hydroxide (Mylanta Plus Xs) 15 ml PRN AFTMEALHC PRN PO DYSPEPSIA Last administered on 12/13/17at 21:05; Start 12/13/17 at 16:00 Magnesium Hydroxide (Milk Of Magnesia) 2,400 mg PRN QHS PRN PO CONSTIPATION Last administered on 12/30/17at 19:25; Start 12/13/17 at 16:00 Clozapine (Clozaril) 300 mg DAILY PO Last administered on 12/14/17at 10:03; Start 12/14/17 at 09:00; Stop 12/14/17 at 10:27; Status DC Lorazepam (Ativan) 0.5 mg PRN Q6HRS PRN PO ANXIETY / AGITATION; Start 12/13/17 at 20:45 Atorvastatin Calcium (Lipitor) 20 mg QHS PO Last administered on 12/14/17at 20: 05; Start 12/13/17 at 21:00; Stop 12/15/17 at 15:00; Status DC Bethanechol Chloride (Urecholine) 25 mg QID PO Last administered on 01/12/18at 19:33; Start 12/13/17 at 21:00 Losartan Potassium (Cozaar) 50 mg DAILY PO Last administered on 12/29/17at 09:25 ; Start 12/14/17 at 09:00; Stop 12/31/17 at 12:28; Status DC Triamcinolone Acetonide (Kenalog) 15 joey BID TP Last administered on 12/25/17at 08:19; Start 12/13/17 at 21:00; Stop 12/26/17 at 12:12; Status DC Clotrimazole (Lotrimin) 1 joey BID TP Last administered on 12/25/17at 08:20; Start 12/13/17 at 21:00; Stop 12/26/17 at 12:12; Status DC Fenofibrate (Tricor) 48 mg DAILY PO Last administered on 01/12/18at 09:14; Start 12/14/17 at 09:00 Glipizide (Glucotrol Er) 5 mg DAILY08 PO Last administered on 12/15/17at 08:36; Start 12/14/17 at 08:00; Stop 12/15/17 at 14:58; Status DC Levetiracetam (Keppra) 1,000 mg BID PO Last administered on 01/12/18at 19:30; Start 12/13/17 at 21:00 Metformin HCl (Glucophage) 1,000 mg BIDWMEALS PO Last administered on at 16:56; Start 12/14/17 at 08:00 Metoprolol Succinate (Toprol Xl) 50 mg DAILY PO Last administered on at 09:13; Start 12/14/17 at 09:00 Pantoprazole Sodium (Protonix) 40 mg PRN DAILY PRN PO HEARTBURN / GAS; Start at 07:30 Phenytoin Sodium (Dilantin) 100 mg Q8HRS PO Last administered on 01/12/18 19: 31; Start 12/13/17 at 22:00 Clozapine (Clozaril) 300 mg QHS PO Last administered on 12/18/17at 20:31; Start 12/14/17 at 21:00; Stop 12/19/17 at 17:05; Status DC Divalproex Sodium (Depakote Er) 500 mg QHS PO Last administered on 12/16/17at 20 :29; Start 12/14/17 at 21:00; Stop 12/17/17 at 18:41; Status DC Glipizide (Glucotrol Er) 10 mg DAILY08 PO Last administered on 01/12/18 09:13 ; Start 12/16/17 at 08:00 Vitamin D (Vitamin D3) 50,000 unit WEEKLY PO Last administered on 01/06/18at 09: 53; Start 12/16/17 at 09:00 Cephalexin HCl (Keflex) 500 mg BID PO Last administered on 12/25/17at 08:13; Start 12/15/17 at 21:00; Stop 12/25/17 at 20:59; Status DC Atorvastatin Calcium (Lipitor) 40 mg QHS PO Last administered on 01/12/18 19: 29; Start 12/15/17 at 21:00 Lactobacillus Rhamnosus (Culturelle) 1 cap BID PO Last administered on at 08:42; Start 12/16/17 at 09:00; Stop 12/30/17 at 18:01; Status DC Divalproex Sodium (Depakote Er) 1,000 mg QHS PO Last administered on 19:30; Start 12/17/17 at 21:00 Clozapine (Clozaril) 300 mg QHS PO Last administered on 01/12/18 19:30; Start 12/19/17 at 21:00 Clozapine (Clozaril) 25 mg QHS PO Last administered on 01/12/18at 19:31; Start 12/19/17 at 21:00 Ondansetron HCl (Zofran Odt) 4 mg PRN Q8HRS PRN PO NAUSEA/VOMITING Last administered on 12/22/17at 05:50; Start 12/22/17 at 00:30 Docusate Sodium (Colace) 100 mg PRN DAILY PRN PO CONSTIPATION Last administered on 12/30/17 19:25; Start 12/29/17 at 09:30 Influenza Virus Vaccine (Afluria Trivalent [id number] Syringe) 0.5 ml ONCE ONCE VAX IM Last administered on 12/31/17at 11:39; Start 12/31/17 at 09:00; Stop at 09:01; Status DC Losartan Potassium (Cozaar) 25 mg DAILY PO Last administered on 01/12/18at 09: 14; Start 01/01/18 at 09:00 Nystatin (Nystop) 1 joey PRN BID PRN TP RASH Last administered on 01/12/18at 10: 12; Start 01/12/18 at 07:30 Active Scripts Active Reported Shingrix Vial Kit (Varicella-Zoster Ge/As01b/Pf) 50 Mcg/0.5 Ml Kit 50 Mcg IM Zostavax Vial (Zoster Vaccine Live/Pf) 19,400 Unit/0.65 Ml Vial 19,400 Unit SQ Triamcinolone Acetonide 15 Gm Cream..g. 15 Gm TP BID Pantoprazole Sodium 40 Mg Tablet.dr 40 Mg PO PRN DAILY PRN Losartan Potassium 50 Mg Tablet 50 Mg PO DAILY Glipizide 5 Mg Tablet 5 Mg PO DAILY Tricor (Fenofibrate Nanocrystallized) 48 Mg Tablet 48 Mg PO DAILY Doxazosin Mesylate 4 Mg Tablet 4 Mg PO Lotrimin Af (Clotrimazole) 12 Gm Cream..g. 12 Gm TP BID Bethanechol Chloride 25 Mg Tablet 25 Mg PO QID Metoprolol Succinate ( Xl ) (Metoprolol Succinate) 50 Mg Tab.er.24h 50 Mg PO DAILY Metformin Hcl 1,000 Mg Tablet 1,000 Mg PO BID Clozaril (Clozapine) 100 Mg Tablet 300 Mg PO DAILY Dilantin (Phenytoin Sodium Extended) 100 Mg Capsule 100 Mg PO Q8HRS Lorazepam 0.5 Mg Tablet 0.5 Mg PO PRN Q6HRS PRN MDD 2mg Keppra (Levetiracetam) 1,000 Mg Tablet 1,000 Mg PO BID Lipitor (Atorvastatin Calcium) 20 Mg Tablet 20 Mg PO QHS I have reviewed the current psychotropics carefully including drug interactions. Risk benefit ratio favors no change other than as noted in my dictated progress note. Diagnosis: Problems: (1) Anxiety disorder (2) Bipolar affective, mixed, sev w/ psych (3) Schizoaffective disorder, chronic condition with acute exacerbation MANAS SHANKAR MD Jan 12, 2018 20:54
--- NOTE | 2018-01-12 21:28 | PN ---
DATE: 01/10/2018 This is a late entry, 01/10/2018, covers the elements not covered in my initial note. SUBJECTIVE: I met with the patient in the evening. The patient slept 7-1/2 hours the previous night. She is withdrawn, spends much time in her room, but compliant with medications. REVIEW OF SYSTEMS: No CV, , pulmonary, eye, ENT system symptoms on review. Reliability fair. I met with her individually in her room. MENTAL STATUS EXAM: The patient is reasonably oriented. Speech has some latency, coherent. Abstraction fair. Computation able to do two steps on serial sevens, remembered 3/3 objects at 5 minutes. No active suicidal or homicidal ideation. Thought processes are more linear and goal directed. LABORATORY DATA: Reviewed. IMPRESSION: Schizoaffective disorder, bipolar type, mixed, in partial remission. PLAN: No change from initial note. MAN Maikel SHANKAR MD DR: ASHLEIGH/cali JOB#: [id number] / [id number]
--- NOTE | 2018-01-12 23:15 | PN ---
DATE: 01/11/2018 PSYCHIATRIC PROGRESS NOTE This late entry date of service 01/11/2018 covers elements not covered in my initial note 01/11/2018. SUBJECTIVE: The patient was staffed at a treatment team meeting with the entire team in the morning and the patient's [id number], Zander attended this conference. Moiz, her DPOA sister was unavailable. The patient has been isolated, somewhat withdrawn, sleeping 8-9 hours. Appetite 100%, spends much time in her room, but mood lability is much better. Thought disorder, psychosis appears to have subsided significantly. She has been accepted for level 2, social service staffs are coordinating with family for this transition. I met with her in her room in the evening. REVIEW OF SYSTEMS: No CV, , pulmonary, eye, ENT system symptoms on review. MENTAL STATUS EXAM: Reasonably oriented. Speech is coherent, abstraction fair, computation impaired, language function intact. Mood and affect is improved. LABORATORY DATA: Reviewed. IMPRESSION: Schizoaffective disorder, bipolar type, mixed with psychotic features, in partial remission. Rest unchanged. PLAN: No change from initial note. She has attended 3 groups in the past week. MANAS SHANKAR MD DR: ASHLEIGH/cali JOB#: [id number] / [id number]
[2018-01-13 05:55] VITALS: BP 106/72
[2018-01-13] MEDS: levETIRAcetam 500 MG TABLET PO SCH ×2 (06:42→20:44)
[2018-01-13] MEDS: METOPROLOL SUCC 24HR ER 50 MG TAB.ER.24H. PO SCH (06:42)
[2018-01-13] MEDS: CHOLECALCIFEROL (VITAMIN D3) 50,000 UNIT CAPSULE PO SCH (06:42)
[2018-01-13] MEDS: LOSARTAN 25 MG TABLET. PO SCH (06:42)
[2018-01-13] MEDS: BETHANECHOL CHLORIDE 25 MG TABLET PO SCH ×4 (06:44→20:46)
[2018-01-13] MEDS: FENOFIBRATE NANOCRYSTALLIZED 48 MG TABLET PO SCH (06:44)
[2018-01-13] MEDS: PHENYTOIN SODIUM EXTENDED 100 MG CAPSULE PO SCH ×3 (06:54→20:44)
[2018-01-13] MEDS: metFORMIN 500 MG TABLET PO SCH ×2 (09:44→17:19)
[2018-01-13 11:05] LABS: BASO % 1 % (0-3); EOS % 0 % (0-3); HEMATOCRIT 37.3 % (36.0-47.0); HEMOGLOBIN 12.3 g/dL (12.0-15.5); LYMPH # 1.7 x10^3/uL (1.0-4.8); LYMPH % 31 % (24-48); MEAN CORPUSCULAR HEMOGLOBIN 28 pg (25-35); MEAN CORPUSCULAR HGB CONC 33 g/dL (31-37); MEAN CORPUSCULAR VOLUME 85 fL (79-100); MONO # 0.4 x10^3/uL (0.0-1.1); MONO % 8 % (0-9); NEUT # 3.3 x10^3uL (1.8-7.7); NEUT % 61 % (31-73); PLATELET COUNT 209 x10^3/uL (140-400); RED BLOOD COUNT 4.37 x10^6/uL (3.50-5.40); RED CELL DISTRIBUTION WIDTH 16.1 % (11.5-14.5); WHITE BLOOD COUNT 5.4 x10^3/uL (4.0-11.0)
[2018-01-13 11:25] LABS: ALBUMIN 2.9 g/dL (3.4-5.0); ALBUMIN/GLOBULIN RATIO 0.9 (1.0-1.7); CALCIUM 8.3 mg/dL (8.5-10.1); CREATININE 0.8 mg/dL (0.6-1.0); GFR 72.9; TOTAL BILIRUBIN 0.1 mg/dL (0.2-1.0); TOTAL PROTEIN 6.1 g/dL (6.4-8.2)
[2018-01-13 16:49] VITALS: BP 134/70
--- NOTE | 2018-01-13 20:15 | PN ---
DATE: 01/12/2018 PSYCHIATRIC PROGRESS NOTE This late entry 01/12/2018 covers elements not covered in my initial note. SUBJECTIVE: I met with the patient in evening of 01/12/2018 in her room. She remains somewhat withdrawn, sleeping well at night. REVIEW OF SYSTEMS: No CV, , pulmonary, eye, ENT system symptoms on review. MENTAL STATUS EXAM: Oriented reasonably. Speech is coherent, abstraction fair. Computation, able to do one step serial 7's. Mood and affect remain somewhat withdrawn, but psychosis appears to have subsided. No active suicidal or homicidal ideation. LABORATORY DATA: Reviewed. IMPRESSION: Unchanged from initial note. PLAN: No change from initial note. MAN Maikel SHANKAR MD DR: ASHLEIGH/cali JOB#: [id number] / [id number]
[2018-01-13] MEDS: cloZAPine 25 MG TABLET PO SCH (20:42)
[2018-01-13] MEDS: DIVALPROEX ER 500 MG TAB.ER.24H PO SCH (20:42)
[2018-01-13] MEDS: cloZAPine 100 MG TABLET PO SCH (20:43)
[2018-01-13] MEDS: ATORVASTATIN CALCIUM 20 MG TABLET PO SCH (20:44)
--- NOTE | 2018-01-13 22:52 | PDOC ---
Exam Note: Arash Note: Please also refer to the separate dictated note~for this date of service dictated separately.~Patient seen individually. Discussed the patient with Nursing staff reviewed the chart.~Reviewed interim history and current functioning. Reviewed vital signs,~Labs/ Radiology~and current medications noted below. Continue current treatment with the changes noted in the dictated addendum note Assessment: Vital Signs: Vital Signs Date Time Temp Pulse Resp B/P (MAP) Pulse Ox O2 Delivery O2 Flow Rate FiO2 01/13/18 16:49 98.0 91 20 134/70 (91) 97 01/12/18 15:52 Room Air I&O Intake and Output 01/13/18 07:00 Intake Total 1680 ml Balance 1680 ml Intake Oral 1680 ml Labs: Laboratory Tests Test 01/13/18 07:15 01/13/18 10:33 Glucose (Fingerstick) 86 mg/dL (70-99) White Blood Count 5.4 x10^3/uL (4.0-11.0) Red Blood Count 4.37 x10^6/uL (3.50-5.40) Hemoglobin 12.3 g/dL (12.0-15.5) Hematocrit 37.3 % (36.0-47.0) Mean Corpuscular Volume 85 fL (79-100) Mean Corpuscular Hemoglobin 28 pg (25-35) Mean Corpuscular Hemoglobin Concent 33 g/dL (31-37) Red Cell Distribution Width 16.1 % (11.5-14.5) H Platelet Count 209 x10^3/uL (140-400) Neutrophils (%) (Auto) 61 % (31-73) Lymphocytes (%) (Auto) 31 % (24-48) Monocytes (%) (Auto) 8 % (0-9) Eosinophils (%) (Auto) 0 % (0-3) Basophils (%) (Auto) 1 % (0-3) Neutrophils # (Auto) 3.3 x10^3uL (1.8-7.7) Lymphocytes # (Auto) 1.7 x10^3/uL (1.0-4.8) Monocytes # (Auto) 0.4 x10^3/uL (0.0-1.1) Eosinophils # (Auto) 0.0 x10^3/uL (0.0-0.7) Basophils # (Auto) 0.0 x10^3/uL (0.0-0.2) Sodium Level 140 mmol/L (136-145) Potassium Level 4.0 mmol/L (3.5-5.1) Chloride Level 105 mmol/L (98-107) Carbon Dioxide Level 29 mmol/L (21-32) Anion Gap 6 (6-14) Blood Urea Nitrogen 19 mg/dL (7-20) Creatinine 0.8 mg/dL (0.6-1.0) Estimated GFR (Cockcroft-Gault) 72.9 BUN/Creatinine Ratio 24 (6-20) H Glucose Level 162 mg/dL (70-99) H Calcium Level 8.3 mg/dL (8.5-10.1) L Total Bilirubin 0.1 mg/dL (0.2-1.0) L Aspartate Amino Transferase (AST) 12 U/L (15-37) L Alanine Aminotransferase (ALT) 22 U/L (14-59) Alkaline Phosphatase 49 U/L (46-116) Total Protein 6.1 g/dL (6.4-8.2) L Albumin 2.9 g/dL (3.4-5.0) L Albumin/Globulin Ratio 0.9 (1.0-1.7) L Current Medications: Meds: Current Medications Acetaminophen (Tylenol) 650 mg PRN Q6HRS PRN PO PAIN / TEMP; Start 12/13/17 at 16:00 Multi-Ingredient Ointment (Analgesic [place]) 1 joey PRN QID PRN TP MUSCLE PAIN; Start 12/13/17 at 16:00 Al Hydroxide/Mg Hydroxide (Mylanta Plus Xs) 15 ml PRN AFTMEALHC PRN PO DYSPEPSIA Last administered on 12/13/17at 21:05; Start 12/13/17 at 16:00 Magnesium Hydroxide (Milk Of Magnesia) 2,400 mg PRN QHS PRN PO CONSTIPATION Last administered on 12/30/17at 19:25; Start 12/13/17 at 16:00 Clozapine (Clozaril) 300 mg DAILY PO Last administered on 12/14/17at 10:03; Start 12/14/17 at 09:00; Stop 12/14/17 at 10:27; Status DC Lorazepam (Ativan) 0.5 mg PRN Q6HRS PRN PO ANXIETY / AGITATION; Start 12/13/17 at 20:45 Atorvastatin Calcium (Lipitor) 20 mg QHS PO Last administered on 12/14/17at 20: 05; Start 12/13/17 at 21:00; Stop 12/15/17 at 15:00; Status DC Bethanechol Chloride (Urecholine) 25 mg QID PO Last administered on 01/13/18at 20:46; Start 12/13/17 at 21:00 Losartan Potassium (Cozaar) 50 mg DAILY PO Last administered on 12/29/17at 09:25 ; Start 12/14/17 at 09:00; Stop 12/31/17 at 12:28; Status DC Triamcinolone Acetonide (Kenalog) 15 joey BID TP Last administered on 12/25/17at 08:19; Start 12/13/17 at 21:00; Stop 12/26/17 at 12:12; Status DC Clotrimazole (Lotrimin) 1 joey BID TP Last administered on 12/25/17at 08:20; Start 12/13/17 at 21:00; Stop 12/26/17 at 12:12; Status DC Fenofibrate (Tricor) 48 mg DAILY PO Last administered on 01/13/18at 06:44; Start 12/14/17 at 09:00 Glipizide (Glucotrol Er) 5 mg DAILY08 PO Last administered on 12/15/17at 08:36; Start 12/14/17 at 08:00; Stop 12/15/17 at 14:58; Status DC Levetiracetam (Keppra) 1,000 mg BID PO Last administered on 01/13/18at 20:44; Start 12/13/17 at 21:00 Metformin HCl (Glucophage) 1,000 mg BIDWMEALS PO Last administered on at 17:19; Start 12/14/17 at 08:00 Metoprolol Succinate (Toprol Xl) 50 mg DAILY PO Last administered on at 06:42; Start 12/14/17 at 09:00 Pantoprazole Sodium (Protonix) 40 mg PRN DAILY PRN PO HEARTBURN / GAS; Start at 07:30 Phenytoin Sodium (Dilantin) 100 mg Q8HRS PO Last administered on 01/13/18 20: 44; Start 12/13/17 at 22:00 Clozapine (Clozaril) 300 mg QHS PO Last administered on 12/18/17 20:31; Start 12/14/17 at 21:00; Stop 12/19/17 at 17:05; Status DC Divalproex Sodium (Depakote Er) 500 mg QHS PO Last administered on 12/16/17 20 :29; Start 12/14/17 at 21:00; Stop 12/17/17 at 18:41; Status DC Glipizide (Glucotrol Er) 10 mg DAILY08 PO Last administered on 01/13/18 06:43 ; Start 12/16/17 at 08:00 Vitamin D (Vitamin D3) 50,000 unit WEEKLY PO Last administered on 01/13/18 06 :42; Start 12/16/17 at 09:00 Cephalexin HCl (Keflex) 500 mg BID PO Last administered on 12/25/17at 08:13; Start 12/15/17 at 21:00; Stop 12/25/17 at 20:59; Status DC Atorvastatin Calcium (Lipitor) 40 mg QHS PO Last administered on 01/13/18 20: 44; Start 12/15/17 at 21:00 Lactobacillus Rhamnosus (Culturelle) 1 cap BID PO Last administered on 08:42; Start 12/16/17 at 09:00; Stop 12/30/17 at 18:01; Status DC Divalproex Sodium (Depakote Er) 1,000 mg QHS PO Last administered on 20:42; Start 12/17/17 at 21:00 Clozapine (Clozaril) 300 mg QHS PO Last administered on 01/13/18 20:43; Start 12/19/17 at 21:00 Clozapine (Clozaril) 25 mg QHS PO Last administered on 01/13/18 20:42; Start 12/19/17 at 21:00 Ondansetron HCl (Zofran Odt) 4 mg PRN Q8HRS PRN PO NAUSEA/VOMITING Last administered on 12/22/17at 05:50; Start 12/22/17 at 00:30 Docusate Sodium (Colace) 100 mg PRN DAILY PRN PO CONSTIPATION Last administered on 12/30/17at 19:25; Start 12/29/17 at 09:30 Influenza Virus Vaccine (Afluria Trivalent [id number] Syringe) 0.5 ml ONCE ONCE VAX IM Last administered on 12/31/17at 11:39; Start 12/31/17 at 09:00; Stop at 09:01; Status DC Losartan Potassium (Cozaar) 25 mg DAILY PO Last administered on 01/13/18at 06: 42; Start 01/01/18 at 09:00 Nystatin (Nystop) 1 joey PRN BID PRN TP RASH Last administered on 01/12/18at 10: 12; Start 01/12/18 at 07:30 Active Scripts Active Reported Shingrix Vial Kit (Varicella-Zoster Ge/As01b/Pf) 50 Mcg/0.5 Ml Kit 50 Mcg IM Zostavax Vial (Zoster Vaccine Live/Pf) 19,400 Unit/0.65 Ml Vial 19,400 Unit SQ Triamcinolone Acetonide 15 Gm Cream..g. 15 Gm TP BID Pantoprazole Sodium 40 Mg Tablet.dr 40 Mg PO PRN DAILY PRN Losartan Potassium 50 Mg Tablet 50 Mg PO DAILY Glipizide 5 Mg Tablet 5 Mg PO DAILY Tricor (Fenofibrate Nanocrystallized) 48 Mg Tablet 48 Mg PO DAILY Doxazosin Mesylate 4 Mg Tablet 4 Mg PO Lotrimin Af (Clotrimazole) 12 Gm Cream..g. 12 Gm TP BID Bethanechol Chloride 25 Mg Tablet 25 Mg PO QID Metoprolol Succinate ( Xl ) (Metoprolol Succinate) 50 Mg Tab.er.24h 50 Mg PO DAILY Metformin Hcl 1,000 Mg Tablet 1,000 Mg PO BID Clozaril (Clozapine) 100 Mg Tablet 300 Mg PO DAILY Dilantin (Phenytoin Sodium Extended) 100 Mg Capsule 100 Mg PO Q8HRS Lorazepam 0.5 Mg Tablet 0.5 Mg PO PRN Q6HRS PRN MDD 2mg Keppra (Levetiracetam) 1,000 Mg Tablet 1,000 Mg PO BID Lipitor (Atorvastatin Calcium) 20 Mg Tablet 20 Mg PO QHS I have reviewed the current psychotropics carefully including drug interactions. Risk benefit ratio favors no change other than as noted in my dictated progress note. Diagnosis: Problems: (1) Anxiety disorder (2) Bipolar affective, mixed, sev w/ psych (3) Schizoaffective disorder, chronic condition with acute exacerbation MANAS SHANKAR MD Jan 13, 2018 22:52
[2018-01-14] MEDS: PHENYTOIN SODIUM EXTENDED 100 MG CAPSULE PO SCH ×3 (05:59→19:34)
[2018-01-14 06:31] VITALS: BP 109/74
[2018-01-14] MEDS: METOPROLOL SUCC 24HR ER 50 MG TAB.ER.24H. PO SCH (08:02)
[2018-01-14] MEDS: metFORMIN 500 MG TABLET PO SCH ×2 (08:02→17:20)
[2018-01-14] MEDS: levETIRAcetam 500 MG TABLET PO SCH ×2 (08:02→19:34)
[2018-01-14] MEDS: LOSARTAN 25 MG TABLET. PO SCH (08:03)
[2018-01-14] MEDS: FENOFIBRATE NANOCRYSTALLIZED 48 MG TABLET PO SCH ×2 (08:05→19:35)
[2018-01-14] MEDS: BETHANECHOL CHLORIDE 25 MG TABLET PO SCH ×4 (08:05→19:35)
[2018-01-14 16:17] VITALS: BP 100/64
[2018-01-14] MEDS: ATORVASTATIN CALCIUM 20 MG TABLET PO SCH (19:33)
[2018-01-14] MEDS: DIVALPROEX ER 500 MG TAB.ER.24H PO SCH (19:33)
[2018-01-14] MEDS: cloZAPine 100 MG TABLET PO SCH (19:34)
[2018-01-14] MEDS: cloZAPine 25 MG TABLET PO SCH (19:34)
--- NOTE | 2018-01-14 20:57 | PDOC ---
Exam Note: Arash Note: Please also refer to the separate dictated note~for this date of service dictated separately.~Patient seen individually. Discussed the patient with Nursing staff reviewed the chart.~Reviewed interim history and current functioning. Reviewed vital signs,~Labs/ Radiology~and current medications noted below. Continue current treatment with the changes noted in the dictated addendum note Assessment: Vital Signs: Vital Signs Date Time Temp Pulse Resp B/P (MAP) Pulse Ox O2 Delivery O2 Flow Rate FiO2 01/14/18 16:17 97.2 92 20 100/64 (76) 98 01/12/18 15:52 Room Air I&O Intake and Output 01/14/18 07:00 Intake Total 1740 ml Balance 1740 ml Intake Oral 1740 ml Current Medications: Meds: Current Medications Acetaminophen (Tylenol) 650 mg PRN Q6HRS PRN PO PAIN / TEMP; Start 12/13/17 at 16:00 Multi-Ingredient Ointment (Analgesic [place]) 1 joey PRN QID PRN TP MUSCLE PAIN; Start 12/13/17 at 16:00 Al Hydroxide/Mg Hydroxide (Mylanta Plus Xs) 15 ml PRN AFTMEALHC PRN PO DYSPEPSIA Last administered on 12/13/17at 21:05; Start 12/13/17 at 16:00 Magnesium Hydroxide (Milk Of Magnesia) 2,400 mg PRN QHS PRN PO CONSTIPATION Last administered on 12/30/17at 19:25; Start 12/13/17 at 16:00 Clozapine (Clozaril) 300 mg DAILY PO Last administered on 12/14/17at 10:03; Start 12/14/17 at 09:00; Stop 12/14/17 at 10:27; Status DC Lorazepam (Ativan) 0.5 mg PRN Q6HRS PRN PO ANXIETY / AGITATION; Start 12/13/17 at 20:45 Atorvastatin Calcium (Lipitor) 20 mg QHS PO Last administered on 12/14/17at 20: 05; Start 12/13/17 at 21:00; Stop 12/15/17 at 15:00; Status DC Bethanechol Chloride (Urecholine) 25 mg QID PO Last administered on 01/14/18at 19:35; Start 12/13/17 at 21:00 Losartan Potassium (Cozaar) 50 mg DAILY PO Last administered on 12/29/17at 09:25 ; Start 12/14/17 at 09:00; Stop 12/31/17 at 12:28; Status DC Triamcinolone Acetonide (Kenalog) 15 joey BID TP Last administered on 12/25/17at 08:19; Start 12/13/17 at 21:00; Stop 12/26/17 at 12:12; Status DC Clotrimazole (Lotrimin) 1 joey BID TP Last administered on 12/25/17at 08:20; Start 12/13/17 at 21:00; Stop 12/26/17 at 12:12; Status DC Fenofibrate (Tricor) 48 mg DAILY PO Last administered on 01/14/18at 08:05; Start 12/14/17 at 09:00 Glipizide (Glucotrol Er) 5 mg DAILY08 PO Last administered on 12/15/17at 08:36; Start 12/14/17 at 08:00; Stop 12/15/17 at 14:58; Status DC Levetiracetam (Keppra) 1,000 mg BID PO Last administered on 01/14/18at 19:34; Start 12/13/17 at 21:00 Metformin HCl (Glucophage) 1,000 mg BIDWMEALS PO Last administered on 17:20; Start 12/14/17 at 08:00 Metoprolol Succinate (Toprol Xl) 50 mg DAILY PO Last administered on at 08:02; Start 12/14/17 at 09:00 Pantoprazole Sodium (Protonix) 40 mg PRN DAILY PRN PO HEARTBURN / GAS; Start at 07:30 Phenytoin Sodium (Dilantin) 100 mg Q8HRS PO Last administered on 01/14/18at 19: 34; Start 12/13/17 at 22:00 Clozapine (Clozaril) 300 mg QHS PO Last administered on 12/18/17at 20:31; Start 12/14/17 at 21:00; Stop 12/19/17 at 17:05; Status DC Divalproex Sodium (Depakote Er) 500 mg QHS PO Last administered on 12/16/17at 20 :29; Start 12/14/17 at 21:00; Stop 12/17/17 at 18:41; Status DC Glipizide (Glucotrol Er) 10 mg DAILY08 PO Last administered on 01/14/18 08:00 ; Start 12/16/17 at 08:00 Vitamin D (Vitamin D3) 50,000 unit WEEKLY PO Last administered on 01/13/18at 06 :42; Start 12/16/17 at 09:00 Cephalexin HCl (Keflex) 500 mg BID PO Last administered on 12/25/17 08:13; Start 12/15/17 at 21:00; Stop 12/25/17 at 20:59; Status DC Atorvastatin Calcium (Lipitor) 40 mg QHS PO Last administered on 01/14/18 19: 33; Start 12/15/17 at 21:00 Lactobacillus Rhamnosus (Culturelle) 1 cap BID PO Last administered on 08:42; Start 12/16/17 at 09:00; Stop 12/30/17 at 18:01; Status DC Divalproex Sodium (Depakote Er) 1,000 mg QHS PO Last administered on 19:33; Start 12/17/17 at 21:00 Clozapine (Clozaril) 300 mg QHS PO Last administered on 01/14/18 19:34; Start 12/19/17 at 21:00 Clozapine (Clozaril) 25 mg QHS PO Last administered on 01/14/18 19:34; Start 12/19/17 at 21:00 Ondansetron HCl (Zofran Odt) 4 mg PRN Q8HRS PRN PO NAUSEA/VOMITING Last administered on 12/22/17at 05:50; Start 12/22/17 at 00:30 Docusate Sodium (Colace) 100 mg PRN DAILY PRN PO CONSTIPATION Last administered on 12/30/17 19:25; Start 12/29/17 at 09:30 Influenza Virus Vaccine (Afluria Trivalent [id number] Syringe) 0.5 ml ONCE ONCE VAX IM Last administered on 12/31/17at 11:39; Start 12/31/17 at 09:00; Stop at 09:01; Status DC Losartan Potassium (Cozaar) 25 mg DAILY PO Last administered on 01/14/18at 08: 03; Start 01/01/18 at 09:00 Nystatin (Nystop) 1 joey PRN BID PRN TP RASH Last administered on 01/12/18at 10: 12; Start 01/12/18 at 07:30 Active Scripts Active Reported Shingrix Vial Kit (Varicella-Zoster Ge/As01b/Pf) 50 Mcg/0.5 Ml Kit 50 Mcg IM Zostavax Vial (Zoster Vaccine Live/Pf) 19,400 Unit/0.65 Ml Vial 19,400 Unit SQ Triamcinolone Acetonide 15 Gm Cream..g. 15 Gm TP BID Pantoprazole Sodium 40 Mg Tablet.dr 40 Mg PO PRN DAILY PRN Losartan Potassium 50 Mg Tablet 50 Mg PO DAILY Glipizide 5 Mg Tablet 5 Mg PO DAILY Tricor (Fenofibrate Nanocrystallized) 48 Mg Tablet 48 Mg PO DAILY Doxazosin Mesylate 4 Mg Tablet 4 Mg PO Lotrimin Af (Clotrimazole) 12 Gm Cream..g. 12 Gm TP BID Bethanechol Chloride 25 Mg Tablet 25 Mg PO QID Metoprolol Succinate ( Xl ) (Metoprolol Succinate) 50 Mg Tab.er.24h 50 Mg PO DAILY Metformin Hcl 1,000 Mg Tablet 1,000 Mg PO BID Clozaril (Clozapine) 100 Mg Tablet 300 Mg PO DAILY Dilantin (Phenytoin Sodium Extended) 100 Mg Capsule 100 Mg PO Q8HRS Lorazepam 0.5 Mg Tablet 0.5 Mg PO PRN Q6HRS PRN MDD 2mg Keppra (Levetiracetam) 1,000 Mg Tablet 1,000 Mg PO BID Lipitor (Atorvastatin Calcium) 20 Mg Tablet 20 Mg PO QHS I have reviewed the current psychotropics carefully including drug interactions. Risk benefit ratio favors no change other than as noted in my dictated progress note. Diagnosis: Problems: (1) Anxiety disorder (2) Bipolar affective, mixed, sev w/ psych (3) Schizoaffective disorder, chronic condition with acute exacerbation MANAS SHANKAR MD Jan 14, 2018 20:57
--- NOTE | 2018-01-15 04:01 | PN ---
DATE: 01/13/2018 PSYCHIATRIC PROGRESS NOTE This is a late entry of date of service 01/13/2018 covers elements not covered in my initial note. SUBJECTIVE: I met with the patient in the evening in her room at length. The patient slept 7-1/4 hours previous night. She is somewhat anxious, withdrawn, apprehensive of the outcome of the meeting with her sister and Zander, her [id number], who are looking for appropriate placement for her. She prefers to return home. Valproic acid level is 84. No CV, , pulmonary, eye, ENT system symptoms on review. MENTAL STATUS EXAM: Reasonably oriented. Speech is coherent, thought processes are goal directed. Intellect average. Insight somewhat limited. Mood and affect withdrawn. LABORATORY DATA: Reviewed. IMPRESSION: Schizoaffective disorder, bipolar type, mixed, in partial remission. Rest unchanged. PLAN: No change from initial note. Continue Keppra for her seizures, Dilantin, Clozaril, and Depakote. MANAS SHANKAR MD DR: ASHLEIGH/cali JOB#: [id number] / [id number]
[2018-01-15] MEDS: PHENYTOIN SODIUM EXTENDED 100 MG CAPSULE PO SCH ×3 (06:17→19:46)
[2018-01-15 06:40] VITALS: BP 97/63
[2018-01-15] MEDS: metFORMIN 500 MG TABLET PO SCH ×2 (08:50→17:13)
[2018-01-15] MEDS: levETIRAcetam 500 MG TABLET PO SCH ×2 (08:52→19:45)
[2018-01-15] MEDS: LOSARTAN 25 MG TABLET. PO SCH (08:56)
[2018-01-15] MEDS: METOPROLOL SUCC 24HR ER 50 MG TAB.ER.24H. PO SCH (08:57)
[2018-01-15] MEDS: FENOFIBRATE NANOCRYSTALLIZED 48 MG TABLET PO SCH (08:59)
[2018-01-15] MEDS: BETHANECHOL CHLORIDE 25 MG TABLET PO SCH ×4 (09:00→19:48)
[2018-01-15 16:23] VITALS: BP 109/63
[2018-01-15] MEDS: cloZAPine 25 MG TABLET PO SCH (19:46)
[2018-01-15] MEDS: cloZAPine 100 MG TABLET PO SCH (19:46)
[2018-01-15] MEDS: ATORVASTATIN CALCIUM 20 MG TABLET PO SCH (19:46)
[2018-01-15] MEDS: DIVALPROEX ER 500 MG TAB.ER.24H PO SCH (19:47)
[2018-01-15 19:53] LABS: BASO % 1 % (0-3); EOS % 0 % (0-3); HEMATOCRIT 36.9 % (36.0-47.0); LYMPH # 2.5 x10^3/uL (1.0-4.8); LYMPH % 38 % (24-48); MEAN CORPUSCULAR HEMOGLOBIN 28 pg (25-35); MEAN CORPUSCULAR HGB CONC 33 g/dL (31-37); MEAN CORPUSCULAR VOLUME 86 fL (79-100); MONO # 0.5 x10^3/uL (0.0-1.1); MONO % 8 % (0-9); NEUT # 3.5 x10^3uL (1.8-7.7); NEUT % 54 % (31-73); PLATELET COUNT 204 x10^3/uL (140-400); RED BLOOD COUNT 4.27 x10^6/uL (3.50-5.40); RED CELL DISTRIBUTION WIDTH 16.7 % (11.5-14.5); WHITE BLOOD COUNT 6.5 x10^3/uL (4.0-11.0)
--- NOTE | 2018-01-15 23:45 | PN ---
DATE: 01/14/2018 PSYCHIATRIC PROGRESS NOTE This late entry 01/14/2018 covers elements not covered in my initial note. SUBJECTIVE: I met with the patient at length in her room. The patient slept 8-3/4 hours previous evening. The patient talked at length during the individual visit that her [id number] Zander had come to visit her and told that she be going to a alf. She resents that. She is more anxious about it. Somewhat disorganized in thinking, talking about [facility] and that she has a necklace of rubies and she was on the television, trying to sell it as an antique. At times a little difficult to follow a conversation, which is a change for her. REVIEW OF SYSTEMS: No CV, , pulmonary, eye, ENT system symptoms on review. MENTAL STATUS EXAM: Reasonably oriented. Speech is coherent, a little pressured. Abstraction fair, computation impaired, language function intact. Mood and affect somewhat withdrawn. LABORATORY DATA: Reviewed. IMPRESSION: Schizoaffective disorder, bipolar type, mixed with psychotic features, in partial remission. PLAN: Continue psychotropics, unchanged from initial note. MAN Maikel SHANKAR MD DR: ASHLEIGH/cali JOB#: [id number] / [id number]
[2018-01-16] MEDS: PHENYTOIN SODIUM EXTENDED 100 MG CAPSULE PO SCH ×3 (05:29→19:45)
[2018-01-16 06:32] VITALS: BP 101/65
[2018-01-16 07:04] LABS: PHENY 2.8 mcg/mL (10.0-20.0)
[2018-01-16] MEDS: metFORMIN 500 MG TABLET PO SCH ×2 (08:59→16:58)
[2018-01-16] MEDS: LOSARTAN 25 MG TABLET. PO SCH (08:59)
[2018-01-16] MEDS: METOPROLOL SUCC 24HR ER 50 MG TAB.ER.24H. PO SCH (09:00)
[2018-01-16] MEDS: levETIRAcetam 500 MG TABLET PO SCH ×2 (09:00→19:45)
[2018-01-16] MEDS: FENOFIBRATE NANOCRYSTALLIZED 48 MG TABLET PO SCH (09:04)
[2018-01-16] MEDS: BETHANECHOL CHLORIDE 25 MG TABLET PO SCH ×4 (09:05→19:48)
[2018-01-16 16:54] VITALS: BP 118/63
[2018-01-16] MEDS: cloZAPine 100 MG TABLET PO SCH (19:44)
[2018-01-16] MEDS: cloZAPine 25 MG TABLET PO SCH (19:44)
[2018-01-16] MEDS: DIVALPROEX ER 500 MG TAB.ER.24H PO SCH (19:45)
[2018-01-16] MEDS: ATORVASTATIN CALCIUM 20 MG TABLET PO SCH (19:46)
--- NOTE | 2018-01-16 23:23 | PDOC ---
Exam Note: Arash Note: Please also refer to the separate dictated note~for this date of service dictated separately.~Patient seen individually. Discussed the patient with Nursing staff reviewed the chart.~Reviewed interim history and current functioning. Reviewed vital signs,~Labs/ Radiology~and current medications noted below. Continue current treatment with the changes noted in the dictated addendum note Assessment: Vital Signs: Vital Signs Date Time Temp Pulse Resp B/P (MAP) Pulse Ox O2 Delivery O2 Flow Rate FiO2 01/16/18 16:54 98.5 63 16 118/63 (81) 94 01/12/18 15:52 Room Air I&O Intake and Output 01/16/18 07:00 Intake Total 1560 ml Balance 1560 ml Intake Oral 1560 ml Labs: Laboratory Tests Test 01/16/18 06:37 01/16/18 07:33 Phenytoin (Dilantin) Level 2.8 mcg/mL (10.0-20.0) L Phenytoin Last Dose Date 01/15/2018 Phenytoin Last Dose Time 2100 Glucose (Fingerstick) 99 mg/dL (70-99) Current Medications: Meds: Current Medications Acetaminophen (Tylenol) 650 mg PRN Q6HRS PRN PO PAIN / TEMP; Start 12/13/17 at 16:00 Multi-Ingredient Ointment (Analgesic [place]) 1 joey PRN QID PRN TP MUSCLE PAIN; Start 12/13/17 at 16:00 Al Hydroxide/Mg Hydroxide (Mylanta Plus Xs) 15 ml PRN AFTMEALHC PRN PO DYSPEPSIA Last administered on 12/13/17at 21:05; Start 12/13/17 at 16:00 Magnesium Hydroxide (Milk Of Magnesia) 2,400 mg PRN QHS PRN PO CONSTIPATION Last administered on 12/30/17at 19:25; Start 12/13/17 at 16:00 Clozapine (Clozaril) 300 mg DAILY PO Last administered on 12/14/17at 10:03; Start 12/14/17 at 09:00; Stop 12/14/17 at 10:27; Status DC Lorazepam (Ativan) 0.5 mg PRN Q6HRS PRN PO ANXIETY / AGITATION; Start 12/13/17 at 20:45 Atorvastatin Calcium (Lipitor) 20 mg QHS PO Last administered on 12/14/17at 20: 05; Start 12/13/17 at 21:00; Stop 12/15/17 at 15:00; Status DC Bethanechol Chloride (Urecholine) 25 mg QID PO Last administered on 01/16/18at 19:48; Start 12/13/17 at 21:00 Losartan Potassium (Cozaar) 50 mg DAILY PO Last administered on 12/29/17at 09:25 ; Start 12/14/17 at 09:00; Stop 12/31/17 at 12:28; Status DC Triamcinolone Acetonide (Kenalog) 15 joey BID TP Last administered on 12/25/17at 08:19; Start 12/13/17 at 21:00; Stop 12/26/17 at 12:12; Status DC Clotrimazole (Lotrimin) 1 joey BID TP Last administered on 12/25/17at 08:20; Start 12/13/17 at 21:00; Stop 12/26/17 at 12:12; Status DC Fenofibrate (Tricor) 48 mg DAILY PO Last administered on 01/16/18at 09:04; Start 12/14/17 at 09:00 Glipizide (Glucotrol Er) 5 mg DAILY08 PO Last administered on 12/15/17at 08:36; Start 12/14/17 at 08:00; Stop 12/15/17 at 14:58; Status DC Levetiracetam (Keppra) 1,000 mg BID PO Last administered on 01/16/18at 19:45; Start 12/13/17 at 21:00 Metformin HCl (Glucophage) 1,000 mg BIDWMEALS PO Last administered on at 16:58; Start 12/14/17 at 08:00 Metoprolol Succinate (Toprol Xl) 50 mg DAILY PO Last administered on at 09:00; Start 12/14/17 at 09:00 Pantoprazole Sodium (Protonix) 40 mg PRN DAILY PRN PO HEARTBURN / GAS; Start at 07:30 Phenytoin Sodium (Dilantin) 100 mg Q8HRS PO Last administered on 01/16/18at 19: 45; Start 12/13/17 at 22:00 Clozapine (Clozaril) 300 mg QHS PO Last administered on 12/18/17at 20:31; Start 12/14/17 at 21:00; Stop 12/19/17 at 17:05; Status DC Divalproex Sodium (Depakote Er) 500 mg QHS PO Last administered on 12/16/17 20 :29; Start 12/14/17 at 21:00; Stop 12/17/17 at 18:41; Status DC Glipizide (Glucotrol Er) 10 mg DAILY08 PO Last administered on 01/16/18 08:59 ; Start 12/16/17 at 08:00 Vitamin D (Vitamin D3) 50,000 unit WEEKLY PO Last administered on 01/13/18 06 :42; Start 12/16/17 at 09:00 Cephalexin HCl (Keflex) 500 mg BID PO Last administered on 12/25/17 08:13; Start 12/15/17 at 21:00; Stop 12/25/17 at 20:59; Status DC Atorvastatin Calcium (Lipitor) 40 mg QHS PO Last administered on 01/16/18 19: 46; Start 12/15/17 at 21:00 Lactobacillus Rhamnosus (Culturelle) 1 cap BID PO Last administered on 08:42; Start 12/16/17 at 09:00; Stop 12/30/17 at 18:01; Status DC Divalproex Sodium (Depakote Er) 1,000 mg QHS PO Last administered on 19:45; Start 12/17/17 at 21:00 Clozapine (Clozaril) 300 mg QHS PO Last administered on 01/16/18 19:44; Start 12/19/17 at 21:00 Clozapine (Clozaril) 25 mg QHS PO Last administered on 01/16/18 19:44; Start 12/19/17 at 21:00 Ondansetron HCl (Zofran Odt) 4 mg PRN Q8HRS PRN PO NAUSEA/VOMITING Last administered on 12/22/17at 05:50; Start 12/22/17 at 00:30 Docusate Sodium (Colace) 100 mg PRN DAILY PRN PO CONSTIPATION Last administered on 12/30/17 19:25; Start 12/29/17 at 09:30 Influenza Virus Vaccine (Afluria Trivalent [id number] Syringe) 0.5 ml ONCE ONCE VAX IM Last administered on 12/31/17at 11:39; Start 12/31/17 at 09:00; Stop at 09:01; Status DC Losartan Potassium (Cozaar) 25 mg DAILY PO Last administered on 01/16/18at 08: 59; Start 01/01/18 at 09:00 Nystatin (Nystop) 1 joey PRN BID PRN TP RASH Last administered on 01/12/18at 10: 12; Start 01/12/18 at 07:30 Active Scripts Active Reported Shingrix Vial Kit (Varicella-Zoster Ge/As01b/Pf) 50 Mcg/0.5 Ml Kit 50 Mcg IM Zostavax Vial (Zoster Vaccine Live/Pf) 19,400 Unit/0.65 Ml Vial 19,400 Unit SQ Triamcinolone Acetonide 15 Gm Cream..g. 15 Gm TP BID Pantoprazole Sodium 40 Mg Tablet.dr 40 Mg PO PRN DAILY PRN Losartan Potassium 50 Mg Tablet 50 Mg PO DAILY Glipizide 5 Mg Tablet 5 Mg PO DAILY Tricor (Fenofibrate Nanocrystallized) 48 Mg Tablet 48 Mg PO DAILY Doxazosin Mesylate 4 Mg Tablet 4 Mg PO Lotrimin Af (Clotrimazole) 12 Gm Cream..g. 12 Gm TP BID Bethanechol Chloride 25 Mg Tablet 25 Mg PO QID Metoprolol Succinate ( Xl ) (Metoprolol Succinate) 50 Mg Tab.er.24h 50 Mg PO DAILY Metformin Hcl 1,000 Mg Tablet 1,000 Mg PO BID Clozaril (Clozapine) 100 Mg Tablet 300 Mg PO DAILY Dilantin (Phenytoin Sodium Extended) 100 Mg Capsule 100 Mg PO Q8HRS Lorazepam 0.5 Mg Tablet 0.5 Mg PO PRN Q6HRS PRN MDD 2mg Keppra (Levetiracetam) 1,000 Mg Tablet 1,000 Mg PO BID Lipitor (Atorvastatin Calcium) 20 Mg Tablet 20 Mg PO QHS I have reviewed the current psychotropics carefully including drug interactions. Risk benefit ratio favors no change other than as noted in my dictated progress note. Diagnosis: Problems: (1) Anxiety disorder (2) Bipolar affective, mixed, sev w/ psych (3) Schizoaffective disorder, chronic condition with acute exacerbation MANAS SHANKAR MD Jan 16, 2018 23:23
[2018-01-17 06:16] VITALS: BP 115/77
[2018-01-17] MEDS: PHENYTOIN SODIUM EXTENDED 100 MG CAPSULE PO SCH ×2 (06:46→13:56)
--- NOTE | 2018-01-17 08:58 | PN ---
DATE: 01/15/2018 This is a late entry for date of service 01/15/2018 and covers elements not covered in my initial note. SUBJECTIVE: I met with the patient in the evening. The patient slept 8 hours previous evenings, comes out to the day room, otherwise stays in her room, pleasant, alert, oriented x 4. REVIEW OF SYSTEMS: Positive for some tiredness. No CV, , pulmonary, eye, ENT system symptoms on review. MENTAL STATUS EXAM: Reasonably oriented. Speech has moderate latency, often responses monosyllabic. Abstraction fair, computation impaired, language function intact, attention span short. Mood and affect somewhat withdrawn. LABORATORY DATA: Reviewed. IMPRESSION: Schizoaffective disorder, bipolar type, mixed with psychotic features. Rest unchanged. PLAN: No change from initial note. MAN Maikel SHANKAR MD DR: ASHLEIGH/cali JOB#: [id number] / [id number]
[2018-01-17] MEDS: LOSARTAN 25 MG TABLET. PO SCH (09:20)
[2018-01-17] MEDS: METOPROLOL SUCC 24HR ER 50 MG TAB.ER.24H. PO SCH (09:20)
[2018-01-17] MEDS: levETIRAcetam 500 MG TABLET PO SCH ×2 (09:21→19:57)
[2018-01-17] MEDS: metFORMIN 500 MG TABLET PO SCH ×2 (09:21→16:24)
[2018-01-17] MEDS: FENOFIBRATE NANOCRYSTALLIZED 48 MG TABLET PO SCH (09:22)
[2018-01-17] MEDS: BETHANECHOL CHLORIDE 25 MG TABLET PO SCH ×4 (09:23→19:59)
[2018-01-17] MEDS: MAGNESIUM HYDROXIDE 2,400 MG/30 ML ORAL.SUSP. PO PRN (14:15)
[2018-01-17 16:36] VITALS: BP 97/60
[2018-01-17] MEDS: ATORVASTATIN CALCIUM 20 MG TABLET PO SCH (19:55)
[2018-01-17] MEDS: DIVALPROEX ER 500 MG TAB.ER.24H PO SCH (19:58)
[2018-01-17] MEDS: cloZAPine 100 MG TABLET PO SCH (19:59)
[2018-01-17] MEDS: cloZAPine 25 MG TABLET PO SCH (19:59)
--- NOTE | 2018-01-17 23:26 | PDOC ---
Exam Note: Arash Note: Please also refer to the separate dictated note~for this date of service dictated separately.~Patient seen individually. Discussed the patient with Nursing staff reviewed the chart.~Reviewed interim history and current functioning. Reviewed vital signs,~Labs/ Radiology~and current medications noted below. Continue current treatment with the changes noted in the dictated addendum note Assessment: Vital Signs: Vital Signs Date Time Temp Pulse Resp B/P (MAP) Pulse Ox O2 Delivery O2 Flow Rate FiO2 01/17/18 16:36 97.8 86 18 97/60 (72) 95 01/12/18 15:52 Room Air I&O Intake and Output 01/17/18 07:00 Intake Total 1440 ml Balance 1440 ml Intake Oral 1440 ml Labs: Laboratory Tests Test 01/17/18 07:23 Glucose (Fingerstick) 79 mg/dL (70-99) Current Medications: Meds: Current Medications Acetaminophen (Tylenol) 650 mg PRN Q6HRS PRN PO PAIN / TEMP; Start 12/13/17 at 16:00 Multi-Ingredient Ointment (Analgesic [place]) 1 joey PRN QID PRN TP MUSCLE PAIN; Start 12/13/17 at 16:00 Al Hydroxide/Mg Hydroxide (Mylanta Plus Xs) 15 ml PRN AFTMEALHC PRN PO DYSPEPSIA Last administered on 12/13/17at 21:05; Start 12/13/17 at 16:00 Magnesium Hydroxide (Milk Of Magnesia) 2,400 mg PRN QHS PRN PO CONSTIPATION Last administered on 01/17/18at 14:15; Start 12/13/17 at 16:00 Clozapine (Clozaril) 300 mg DAILY PO Last administered on 12/14/17at 10:03; Start 12/14/17 at 09:00; Stop 12/14/17 at 10:27; Status DC Lorazepam (Ativan) 0.5 mg PRN Q6HRS PRN PO ANXIETY / AGITATION; Start 12/13/17 at 20:45 Atorvastatin Calcium (Lipitor) 20 mg QHS PO Last administered on 12/14/17at 20: 05; Start 12/13/17 at 21:00; Stop 12/15/17 at 15:00; Status DC Bethanechol Chloride (Urecholine) 25 mg QID PO Last administered on 01/17/18at 19:59; Start 12/13/17 at 21:00 Losartan Potassium (Cozaar) 50 mg DAILY PO Last administered on 12/29/17at 09:25 ; Start 12/14/17 at 09:00; Stop 12/31/17 at 12:28; Status DC Triamcinolone Acetonide (Kenalog) 15 joey BID TP Last administered on 12/25/17 08:19; Start 12/13/17 at 21:00; Stop 12/26/17 at 12:12; Status DC Clotrimazole (Lotrimin) 1 joey BID TP Last administered on 12/25/17 08:20; Start 12/13/17 at 21:00; Stop 12/26/17 at 12:12; Status DC Fenofibrate (Tricor) 48 mg DAILY PO Last administered on 01/17/18at 09:22; Start 12/14/17 at 09:00 Glipizide (Glucotrol Er) 5 mg DAILY08 PO Last administered on 12/15/17at 08:36; Start 12/14/17 at 08:00; Stop 12/15/17 at 14:58; Status DC Levetiracetam (Keppra) 1,000 mg BID PO Last administered on 01/17/18at 19:57; Start 12/13/17 at 21:00 Metformin HCl (Glucophage) 1,000 mg BIDWMEALS PO Last administered on at 16:24; Start 12/14/17 at 08:00 Metoprolol Succinate (Toprol Xl) 50 mg DAILY PO Last administered on at 09:20; Start 12/14/17 at 09:00 Pantoprazole Sodium (Protonix) 40 mg PRN DAILY PRN PO HEARTBURN / GAS; Start at 07:30 Phenytoin Sodium (Dilantin) 100 mg Q8HRS PO Last administered on 01/17/18at 13: 56; Start 12/13/17 at 22:00; Stop 01/17/18 at 17:44; Status DC Clozapine (Clozaril) 300 mg QHS PO Last administered on 12/18/17at 20:31; Start 12/14/17 at 21:00; Stop 12/19/17 at 17:05; Status DC Divalproex Sodium (Depakote Er) 500 mg QHS PO Last administered on 12/16/17 20 :29; Start 12/14/17 at 21:00; Stop 12/17/17 at 18:41; Status DC Glipizide (Glucotrol Er) 10 mg DAILY08 PO Last administered on 01/17/18at 09:20 ; Start 12/16/17 at 08:00 Vitamin D (Vitamin D3) 50,000 unit WEEKLY PO Last administered on 01/13/18at 06 :42; Start 12/16/17 at 09:00 Cephalexin HCl (Keflex) 500 mg BID PO Last administered on 12/25/17 08:13; Start 12/15/17 at 21:00; Stop 12/25/17 at 20:59; Status DC Atorvastatin Calcium (Lipitor) 40 mg QHS PO Last administered on 01/17/18at 19: 55; Start 12/15/17 at 21:00 Lactobacillus Rhamnosus (Culturelle) 1 cap BID PO Last administered on at 08:42; Start 12/16/17 at 09:00; Stop 12/30/17 at 18:01; Status DC Divalproex Sodium (Depakote Er) 1,000 mg QHS PO Last administered on at 19:58; Start 12/17/17 at 21:00 Clozapine (Clozaril) 300 mg QHS PO Last administered on 01/17/18 19:59; Start 12/19/17 at 21:00 Clozapine (Clozaril) 25 mg QHS PO Last administered on 01/17/18at 19:59; Start 12/19/17 at 21:00 Ondansetron HCl (Zofran Odt) 4 mg PRN Q8HRS PRN PO NAUSEA/VOMITING Last administered on 12/22/17at 05:50; Start 12/22/17 at 00:30 Docusate Sodium (Colace) 100 mg PRN DAILY PRN PO CONSTIPATION Last administered on 12/30/17 19:25; Start 12/29/17 at 09:30 Influenza Virus Vaccine (Afluria Trivalent [id number] Syringe) 0.5 ml ONCE ONCE VAX IM Last administered on 12/31/17at 11:39; Start 12/31/17 at 09:00; Stop at 09:01; Status DC Losartan Potassium (Cozaar) 25 mg DAILY PO Last administered on 01/17/18at 09: 20; Start 01/01/18 at 09:00 Nystatin (Nystop) 1 joey PRN BID PRN TP RASH Last administered on 01/12/18at 10: 12; Start 01/12/18 at 07:30 Phenytoin Sodium (Dilantin) 200 mg Q12H PO ; Start 01/18/18 at 02:00 Active Scripts Active Reported Shingrix Vial Kit (Varicella-Zoster Ge/As01b/Pf) 50 Mcg/0.5 Ml Kit 50 Mcg IM Zostavax Vial (Zoster Vaccine Live/Pf) 19,400 Unit/0.65 Ml Vial 19,400 Unit SQ Triamcinolone Acetonide 15 Gm Cream..g. 15 Gm TP BID Pantoprazole Sodium 40 Mg Tablet.dr 40 Mg PO PRN DAILY PRN Losartan Potassium 50 Mg Tablet 50 Mg PO DAILY Glipizide 5 Mg Tablet 5 Mg PO DAILY Tricor (Fenofibrate Nanocrystallized) 48 Mg Tablet 48 Mg PO DAILY Doxazosin Mesylate 4 Mg Tablet 4 Mg PO Lotrimin Af (Clotrimazole) 12 Gm Cream..g. 12 Gm TP BID Bethanechol Chloride 25 Mg Tablet 25 Mg PO QID Metoprolol Succinate ( Xl ) (Metoprolol Succinate) 50 Mg Tab.er.24h 50 Mg PO DAILY Metformin Hcl 1,000 Mg Tablet 1,000 Mg PO BID Clozaril (Clozapine) 100 Mg Tablet 300 Mg PO DAILY Dilantin (Phenytoin Sodium Extended) 100 Mg Capsule 100 Mg PO Q8HRS Lorazepam 0.5 Mg Tablet 0.5 Mg PO PRN Q6HRS PRN MDD 2mg Keppra (Levetiracetam) 1,000 Mg Tablet 1,000 Mg PO BID Lipitor (Atorvastatin Calcium) 20 Mg Tablet 20 Mg PO QHS I have reviewed the current psychotropics carefully including drug interactions. Risk benefit ratio favors no change other than as noted in my dictated progress note. Diagnosis: Problems: (1) Anxiety disorder (2) Bipolar affective, mixed, sev w/ psych (3) Schizoaffective disorder, chronic condition with acute exacerbation MANAS SHANKAR MD Jan 17, 2018 23:26
--- NOTE | 2018-01-17 23:36 | PN ---
DATE: 01/16/2018 PSYCHIATRIC PROGRESS NOTE This late entry 01/16/2018 covers elements not covered in my initial note. SUBJECTIVE: I met with the patient in the evening in her room. Overall, the nursing reports she slept 8 hours previous night, isolates in her room. When I questioned her on this, she stated she is still trying to come to terms with the fact she will not be returning home, will be in a facility and "it will change my life and turn it upside down." Dilantin level is 2.8, Dr. Rosario is aware of this, has not changed the phenytoin dosage since she is on Keppra along with the Depakote and the latter is therapeutic at 65. REVIEW OF SYSTEMS: No CV, , pulmonary, eye, ENT system symptoms on review. MENTAL STATUS EXAM: The patient is reasonably oriented. Speech is coherent, has some latency. Abstraction fair, computation impaired, language function intact, attention span short. Mood and affect somewhat withdrawn, but improved overall. LABORATORY DATA: Reviewed. No suicidal or homicidal ideation. IMPRESSION: Schizoaffective disorder, bipolar type, mixed, in partial remission; anxiety disorder, unspecified. PLAN: Continue psychotropics from initial note. Transition to a lower level of care as soon as arranged by social service staff. MANAS SHANKAR MD DR: ASHLEIGH/cali JOB#: [id number] / [id number]
[2018-01-18] MEDS: PHENYTOIN SODIUM EXTENDED 100 MG CAPSULE PO SCH ×2 (02:28→11:48)
[2018-01-18 06:01] VITALS: BP 106/71
[2018-01-18] MEDS: levETIRAcetam 500 MG TABLET PO SCH ×2 (08:12→20:17)
[2018-01-18] MEDS: METOPROLOL SUCC 24HR ER 50 MG TAB.ER.24H. PO SCH (08:12)
[2018-01-18] MEDS: metFORMIN 500 MG TABLET PO SCH ×2 (08:13→16:33)
[2018-01-18] MEDS: LOSARTAN 25 MG TABLET. PO SCH (08:13)
[2018-01-18] MEDS: BETHANECHOL CHLORIDE 25 MG TABLET PO SCH ×4 (08:15→20:19)
[2018-01-18] MEDS: FENOFIBRATE NANOCRYSTALLIZED 48 MG TABLET PO SCH (08:15)
[2018-01-18 16:16] VITALS: BP 145/86
[2018-01-18] MEDS: ATORVASTATIN CALCIUM 20 MG TABLET PO SCH (20:18)
[2018-01-18] MEDS: cloZAPine 100 MG TABLET PO SCH (20:18)
[2018-01-18] MEDS: DIVALPROEX ER 500 MG TAB.ER.24H PO SCH (20:18)
[2018-01-18] MEDS: cloZAPine 25 MG TABLET PO SCH (20:18)
--- NOTE | 2018-01-18 23:46 | PDOC ---
Exam Note: Arash Note: Please also refer to the separate dictated note~for this date of service dictated separately.~Patient seen individually. Discussed the patient with Nursing staff reviewed the chart.~Reviewed interim history and current functioning. Reviewed vital signs,~Labs/ Radiology~and current medications noted below. Continue current treatment with the changes noted in the dictated addendum note Assessment: Vital Signs: Vital Signs Date Time Temp Pulse Resp B/P (MAP) Pulse Ox O2 Delivery O2 Flow Rate FiO2 01/18/18 16:16 97.2 100 16 145/86 (105) 96 01/12/18 15:52 Room Air I&O Intake and Output 01/18/18 07:00 Intake Total 720 ml Balance 720 ml Intake Oral 720 ml Labs: Laboratory Tests Test 01/18/18 07:13 Glucose (Fingerstick) 76 mg/dL (70-99) Current Medications: Meds: Current Medications Acetaminophen (Tylenol) 650 mg PRN Q6HRS PRN PO PAIN / TEMP; Start 12/13/17 at 16:00 Multi-Ingredient Ointment (Analgesic [place]) 1 joey PRN QID PRN TP MUSCLE PAIN; Start 12/13/17 at 16:00 Al Hydroxide/Mg Hydroxide (Mylanta Plus Xs) 15 ml PRN AFTMEALHC PRN PO DYSPEPSIA Last administered on 12/13/17at 21:05; Start 12/13/17 at 16:00 Magnesium Hydroxide (Milk Of Magnesia) 2,400 mg PRN QHS PRN PO CONSTIPATION Last administered on 01/17/18at 14:15; Start 12/13/17 at 16:00 Clozapine (Clozaril) 300 mg DAILY PO Last administered on 12/14/17at 10:03; Start 12/14/17 at 09:00; Stop 12/14/17 at 10:27; Status DC Lorazepam (Ativan) 0.5 mg PRN Q6HRS PRN PO ANXIETY / AGITATION; Start 12/13/17 at 20:45 Atorvastatin Calcium (Lipitor) 20 mg QHS PO Last administered on 12/14/17at 20: 05; Start 12/13/17 at 21:00; Stop 12/15/17 at 15:00; Status DC Bethanechol Chloride (Urecholine) 25 mg QID PO Last administered on 01/18/18at 20:19; Start 12/13/17 at 21:00 Losartan Potassium (Cozaar) 50 mg DAILY PO Last administered on 12/29/17at 09:25 ; Start 12/14/17 at 09:00; Stop 12/31/17 at 12:28; Status DC Triamcinolone Acetonide (Kenalog) 15 joey BID TP Last administered on 12/25/17at 08:19; Start 12/13/17 at 21:00; Stop 12/26/17 at 12:12; Status DC Clotrimazole (Lotrimin) 1 joey BID TP Last administered on 12/25/17at 08:20; Start 12/13/17 at 21:00; Stop 12/26/17 at 12:12; Status DC Fenofibrate (Tricor) 48 mg DAILY PO Last administered on 01/18/18at 08:15; Start 12/14/17 at 09:00 Glipizide (Glucotrol Er) 5 mg DAILY08 PO Last administered on 12/15/17at 08:36; Start 12/14/17 at 08:00; Stop 12/15/17 at 14:58; Status DC Levetiracetam (Keppra) 1,000 mg BID PO Last administered on 01/18/18at 20:17; Start 12/13/17 at 21:00 Metformin HCl (Glucophage) 1,000 mg BIDWMEALS PO Last administered on at 16:33; Start 12/14/17 at 08:00 Metoprolol Succinate (Toprol Xl) 50 mg DAILY PO Last administered on at 08:12; Start 12/14/17 at 09:00 Pantoprazole Sodium (Protonix) 40 mg PRN DAILY PRN PO HEARTBURN / GAS; Start at 07:30 Phenytoin Sodium (Dilantin) 100 mg Q8HRS PO Last administered on 01/17/18at 13: 56; Start 12/13/17 at 22:00; Stop 01/17/18 at 17:44; Status DC Clozapine (Clozaril) 300 mg QHS PO Last administered on 12/18/17at 20:31; Start 12/14/17 at 21:00; Stop 12/19/17 at 17:05; Status DC Divalproex Sodium (Depakote Er) 500 mg QHS PO Last administered on 12/16/17at 20 :29; Start 12/14/17 at 21:00; Stop 12/17/17 at 18:41; Status DC Glipizide (Glucotrol Er) 10 mg DAILY08 PO Last administered on 01/18/18at 08:12 ; Start 12/16/17 at 08:00 Vitamin D (Vitamin D3) 50,000 unit WEEKLY PO Last administered on 01/13/18at 06 :42; Start 12/16/17 at 09:00 Cephalexin HCl (Keflex) 500 mg BID PO Last administered on 12/25/17at 08:13; Start 12/15/17 at 21:00; Stop 12/25/17 at 20:59; Status DC Atorvastatin Calcium (Lipitor) 40 mg QHS PO Last administered on 01/18/18 20: 18; Start 12/15/17 at 21:00 Lactobacillus Rhamnosus (Culturelle) 1 cap BID PO Last administered on at 08:42; Start 12/16/17 at 09:00; Stop 12/30/17 at 18:01; Status DC Divalproex Sodium (Depakote Er) 1,000 mg QHS PO Last administered on 20:18; Start 12/17/17 at 21:00 Clozapine (Clozaril) 300 mg QHS PO Last administered on 01/18/18at 20:18; Start 12/19/17 at 21:00 Clozapine (Clozaril) 25 mg QHS PO Last administered on 01/18/18at 20:18; Start 12/19/17 at 21:00 Ondansetron HCl (Zofran Odt) 4 mg PRN Q8HRS PRN PO NAUSEA/VOMITING Last administered on 12/22/17at 05:50; Start 12/22/17 at 00:30 Docusate Sodium (Colace) 100 mg PRN DAILY PRN PO CONSTIPATION Last administered on 12/30/17at 19:25; Start 12/29/17 at 09:30 Influenza Virus Vaccine (Afluria Trivalent [id number] Syringe) 0.5 ml ONCE ONCE VAX IM Last administered on 12/31/17at 11:39; Start 12/31/17 at 09:00; Stop at 09:01; Status DC Losartan Potassium (Cozaar) 25 mg DAILY PO Last administered on 01/18/18at 08: 13; Start 01/01/18 at 09:00 Nystatin (Nystop) 1 joey PRN BID PRN TP RASH Last administered on 01/12/18at 10: 12; Start 01/12/18 at 07:30 Phenytoin Sodium (Dilantin) 200 mg Q12H PO Last administered on 01/18/18at 11: 48; Start 01/18/18 at 02:00 Active Scripts Active Reported Shingrix Vial Kit (Varicella-Zoster Ge/As01b/Pf) 50 Mcg/0.5 Ml Kit 50 Mcg IM Zostavax Vial (Zoster Vaccine Live/Pf) 19,400 Unit/0.65 Ml Vial 19,400 Unit SQ Triamcinolone Acetonide 15 Gm Cream..g. 15 Gm TP BID Pantoprazole Sodium 40 Mg Tablet.dr 40 Mg PO PRN DAILY PRN Losartan Potassium 50 Mg Tablet 50 Mg PO DAILY Glipizide 5 Mg Tablet 5 Mg PO DAILY Tricor (Fenofibrate Nanocrystallized) 48 Mg Tablet 48 Mg PO DAILY Doxazosin Mesylate 4 Mg Tablet 4 Mg PO Lotrimin Af (Clotrimazole) 12 Gm Cream..g. 12 Gm TP BID Bethanechol Chloride 25 Mg Tablet 25 Mg PO QID Metoprolol Succinate ( Xl ) (Metoprolol Succinate) 50 Mg Tab.er.24h 50 Mg PO DAILY Metformin Hcl 1,000 Mg Tablet 1,000 Mg PO BID Clozaril (Clozapine) 100 Mg Tablet 300 Mg PO DAILY Dilantin (Phenytoin Sodium Extended) 100 Mg Capsule 100 Mg PO Q8HRS Lorazepam 0.5 Mg Tablet 0.5 Mg PO PRN Q6HRS PRN MDD 2mg Keppra (Levetiracetam) 1,000 Mg Tablet 1,000 Mg PO BID Lipitor (Atorvastatin Calcium) 20 Mg Tablet 20 Mg PO QHS I have reviewed the current psychotropics carefully including drug interactions. Risk benefit ratio favors no change other than as noted in my dictated progress note. Diagnosis: Problems: (1) Anxiety disorder (2) Bipolar affective, mixed, sev w/ psych (3) Schizoaffective disorder, chronic condition with acute exacerbation MANAS SHANKAR MD Jan 18, 2018 23:46
--- NOTE | 2018-01-19 00:12 | PN ---
DATE: 01/17/2018 PSYCHIATRIC PROGRESS NOTE This late entry 01/17/2018 covers elements not covered in my initial note. SUBJECTIVE: I met with the patient in the evening in her room at some length. The patient remains somewhat withdrawn, spends much time in her room, slept 8 hours previous night. She is quite unaccepting of having to go to a nursing facility that her family arranging for her. She believes she can go back home, but in the past, she has been noncompliant with her medications, then had a relapse of her psychiatric symptoms. Addressed this with her. No CV, , pulmonary, eye, ENT system symptoms on review. MENTAL STATUS EXAM: Reasonably oriented. Speech is coherent, very pleasant, verbal. Abstraction fair. Computation, able to do two steps on serial 7's. Memory is intact, 3/3 objects at 5 minutes. No suicidal or homicidal ideation. LABORATORY DATA: Reviewed. IMPRESSION: Schizoaffective disorder, bipolar type, mixed with psychotic features; anxiety disorder, unspecified. Rest unchanged from initial note. PLAN: No change in my initial note. We will continue entry basis. I have discussed with social service staff and she should transition to a lower level of care as soon as this can be arranged. MANAS SHANKAR MD DR: ASHLEIGH/cali JOB#: [id number] / [id number]
[2018-01-19] MEDS: PHENYTOIN SODIUM EXTENDED 100 MG CAPSULE PO SCH ×2 (02:59→12:18)
[2018-01-19 06:29] VITALS: BP 115/75
[2018-01-19] MEDS: levETIRAcetam 500 MG TABLET PO SCH ×2 (08:00→20:08)
[2018-01-19] MEDS: METOPROLOL SUCC 24HR ER 50 MG TAB.ER.24H. PO SCH (08:01)
[2018-01-19] MEDS: LOSARTAN 25 MG TABLET. PO SCH (08:01)
[2018-01-19] MEDS: metFORMIN 500 MG TABLET PO SCH ×2 (08:02→16:26)
[2018-01-19] MEDS: BETHANECHOL CHLORIDE 25 MG TABLET PO SCH ×4 (08:04→20:09)
[2018-01-19] MEDS: FENOFIBRATE NANOCRYSTALLIZED 48 MG TABLET PO SCH (08:04)
[2018-01-19 15:59] VITALS: BP 104/60
[2018-01-19] MEDS: DIVALPROEX ER 500 MG TAB.ER.24H PO SCH (20:08)
[2018-01-19] MEDS: ATORVASTATIN CALCIUM 20 MG TABLET PO SCH (20:08)
[2018-01-19] MEDS: cloZAPine 25 MG TABLET PO SCH (20:09)
[2018-01-19] MEDS: cloZAPine 100 MG TABLET PO SCH (20:09)
--- NOTE | 2018-01-19 23:27 | PDOC ---
Exam Note: Arash Note: Please also refer to the separate dictated note~for this date of service dictated separately.~Patient seen individually. Discussed the patient with Nursing staff reviewed the chart.~Reviewed interim history and current functioning. Reviewed vital signs,~Labs/ Radiology~and current medications noted below. Continue current treatment with the changes noted in the dictated addendum note Assessment: Vital Signs: Vital Signs Date Time Temp Pulse Resp B/P (MAP) Pulse Ox O2 Delivery O2 Flow Rate FiO2 01/19/18 15:59 97.2 79 18 104/60 (75) 95 Room Air I&O Intake and Output 01/19/18 07:00 Intake Total 1200 ml Balance 1200 ml Intake Oral 1200 ml # Voids 1 Labs: Laboratory Tests Test 01/19/18 07:12 Glucose (Fingerstick) 75 mg/dL (70-99) Current Medications: Meds: Current Medications Acetaminophen (Tylenol) 650 mg PRN Q6HRS PRN PO PAIN / TEMP; Start 12/13/17 at 16:00 Multi-Ingredient Ointment (Analgesic [place]) 1 joey PRN QID PRN TP MUSCLE PAIN; Start 12/13/17 at 16:00 Al Hydroxide/Mg Hydroxide (Mylanta Plus Xs) 15 ml PRN AFTMEALHC PRN PO DYSPEPSIA Last administered on 12/13/17at 21:05; Start 12/13/17 at 16:00 Magnesium Hydroxide (Milk Of Magnesia) 2,400 mg PRN QHS PRN PO CONSTIPATION Last administered on 01/17/18at 14:15; Start 12/13/17 at 16:00 Clozapine (Clozaril) 300 mg DAILY PO Last administered on 12/14/17at 10:03; Start 12/14/17 at 09:00; Stop 12/14/17 at 10:27; Status DC Lorazepam (Ativan) 0.5 mg PRN Q6HRS PRN PO ANXIETY / AGITATION; Start 12/13/17 at 20:45 Atorvastatin Calcium (Lipitor) 20 mg QHS PO Last administered on 12/14/17at 20: 05; Start 12/13/17 at 21:00; Stop 12/15/17 at 15:00; Status DC Bethanechol Chloride (Urecholine) 25 mg QID PO Last administered on 01/19/18at 20:09; Start 12/13/17 at 21:00 Losartan Potassium (Cozaar) 50 mg DAILY PO Last administered on 12/29/17at 09:25 ; Start 12/14/17 at 09:00; Stop 12/31/17 at 12:28; Status DC Triamcinolone Acetonide (Kenalog) 15 joey BID TP Last administered on 12/25/17at 08:19; Start 12/13/17 at 21:00; Stop 12/26/17 at 12:12; Status DC Clotrimazole (Lotrimin) 1 joey BID TP Last administered on 12/25/17at 08:20; Start 12/13/17 at 21:00; Stop 12/26/17 at 12:12; Status DC Fenofibrate (Tricor) 48 mg DAILY PO Last administered on 01/19/18at 08:04; Start 12/14/17 at 09:00 Glipizide (Glucotrol Er) 5 mg DAILY08 PO Last administered on 12/15/17at 08:36; Start 12/14/17 at 08:00; Stop 12/15/17 at 14:58; Status DC Levetiracetam (Keppra) 1,000 mg BID PO Last administered on 01/19/18at 20:08; Start 12/13/17 at 21:00 Metformin HCl (Glucophage) 1,000 mg BIDWMEALS PO Last administered on at 16:26; Start 12/14/17 at 08:00 Metoprolol Succinate (Toprol Xl) 50 mg DAILY PO Last administered on at 08:01; Start 12/14/17 at 09:00 Pantoprazole Sodium (Protonix) 40 mg PRN DAILY PRN PO HEARTBURN / GAS; Start at 07:30 Phenytoin Sodium (Dilantin) 100 mg Q8HRS PO Last administered on 01/17/18at 13: 56; Start 12/13/17 at 22:00; Stop 01/17/18 at 17:44; Status DC Clozapine (Clozaril) 300 mg QHS PO Last administered on 12/18/17at 20:31; Start 12/14/17 at 21:00; Stop 12/19/17 at 17:05; Status DC Divalproex Sodium (Depakote Er) 500 mg QHS PO Last administered on 12/16/17 20 :29; Start 12/14/17 at 21:00; Stop 12/17/17 at 18:41; Status DC Glipizide (Glucotrol Er) 10 mg DAILY08 PO Last administered on 01/19/18at 08:00 ; Start 12/16/17 at 08:00 Vitamin D (Vitamin D3) 50,000 unit WEEKLY PO Last administered on 01/13/18at 06 :42; Start 12/16/17 at 09:00 Cephalexin HCl (Keflex) 500 mg BID PO Last administered on 12/25/17 08:13; Start 12/15/17 at 21:00; Stop 12/25/17 at 20:59; Status DC Atorvastatin Calcium (Lipitor) 40 mg QHS PO Last administered on 01/19/18at 20: 08; Start 12/15/17 at 21:00 Lactobacillus Rhamnosus (Culturelle) 1 cap BID PO Last administered on at 08:42; Start 12/16/17 at 09:00; Stop 12/30/17 at 18:01; Status DC Divalproex Sodium (Depakote Er) 1,000 mg QHS PO Last administered on 20:08; Start 12/17/17 at 21:00 Clozapine (Clozaril) 300 mg QHS PO Last administered on 01/19/18at 20:09; Start 12/19/17 at 21:00 Clozapine (Clozaril) 25 mg QHS PO Last administered on 01/19/18at 20:09; Start 12/19/17 at 21:00 Ondansetron HCl (Zofran Odt) 4 mg PRN Q8HRS PRN PO NAUSEA/VOMITING Last administered on 12/22/17at 05:50; Start 12/22/17 at 00:30 Docusate Sodium (Colace) 100 mg PRN DAILY PRN PO CONSTIPATION Last administered on 12/30/17at 19:25; Start 12/29/17 at 09:30 Influenza Virus Vaccine (Afluria Trivalent [id number] Syringe) 0.5 ml ONCE ONCE VAX IM Last administered on 12/31/17at 11:39; Start 12/31/17 at 09:00; Stop at 09:01; Status DC Losartan Potassium (Cozaar) 25 mg DAILY PO Last administered on 01/19/18at 08: 01; Start 01/01/18 at 09:00 Nystatin (Nystop) 1 joey PRN BID PRN TP RASH Last administered on 01/12/18at 10: 12; Start 01/12/18 at 07:30 Phenytoin Sodium (Dilantin) 200 mg Q12H PO Last administered on 01/19/18at 12: 18; Start 01/18/18 at 02:00 Active Scripts Active Reported Shingrix Vial Kit (Varicella-Zoster Ge/As01b/Pf) 50 Mcg/0.5 Ml Kit 50 Mcg IM Zostavax Vial (Zoster Vaccine Live/Pf) 19,400 Unit/0.65 Ml Vial 19,400 Unit SQ Triamcinolone Acetonide 15 Gm Cream..g. 15 Gm TP BID Pantoprazole Sodium 40 Mg Tablet.dr 40 Mg PO PRN DAILY PRN Losartan Potassium 50 Mg Tablet 50 Mg PO DAILY Glipizide 5 Mg Tablet 5 Mg PO DAILY Tricor (Fenofibrate Nanocrystallized) 48 Mg Tablet 48 Mg PO DAILY Doxazosin Mesylate 4 Mg Tablet 4 Mg PO Lotrimin Af (Clotrimazole) 12 Gm Cream..g. 12 Gm TP BID Bethanechol Chloride 25 Mg Tablet 25 Mg PO QID Metoprolol Succinate ( Xl ) (Metoprolol Succinate) 50 Mg Tab.er.24h 50 Mg PO DAILY Metformin Hcl 1,000 Mg Tablet 1,000 Mg PO BID Clozaril (Clozapine) 100 Mg Tablet 300 Mg PO DAILY Dilantin (Phenytoin Sodium Extended) 100 Mg Capsule 100 Mg PO Q8HRS Lorazepam 0.5 Mg Tablet 0.5 Mg PO PRN Q6HRS PRN MDD 2mg Keppra (Levetiracetam) 1,000 Mg Tablet 1,000 Mg PO BID Lipitor (Atorvastatin Calcium) 20 Mg Tablet 20 Mg PO QHS I have reviewed the current psychotropics carefully including drug interactions. Risk benefit ratio favors no change other than as noted in my dictated progress note. Diagnosis: Problems: (1) Anxiety disorder (2) Bipolar affective, mixed, sev w/ psych (3) Schizoaffective disorder, chronic condition with acute exacerbation MANAS SHANKAR MD Jan 19, 2018 23:27
[2018-01-20] MEDS: PHENYTOIN SODIUM EXTENDED 100 MG CAPSULE PO SCH ×2 (02:10→08:11)
[2018-01-20 06:43] VITALS: BP 111/71
[2018-01-20] MEDS: CHOLECALCIFEROL (VITAMIN D3) 50,000 UNIT CAPSULE PO SCH (08:12)
[2018-01-20] MEDS: metFORMIN 500 MG TABLET PO SCH ×2 (08:12→17:59)
[2018-01-20] MEDS: METOPROLOL SUCC 24HR ER 50 MG TAB.ER.24H. PO SCH (08:12)
[2018-01-20] MEDS: LOSARTAN 25 MG TABLET. PO SCH (08:12)
[2018-01-20] MEDS: levETIRAcetam 500 MG TABLET PO SCH ×2 (08:12→20:03)
[2018-01-20] MEDS: BETHANECHOL CHLORIDE 25 MG TABLET PO SCH ×4 (08:13→20:06)
[2018-01-20] MEDS: FENOFIBRATE NANOCRYSTALLIZED 48 MG TABLET PO SCH (08:13)
[2018-01-20 16:08] VITALS: BP 103/68
[2018-01-20] MEDS: cloZAPine 100 MG TABLET PO SCH (20:04)
[2018-01-20] MEDS: DIVALPROEX ER 500 MG TAB.ER.24H PO SCH (20:04)
[2018-01-20] MEDS: cloZAPine 25 MG TABLET PO SCH (20:04)
[2018-01-20] MEDS: ATORVASTATIN CALCIUM 20 MG TABLET PO SCH (20:04)
--- NOTE | 2018-01-20 20:28 | PN ---
DATE: 01/20/2018 SUBJECTIVE: The patient was seen today, met with the staff, chart reviewed. The patient stays in bed most of the time. The patient is also wanting to go home. The patient is also having difficulty with memory lately. The patient is also hyperactive, restless at times. OBSERVATION: VITAL SIGNS: Temperature 98.4, blood pressure 111/71, pulse 78, respirations 16, O2 sat 95%. The patient slept about 8 hours last night. CURRENT MEDICATIONS: The patient's medications reviewed and currently she is on Dilantin 200 mg q.12 hours for seizures, clozapine 25 mg at night and 300 mg at night, Depakote 1000 mg at night. The patient is not having any side effects. The patient's labs were all within normal range. ASSESSMENT: Schizoaffective disorder, bipolar type, mixed with psychotic features. Also, history of schizophrenia, chronic paranoid type. PLAN: Continue with the treatment HAYES NAYLOR MD DR: NOHEMI/cali JOB#: [id number] / [id number]
[2018-01-21] MEDS: PHENYTOIN SODIUM EXTENDED 100 MG CAPSULE PO SCH ×3 (02:18→20:02)
[2018-01-21 06:31] VITALS: BP 105/71
[2018-01-21 06:36] LABS: BASO % 0 % (0-3); EOS % 0 % (0-3); HEMATOCRIT 36.2 % (36.0-47.0); LYMPH # 2.4 x10^3/uL (1.0-4.8); LYMPH % 39 % (24-48); MEAN CORPUSCULAR HEMOGLOBIN 28 pg (25-35); MEAN CORPUSCULAR HGB CONC 33 g/dL (31-37); MEAN CORPUSCULAR VOLUME 86 fL (79-100); MONO # 0.6 x10^3/uL (0.0-1.1); MONO % 9 % (0-9); NEUT # 3.3 x10^3uL (1.8-7.7); NEUT % 52 % (31-73); PLATELET COUNT 200 x10^3/uL (140-400); RED BLOOD COUNT 4.24 x10^6/uL (3.50-5.40); RED CELL DISTRIBUTION WIDTH 15.8 % (11.5-14.5); WHITE BLOOD COUNT 6.3 x10^3/uL (4.0-11.0)
[2018-01-21 06:50] LABS: ALBUMIN 2.8 g/dL (3.4-5.0); ALBUMIN/GLOBULIN RATIO 0.9 (1.0-1.7); CALCIUM 8.2 mg/dL (8.5-10.1); CREATININE 0.8 mg/dL (0.6-1.0); GFR 72.9; POTASSIUM 4.3 mmol/L (3.5-5.1); TOTAL BILIRUBIN 0.1 mg/dL (0.2-1.0); TOTAL PROTEIN 5.9 g/dL (6.4-8.2)
[2018-01-21] MEDS: METOPROLOL SUCC 24HR ER 50 MG TAB.ER.24H. PO SCH (07:56)
[2018-01-21] MEDS: metFORMIN 500 MG TABLET PO SCH ×2 (07:56→18:06)
[2018-01-21] MEDS: LOSARTAN 25 MG TABLET. PO SCH (07:57)
[2018-01-21] MEDS: levETIRAcetam 500 MG TABLET PO SCH ×2 (07:57→20:00)
[2018-01-21] MEDS: BETHANECHOL CHLORIDE 25 MG TABLET PO SCH ×4 (09:00→20:03)
[2018-01-21] MEDS: FENOFIBRATE NANOCRYSTALLIZED 48 MG TABLET PO SCH (09:00)
[2018-01-21 16:47] VITALS: BP 107/67
[2018-01-21] MEDS: cloZAPine 25 MG TABLET PO SCH (19:58)
[2018-01-21] MEDS: cloZAPine 100 MG TABLET PO SCH (19:58)
[2018-01-21] MEDS: DIVALPROEX ER 500 MG TAB.ER.24H PO SCH (19:59)
[2018-01-21] MEDS: ATORVASTATIN CALCIUM 20 MG TABLET PO SCH (20:00)
--- NOTE | 2018-01-21 20:08 | PN ---
DATE: 01/18/2018 PSYCHIATRIC PROGRESS NOTE This late entry 01/18/2018 covers elements not covered in my initial note. I met with the patient in the evening, staffed at a treatment team meeting with the entire team in the morning. The patient slept 8-1/2 hours previous night. We tried to get Zander, her [id number], to attend the treatment team meeting, but he was unavailable. Social service staff discussed the patient has been approved for level 2 and the facility has approved her, but will not take her until the patient agrees to go there. In the meantime, the patient continues to resist going to the level 2 placement, wants to go back home and I have addressed this with her at length in the evening of 01/18/2018 with some mild resolution, but persisting that she wants to go back home. REVIEW OF SYSTEMS: No CV, , pulmonary, eye, ENT system symptoms on review. She tends to withdraw to her room. MENTAL STATUS EXAM: Oriented to herself. Insight limited, judgment marginal, language function intact. Intellect average. Insight somewhat limited. Mood and affect withdrawn. No psychotic symptoms, suicidal or homicidal ideation. LABORATORY DATA: Reviewed. IMPRESSION: Schizoaffective disorder, bipolar type, depressed, in partial remission; anxiety disorder, unspecified. PLAN: Continue psychotropics from initial note including Keppra for her seizures 1000 b.i.d., Ativan p.r.n., Dilantin 100 q. 8 hours, Clozaril 325 mg a day, Depakote ER 1000 mg at bedtime, level therapeutic at 64, continues . MAN Maikel SHANKAR MD DR: ASHLEIGH/cali JOB#: [id number] / [id number]
[2018-01-22 06:26] VITALS: BP 115/70
[2018-01-22] MEDS: LOSARTAN 25 MG TABLET. PO SCH (09:17)
[2018-01-22] MEDS: metFORMIN 500 MG TABLET PO SCH ×2 (09:17→18:06)
[2018-01-22] MEDS: levETIRAcetam 500 MG TABLET PO SCH ×2 (09:18→19:39)
[2018-01-22] MEDS: PHENYTOIN SODIUM EXTENDED 100 MG CAPSULE PO SCH ×2 (09:18→19:41)
[2018-01-22] MEDS: METOPROLOL SUCC 24HR ER 50 MG TAB.ER.24H. PO SCH (09:18)
[2018-01-22] MEDS: BETHANECHOL CHLORIDE 25 MG TABLET PO SCH ×4 (09:20→19:42)
[2018-01-22] MEDS: FENOFIBRATE NANOCRYSTALLIZED 48 MG TABLET PO SCH (09:20)
[2018-01-22 09:34] LABS: BASO % 1 % (0-3); EOS % 0 % (0-3); HEMATOCRIT 35.4 % (36.0-47.0); HEMOGLOBIN 11.7 g/dL (12.0-15.5); LYMPH # 1.6 x10^3/uL (1.0-4.8); LYMPH % 29 % (24-48); MEAN CORPUSCULAR HEMOGLOBIN 29 pg (25-35); MEAN CORPUSCULAR HGB CONC 33 g/dL (31-37); MEAN CORPUSCULAR VOLUME 86 fL (79-100); MONO # 0.4 x10^3/uL (0.0-1.1); MONO % 8 % (0-9); NEUT # 3.4 x10^3uL (1.8-7.7); NEUT % 63 % (31-73); PLATELET COUNT 182 x10^3/uL (140-400); RED CELL DISTRIBUTION WIDTH 16.6 % (11.5-14.5); WHITE BLOOD COUNT 5.4 x10^3/uL (4.0-11.0)
[2018-01-22 16:35] VITALS: BP 97/62
[2018-01-22] MEDS: ATORVASTATIN CALCIUM 20 MG TABLET PO SCH (19:39)
[2018-01-22] MEDS: DIVALPROEX ER 500 MG TAB.ER.24H PO SCH (19:39)
[2018-01-22] MEDS: cloZAPine 25 MG TABLET PO SCH (19:39)
[2018-01-22] MEDS: cloZAPine 100 MG TABLET PO SCH (19:40)
--- NOTE | 2018-01-22 20:53 | PN ---
DATE: 01/19/2018 This is a late entry for 01/19/2018 and covers elements not covered in my initial note. SUBJECTIVE: I met with the patient in the morning. I met with her in her room. Per nursing report, she slept 7-1/2 hours. She is sleeping in bed as I met with her, but did sit up and we talked at length about recommended transition to nursing facility level, even though his temporary. Additionally, Sara Fajardo has forwarded a detailed email from the patient's sister, SUSANA giving pointers to help convince the patient this transition as the patient is wanting to return home, which is where she becomes noncompliant with her psychotropics and relapses. I addressed each of these with the patient and we had previously discussed these as well. REVIEW OF SYSTEMS: No CV, , pulmonary, eye, ENT system symptoms on review. MENTAL STATUS EXAM: The patient is reasonably oriented. Speech is coherent. She is very pleasant. Abstraction fair. Computation, able to do two steps on serial sevens, remembered 2-3 objects at 3 minutes. Mood remains somewhat withdrawn, dysphoric, but better than before. No suicidal or homicidal ideation. LABORATORY DATA: Reviewed. IMPRESSION: Schizoaffective disorder, bipolar type, mixed versus depressed; anxiety disorder, unspecified; impulse control disorder, unspecified. PLAN: I carefully reviewed the patient's current psychotropics. We will maintain Keppra for her seizures, Ativan p.r.n., Dilantin for his seizures, level therapeutic; Clozaril 325 mg at bedtime, Depakote ER 1000 mg at bedtime, level therapeutic at 64. Dr. Jim will assume care for the patient during my absence over the weekend. MAN Maikel SHANKAR MD DR: ASHLEIGH/cali JOB#: [id number] / [id number]
--- NOTE | 2018-01-22 23:27 | PDOC ---
Exam Note: Arash Note: Please also refer to the separate dictated note~for this date of service dictated separately.~Patient seen individually. Discussed the patient with Nursing staff reviewed the chart.~Reviewed interim history and current functioning. Reviewed vital signs,~Labs/ Radiology~and current medications noted below. Continue current treatment with the changes noted in the dictated addendum note Assessment: Vital Signs: Vital Signs Date Time Temp Pulse Resp B/P (MAP) Pulse Ox O2 Delivery O2 Flow Rate FiO2 01/22/18 16:35 98.1 98 20 97/62 (74) 97 Room Air I&O Intake and Output 01/22/18 07:00 Intake Total 1440 ml Balance 1440 ml Intake Oral 1440 ml # Voids 1 Labs: Laboratory Tests Test 01/22/18 07:38 01/22/18 09:23 Glucose (Fingerstick) 76 mg/dL (70-99) White Blood Count 5.4 x10^3/uL (4.0-11.0) Red Blood Count 4.10 x10^6/uL (3.50-5.40) Hemoglobin 11.7 g/dL (12.0-15.5) L Hematocrit 35.4 % (36.0-47.0) L Mean Corpuscular Volume 86 fL (79-100) Mean Corpuscular Hemoglobin 29 pg (25-35) Mean Corpuscular Hemoglobin Concent 33 g/dL (31-37) Red Cell Distribution Width 16.6 % (11.5-14.5) H Platelet Count 182 x10^3/uL (140-400) Neutrophils (%) (Auto) 63 % (31-73) Lymphocytes (%) (Auto) 29 % (24-48) Monocytes (%) (Auto) 8 % (0-9) Eosinophils (%) (Auto) 0 % (0-3) Basophils (%) (Auto) 1 % (0-3) Neutrophils # (Auto) 3.4 x10^3uL (1.8-7.7) Lymphocytes # (Auto) 1.6 x10^3/uL (1.0-4.8) Monocytes # (Auto) 0.4 x10^3/uL (0.0-1.1) Eosinophils # (Auto) 0.0 x10^3/uL (0.0-0.7) Basophils # (Auto) 0.0 x10^3/uL (0.0-0.2) Current Medications: Meds: Current Medications Acetaminophen (Tylenol) 650 mg PRN Q6HRS PRN PO PAIN / TEMP; Start 12/13/17 at 16:00 Multi-Ingredient Ointment (Analgesic [place]) 1 joey PRN QID PRN TP MUSCLE PAIN; Start 12/13/17 at 16:00 Al Hydroxide/Mg Hydroxide (Mylanta Plus Xs) 15 ml PRN AFTMEALHC PRN PO DYSPEPSIA Last administered on 12/13/17at 21:05; Start 12/13/17 at 16:00 Magnesium Hydroxide (Milk Of Magnesia) 2,400 mg PRN QHS PRN PO CONSTIPATION Last administered on 01/17/18at 14:15; Start 12/13/17 at 16:00 Clozapine (Clozaril) 300 mg DAILY PO Last administered on 12/14/17at 10:03; Start 12/14/17 at 09:00; Stop 12/14/17 at 10:27; Status DC Lorazepam (Ativan) 0.5 mg PRN Q6HRS PRN PO ANXIETY / AGITATION; Start 12/13/17 at 20:45 Atorvastatin Calcium (Lipitor) 20 mg QHS PO Last administered on 12/14/17at 20: 05; Start 12/13/17 at 21:00; Stop 12/15/17 at 15:00; Status DC Bethanechol Chloride (Urecholine) 25 mg QID PO Last administered on 01/22/18at 19:42; Start 12/13/17 at 21:00 Losartan Potassium (Cozaar) 50 mg DAILY PO Last administered on 12/29/17at 09:25 ; Start 12/14/17 at 09:00; Stop 12/31/17 at 12:28; Status DC Triamcinolone Acetonide (Kenalog) 15 joey BID TP Last administered on 12/25/17at 08:19; Start 12/13/17 at 21:00; Stop 12/26/17 at 12:12; Status DC Clotrimazole (Lotrimin) 1 joey BID TP Last administered on 12/25/17at 08:20; Start 12/13/17 at 21:00; Stop 12/26/17 at 12:12; Status DC Fenofibrate (Tricor) 48 mg DAILY PO Last administered on 01/22/18at 09:20; Start 12/14/17 at 09:00 Glipizide (Glucotrol Er) 5 mg DAILY08 PO Last administered on 12/15/17at 08:36; Start 12/14/17 at 08:00; Stop 12/15/17 at 14:58; Status DC Levetiracetam (Keppra) 1,000 mg BID PO Last administered on 01/22/18at 19:39; Start 12/13/17 at 21:00 Metformin HCl (Glucophage) 1,000 mg BIDWMEALS PO Last administered on at 18:06; Start 12/14/17 at 08:00 Metoprolol Succinate (Toprol Xl) 50 mg DAILY PO Last administered on at 09:18; Start 12/14/17 at 09:00 Pantoprazole Sodium (Protonix) 40 mg PRN DAILY PRN PO HEARTBURN / GAS; Start at 07:30 Phenytoin Sodium (Dilantin) 100 mg Q8HRS PO Last administered on 01/17/18at 13: 56; Start 12/13/17 at 22:00; Stop 01/17/18 at 17:44; Status DC Clozapine (Clozaril) 300 mg QHS PO Last administered on 12/18/17at 20:31; Start 12/14/17 at 21:00; Stop 12/19/17 at 17:05; Status DC Divalproex Sodium (Depakote Er) 500 mg QHS PO Last administered on 12/16/17at 20 :29; Start 12/14/17 at 21:00; Stop 12/17/17 at 18:41; Status DC Glipizide (Glucotrol Er) 10 mg DAILY08 PO Last administered on 01/22/18at 09:17 ; Start 12/16/17 at 08:00 Vitamin D (Vitamin D3) 50,000 unit WEEKLY PO Last administered on 01/20/18at 08 :12; Start 12/16/17 at 09:00 Cephalexin HCl (Keflex) 500 mg BID PO Last administered on 12/25/17at 08:13; Start 12/15/17 at 21:00; Stop 12/25/17 at 20:59; Status DC Atorvastatin Calcium (Lipitor) 40 mg QHS PO Last administered on 01/22/18 19: 39; Start 12/15/17 at 21:00 Lactobacillus Rhamnosus (Culturelle) 1 cap BID PO Last administered on 08:42; Start 12/16/17 at 09:00; Stop 12/30/17 at 18:01; Status DC Divalproex Sodium (Depakote Er) 1,000 mg QHS PO Last administered on 19:39; Start 12/17/17 at 21:00 Clozapine (Clozaril) 300 mg QHS PO Last administered on 01/22/18 19:40; Start 12/19/17 at 21:00 Clozapine (Clozaril) 25 mg QHS PO Last administered on 01/22/18 19:39; Start 12/19/17 at 21:00 Ondansetron HCl (Zofran Odt) 4 mg PRN Q8HRS PRN PO NAUSEA/VOMITING Last administered on 12/22/17at 05:50; Start 12/22/17 at 00:30 Docusate Sodium (Colace) 100 mg PRN DAILY PRN PO CONSTIPATION Last administered on 12/30/17 19:25; Start 12/29/17 at 09:30 Influenza Virus Vaccine (Afluria Trivalent [id number] Syringe) 0.5 ml ONCE ONCE VAX IM Last administered on 12/31/17at 11:39; Start 12/31/17 at 09:00; Stop at 09:01; Status DC Losartan Potassium (Cozaar) 25 mg DAILY PO Last administered on 01/22/18at 09: 17; Start 01/01/18 at 09:00 Nystatin (Nystop) 1 joey PRN BID PRN TP RASH Last administered on 01/12/18 10: 12; Start 01/12/18 at 07:30 Phenytoin Sodium (Dilantin) 200 mg Q12H PO Last administered on 01/22/18 09: 18; Start 01/18/18 at 02:00; Stop 01/22/18 at 12:04; Status DC Phenytoin Sodium (Dilantin) 200 mg Q12H PO Last administered on 01/22/18at 19: 41; Start 01/22/18 at 21:00 Active Scripts Active Reported Shingrix Vial Kit (Varicella-Zoster Ge/As01b/Pf) 50 Mcg/0.5 Ml Kit 50 Mcg IM Zostavax Vial (Zoster Vaccine Live/Pf) 19,400 Unit/0.65 Ml Vial 19,400 Unit SQ Triamcinolone Acetonide 15 Gm Cream..g. 15 Gm TP BID Pantoprazole Sodium 40 Mg Tablet.dr 40 Mg PO PRN DAILY PRN Losartan Potassium 50 Mg Tablet 50 Mg PO DAILY Glipizide 5 Mg Tablet 5 Mg PO DAILY Tricor (Fenofibrate Nanocrystallized) 48 Mg Tablet 48 Mg PO DAILY Doxazosin Mesylate 4 Mg Tablet 4 Mg PO Lotrimin Af (Clotrimazole) 12 Gm Cream..g. 12 Gm TP BID Bethanechol Chloride 25 Mg Tablet 25 Mg PO QID Metoprolol Succinate ( Xl ) (Metoprolol Succinate) 50 Mg Tab.er.24h 50 Mg PO DAILY Metformin Hcl 1,000 Mg Tablet 1,000 Mg PO BID Clozaril (Clozapine) 100 Mg Tablet 300 Mg PO DAILY Dilantin (Phenytoin Sodium Extended) 100 Mg Capsule 100 Mg PO Q8HRS Lorazepam 0.5 Mg Tablet 0.5 Mg PO PRN Q6HRS PRN MDD 2mg Keppra (Levetiracetam) 1,000 Mg Tablet 1,000 Mg PO BID Lipitor (Atorvastatin Calcium) 20 Mg Tablet 20 Mg PO QHS I have reviewed the current psychotropics carefully including drug interactions. Risk benefit ratio favors no change other than as noted in my dictated progress note. Diagnosis: Problems: (1) Anxiety disorder (2) Bipolar affective, mixed, sev w/ psych (3) Schizoaffective disorder, chronic condition with acute exacerbation MNAAS SHANKAR MD Jan 22, 2018 23:27
[2018-01-23 05:45] VITALS: BP 112/77
[2018-01-23] MEDS: metFORMIN 500 MG TABLET PO SCH ×2 (09:05→17:31)
[2018-01-23] MEDS: levETIRAcetam 500 MG TABLET PO SCH ×2 (09:06→19:31)
[2018-01-23] MEDS: PHENYTOIN SODIUM EXTENDED 100 MG CAPSULE PO SCH ×2 (09:06→19:30)
[2018-01-23] MEDS: LOSARTAN 25 MG TABLET. PO SCH (09:07)
[2018-01-23] MEDS: METOPROLOL SUCC 24HR ER 50 MG TAB.ER.24H. PO SCH (09:07)
[2018-01-23] MEDS: FENOFIBRATE NANOCRYSTALLIZED 48 MG TABLET PO SCH (09:08)
[2018-01-23] MEDS: BETHANECHOL CHLORIDE 25 MG TABLET PO SCH ×4 (09:08→19:31)
[2018-01-23 16:13] VITALS: BP 126/73
[2018-01-23] MEDS: cloZAPine 100 MG TABLET PO SCH (19:29)
[2018-01-23] MEDS: cloZAPine 25 MG TABLET PO SCH (19:30)
[2018-01-23] MEDS: DIVALPROEX ER 500 MG TAB.ER.24H PO SCH (19:30)
[2018-01-23] MEDS: ATORVASTATIN CALCIUM 20 MG TABLET PO SCH (19:30)
[2018-01-24 06:10] VITALS: BP 126/86
[2018-01-24] MEDS: PHENYTOIN SODIUM EXTENDED 100 MG CAPSULE PO SCH ×2 (09:32→19:36)
[2018-01-24] MEDS: levETIRAcetam 500 MG TABLET PO SCH ×2 (09:32→19:36)
[2018-01-24] MEDS: metFORMIN 500 MG TABLET PO SCH ×2 (09:35→17:16)
[2018-01-24] MEDS: LOSARTAN 25 MG TABLET. PO SCH (09:36)
[2018-01-24] MEDS: METOPROLOL SUCC 24HR ER 50 MG TAB.ER.24H. PO SCH (09:37)
[2018-01-24] MEDS: BETHANECHOL CHLORIDE 25 MG TABLET PO SCH ×4 (09:38→19:37)
[2018-01-24] MEDS: FENOFIBRATE NANOCRYSTALLIZED 48 MG TABLET PO SCH (09:38)
[2018-01-24 16:14] VITALS: BP 110/76
--- NOTE | 2018-01-24 17:55 | PN ---
DATE: 01/22/2018 PSYCHIATRIC PROGRESS NOTE This is a late entry of 01/22/2018 covers elements not covered in my initial note. SUBJECTIVE: I met with the patient in the evening of 01/22/2018 at length in her room and also reviewed information from Dr. Aguero, who took care of the patient during my absence over the weekend. The patient slept 7 hours previous evening, has been pleasant and spends much time in her room, somewhat withdrawn. Absolute neutrophil count is 3400. 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 I have discussed with nursing staff. No CV, , pulmonary, eye, ENT system symptoms on review. MENTAL STATUS EXAM: Reasonably oriented. Speech is coherent, abstraction fair, computation impaired, language function intact, attention span short. Mood and affect somewhat withdrawn, less psychotic, less labile. LABORATORY DATA: Reviewed. IMPRESSION: Schizoaffective disorder, bipolar type, mixed with psychotic features, in partial remission; anxiety disorder, unspecified. Rest unchanged. PLAN: No change from initial note. She remains on Clozaril 325 mg at bedtime, Depakote ER 1000 mg at bedtime, level therapeutic at 64; Keppra 1000 b.i.d. for seizures, and Dilantin 100 mg q.8. hours, level therapeutic. MAN Maikel SHANKAR MD DR: ASHLEIGH/cali JOB#: [id number] / [id number]
[2018-01-24] MEDS: ATORVASTATIN CALCIUM 20 MG TABLET PO SCH (19:34)
[2018-01-24] MEDS: cloZAPine 25 MG TABLET PO SCH (19:35)
[2018-01-24] MEDS: cloZAPine 100 MG TABLET PO SCH (19:35)
[2018-01-24] MEDS: DIVALPROEX ER 500 MG TAB.ER.24H PO SCH (19:35)
--- NOTE | 2018-01-24 21:26 | PDOC ---
Exam Note: Arash Note: Late entry for DOS 01/23/2018. Please also refer to the separate dictated note~ for this date of service dictated separately.~Patient seen individually. Discussed the patient with Nursing staff reviewed the chart.~Reviewed interim history and current functioning. Reviewed vital signs,~Labs/ Radiology~and current medications noted below. Continue current treatment with the changes noted in the dictated addendum note Assessment: Vital Signs: VS - Last 72 Hours, by Label Date Time Temp Pulse Resp B/P (MAP) Pulse Ox O2 Delivery O2 Flow Rate FiO2 01/24/18 16:14 97.1 84 18 110/76 (87) 95 01/24/18 09:37 81 126/86 01/24/18 09:36 81 126/86 01/24/18 06:10 97.0 81 16 126/86 (99) 97 01/23/18 16:13 98.5 83 20 126/73 (90) 95 Room Air 01/23/18 09:07 81 112/77 01/23/18 09:07 81 112/77 01/23/18 05:45 97.7 81 16 112/77 (89) 95 01/22/18 16:35 98.1 98 20 97/62 (74) 97 Room Air 01/22/18 09:18 81 115/70 01/22/18 09:17 81 115/70 01/22/18 06:26 97.6 81 16 115/70 (85) 98 Room Air Vital Signs Date Time Temp Pulse Resp B/P (MAP) Pulse Ox O2 Delivery O2 Flow Rate FiO2 01/24/18 16:14 97.1 84 18 110/76 (87) 95 01/23/18 16:13 Room Air I&O Intake and Output 01/24/18 07:00 Intake Total 1080 ml Balance 1080 ml Intake Oral 1080 ml Labs: Laboratory Tests Test 01/24/18 07:55 Glucose (Fingerstick) 78 mg/dL (70-99) Current Medications: Meds: Current Medications Acetaminophen (Tylenol) 650 mg PRN Q6HRS PRN PO PAIN / TEMP; Start 12/13/17 at 16:00 Multi-Ingredient Ointment (Analgesic [place]) 1 joey PRN QID PRN TP MUSCLE PAIN; Start 12/13/17 at 16:00 Al Hydroxide/Mg Hydroxide (Mylanta Plus Xs) 15 ml PRN AFTMEALHC PRN PO DYSPEPSIA Last administered on 12/13/17at 21:05; Start 12/13/17 at 16:00 Magnesium Hydroxide (Milk Of Magnesia) 2,400 mg PRN QHS PRN PO CONSTIPATION Last administered on 01/17/18at 14:15; Start 12/13/17 at 16:00 Clozapine (Clozaril) 300 mg DAILY PO Last administered on 12/14/17at 10:03; Start 12/14/17 at 09:00; Stop 12/14/17 at 10:27; Status DC Lorazepam (Ativan) 0.5 mg PRN Q6HRS PRN PO ANXIETY / AGITATION; Start 12/13/17 at 20:45 Atorvastatin Calcium (Lipitor) 20 mg QHS PO Last administered on 12/14/17at 20: 05; Start 12/13/17 at 21:00; Stop 12/15/17 at 15:00; Status DC Bethanechol Chloride (Urecholine) 25 mg QID PO Last administered on 01/24/18at 19:37; Start 12/13/17 at 21:00 Losartan Potassium (Cozaar) 50 mg DAILY PO Last administered on 12/29/17at 09:25 ; Start 12/14/17 at 09:00; Stop 12/31/17 at 12:28; Status DC Triamcinolone Acetonide (Kenalog) 15 joey BID TP Last administered on 12/25/17at 08:19; Start 12/13/17 at 21:00; Stop 12/26/17 at 12:12; Status DC Clotrimazole (Lotrimin) 1 joey BID TP Last administered on 12/25/17at 08:20; Start 12/13/17 at 21:00; Stop 12/26/17 at 12:12; Status DC Fenofibrate (Tricor) 48 mg DAILY PO Last administered on 01/24/18at 09:38; Start 12/14/17 at 09:00 Glipizide (Glucotrol Er) 5 mg DAILY08 PO Last administered on 12/15/17at 08:36; Start 12/14/17 at 08:00; Stop 12/15/17 at 14:58; Status DC Levetiracetam (Keppra) 1,000 mg BID PO Last administered on 01/24/18 19:36; Start 12/13/17 at 21:00 Metformin HCl (Glucophage) 1,000 mg BIDWMEALS PO Last administered on 17:16; Start 12/14/17 at 08:00 Metoprolol Succinate (Toprol Xl) 50 mg DAILY PO Last administered on 09:37; Start 12/14/17 at 09:00 Pantoprazole Sodium (Protonix) 40 mg PRN DAILY PRN PO HEARTBURN / GAS; Start at 07:30 Phenytoin Sodium (Dilantin) 100 mg Q8HRS PO Last administered on 01/17/18 13: 56; Start 12/13/17 at 22:00; Stop 01/17/18 at 17:44; Status DC Clozapine (Clozaril) 300 mg QHS PO Last administered on 12/18/17at 20:31; Start 12/14/17 at 21:00; Stop 12/19/17 at 17:05; Status DC Divalproex Sodium (Depakote Er) 500 mg QHS PO Last administered on 12/16/17 20 :29; Start 12/14/17 at 21:00; Stop 12/17/17 at 18:41; Status DC Glipizide (Glucotrol Er) 10 mg DAILY08 PO Last administered on 01/24/18 09:32 ; Start 12/16/17 at 08:00 Vitamin D (Vitamin D3) 50,000 unit WEEKLY PO Last administered on 01/20/18at 08 :12; Start 12/16/17 at 09:00 Cephalexin HCl (Keflex) 500 mg BID PO Last administered on 12/25/17 08:13; Start 12/15/17 at 21:00; Stop 12/25/17 at 20:59; Status DC Atorvastatin Calcium (Lipitor) 40 mg QHS PO Last administered on 01/24/18 19: 34; Start 12/15/17 at 21:00 Lactobacillus Rhamnosus (Culturelle) 1 cap BID PO Last administered on at 08:42; Start 12/16/17 at 09:00; Stop 12/30/17 at 18:01; Status DC Divalproex Sodium (Depakote Er) 1,000 mg QHS PO Last administered on 19:35; Start 12/17/17 at 21:00 Clozapine (Clozaril) 300 mg QHS PO Last administered on 01/24/18 19:35; Start 12/19/17 at 21:00 Clozapine (Clozaril) 25 mg QHS PO Last administered on 01/24/18 19:35; Start 12/19/17 at 21:00 Ondansetron HCl (Zofran Odt) 4 mg PRN Q8HRS PRN PO NAUSEA/VOMITING Last administered on 12/22/17at 05:50; Start 12/22/17 at 00:30 Docusate Sodium (Colace) 100 mg PRN DAILY PRN PO CONSTIPATION Last administered on 12/30/17 19:25; Start 12/29/17 at 09:30 Influenza Virus Vaccine (Afluria Trivalent [id number] Syringe) 0.5 ml ONCE ONCE VAX IM Last administered on 12/31/17 11:39; Start 12/31/17 at 09:00; Stop at 09:01; Status DC Losartan Potassium (Cozaar) 25 mg DAILY PO Last administered on 01/23/18at 09: 07; Start 01/01/18 at 09:00 Nystatin (Nystop) 1 joey PRN BID PRN TP RASH Last administered on 01/12/18at 10: 12; Start 01/12/18 at 07:30 Phenytoin Sodium (Dilantin) 200 mg Q12H PO Last administered on 01/22/18at 09: 18; Start 01/18/18 at 02:00; Stop 01/22/18 at 12:04; Status DC Phenytoin Sodium (Dilantin) 200 mg Q12H PO Last administered on 01/24/18at 19: 36; Start 01/22/18 at 21:00 Active Scripts Active Reported Shingrix Vial Kit (Varicella-Zoster Ge/As01b/Pf) 50 Mcg/0.5 Ml Kit 50 Mcg IM Zostavax Vial (Zoster Vaccine Live/Pf) 19,400 Unit/0.65 Ml Vial 19,400 Unit SQ Triamcinolone Acetonide 15 Gm Cream..g. 15 Gm TP BID Pantoprazole Sodium 40 Mg Tablet.dr 40 Mg PO PRN DAILY PRN Losartan Potassium 50 Mg Tablet 50 Mg PO DAILY Glipizide 5 Mg Tablet 5 Mg PO DAILY Tricor (Fenofibrate Nanocrystallized) 48 Mg Tablet 48 Mg PO DAILY Doxazosin Mesylate 4 Mg Tablet 4 Mg PO Lotrimin Af (Clotrimazole) 12 Gm Cream..g. 12 Gm TP BID Bethanechol Chloride 25 Mg Tablet 25 Mg PO QID Metoprolol Succinate ( Xl ) (Metoprolol Succinate) 50 Mg Tab.er.24h 50 Mg PO DAILY Metformin Hcl 1,000 Mg Tablet 1,000 Mg PO BID Clozaril (Clozapine) 100 Mg Tablet 300 Mg PO DAILY Dilantin (Phenytoin Sodium Extended) 100 Mg Capsule 100 Mg PO Q8HRS Lorazepam 0.5 Mg Tablet 0.5 Mg PO PRN Q6HRS PRN MDD 2mg Keppra (Levetiracetam) 1,000 Mg Tablet 1,000 Mg PO BID Lipitor (Atorvastatin Calcium) 20 Mg Tablet 20 Mg PO QHS I have reviewed the current psychotropics carefully including drug interactions. Risk benefit ratio favors no change other than as noted in my dictated progress note. Diagnosis: Problems: (1) Anxiety disorder (2) Bipolar affective, mixed, sev w/ psych (3) Schizoaffective disorder, chronic condition with acute exacerbation MANAS SHANKAR MD Jan 24, 2018 21:25
--- NOTE | 2018-01-24 23:36 | PDOC ---
Exam Note: Arash Note: Please also refer to the separate dictated note~for this date of service dictated separately.~Patient seen individually. Discussed the patient with Nursing staff reviewed the chart.~Reviewed interim history and current functioning. Reviewed vital signs,~Labs/ Radiology~and current medications noted below. Continue current treatment with the changes noted in the dictated addendum note Assessment: Vital Signs: Vital Signs Date Time Temp Pulse Resp B/P (MAP) Pulse Ox O2 Delivery O2 Flow Rate FiO2 01/24/18 16:14 97.1 84 18 110/76 (87) 95 01/23/18 16:13 Room Air I&O Intake and Output 01/24/18 07:00 Intake Total 1080 ml Balance 1080 ml Intake Oral 1080 ml Labs: Laboratory Tests Test 01/24/18 07:55 Glucose (Fingerstick) 78 mg/dL (70-99) Current Medications: Meds: Current Medications Acetaminophen (Tylenol) 650 mg PRN Q6HRS PRN PO PAIN / TEMP; Start 12/13/17 at 16:00 Multi-Ingredient Ointment (Analgesic [place]) 1 joey PRN QID PRN TP MUSCLE PAIN; Start 12/13/17 at 16:00 Al Hydroxide/Mg Hydroxide (Mylanta Plus Xs) 15 ml PRN AFTMEALHC PRN PO DYSPEPSIA Last administered on 12/13/17at 21:05; Start 12/13/17 at 16:00 Magnesium Hydroxide (Milk Of Magnesia) 2,400 mg PRN QHS PRN PO CONSTIPATION Last administered on 01/17/18at 14:15; Start 12/13/17 at 16:00 Clozapine (Clozaril) 300 mg DAILY PO Last administered on 12/14/17at 10:03; Start 12/14/17 at 09:00; Stop 12/14/17 at 10:27; Status DC Lorazepam (Ativan) 0.5 mg PRN Q6HRS PRN PO ANXIETY / AGITATION; Start 12/13/17 at 20:45 Atorvastatin Calcium (Lipitor) 20 mg QHS PO Last administered on 12/14/17at 20: 05; Start 12/13/17 at 21:00; Stop 12/15/17 at 15:00; Status DC Bethanechol Chloride (Urecholine) 25 mg QID PO Last administered on 01/24/18at 19:37; Start 12/13/17 at 21:00 Losartan Potassium (Cozaar) 50 mg DAILY PO Last administered on 12/29/17at 09:25 ; Start 12/14/17 at 09:00; Stop 12/31/17 at 12:28; Status DC Triamcinolone Acetonide (Kenalog) 15 joey BID TP Last administered on 12/25/17at 08:19; Start 12/13/17 at 21:00; Stop 12/26/17 at 12:12; Status DC Clotrimazole (Lotrimin) 1 joey BID TP Last administered on 12/25/17at 08:20; Start 12/13/17 at 21:00; Stop 12/26/17 at 12:12; Status DC Fenofibrate (Tricor) 48 mg DAILY PO Last administered on 01/24/18at 09:38; Start 12/14/17 at 09:00 Glipizide (Glucotrol Er) 5 mg DAILY08 PO Last administered on 12/15/17at 08:36; Start 12/14/17 at 08:00; Stop 12/15/17 at 14:58; Status DC Levetiracetam (Keppra) 1,000 mg BID PO Last administered on 01/24/18at 19:36; Start 12/13/17 at 21:00 Metformin HCl (Glucophage) 1,000 mg BIDWMEALS PO Last administered on at 17:16; Start 12/14/17 at 08:00 Metoprolol Succinate (Toprol Xl) 50 mg DAILY PO Last administered on at 09:37; Start 12/14/17 at 09:00 Pantoprazole Sodium (Protonix) 40 mg PRN DAILY PRN PO HEARTBURN / GAS; Start at 07:30 Phenytoin Sodium (Dilantin) 100 mg Q8HRS PO Last administered on 01/17/18at 13: 56; Start 12/13/17 at 22:00; Stop 01/17/18 at 17:44; Status DC Clozapine (Clozaril) 300 mg QHS PO Last administered on 12/18/17at 20:31; Start 12/14/17 at 21:00; Stop 12/19/17 at 17:05; Status DC Divalproex Sodium (Depakote Er) 500 mg QHS PO Last administered on 12/16/17 20 :29; Start 12/14/17 at 21:00; Stop 12/17/17 at 18:41; Status DC Glipizide (Glucotrol Er) 10 mg DAILY08 PO Last administered on 01/24/18 09:32 ; Start 12/16/17 at 08:00 Vitamin D (Vitamin D3) 50,000 unit WEEKLY PO Last administered on 01/20/18 08 :12; Start 12/16/17 at 09:00 Cephalexin HCl (Keflex) 500 mg BID PO Last administered on 12/25/17 08:13; Start 12/15/17 at 21:00; Stop 12/25/17 at 20:59; Status DC Atorvastatin Calcium (Lipitor) 40 mg QHS PO Last administered on 01/24/18 19: 34; Start 12/15/17 at 21:00 Lactobacillus Rhamnosus (Culturelle) 1 cap BID PO Last administered on 08:42; Start 12/16/17 at 09:00; Stop 12/30/17 at 18:01; Status DC Divalproex Sodium (Depakote Er) 1,000 mg QHS PO Last administered on 19:35; Start 12/17/17 at 21:00 Clozapine (Clozaril) 300 mg QHS PO Last administered on 01/24/18 19:35; Start 12/19/17 at 21:00 Clozapine (Clozaril) 25 mg QHS PO Last administered on 01/24/18 19:35; Start 12/19/17 at 21:00 Ondansetron HCl (Zofran Odt) 4 mg PRN Q8HRS PRN PO NAUSEA/VOMITING Last administered on 12/22/17at 05:50; Start 12/22/17 at 00:30 Docusate Sodium (Colace) 100 mg PRN DAILY PRN PO CONSTIPATION Last administered on 12/30/17 19:25; Start 12/29/17 at 09:30 Influenza Virus Vaccine (Afluria Trivalent [id number] Syringe) 0.5 ml ONCE ONCE VAX IM Last administered on 12/31/17at 11:39; Start 12/31/17 at 09:00; Stop at 09:01; Status DC Losartan Potassium (Cozaar) 25 mg DAILY PO Last administered on 01/23/18at 09: 07; Start 01/01/18 at 09:00 Nystatin (Nystop) 1 joey PRN BID PRN TP RASH Last administered on 01/12/18at 10: 12; Start 01/12/18 at 07:30 Phenytoin Sodium (Dilantin) 200 mg Q12H PO Last administered on 01/22/18at 09: 18; Start 01/18/18 at 02:00; Stop 01/22/18 at 12:04; Status DC Phenytoin Sodium (Dilantin) 200 mg Q12H PO Last administered on 01/24/18at 19: 36; Start 01/22/18 at 21:00 Active Scripts Active Reported Shingrix Vial Kit (Varicella-Zoster Ge/As01b/Pf) 50 Mcg/0.5 Ml Kit 50 Mcg IM Zostavax Vial (Zoster Vaccine Live/Pf) 19,400 Unit/0.65 Ml Vial 19,400 Unit SQ Triamcinolone Acetonide 15 Gm Cream..g. 15 Gm TP BID Pantoprazole Sodium 40 Mg Tablet.dr 40 Mg PO PRN DAILY PRN Losartan Potassium 50 Mg Tablet 50 Mg PO DAILY Glipizide 5 Mg Tablet 5 Mg PO DAILY Tricor (Fenofibrate Nanocrystallized) 48 Mg Tablet 48 Mg PO DAILY Doxazosin Mesylate 4 Mg Tablet 4 Mg PO Lotrimin Af (Clotrimazole) 12 Gm Cream..g. 12 Gm TP BID Bethanechol Chloride 25 Mg Tablet 25 Mg PO QID Metoprolol Succinate ( Xl ) (Metoprolol Succinate) 50 Mg Tab.er.24h 50 Mg PO DAILY Metformin Hcl 1,000 Mg Tablet 1,000 Mg PO BID Clozaril (Clozapine) 100 Mg Tablet 300 Mg PO DAILY Dilantin (Phenytoin Sodium Extended) 100 Mg Capsule 100 Mg PO Q8HRS Lorazepam 0.5 Mg Tablet 0.5 Mg PO PRN Q6HRS PRN MDD 2mg Keppra (Levetiracetam) 1,000 Mg Tablet 1,000 Mg PO BID Lipitor (Atorvastatin Calcium) 20 Mg Tablet 20 Mg PO QHS I have reviewed the current psychotropics carefully including drug interactions. Risk benefit ratio favors no change other than as noted in my dictated progress note. Diagnosis: Problems: (1) Anxiety disorder (2) Bipolar affective, mixed, sev w/ psych (3) Schizoaffective disorder, chronic condition with acute exacerbation MANAS SHANKAR MD Jan 24, 2018 23:36
--- NOTE | 2018-01-25 00:16 | PN ---
DATE: 01/23/2018 PSYCHIATRIC PROGRESS NOTE This late entry 01/23/2018 covers elements not covered in my initial note. SUBJECTIVE: I met with the patient in the evening. I met with her in her room. She slept 5-3/4 hours previous night, somewhat withdrawn. REVIEW OF SYSTEMS: No CV, , pulmonary, eye, ENT system symptoms on review. MENTAL STATUS EXAM: Reasonably oriented. Speech moderate latency, often responses monosyllabic. Abstraction fair, computation impaired, language function intact. Mood and affect withdrawn, but improved despite the above. We addressed transition to a nursing facility at length including the point sent by her sister. LABORATORY DATA: Reviewed. IMPRESSION: Schizoaffective disorder, bipolar type, mixed with psychotic features, in partial remission. Rest unchanged. PLAN: No change from initial note. MAN Maikel SHANKAR MD DR: ASHLEIGH/cali JOB#: [id number] / [id number]
[2018-01-25 06:25] VITALS: BP 111/72
[2018-01-25] MEDS: LOSARTAN 25 MG TABLET. PO SCH (09:04)
[2018-01-25] MEDS: METOPROLOL SUCC 24HR ER 50 MG TAB.ER.24H. PO SCH (09:04)
[2018-01-25] MEDS: metFORMIN 500 MG TABLET PO SCH ×2 (09:04→17:25)
[2018-01-25] MEDS: levETIRAcetam 500 MG TABLET PO SCH ×2 (09:04→19:39)
[2018-01-25] MEDS: BETHANECHOL CHLORIDE 25 MG TABLET PO SCH ×4 (09:05→19:40)
[2018-01-25] MEDS: PHENYTOIN SODIUM EXTENDED 100 MG CAPSULE PO SCH ×2 (09:05→19:39)
[2018-01-25] MEDS: FENOFIBRATE NANOCRYSTALLIZED 48 MG TABLET PO SCH (09:05)
[2018-01-25 16:17] VITALS: BP 96/56
[2018-01-25] MEDS: ATORVASTATIN CALCIUM 20 MG TABLET PO SCH (19:39)
[2018-01-25] MEDS: cloZAPine 100 MG TABLET PO SCH (19:39)
[2018-01-25] MEDS: cloZAPine 25 MG TABLET PO SCH (19:39)
[2018-01-25] MEDS: DIVALPROEX ER 500 MG TAB.ER.24H PO SCH (19:39)
--- NOTE | 2018-01-25 23:30 | PDOC ---
Exam Note: Arash Note: Please also refer to the separate dictated note~for this date of service dictated separately.~Patient seen individually. Discussed the patient with Nursing staff reviewed the chart.~Reviewed interim history and current functioning. Reviewed vital signs,~Labs/ Radiology~and current medications noted below. Continue current treatment with the changes noted in the dictated addendum note Assessment: Vital Signs: Vital Signs Date Time Temp Pulse Resp B/P (MAP) Pulse Ox O2 Delivery O2 Flow Rate FiO2 01/25/18 16:17 97.3 89 20 96/56 (69) 96 Room Air I&O Intake and Output 01/25/18 07:00 Intake Total 1200 ml Balance 1200 ml Intake Oral 1200 ml Labs: Laboratory Tests Test 01/25/18 07:56 Glucose (Fingerstick) 133 mg/dL (70-99) H Current Medications: Meds: Current Medications Acetaminophen (Tylenol) 650 mg PRN Q6HRS PRN PO PAIN / TEMP; Start 12/13/17 at 16:00 Multi-Ingredient Ointment (Analgesic [place]) 1 joey PRN QID PRN TP MUSCLE PAIN; Start 12/13/17 at 16:00 Al Hydroxide/Mg Hydroxide (Mylanta Plus Xs) 15 ml PRN AFTMEALHC PRN PO DYSPEPSIA Last administered on 12/13/17at 21:05; Start 12/13/17 at 16:00 Magnesium Hydroxide (Milk Of Magnesia) 2,400 mg PRN QHS PRN PO CONSTIPATION Last administered on 01/17/18at 14:15; Start 12/13/17 at 16:00 Clozapine (Clozaril) 300 mg DAILY PO Last administered on 12/14/17at 10:03; Start 12/14/17 at 09:00; Stop 12/14/17 at 10:27; Status DC Lorazepam (Ativan) 0.5 mg PRN Q6HRS PRN PO ANXIETY / AGITATION; Start 12/13/17 at 20:45 Atorvastatin Calcium (Lipitor) 20 mg QHS PO Last administered on 12/14/17at 20: 05; Start 12/13/17 at 21:00; Stop 12/15/17 at 15:00; Status DC Bethanechol Chloride (Urecholine) 25 mg QID PO Last administered on 01/25/18at 19:40; Start 12/13/17 at 21:00 Losartan Potassium (Cozaar) 50 mg DAILY PO Last administered on 12/29/17at 09:25 ; Start 12/14/17 at 09:00; Stop 12/31/17 at 12:28; Status DC Triamcinolone Acetonide (Kenalog) 15 joey BID TP Last administered on 12/25/17at 08:19; Start 12/13/17 at 21:00; Stop 12/26/17 at 12:12; Status DC Clotrimazole (Lotrimin) 1 joey BID TP Last administered on 12/25/17at 08:20; Start 12/13/17 at 21:00; Stop 12/26/17 at 12:12; Status DC Fenofibrate (Tricor) 48 mg DAILY PO Last administered on 01/25/18at 09:05; Start 12/14/17 at 09:00 Glipizide (Glucotrol Er) 5 mg DAILY08 PO Last administered on 12/15/17at 08:36; Start 12/14/17 at 08:00; Stop 12/15/17 at 14:58; Status DC Levetiracetam (Keppra) 1,000 mg BID PO Last administered on 01/25/18at 19:39; Start 12/13/17 at 21:00 Metformin HCl (Glucophage) 1,000 mg BIDWMEALS PO Last administered on at 17:25; Start 12/14/17 at 08:00 Metoprolol Succinate (Toprol Xl) 50 mg DAILY PO Last administered on at 09:04; Start 12/14/17 at 09:00 Pantoprazole Sodium (Protonix) 40 mg PRN DAILY PRN PO HEARTBURN / GAS; Start at 07:30 Phenytoin Sodium (Dilantin) 100 mg Q8HRS PO Last administered on 01/17/18at 13: 56; Start 12/13/17 at 22:00; Stop 01/17/18 at 17:44; Status DC Clozapine (Clozaril) 300 mg QHS PO Last administered on 12/18/17at 20:31; Start 12/14/17 at 21:00; Stop 12/19/17 at 17:05; Status DC Divalproex Sodium (Depakote Er) 500 mg QHS PO Last administered on 12/16/17 20 :29; Start 12/14/17 at 21:00; Stop 12/17/17 at 18:41; Status DC Glipizide (Glucotrol Er) 10 mg DAILY08 PO Last administered on 01/25/18 08:57 ; Start 12/16/17 at 08:00 Vitamin D (Vitamin D3) 50,000 unit WEEKLY PO Last administered on 01/20/18 08 :12; Start 12/16/17 at 09:00 Cephalexin HCl (Keflex) 500 mg BID PO Last administered on 12/25/17 08:13; Start 12/15/17 at 21:00; Stop 12/25/17 at 20:59; Status DC Atorvastatin Calcium (Lipitor) 40 mg QHS PO Last administered on 01/25/18 19: 39; Start 12/15/17 at 21:00 Lactobacillus Rhamnosus (Culturelle) 1 cap BID PO Last administered on 08:42; Start 12/16/17 at 09:00; Stop 12/30/17 at 18:01; Status DC Divalproex Sodium (Depakote Er) 1,000 mg QHS PO Last administered on 19:39; Start 12/17/17 at 21:00 Clozapine (Clozaril) 300 mg QHS PO Last administered on 01/25/18 19:39; Start 12/19/17 at 21:00 Clozapine (Clozaril) 25 mg QHS PO Last administered on 01/25/18 19:39; Start 12/19/17 at 21:00 Ondansetron HCl (Zofran Odt) 4 mg PRN Q8HRS PRN PO NAUSEA/VOMITING Last administered on 12/22/17at 05:50; Start 12/22/17 at 00:30 Docusate Sodium (Colace) 100 mg PRN DAILY PRN PO CONSTIPATION Last administered on 12/30/17 19:25; Start 12/29/17 at 09:30 Influenza Virus Vaccine (Afluria Trivalent [id number] Syringe) 0.5 ml ONCE ONCE VAX IM Last administered on 12/31/17at 11:39; Start 12/31/17 at 09:00; Stop at 09:01; Status DC Losartan Potassium (Cozaar) 25 mg DAILY PO Last administered on 01/25/18at 09: 04; Start 01/01/18 at 09:00 Nystatin (Nystop) 1 joey PRN BID PRN TP RASH Last administered on 01/12/18at 10: 12; Start 01/12/18 at 07:30 Phenytoin Sodium (Dilantin) 200 mg Q12H PO Last administered on 01/22/18at 09: 18; Start 01/18/18 at 02:00; Stop 01/22/18 at 12:04; Status DC Phenytoin Sodium (Dilantin) 200 mg Q12H PO Last administered on 01/25/18at 19: 39; Start 01/22/18 at 21:00 Active Scripts Active Reported Shingrix Vial Kit (Varicella-Zoster Ge/As01b/Pf) 50 Mcg/0.5 Ml Kit 50 Mcg IM Zostavax Vial (Zoster Vaccine Live/Pf) 19,400 Unit/0.65 Ml Vial 19,400 Unit SQ Triamcinolone Acetonide 15 Gm Cream..g. 15 Gm TP BID Pantoprazole Sodium 40 Mg Tablet.dr 40 Mg PO PRN DAILY PRN Losartan Potassium 50 Mg Tablet 50 Mg PO DAILY Glipizide 5 Mg Tablet 5 Mg PO DAILY Tricor (Fenofibrate Nanocrystallized) 48 Mg Tablet 48 Mg PO DAILY Doxazosin Mesylate 4 Mg Tablet 4 Mg PO Lotrimin Af (Clotrimazole) 12 Gm Cream..g. 12 Gm TP BID Bethanechol Chloride 25 Mg Tablet 25 Mg PO QID Metoprolol Succinate ( Xl ) (Metoprolol Succinate) 50 Mg Tab.er.24h 50 Mg PO DAILY Metformin Hcl 1,000 Mg Tablet 1,000 Mg PO BID Clozaril (Clozapine) 100 Mg Tablet 300 Mg PO DAILY Dilantin (Phenytoin Sodium Extended) 100 Mg Capsule 100 Mg PO Q8HRS Lorazepam 0.5 Mg Tablet 0.5 Mg PO PRN Q6HRS PRN MDD 2mg Keppra (Levetiracetam) 1,000 Mg Tablet 1,000 Mg PO BID Lipitor (Atorvastatin Calcium) 20 Mg Tablet 20 Mg PO QHS I have reviewed the current psychotropics carefully including drug interactions. Risk benefit ratio favors no change other than as noted in my dictated progress note. Diagnosis: Problems: (1) Anxiety disorder (2) Bipolar affective, mixed, sev w/ psych (3) Schizoaffective disorder, chronic condition with acute exacerbation MANAS SHANKAR MD Jan 25, 2018 23:30
[2018-01-26 05:49] VITALS: BP 122/79
[2018-01-26] MEDS: metFORMIN 500 MG TABLET PO SCH ×2 (07:28→18:19)
[2018-01-26] MEDS: FENOFIBRATE NANOCRYSTALLIZED 48 MG TABLET PO SCH (07:28)
[2018-01-26] MEDS: PHENYTOIN SODIUM EXTENDED 100 MG CAPSULE PO SCH ×2 (07:28→20:34)
[2018-01-26] MEDS: levETIRAcetam 500 MG TABLET PO SCH ×2 (07:29→20:33)
[2018-01-26] MEDS: LOSARTAN 25 MG TABLET. PO SCH (07:29)
[2018-01-26] MEDS: METOPROLOL SUCC 24HR ER 50 MG TAB.ER.24H. PO SCH (07:29)
[2018-01-26] MEDS: BETHANECHOL CHLORIDE 25 MG TABLET PO SCH ×4 (07:29→20:35)
[2018-01-26 15:53] VITALS: BP 120/88
[2018-01-26] MEDS: ATORVASTATIN CALCIUM 20 MG TABLET PO SCH (20:33)
[2018-01-26] MEDS: cloZAPine 100 MG TABLET PO SCH (20:34)
[2018-01-26] MEDS: cloZAPine 25 MG TABLET PO SCH (20:34)
[2018-01-26] MEDS: DIVALPROEX ER 500 MG TAB.ER.24H PO SCH (20:34)
--- NOTE | 2018-01-26 21:22 | PN ---
DATE: 01/24/2018 PSYCHIATRIC PROGRESS NOTE This late entry 01/24/2018 covers elements not covered in my initial note. SUBJECTIVE: I met with the patient in the evening. The patient has been somewhat withdrawn, slept 8 hours previous evening, met with her in her room at length in the evening. REVIEW OF SYSTEMS: No CV, , pulmonary, eye, ENT system symptoms on review. MENTAL STATUS EXAM: The patient is reasonably oriented. Speech is coherent, abstraction fair. Computation, able to do one step on serial 7's. No suicidal or homicidal ideation. Mood and affect is improved. LABORATORY DATA: Reviewed. IMPRESSION: Unchanged from initial note. PLAN: No change from initial note. MANAS SHANKAR MD DR: ASHLEIGH/cali JOB#: [id number] / [id number]
--- NOTE | 2018-01-26 23:44 | PDOC ---
Exam Note: Arash Note: Please also refer to the separate dictated note~for this date of service dictated separately.~Patient seen individually. Discussed the patient with Nursing staff reviewed the chart.~Reviewed interim history and current functioning. Reviewed vital signs,~Labs/ Radiology~and current medications noted below. Continue current treatment with the changes noted in the dictated addendum note Assessment: Vital Signs: Vital Signs Date Time Temp Pulse Resp B/P (MAP) Pulse Ox O2 Delivery O2 Flow Rate FiO2 01/26/18 15:53 98.1 81 16 120/88 (99) 99 Room Air I&O Intake and Output 01/26/18 07:00 Intake Total 960 ml Balance 960 ml Intake Oral 960 ml # Voids 1 Labs: Laboratory Tests Test 01/26/18 07:28 01/26/18 07:45 Glucose (Fingerstick) 59 mg/dL (70-99) L 95 mg/dL (70-99) Current Medications: Meds: Current Medications Acetaminophen (Tylenol) 650 mg PRN Q6HRS PRN PO PAIN / TEMP; Start 12/13/17 at 16:00 Multi-Ingredient Ointment (Analgesic [place]) 1 joey PRN QID PRN TP MUSCLE PAIN; Start 12/13/17 at 16:00 Al Hydroxide/Mg Hydroxide (Mylanta Plus Xs) 15 ml PRN AFTMEALHC PRN PO DYSPEPSIA Last administered on 12/13/17at 21:05; Start 12/13/17 at 16:00 Magnesium Hydroxide (Milk Of Magnesia) 2,400 mg PRN QHS PRN PO CONSTIPATION Last administered on 01/17/18at 14:15; Start 12/13/17 at 16:00 Clozapine (Clozaril) 300 mg DAILY PO Last administered on 12/14/17at 10:03; Start 12/14/17 at 09:00; Stop 12/14/17 at 10:27; Status DC Lorazepam (Ativan) 0.5 mg PRN Q6HRS PRN PO ANXIETY / AGITATION; Start 12/13/17 at 20:45 Atorvastatin Calcium (Lipitor) 20 mg QHS PO Last administered on 12/14/17at 20: 05; Start 12/13/17 at 21:00; Stop 12/15/17 at 15:00; Status DC Bethanechol Chloride (Urecholine) 25 mg QID PO Last administered on 01/26/18at 20:35; Start 12/13/17 at 21:00 Losartan Potassium (Cozaar) 50 mg DAILY PO Last administered on 12/29/17at 09:25 ; Start 12/14/17 at 09:00; Stop 12/31/17 at 12:28; Status DC Triamcinolone Acetonide (Kenalog) 15 joey BID TP Last administered on 12/25/17at 08:19; Start 12/13/17 at 21:00; Stop 12/26/17 at 12:12; Status DC Clotrimazole (Lotrimin) 1 joey BID TP Last administered on 12/25/17at 08:20; Start 12/13/17 at 21:00; Stop 12/26/17 at 12:12; Status DC Fenofibrate (Tricor) 48 mg DAILY PO Last administered on 01/26/18at 07:28; Start 12/14/17 at 09:00 Glipizide (Glucotrol Er) 5 mg DAILY08 PO Last administered on 12/15/17at 08:36; Start 12/14/17 at 08:00; Stop 12/15/17 at 14:58; Status DC Levetiracetam (Keppra) 1,000 mg BID PO Last administered on 01/26/18at 20:33; Start 12/13/17 at 21:00 Metformin HCl (Glucophage) 1,000 mg BIDWMEALS PO Last administered on at 18:19; Start 12/14/17 at 08:00 Metoprolol Succinate (Toprol Xl) 50 mg DAILY PO Last administered on at 07:29; Start 12/14/17 at 09:00 Pantoprazole Sodium (Protonix) 40 mg PRN DAILY PRN PO HEARTBURN / GAS; Start at 07:30 Phenytoin Sodium (Dilantin) 100 mg Q8HRS PO Last administered on 01/17/18at 13: 56; Start 12/13/17 at 22:00; Stop 01/17/18 at 17:44; Status DC Clozapine (Clozaril) 300 mg QHS PO Last administered on 12/18/17at 20:31; Start 12/14/17 at 21:00; Stop 12/19/17 at 17:05; Status DC Divalproex Sodium (Depakote Er) 500 mg QHS PO Last administered on 12/16/17 20 :29; Start 12/14/17 at 21:00; Stop 12/17/17 at 18:41; Status DC Glipizide (Glucotrol Er) 10 mg DAILY08 PO Last administered on 01/26/18 07:28 ; Start 12/16/17 at 08:00 Vitamin D (Vitamin D3) 50,000 unit WEEKLY PO Last administered on 01/20/18at 08 :12; Start 12/16/17 at 09:00 Cephalexin HCl (Keflex) 500 mg BID PO Last administered on 12/25/17 08:13; Start 12/15/17 at 21:00; Stop 12/25/17 at 20:59; Status DC Atorvastatin Calcium (Lipitor) 40 mg QHS PO Last administered on 01/26/18 20: 33; Start 12/15/17 at 21:00 Lactobacillus Rhamnosus (Culturelle) 1 cap BID PO Last administered on at 08:42; Start 12/16/17 at 09:00; Stop 12/30/17 at 18:01; Status DC Divalproex Sodium (Depakote Er) 1,000 mg QHS PO Last administered on 20:34; Start 12/17/17 at 21:00 Clozapine (Clozaril) 300 mg QHS PO Last administered on 01/26/18 20:34; Start 12/19/17 at 21:00 Clozapine (Clozaril) 25 mg QHS PO Last administered on 01/26/18 20:34; Start 12/19/17 at 21:00 Ondansetron HCl (Zofran Odt) 4 mg PRN Q8HRS PRN PO NAUSEA/VOMITING Last administered on 12/22/17at 05:50; Start 12/22/17 at 00:30 Docusate Sodium (Colace) 100 mg PRN DAILY PRN PO CONSTIPATION Last administered on 12/30/17 19:25; Start 12/29/17 at 09:30 Influenza Virus Vaccine (Afluria Trivalent [id number] Syringe) 0.5 ml ONCE ONCE VAX IM Last administered on 12/31/17at 11:39; Start 12/31/17 at 09:00; Stop at 09:01; Status DC Losartan Potassium (Cozaar) 25 mg DAILY PO Last administered on 01/26/18at 07: 29; Start 01/01/18 at 09:00 Nystatin (Nystop) 1 joey PRN BID PRN TP RASH Last administered on 01/12/18at 10: 12; Start 01/12/18 at 07:30 Phenytoin Sodium (Dilantin) 200 mg Q12H PO Last administered on 01/22/18at 09: 18; Start 01/18/18 at 02:00; Stop 01/22/18 at 12:04; Status DC Phenytoin Sodium (Dilantin) 200 mg Q12H PO Last administered on 01/26/18at 20: 34; Start 01/22/18 at 21:00 Active Scripts Active Reported Shingrix Vial Kit (Varicella-Zoster Ge/As01b/Pf) 50 Mcg/0.5 Ml Kit 50 Mcg IM Zostavax Vial (Zoster Vaccine Live/Pf) 19,400 Unit/0.65 Ml Vial 19,400 Unit SQ Triamcinolone Acetonide 15 Gm Cream..g. 15 Gm TP BID Pantoprazole Sodium 40 Mg Tablet.dr 40 Mg PO PRN DAILY PRN Losartan Potassium 50 Mg Tablet 50 Mg PO DAILY Glipizide 5 Mg Tablet 5 Mg PO DAILY Tricor (Fenofibrate Nanocrystallized) 48 Mg Tablet 48 Mg PO DAILY Doxazosin Mesylate 4 Mg Tablet 4 Mg PO Lotrimin Af (Clotrimazole) 12 Gm Cream..g. 12 Gm TP BID Bethanechol Chloride 25 Mg Tablet 25 Mg PO QID Metoprolol Succinate ( Xl ) (Metoprolol Succinate) 50 Mg Tab.er.24h 50 Mg PO DAILY Metformin Hcl 1,000 Mg Tablet 1,000 Mg PO BID Clozaril (Clozapine) 100 Mg Tablet 300 Mg PO DAILY Dilantin (Phenytoin Sodium Extended) 100 Mg Capsule 100 Mg PO Q8HRS Lorazepam 0.5 Mg Tablet 0.5 Mg PO PRN Q6HRS PRN MDD 2mg Keppra (Levetiracetam) 1,000 Mg Tablet 1,000 Mg PO BID Lipitor (Atorvastatin Calcium) 20 Mg Tablet 20 Mg PO QHS I have reviewed the current psychotropics carefully including drug interactions. Risk benefit ratio favors no change other than as noted in my dictated progress note. Diagnosis: Problems: (1) Anxiety disorder (2) Bipolar affective, mixed, sev w/ psych (3) Schizoaffective disorder, chronic condition with acute exacerbation MANAS SHANKAR MD Jan 26, 2018 23:44
[2018-01-27 06:25] VITALS: BP 126/83
[2018-01-27] MEDS: METOPROLOL SUCC 24HR ER 50 MG TAB.ER.24H. PO SCH (08:11)
[2018-01-27] MEDS: PHENYTOIN SODIUM EXTENDED 100 MG CAPSULE PO SCH ×2 (08:12→19:50)
[2018-01-27] MEDS: levETIRAcetam 500 MG TABLET PO SCH ×2 (08:12→19:50)
[2018-01-27] MEDS: BETHANECHOL CHLORIDE 25 MG TABLET PO SCH ×4 (08:13→19:50)
[2018-01-27] MEDS: FENOFIBRATE NANOCRYSTALLIZED 48 MG TABLET PO SCH (08:13)
[2018-01-27] MEDS: LOSARTAN 25 MG TABLET. PO SCH (08:14)
[2018-01-27] MEDS: metFORMIN 500 MG TABLET PO SCH ×2 (08:14→18:04)
[2018-01-27] MEDS: CHOLECALCIFEROL (VITAMIN D3) 50,000 UNIT CAPSULE PO SCH (08:15)
[2018-01-27 16:55] VITALS: BP 102/76
[2018-01-27] MEDS: DIVALPROEX ER 500 MG TAB.ER.24H PO SCH (19:49)
[2018-01-27] MEDS: ATORVASTATIN CALCIUM 20 MG TABLET PO SCH (19:50)
[2018-01-27] MEDS: cloZAPine 100 MG TABLET PO SCH (19:50)
[2018-01-27] MEDS: cloZAPine 25 MG TABLET PO SCH (19:50)
--- NOTE | 2018-01-27 19:59 | PN ---
DATE: 01/25/2018 PSYCHIATRIC PROGRESS NOTE This is a late entry of 01/25/2018, covers elements not covered in my initial note. SUBJECTIVE: I met with the patient in the evening, staffed at a treatment team meeting with the entire team in the morning. Reviewed her history at length including disposition, transition plans to nursing facility. [facility] has [facility], but she is being resistive to this transition and her DPOA sister and [id number] along with the staff on the unit are trying to convince for the most appropriate placement. Reviewed at length. REVIEW OF SYSTEMS: No CV, , pulmonary, eye, ENT system symptoms on review, I met with her in her room. She remains somewhat withdrawn, but very verbal, appropriate, oriented. MENTAL STATUS EXAM: Reasonably oriented. Speech coherent, abstraction fair, computation impaired, language function intact, attention span short. Mood and affect is withdrawn, but improved. LABORATORY DATA: Reviewed. IMPRESSION: Schizoaffective disorder, bipolar type. Rest unchanged. PLAN: No change from initial note. MAN Maikel SHANKAR MD DR: ASHLEIGH/cali JOB#: [id number] / [id number]
--- NOTE | 2018-01-27 23:11 | PDOC ---
Exam Note: Arash Note: Please also refer to the separate dictated note~for this date of service dictated separately.~Patient seen individually. Discussed the patient with Nursing staff reviewed the chart.~Reviewed interim history and current functioning. Reviewed vital signs,~Labs/ Radiology~and current medications noted below. Continue current treatment with the changes noted in the dictated addendum note Assessment: Vital Signs: Vital Signs Date Time Temp Pulse Resp B/P (MAP) Pulse Ox O2 Delivery O2 Flow Rate FiO2 01/27/18 16:55 98.1 95 18 102/76 (85) 95 Room Air I&O Intake and Output 01/27/18 07:00 Intake Total 1800 ml Balance 1800 ml Intake Oral 1800 ml # Voids 1 Labs: Laboratory Tests Test 01/27/18 07:54 Glucose (Fingerstick) 83 mg/dL (70-99) Current Medications: Meds: Current Medications Acetaminophen (Tylenol) 650 mg PRN Q6HRS PRN PO PAIN / TEMP; Start 12/13/17 at 16:00 Multi-Ingredient Ointment (Analgesic [place]) 1 joey PRN QID PRN TP MUSCLE PAIN; Start 12/13/17 at 16:00 Al Hydroxide/Mg Hydroxide (Mylanta Plus Xs) 15 ml PRN AFTMEALHC PRN PO DYSPEPSIA Last administered on 12/13/17at 21:05; Start 12/13/17 at 16:00 Magnesium Hydroxide (Milk Of Magnesia) 2,400 mg PRN QHS PRN PO CONSTIPATION Last administered on 01/17/18at 14:15; Start 12/13/17 at 16:00 Clozapine (Clozaril) 300 mg DAILY PO Last administered on 12/14/17at 10:03; Start 12/14/17 at 09:00; Stop 12/14/17 at 10:27; Status DC Lorazepam (Ativan) 0.5 mg PRN Q6HRS PRN PO ANXIETY / AGITATION; Start 12/13/17 at 20:45 Atorvastatin Calcium (Lipitor) 20 mg QHS PO Last administered on 12/14/17at 20: 05; Start 12/13/17 at 21:00; Stop 12/15/17 at 15:00; Status DC Bethanechol Chloride (Urecholine) 25 mg QID PO Last administered on 01/27/18at 19:50; Start 12/13/17 at 21:00 Losartan Potassium (Cozaar) 50 mg DAILY PO Last administered on 12/29/17at 09:25 ; Start 12/14/17 at 09:00; Stop 12/31/17 at 12:28; Status DC Triamcinolone Acetonide (Kenalog) 15 joey BID TP Last administered on 12/25/17at 08:19; Start 12/13/17 at 21:00; Stop 12/26/17 at 12:12; Status DC Clotrimazole (Lotrimin) 1 joey BID TP Last administered on 12/25/17at 08:20; Start 12/13/17 at 21:00; Stop 12/26/17 at 12:12; Status DC Fenofibrate (Tricor) 48 mg DAILY PO Last administered on 01/27/18at 08:13; Start 12/14/17 at 09:00 Glipizide (Glucotrol Er) 5 mg DAILY08 PO Last administered on 12/15/17at 08:36; Start 12/14/17 at 08:00; Stop 12/15/17 at 14:58; Status DC Levetiracetam (Keppra) 1,000 mg BID PO Last administered on 01/27/18at 19:50; Start 12/13/17 at 21:00 Metformin HCl (Glucophage) 1,000 mg BIDWMEALS PO Last administered on at 18:04; Start 12/14/17 at 08:00 Metoprolol Succinate (Toprol Xl) 50 mg DAILY PO Last administered on at 08:11; Start 12/14/17 at 09:00 Pantoprazole Sodium (Protonix) 40 mg PRN DAILY PRN PO HEARTBURN / GAS; Start at 07:30 Phenytoin Sodium (Dilantin) 100 mg Q8HRS PO Last administered on 01/17/18at 13: 56; Start 12/13/17 at 22:00; Stop 01/17/18 at 17:44; Status DC Clozapine (Clozaril) 300 mg QHS PO Last administered on 12/18/17at 20:31; Start 12/14/17 at 21:00; Stop 12/19/17 at 17:05; Status DC Divalproex Sodium (Depakote Er) 500 mg QHS PO Last administered on 12/16/17 20 :29; Start 12/14/17 at 21:00; Stop 12/17/17 at 18:41; Status DC Glipizide (Glucotrol Er) 10 mg DAILY08 PO Last administered on 01/27/18 08:14 ; Start 12/16/17 at 08:00 Vitamin D (Vitamin D3) 50,000 unit WEEKLY PO Last administered on 01/27/18 08 :15; Start 12/16/17 at 09:00 Cephalexin HCl (Keflex) 500 mg BID PO Last administered on 12/25/17 08:13; Start 12/15/17 at 21:00; Stop 12/25/17 at 20:59; Status DC Atorvastatin Calcium (Lipitor) 40 mg QHS PO Last administered on 01/27/18 19: 50; Start 12/15/17 at 21:00 Lactobacillus Rhamnosus (Culturelle) 1 cap BID PO Last administered on at 08:42; Start 12/16/17 at 09:00; Stop 12/30/17 at 18:01; Status DC Divalproex Sodium (Depakote Er) 1,000 mg QHS PO Last administered on 19:49; Start 12/17/17 at 21:00 Clozapine (Clozaril) 300 mg QHS PO Last administered on 01/27/18 19:50; Start 12/19/17 at 21:00 Clozapine (Clozaril) 25 mg QHS PO Last administered on 01/27/18 19:50; Start 12/19/17 at 21:00 Ondansetron HCl (Zofran Odt) 4 mg PRN Q8HRS PRN PO NAUSEA/VOMITING Last administered on 12/22/17at 05:50; Start 12/22/17 at 00:30 Docusate Sodium (Colace) 100 mg PRN DAILY PRN PO CONSTIPATION Last administered on 12/30/17 19:25; Start 12/29/17 at 09:30 Influenza Virus Vaccine (Afluria Trivalent [id number] Syringe) 0.5 ml ONCE ONCE VAX IM Last administered on 12/31/17at 11:39; Start 12/31/17 at 09:00; Stop at 09:01; Status DC Losartan Potassium (Cozaar) 25 mg DAILY PO Last administered on 01/27/18at 08: 14; Start 01/01/18 at 09:00 Nystatin (Nystop) 1 joey PRN BID PRN TP RASH Last administered on 01/12/18at 10: 12; Start 01/12/18 at 07:30 Phenytoin Sodium (Dilantin) 200 mg Q12H PO Last administered on 01/22/18at 09: 18; Start 01/18/18 at 02:00; Stop 01/22/18 at 12:04; Status DC Phenytoin Sodium (Dilantin) 200 mg Q12H PO Last administered on 01/27/18at 19: 50; Start 01/22/18 at 21:00 Active Scripts Active Reported Shingrix Vial Kit (Varicella-Zoster Ge/As01b/Pf) 50 Mcg/0.5 Ml Kit 50 Mcg IM Zostavax Vial (Zoster Vaccine Live/Pf) 19,400 Unit/0.65 Ml Vial 19,400 Unit SQ Triamcinolone Acetonide 15 Gm Cream..g. 15 Gm TP BID Pantoprazole Sodium 40 Mg Tablet.dr 40 Mg PO PRN DAILY PRN Losartan Potassium 50 Mg Tablet 50 Mg PO DAILY Glipizide 5 Mg Tablet 5 Mg PO DAILY Tricor (Fenofibrate Nanocrystallized) 48 Mg Tablet 48 Mg PO DAILY Doxazosin Mesylate 4 Mg Tablet 4 Mg PO Lotrimin Af (Clotrimazole) 12 Gm Cream..g. 12 Gm TP BID Bethanechol Chloride 25 Mg Tablet 25 Mg PO QID Metoprolol Succinate ( Xl ) (Metoprolol Succinate) 50 Mg Tab.er.24h 50 Mg PO DAILY Metformin Hcl 1,000 Mg Tablet 1,000 Mg PO BID Clozaril (Clozapine) 100 Mg Tablet 300 Mg PO DAILY Dilantin (Phenytoin Sodium Extended) 100 Mg Capsule 100 Mg PO Q8HRS Lorazepam 0.5 Mg Tablet 0.5 Mg PO PRN Q6HRS PRN MDD 2mg Keppra (Levetiracetam) 1,000 Mg Tablet 1,000 Mg PO BID Lipitor (Atorvastatin Calcium) 20 Mg Tablet 20 Mg PO QHS I have reviewed the current psychotropics carefully including drug interactions. Risk benefit ratio favors no change other than as noted in my dictated progress note. Diagnosis: Problems: (1) Anxiety disorder (2) Bipolar affective, mixed, sev w/ psych (3) Schizoaffective disorder, chronic condition with acute exacerbation MANAS SHANKAR MD Jan 27, 2018 23:11
--- NOTE | 2018-01-28 00:06 | PN ---
DATE: 01/26/2018 This is a late entry for 01/26/2018 and covers elements not covered in my initial note. SUBJECTIVE: I met with the patient in the evening. The patient slept 8 hours previous evening. She spends much time in her room, but is coming out a little bit more than before. REVIEW OF SYSTEMS: No CV, , pulmonary, eye, ENT system symptoms on review. I met with her in her room. MENTAL STATUS EXAM: Oriented to herself and situation. Speech coherent, abstraction fair. Computation, able to do 2 steps in serial 7's. Abstraction fair. No active suicidal or homicidal ideation. Mood and affect is improved. Discussed at length about transitioning to nursing facility. She is reluctant, resistant and we processed this. LABORATORY DATA: Reviewed. IMPRESSION: Schizoaffective disorder, bipolar type, mixed with psychotic features, in partial remission. PLAN: No change from initial note. MANAS SHANKAR MD DR: ASHLEIGH/cali JOB#: [id number] / [id number]
[2018-01-28 06:17] VITALS: BP 111/79
[2018-01-28] MEDS: FENOFIBRATE NANOCRYSTALLIZED 48 MG TABLET PO SCH (07:51)
[2018-01-28] MEDS: metFORMIN 500 MG TABLET PO SCH ×2 (07:51→17:18)
[2018-01-28] MEDS: METOPROLOL SUCC 24HR ER 50 MG TAB.ER.24H. PO SCH (07:52)
[2018-01-28] MEDS: PHENYTOIN SODIUM EXTENDED 100 MG CAPSULE PO SCH ×2 (07:52→19:52)
[2018-01-28] MEDS: BETHANECHOL CHLORIDE 25 MG TABLET PO SCH ×4 (07:52→19:53)
[2018-01-28] MEDS: LOSARTAN 25 MG TABLET. PO SCH (07:52)
[2018-01-28] MEDS: levETIRAcetam 500 MG TABLET PO SCH ×2 (07:53→19:52)
[2018-01-28 08:24] LABS: BASO % 1 % (0-3); EOS % 0 % (0-3); HEMATOCRIT 38.6 % (36.0-47.0); HEMOGLOBIN 12.8 g/dL (12.0-15.5); LYMPH # 2.5 x10^3/uL (1.0-4.8); LYMPH % 41 % (24-48); MEAN CORPUSCULAR HEMOGLOBIN 28 pg (25-35); MEAN CORPUSCULAR HGB CONC 33 g/dL (31-37); MEAN CORPUSCULAR VOLUME 86 fL (79-100); MONO # 0.5 x10^3/uL (0.0-1.1); MONO % 7 % (0-9); NEUT # 3.1 x10^3uL (1.8-7.7); NEUT % 51 % (31-73); PLATELET COUNT 227 x10^3/uL (140-400); RED BLOOD COUNT 4.52 x10^6/uL (3.50-5.40); RED CELL DISTRIBUTION WIDTH 16.5 % (11.5-14.5); WHITE BLOOD COUNT 6.2 x10^3/uL (4.0-11.0)
[2018-01-28 08:38] LABS: ALBUMIN 3.4 g/dL (3.4-5.0); ALK PHOS 59 U/L (46-116); ALT (SGPT) 22 U/L (14-59); ANION GAP 7 (6-14); AST (SGOT) 13 U/L (15-37); BLOOD UREA NITROGEN 21 mg/dL (7-20); BUN/CREATININE RATIO 26 (6-20); CALCIUM 8.5 mg/dL (8.5-10.1); CARBON DIOXIDE 28 mmol/L (21-32); CHLORIDE 104 mmol/L (98-107); CREATININE 0.8 mg/dL (0.6-1.0); GFR 72.9; GLUCOSE 80 mg/dL (70-99); POTASSIUM 4.1 mmol/L (3.5-5.1); SODIUM 139 mmol/L (136-145); TOTAL PROTEIN 6.9 g/dL (6.4-8.2)
[2018-01-28 08:45] LABS: TOTAL BILIRUBIN < 0.1 mg/dL (0.2-1.0)
--- NOTE | 2018-01-28 13:06 | PN ---
DATE: 01/27/2018 PSYCHIATRIC PROGRESS NOTE This late entry 01/27/2018 covers elements, not covered in my initial note. SUBJECTIVE: I met with the patient in the evening. The patient remains withdrawn, spends much time in her room, but sleeps well at night. She is still not convinced about transition to the nursing facility and I addressed with her at length questioning why she has to go to the correction. REVIEW OF SYSTEMS: No CV, , pulmonary, eye, ENT system symptoms on review. Reliability fair. MENTAL STATUS EXAM: Oriented to herself and situation. Insight limited, judgment marginal, language function intact. Mood and affect somewhat withdrawn, but improved. LABORATORY DATA: Reviewed. IMPRESSION: Schizoaffective disorder, bipolar type, mixed, in partial remission. Rest unchanged. PLAN: No change from initial note. MAN Maikel SHANKAR MD DR: ASHLEIGH/cali JOB#: [id number] / [id number]
[2018-01-28 16:49] VITALS: BP 117/80
[2018-01-28] MEDS: cloZAPine 100 MG TABLET PO SCH (19:50)
[2018-01-28] MEDS: cloZAPine 25 MG TABLET PO SCH (19:50)
[2018-01-28] MEDS: DIVALPROEX ER 500 MG TAB.ER.24H PO SCH (19:51)
[2018-01-28] MEDS: ATORVASTATIN CALCIUM 20 MG TABLET PO SCH (19:52)
--- NOTE | 2018-01-28 23:13 | PDOC ---
Exam Note: Arash Note: Please also refer to the separate dictated note~for this date of service dictated separately.~Patient seen individually. Discussed the patient with Nursing staff reviewed the chart.~Reviewed interim history and current functioning. Reviewed vital signs,~Labs/ Radiology~and current medications noted below. Continue current treatment with the changes noted in the dictated addendum note Assessment: Vital Signs: Vital Signs Date Time Temp Pulse Resp B/P (MAP) Pulse Ox O2 Delivery O2 Flow Rate FiO2 01/28/18 16:49 98.0 95 20 117/80 (92) 93 Room Air I&O Intake and Output 01/28/18 07:00 Intake Total 1680 ml Balance 1680 ml Intake Oral 1680 ml Labs: Laboratory Tests Test 01/28/18 07:33 01/28/18 07:45 Glucose (Fingerstick) 66 mg/dL (70-99) L White Blood Count 6.2 x10^3/uL (4.0-11.0) Red Blood Count 4.52 x10^6/uL (3.50-5.40) Hemoglobin 12.8 g/dL (12.0-15.5) Hematocrit 38.6 % (36.0-47.0) Mean Corpuscular Volume 86 fL (79-100) Mean Corpuscular Hemoglobin 28 pg (25-35) Mean Corpuscular Hemoglobin Concent 33 g/dL (31-37) Red Cell Distribution Width 16.5 % (11.5-14.5) H Platelet Count 227 x10^3/uL (140-400) Neutrophils (%) (Auto) 51 % (31-73) Lymphocytes (%) (Auto) 41 % (24-48) Monocytes (%) (Auto) 7 % (0-9) Eosinophils (%) (Auto) 0 % (0-3) Basophils (%) (Auto) 1 % (0-3) Neutrophils # (Auto) 3.1 x10^3uL (1.8-7.7) Lymphocytes # (Auto) 2.5 x10^3/uL (1.0-4.8) Monocytes # (Auto) 0.5 x10^3/uL (0.0-1.1) Eosinophils # (Auto) 0.0 x10^3/uL (0.0-0.7) Basophils # (Auto) 0.0 x10^3/uL (0.0-0.2) Sodium Level 139 mmol/L (136-145) Potassium Level 4.1 mmol/L (3.5-5.1) Chloride Level 104 mmol/L (98-107) Carbon Dioxide Level 28 mmol/L (21-32) Anion Gap 7 (6-14) Blood Urea Nitrogen 21 mg/dL (7-20) H Creatinine 0.8 mg/dL (0.6-1.0) Estimated GFR (Cockcroft-Gault) 72.9 BUN/Creatinine Ratio 26 (6-20) H Glucose Level 80 mg/dL (70-99) Calcium Level 8.5 mg/dL (8.5-10.1) Total Bilirubin < 0.1 mg/dL (0.2-1.0) L Aspartate Amino Transferase (AST) 13 U/L (15-37) L Alanine Aminotransferase (ALT) 22 U/L (14-59) Alkaline Phosphatase 59 U/L (46-116) Total Protein 6.9 g/dL (6.4-8.2) Albumin 3.4 g/dL (3.4-5.0) Albumin/Globulin Ratio 1.0 (1.0-1.7) Current Medications: Meds: Current Medications Acetaminophen (Tylenol) 650 mg PRN Q6HRS PRN PO PAIN / TEMP; Start 12/13/17 at 16:00 Multi-Ingredient Ointment (Analgesic [place]) 1 joey PRN QID PRN TP MUSCLE PAIN; Start 12/13/17 at 16:00 Al Hydroxide/Mg Hydroxide (Mylanta Plus Xs) 15 ml PRN AFTMEALHC PRN PO DYSPEPSIA Last administered on 12/13/17at 21:05; Start 12/13/17 at 16:00 Magnesium Hydroxide (Milk Of Magnesia) 2,400 mg PRN QHS PRN PO CONSTIPATION Last administered on 01/17/18at 14:15; Start 12/13/17 at 16:00 Clozapine (Clozaril) 300 mg DAILY PO Last administered on 12/14/17at 10:03; Start 12/14/17 at 09:00; Stop 12/14/17 at 10:27; Status DC Lorazepam (Ativan) 0.5 mg PRN Q6HRS PRN PO ANXIETY / AGITATION; Start 12/13/17 at 20:45 Atorvastatin Calcium (Lipitor) 20 mg QHS PO Last administered on 12/14/17at 20: 05; Start 12/13/17 at 21:00; Stop 12/15/17 at 15:00; Status DC Bethanechol Chloride (Urecholine) 25 mg QID PO Last administered on 01/28/18at 19:53; Start 12/13/17 at 21:00 Losartan Potassium (Cozaar) 50 mg DAILY PO Last administered on 12/29/17at 09:25 ; Start 12/14/17 at 09:00; Stop 12/31/17 at 12:28; Status DC Triamcinolone Acetonide (Kenalog) 15 joey BID TP Last administered on 12/25/17at 08:19; Start 12/13/17 at 21:00; Stop 12/26/17 at 12:12; Status DC Clotrimazole (Lotrimin) 1 joey BID TP Last administered on 12/25/17at 08:20; Start 12/13/17 at 21:00; Stop 12/26/17 at 12:12; Status DC Fenofibrate (Tricor) 48 mg DAILY PO Last administered on 01/28/18at 07:51; Start 12/14/17 at 09:00 Glipizide (Glucotrol Er) 5 mg DAILY08 PO Last administered on 12/15/17at 08:36; Start 12/14/17 at 08:00; Stop 12/15/17 at 14:58; Status DC Levetiracetam (Keppra) 1,000 mg BID PO Last administered on 01/28/18at 19:52; Start 12/13/17 at 21:00 Metformin HCl (Glucophage) 1,000 mg BIDWMEALS PO Last administered on at 17:18; Start 12/14/17 at 08:00 Metoprolol Succinate (Toprol Xl) 50 mg DAILY PO Last administered on at 07:52; Start 12/14/17 at 09:00 Pantoprazole Sodium (Protonix) 40 mg PRN DAILY PRN PO HEARTBURN / GAS; Start at 07:30 Phenytoin Sodium (Dilantin) 100 mg Q8HRS PO Last administered on 01/17/18at 13: 56; Start 12/13/17 at 22:00; Stop 01/17/18 at 17:44; Status DC Clozapine (Clozaril) 300 mg QHS PO Last administered on 12/18/17at 20:31; Start 12/14/17 at 21:00; Stop 12/19/17 at 17:05; Status DC Divalproex Sodium (Depakote Er) 500 mg QHS PO Last administered on 12/16/17at 20 :29; Start 12/14/17 at 21:00; Stop 12/17/17 at 18:41; Status DC Glipizide (Glucotrol Er) 10 mg DAILY08 PO Last administered on 01/28/18 07:54 ; Start 12/16/17 at 08:00 Vitamin D (Vitamin D3) 50,000 unit WEEKLY PO Last administered on 01/27/18 08 :15; Start 12/16/17 at 09:00 Cephalexin HCl (Keflex) 500 mg BID PO Last administered on 12/25/17at 08:13; Start 12/15/17 at 21:00; Stop 12/25/17 at 20:59; Status DC Atorvastatin Calcium (Lipitor) 40 mg QHS PO Last administered on 01/28/18 19: 52; Start 12/15/17 at 21:00 Lactobacillus Rhamnosus (Culturelle) 1 cap BID PO Last administered on at 08:42; Start 12/16/17 at 09:00; Stop 12/30/17 at 18:01; Status DC Divalproex Sodium (Depakote Er) 1,000 mg QHS PO Last administered on 19:51; Start 12/17/17 at 21:00 Clozapine (Clozaril) 300 mg QHS PO Last administered on 01/28/18 19:50; Start 12/19/17 at 21:00 Clozapine (Clozaril) 25 mg QHS PO Last administered on 01/28/18 19:50; Start 12/19/17 at 21:00 Ondansetron HCl (Zofran Odt) 4 mg PRN Q8HRS PRN PO NAUSEA/VOMITING Last administered on 12/22/17at 05:50; Start 12/22/17 at 00:30 Docusate Sodium (Colace) 100 mg PRN DAILY PRN PO CONSTIPATION Last administered on 12/30/17at 19:25; Start 12/29/17 at 09:30 Influenza Virus Vaccine (Afluria Trivalent [id number] Syringe) 0.5 ml ONCE ONCE VAX IM Last administered on 12/31/17at 11:39; Start 12/31/17 at 09:00; Stop at 09:01; Status DC Losartan Potassium (Cozaar) 25 mg DAILY PO Last administered on 01/28/18at 07: 52; Start 01/01/18 at 09:00 Nystatin (Nystop) 1 joey PRN BID PRN TP RASH Last administered on 01/12/18at 10: 12; Start 01/12/18 at 07:30 Phenytoin Sodium (Dilantin) 200 mg Q12H PO Last administered on 01/22/18at 09: 18; Start 01/18/18 at 02:00; Stop 01/22/18 at 12:04; Status DC Phenytoin Sodium (Dilantin) 200 mg Q12H PO Last administered on 01/28/18at 19: 52; Start 01/22/18 at 21:00 Active Scripts Active Reported Shingrix Vial Kit (Varicella-Zoster Ge/As01b/Pf) 50 Mcg/0.5 Ml Kit 50 Mcg IM Zostavax Vial (Zoster Vaccine Live/Pf) 19,400 Unit/0.65 Ml Vial 19,400 Unit SQ Triamcinolone Acetonide 15 Gm Cream..g. 15 Gm TP BID Pantoprazole Sodium 40 Mg Tablet.dr 40 Mg PO PRN DAILY PRN Losartan Potassium 50 Mg Tablet 50 Mg PO DAILY Glipizide 5 Mg Tablet 5 Mg PO DAILY Tricor (Fenofibrate Nanocrystallized) 48 Mg Tablet 48 Mg PO DAILY Doxazosin Mesylate 4 Mg Tablet 4 Mg PO Lotrimin Af (Clotrimazole) 12 Gm Cream..g. 12 Gm TP BID Bethanechol Chloride 25 Mg Tablet 25 Mg PO QID Metoprolol Succinate ( Xl ) (Metoprolol Succinate) 50 Mg Tab.er.24h 50 Mg PO DAILY Metformin Hcl 1,000 Mg Tablet 1,000 Mg PO BID Clozaril (Clozapine) 100 Mg Tablet 300 Mg PO DAILY Dilantin (Phenytoin Sodium Extended) 100 Mg Capsule 100 Mg PO Q8HRS Lorazepam 0.5 Mg Tablet 0.5 Mg PO PRN Q6HRS PRN MDD 2mg Keppra (Levetiracetam) 1,000 Mg Tablet 1,000 Mg PO BID Lipitor (Atorvastatin Calcium) 20 Mg Tablet 20 Mg PO QHS I have reviewed the current psychotropics carefully including drug interactions. Risk benefit ratio favors no change other than as noted in my dictated progress note. Diagnosis: Problems: (1) Anxiety disorder (2) Bipolar affective, mixed, sev w/ psych (3) Schizoaffective disorder, chronic condition with acute exacerbation MANAS SHANKAR MD Jan 28, 2018 23:13
[2018-01-29 06:15] VITALS: BP 98/67
[2018-01-29] MEDS: levETIRAcetam 500 MG TABLET PO SCH ×2 (08:12→19:32)
[2018-01-29] MEDS: metFORMIN 500 MG TABLET PO SCH ×2 (08:13→16:59)
[2018-01-29] MEDS: PHENYTOIN SODIUM EXTENDED 100 MG CAPSULE PO SCH ×2 (08:14→19:34)
[2018-01-29] MEDS: FENOFIBRATE NANOCRYSTALLIZED 48 MG TABLET PO SCH (08:16)
[2018-01-29] MEDS: BETHANECHOL CHLORIDE 25 MG TABLET PO SCH ×4 (08:16→19:33)
[2018-01-29 08:18] VITALS: BP 127/83
[2018-01-29] MEDS: LOSARTAN 25 MG TABLET. PO SCH (08:21)
[2018-01-29] MEDS: METOPROLOL SUCC 24HR ER 50 MG TAB.ER.24H. PO SCH (08:22)
[2018-01-29 15:42] VITALS: BP 98/61
[2018-01-29] MEDS: cloZAPine 100 MG TABLET PO SCH (19:31)
[2018-01-29] MEDS: cloZAPine 25 MG TABLET PO SCH (19:31)
[2018-01-29] MEDS: DIVALPROEX ER 500 MG TAB.ER.24H PO SCH (19:31)
[2018-01-29] MEDS: ATORVASTATIN CALCIUM 20 MG TABLET PO SCH (19:32)
--- NOTE | 2018-01-29 21:50 | PN ---
DATE: 01/28/2018 PSYCHIATRIC PROGRESS NOTE This late entry 01/28/2018 covers elements not covered in my initial note. SUBJECTIVE: I met with the patient in the evening in her room. The patient slept 7-1/2 hours previous night. She states Zander, her [id number], visited and they talked about her placement. She is still not convinced, she needs to transition to a placement and I addressed at length with her. REVIEW OF SYSTEMS: No CV, , pulmonary, eye, ENT system symptoms on review. MENTAL STATUS EXAM: Oriented to herself and situation. Speech coherent, abstraction fair, computation impaired, language function intact, attention span short. Mood and affect remain somewhat withdrawn. She is otherwise very pleasant, appreciative of the visit. LABORATORY DATA: Reviewed. IMPRESSION: Schizoaffective disorder, bipolar type, mixed anxiety disorder, unspecified. PLAN: No change from initial note. MANAS SHANKAR MD DR: ASHLEIGH/cali JOB#: [id number] / [id number]
--- NOTE | 2018-01-29 23:15 | PDOC ---
Exam Note: Arash Note: Please also refer to the separate dictated note~for this date of service dictated separately.~Patient seen individually. Discussed the patient with Nursing staff reviewed the chart.~Reviewed interim history and current functioning. Reviewed vital signs,~Labs/ Radiology~and current medications noted below. Continue current treatment with the changes noted in the dictated addendum note Assessment: Vital Signs: Vital Signs Date Time Temp Pulse Resp B/P (MAP) Pulse Ox O2 Delivery O2 Flow Rate FiO2 01/29/18 15:42 97.5 89 19 98/61 (73) 95 Room Air I&O Intake and Output 01/29/18 07:00 Intake Total 1800 ml Balance 1800 ml Intake Oral 1800 ml Labs: Laboratory Tests Test 01/29/18 07:53 Glucose (Fingerstick) 68 mg/dL (70-99) L Current Medications: Meds: Current Medications Acetaminophen (Tylenol) 650 mg PRN Q6HRS PRN PO PAIN / TEMP; Start 12/13/17 at 16:00 Multi-Ingredient Ointment (Analgesic [place]) 1 joey PRN QID PRN TP MUSCLE PAIN; Start 12/13/17 at 16:00 Al Hydroxide/Mg Hydroxide (Mylanta Plus Xs) 15 ml PRN AFTMEALHC PRN PO DYSPEPSIA Last administered on 12/13/17at 21:05; Start 12/13/17 at 16:00 Magnesium Hydroxide (Milk Of Magnesia) 2,400 mg PRN QHS PRN PO CONSTIPATION Last administered on 01/17/18at 14:15; Start 12/13/17 at 16:00 Clozapine (Clozaril) 300 mg DAILY PO Last administered on 12/14/17at 10:03; Start 12/14/17 at 09:00; Stop 12/14/17 at 10:27; Status DC Lorazepam (Ativan) 0.5 mg PRN Q6HRS PRN PO ANXIETY / AGITATION; Start 12/13/17 at 20:45 Atorvastatin Calcium (Lipitor) 20 mg QHS PO Last administered on 12/14/17at 20: 05; Start 12/13/17 at 21:00; Stop 12/15/17 at 15:00; Status DC Bethanechol Chloride (Urecholine) 25 mg QID PO Last administered on 01/29/18at 19:33; Start 12/13/17 at 21:00 Losartan Potassium (Cozaar) 50 mg DAILY PO Last administered on 12/29/17at 09:25 ; Start 12/14/17 at 09:00; Stop 12/31/17 at 12:28; Status DC Triamcinolone Acetonide (Kenalog) 15 joey BID TP Last administered on 12/25/17at 08:19; Start 12/13/17 at 21:00; Stop 12/26/17 at 12:12; Status DC Clotrimazole (Lotrimin) 1 joey BID TP Last administered on 12/25/17at 08:20; Start 12/13/17 at 21:00; Stop 12/26/17 at 12:12; Status DC Fenofibrate (Tricor) 48 mg DAILY PO Last administered on 01/29/18at 08:16; Start 12/14/17 at 09:00 Glipizide (Glucotrol Er) 5 mg DAILY08 PO Last administered on 12/15/17at 08:36; Start 12/14/17 at 08:00; Stop 12/15/17 at 14:58; Status DC Levetiracetam (Keppra) 1,000 mg BID PO Last administered on 01/29/18at 19:32; Start 12/13/17 at 21:00 Metformin HCl (Glucophage) 1,000 mg BIDWMEALS PO Last administered on at 16:59; Start 12/14/17 at 08:00 Metoprolol Succinate (Toprol Xl) 50 mg DAILY PO Last administered on at 08:22; Start 12/14/17 at 09:00 Pantoprazole Sodium (Protonix) 40 mg PRN DAILY PRN PO HEARTBURN / GAS; Start at 07:30 Phenytoin Sodium (Dilantin) 100 mg Q8HRS PO Last administered on 01/17/18at 13: 56; Start 12/13/17 at 22:00; Stop 01/17/18 at 17:44; Status DC Clozapine (Clozaril) 300 mg QHS PO Last administered on 12/18/17at 20:31; Start 12/14/17 at 21:00; Stop 12/19/17 at 17:05; Status DC Divalproex Sodium (Depakote Er) 500 mg QHS PO Last administered on 12/16/17 20 :29; Start 12/14/17 at 21:00; Stop 12/17/17 at 18:41; Status DC Glipizide (Glucotrol Er) 10 mg DAILY08 PO Last administered on 01/29/18 08:13 ; Start 12/16/17 at 08:00 Vitamin D (Vitamin D3) 50,000 unit WEEKLY PO Last administered on 01/27/18 08 :15; Start 12/16/17 at 09:00 Cephalexin HCl (Keflex) 500 mg BID PO Last administered on 12/25/17 08:13; Start 12/15/17 at 21:00; Stop 12/25/17 at 20:59; Status DC Atorvastatin Calcium (Lipitor) 40 mg QHS PO Last administered on 01/29/18 19: 32; Start 12/15/17 at 21:00 Lactobacillus Rhamnosus (Culturelle) 1 cap BID PO Last administered on 08:42; Start 12/16/17 at 09:00; Stop 12/30/17 at 18:01; Status DC Divalproex Sodium (Depakote Er) 1,000 mg QHS PO Last administered on 19:31; Start 12/17/17 at 21:00 Clozapine (Clozaril) 300 mg QHS PO Last administered on 01/29/18 19:31; Start 12/19/17 at 21:00 Clozapine (Clozaril) 25 mg QHS PO Last administered on 01/29/18 19:31; Start 12/19/17 at 21:00 Ondansetron HCl (Zofran Odt) 4 mg PRN Q8HRS PRN PO NAUSEA/VOMITING Last administered on 12/22/17at 05:50; Start 12/22/17 at 00:30 Docusate Sodium (Colace) 100 mg PRN DAILY PRN PO CONSTIPATION Last administered on 12/30/17 19:25; Start 12/29/17 at 09:30 Influenza Virus Vaccine (Afluria Trivalent [id number] Syringe) 0.5 ml ONCE ONCE VAX IM Last administered on 12/31/17at 11:39; Start 12/31/17 at 09:00; Stop at 09:01; Status DC Losartan Potassium (Cozaar) 25 mg DAILY PO Last administered on 01/29/18at 08: 21; Start 01/01/18 at 09:00 Nystatin (Nystop) 1 joey PRN BID PRN TP RASH Last administered on 01/12/18at 10: 12; Start 01/12/18 at 07:30 Phenytoin Sodium (Dilantin) 200 mg Q12H PO Last administered on 01/22/18at 09: 18; Start 01/18/18 at 02:00; Stop 01/22/18 at 12:04; Status DC Phenytoin Sodium (Dilantin) 200 mg Q12H PO Last administered on 01/29/18at 19: 34; Start 01/22/18 at 21:00 Active Scripts Active Reported Shingrix Vial Kit (Varicella-Zoster Ge/As01b/Pf) 50 Mcg/0.5 Ml Kit 50 Mcg IM Zostavax Vial (Zoster Vaccine Live/Pf) 19,400 Unit/0.65 Ml Vial 19,400 Unit SQ Triamcinolone Acetonide 15 Gm Cream..g. 15 Gm TP BID Pantoprazole Sodium 40 Mg Tablet.dr 40 Mg PO PRN DAILY PRN Losartan Potassium 50 Mg Tablet 50 Mg PO DAILY Glipizide 5 Mg Tablet 5 Mg PO DAILY Tricor (Fenofibrate Nanocrystallized) 48 Mg Tablet 48 Mg PO DAILY Doxazosin Mesylate 4 Mg Tablet 4 Mg PO Lotrimin Af (Clotrimazole) 12 Gm Cream..g. 12 Gm TP BID Bethanechol Chloride 25 Mg Tablet 25 Mg PO QID Metoprolol Succinate ( Xl ) (Metoprolol Succinate) 50 Mg Tab.er.24h 50 Mg PO DAILY Metformin Hcl 1,000 Mg Tablet 1,000 Mg PO BID Clozaril (Clozapine) 100 Mg Tablet 300 Mg PO DAILY Dilantin (Phenytoin Sodium Extended) 100 Mg Capsule 100 Mg PO Q8HRS Lorazepam 0.5 Mg Tablet 0.5 Mg PO PRN Q6HRS PRN MDD 2mg Keppra (Levetiracetam) 1,000 Mg Tablet 1,000 Mg PO BID Lipitor (Atorvastatin Calcium) 20 Mg Tablet 20 Mg PO QHS I have reviewed the current psychotropics carefully including drug interactions. Risk benefit ratio favors no change other than as noted in my dictated progress note. Diagnosis: Problems: (1) Anxiety disorder (2) Bipolar affective, mixed, sev w/ psych (3) Schizoaffective disorder, chronic condition with acute exacerbation MANAS SHANKAR MD Jan 29, 2018 23:15
[2018-01-30 06:36] VITALS: BP 98/68
[2018-01-30] MEDS: METOPROLOL SUCC 24HR ER 50 MG TAB.ER.24H. PO SCH (09:00)
[2018-01-30] MEDS: LOSARTAN 25 MG TABLET. PO SCH (09:00)
[2018-01-30] MEDS: metFORMIN 500 MG TABLET PO SCH ×2 (10:03→17:11)
[2018-01-30] MEDS: PHENYTOIN SODIUM EXTENDED 100 MG CAPSULE PO SCH ×2 (10:04→19:36)
[2018-01-30] MEDS: levETIRAcetam 500 MG TABLET PO SCH ×2 (10:05→19:37)
[2018-01-30] MEDS: BETHANECHOL CHLORIDE 25 MG TABLET PO SCH ×4 (10:06→19:37)
[2018-01-30] MEDS: FENOFIBRATE NANOCRYSTALLIZED 48 MG TABLET PO SCH (10:06)
[2018-01-30 16:09] VITALS: BP 118/69
[2018-01-30] MEDS: cloZAPine 25 MG TABLET PO SCH (19:35)
[2018-01-30] MEDS: cloZAPine 100 MG TABLET PO SCH (19:35)
[2018-01-30] MEDS: DIVALPROEX ER 500 MG TAB.ER.24H PO SCH (19:36)
[2018-01-30] MEDS: ATORVASTATIN CALCIUM 20 MG TABLET PO SCH (19:37)
--- NOTE | 2018-01-30 21:47 | PN ---
DATE: 01/29/2018 PSYCHIATRIC PROGRESS NOTE This late entry 01/29/2018 covers the elements not covered in my initial note. SUBJECTIVE: I met with the patient in the evening. The patient slept 7-3/4 hours previous night. Previous night, she put herself on the floor at 4:00 a.m., defecated on the toilet. Stated that she could not help herself, appeared helpless. Nursing staff redirected her and she was able to get back to doing things herself. REVIEW OF SYSTEMS: No CV, , pulmonary, eye, ENT system symptoms on review. MENTAL STATUS EXAM: Oriented to herself reasonably. Speech is coherent. She stays withdrawn in her room, which is where I met with her. Abstraction fair. Computation, able to do two steps on serial sevens, remember 2 or 3 objects at 3 minutes. No suicidal or homicidal ideation. We discussed transition to nursing facility. She is resistive to this, but reluctantly seems to agree. LABORATORY DATA: Reviewed. IMPRESSION: Schizoaffective disorder, bipolar type, mixed with psychotic features, in partial remission; anxiety disorder, unspecified. Rest unchanged. PLAN: No change from initial note. Absolute neutrophil count is unremarkable and we will continue Clozaril at the current dosage 325 mg at bedtime. MANAS SHANKAR MD DR: ASHLEIGH/cali JOB#: [id number] / [id number]
--- NOTE | 2018-01-30 23:14 | PDOC ---
Exam Note: Arash Note: Please also refer to the separate dictated note~for this date of service dictated separately.~Patient seen individually. Discussed the patient with Nursing staff reviewed the chart.~Reviewed interim history and current functioning. Reviewed vital signs,~Labs/ Radiology~and current medications noted below. Continue current treatment with the changes noted in the dictated addendum note Assessment: Vital Signs: Vital Signs Date Time Temp Pulse Resp B/P (MAP) Pulse Ox O2 Delivery O2 Flow Rate FiO2 01/30/18 16:09 97.5 99 19 118/69 (85) 95 Room Air I&O Intake and Output 01/30/18 07:00 Intake Total 4940 ml Balance 4940 ml Intake Oral 4940 ml # Voids 1 Labs: Laboratory Tests Test 01/30/18 07:30 Glucose (Fingerstick) 82 mg/dL (70-99) Current Medications: Meds: Current Medications Acetaminophen (Tylenol) 650 mg PRN Q6HRS PRN PO PAIN / TEMP; Start 12/13/17 at 16:00 Multi-Ingredient Ointment (Analgesic [place]) 1 joey PRN QID PRN TP MUSCLE PAIN; Start 12/13/17 at 16:00 Al Hydroxide/Mg Hydroxide (Mylanta Plus Xs) 15 ml PRN AFTMEALHC PRN PO DYSPEPSIA Last administered on 12/13/17at 21:05; Start 12/13/17 at 16:00 Magnesium Hydroxide (Milk Of Magnesia) 2,400 mg PRN QHS PRN PO CONSTIPATION Last administered on 01/17/18at 14:15; Start 12/13/17 at 16:00 Clozapine (Clozaril) 300 mg DAILY PO Last administered on 12/14/17at 10:03; Start 12/14/17 at 09:00; Stop 12/14/17 at 10:27; Status DC Lorazepam (Ativan) 0.5 mg PRN Q6HRS PRN PO ANXIETY / AGITATION; Start 12/13/17 at 20:45 Atorvastatin Calcium (Lipitor) 20 mg QHS PO Last administered on 12/14/17at 20: 05; Start 12/13/17 at 21:00; Stop 12/15/17 at 15:00; Status DC Bethanechol Chloride (Urecholine) 25 mg QID PO Last administered on 01/30/18at 19:37; Start 12/13/17 at 21:00 Losartan Potassium (Cozaar) 50 mg DAILY PO Last administered on 12/29/17at 09:25 ; Start 12/14/17 at 09:00; Stop 12/31/17 at 12:28; Status DC Triamcinolone Acetonide (Kenalog) 15 joey BID TP Last administered on 12/25/17at 08:19; Start 12/13/17 at 21:00; Stop 12/26/17 at 12:12; Status DC Clotrimazole (Lotrimin) 1 joey BID TP Last administered on 12/25/17at 08:20; Start 12/13/17 at 21:00; Stop 12/26/17 at 12:12; Status DC Fenofibrate (Tricor) 48 mg DAILY PO Last administered on 01/30/18at 10:06; Start 12/14/17 at 09:00 Glipizide (Glucotrol Er) 5 mg DAILY08 PO Last administered on 12/15/17at 08:36; Start 12/14/17 at 08:00; Stop 12/15/17 at 14:58; Status DC Levetiracetam (Keppra) 1,000 mg BID PO Last administered on 01/30/18at 19:37; Start 12/13/17 at 21:00 Metformin HCl (Glucophage) 1,000 mg BIDWMEALS PO Last administered on at 17:11; Start 12/14/17 at 08:00 Metoprolol Succinate (Toprol Xl) 50 mg DAILY PO Last administered on at 08:22; Start 12/14/17 at 09:00 Pantoprazole Sodium (Protonix) 40 mg PRN DAILY PRN PO HEARTBURN / GAS; Start at 07:30 Phenytoin Sodium (Dilantin) 100 mg Q8HRS PO Last administered on 01/17/18at 13: 56; Start 12/13/17 at 22:00; Stop 01/17/18 at 17:44; Status DC Clozapine (Clozaril) 300 mg QHS PO Last administered on 12/18/17at 20:31; Start 12/14/17 at 21:00; Stop 12/19/17 at 17:05; Status DC Divalproex Sodium (Depakote Er) 500 mg QHS PO Last administered on 12/16/17 20 :29; Start 12/14/17 at 21:00; Stop 12/17/17 at 18:41; Status DC Glipizide (Glucotrol Er) 10 mg DAILY08 PO Last administered on 01/30/18 10:03 ; Start 12/16/17 at 08:00 Vitamin D (Vitamin D3) 50,000 unit WEEKLY PO Last administered on 01/27/18at 08 :15; Start 12/16/17 at 09:00 Cephalexin HCl (Keflex) 500 mg BID PO Last administered on 12/25/17 08:13; Start 12/15/17 at 21:00; Stop 12/25/17 at 20:59; Status DC Atorvastatin Calcium (Lipitor) 40 mg QHS PO Last administered on 01/30/18 19: 37; Start 12/15/17 at 21:00 Lactobacillus Rhamnosus (Culturelle) 1 cap BID PO Last administered on at 08:42; Start 12/16/17 at 09:00; Stop 12/30/17 at 18:01; Status DC Divalproex Sodium (Depakote Er) 1,000 mg QHS PO Last administered on 19:36; Start 12/17/17 at 21:00 Clozapine (Clozaril) 300 mg QHS PO Last administered on 01/30/18 19:35; Start 12/19/17 at 21:00 Clozapine (Clozaril) 25 mg QHS PO Last administered on 01/30/18 19:35; Start 12/19/17 at 21:00 Ondansetron HCl (Zofran Odt) 4 mg PRN Q8HRS PRN PO NAUSEA/VOMITING Last administered on 12/22/17at 05:50; Start 12/22/17 at 00:30 Docusate Sodium (Colace) 100 mg PRN DAILY PRN PO CONSTIPATION Last administered on 12/30/17 19:25; Start 12/29/17 at 09:30 Influenza Virus Vaccine (Afluria Trivalent [id number] Syringe) 0.5 ml ONCE ONCE VAX IM Last administered on 12/31/17at 11:39; Start 12/31/17 at 09:00; Stop at 09:01; Status DC Losartan Potassium (Cozaar) 25 mg DAILY PO Last administered on 01/29/18at 08: 21; Start 01/01/18 at 09:00 Nystatin (Nystop) 1 joey PRN BID PRN TP RASH Last administered on 01/12/18at 10: 12; Start 01/12/18 at 07:30 Phenytoin Sodium (Dilantin) 200 mg Q12H PO Last administered on 01/22/18at 09: 18; Start 01/18/18 at 02:00; Stop 01/22/18 at 12:04; Status DC Phenytoin Sodium (Dilantin) 200 mg Q12H PO Last administered on 01/30/18at 19: 36; Start 01/22/18 at 21:00 Active Scripts Active Reported Shingrix Vial Kit (Varicella-Zoster Ge/As01b/Pf) 50 Mcg/0.5 Ml Kit 50 Mcg IM Zostavax Vial (Zoster Vaccine Live/Pf) 19,400 Unit/0.65 Ml Vial 19,400 Unit SQ Triamcinolone Acetonide 15 Gm Cream..g. 15 Gm TP BID Pantoprazole Sodium 40 Mg Tablet.dr 40 Mg PO PRN DAILY PRN Losartan Potassium 50 Mg Tablet 50 Mg PO DAILY Glipizide 5 Mg Tablet 5 Mg PO DAILY Tricor (Fenofibrate Nanocrystallized) 48 Mg Tablet 48 Mg PO DAILY Doxazosin Mesylate 4 Mg Tablet 4 Mg PO Lotrimin Af (Clotrimazole) 12 Gm Cream..g. 12 Gm TP BID Bethanechol Chloride 25 Mg Tablet 25 Mg PO QID Metoprolol Succinate ( Xl ) (Metoprolol Succinate) 50 Mg Tab.er.24h 50 Mg PO DAILY Metformin Hcl 1,000 Mg Tablet 1,000 Mg PO BID Clozaril (Clozapine) 100 Mg Tablet 300 Mg PO DAILY Dilantin (Phenytoin Sodium Extended) 100 Mg Capsule 100 Mg PO Q8HRS Lorazepam 0.5 Mg Tablet 0.5 Mg PO PRN Q6HRS PRN MDD 2mg Keppra (Levetiracetam) 1,000 Mg Tablet 1,000 Mg PO BID Lipitor (Atorvastatin Calcium) 20 Mg Tablet 20 Mg PO QHS I have reviewed the current psychotropics carefully including drug interactions. Risk benefit ratio favors no change other than as noted in my dictated progress note. Diagnosis: Problems: (1) Anxiety disorder (2) Bipolar affective, mixed, sev w/ psych (3) Schizoaffective disorder, chronic condition with acute exacerbation MANAS SHANKAR MD Jan 30, 2018 23:14
[2018-01-31 05:53] VITALS: BP 103/68
[2018-01-31] MEDS: metFORMIN 500 MG TABLET PO SCH ×2 (08:23→17:53)
[2018-01-31] MEDS: PHENYTOIN SODIUM EXTENDED 100 MG CAPSULE PO SCH ×2 (08:23→19:31)
[2018-01-31] MEDS: LOSARTAN 25 MG TABLET. PO SCH (08:24)
[2018-01-31] MEDS: levETIRAcetam 500 MG TABLET PO SCH ×2 (08:24→19:29)
[2018-01-31] MEDS: METOPROLOL SUCC 24HR ER 50 MG TAB.ER.24H. PO SCH (08:24)
[2018-01-31] MEDS: FENOFIBRATE NANOCRYSTALLIZED 48 MG TABLET PO SCH (08:25)
[2018-01-31] MEDS: BETHANECHOL CHLORIDE 25 MG TABLET PO SCH ×4 (08:26→19:29)
[2018-01-31 16:40] VITALS: BP 91/66
[2018-01-31] MEDS: DIVALPROEX ER 500 MG TAB.ER.24H PO SCH (19:28)
[2018-01-31] MEDS: ATORVASTATIN CALCIUM 20 MG TABLET PO SCH (19:29)
[2018-01-31] MEDS: cloZAPine 100 MG TABLET PO SCH (19:30)
[2018-01-31] MEDS: cloZAPine 25 MG TABLET PO SCH (19:30)
--- NOTE | 2018-01-31 22:29 | PN ---
DATE: 01/30/2018 PSYCHIATRIC PROGRESS NOTE This late entry 01/30/2018 covers elements not covered in my initial note. SUBJECTIVE: I met with the patient in the evening. The patient slept 8 hours previous night. The patient remains withdrawn, spends much time in her room, not convinced she needs to go to a long-term. I spent quite a bit of time discussing this with her once again. No CV, , pulmonary, eye, ENT system symptoms on review. MENTAL STATUS EXAM: Reasonably oriented. Speech coherent, has some latency, often responses monosyllabic, pleasant, verbal. Abstraction fair, computation impaired, language function intact. Mood and affect somewhat withdrawn. LABORATORY DATA: Reviewed. IMPRESSION: Bipolar 1 disorder, mixed versus depressed with psychotic features in partial remission. Rest unchanged. PLAN: No change from initial note. Valproic acid level therapeutic at 64. MAN Maikel SHANKAR MD DR: ASHLEIGH/cali JOB#: [id number] / [id number]
--- NOTE | 2018-01-31 23:28 | PDOC ---
Exam Note: Arash Note: Please also refer to the separate dictated note~for this date of service dictated separately.~Patient seen individually. Discussed the patient with Nursing staff reviewed the chart.~Reviewed interim history and current functioning. Reviewed vital signs,~Labs/ Radiology~and current medications noted below. Continue current treatment with the changes noted in the dictated addendum note Assessment: Vital Signs: Vital Signs Date Time Temp Pulse Resp B/P (MAP) Pulse Ox O2 Delivery O2 Flow Rate FiO2 01/31/18 16:40 97.5 93 18 91/66 (74) 96 01/30/18 16:09 Room Air I&O Intake and Output 01/31/18 07:00 Intake Total 2480 ml Balance 2480 ml Intake Oral 2480 ml # Bowel Movements 1 Labs: Laboratory Tests Test 01/31/18 07:17 Glucose (Fingerstick) 75 mg/dL (70-99) Current Medications: Meds: Current Medications Acetaminophen (Tylenol) 650 mg PRN Q6HRS PRN PO PAIN / TEMP; Start 12/13/17 at 16:00 Multi-Ingredient Ointment (Analgesic [place]) 1 joey PRN QID PRN TP MUSCLE PAIN; Start 12/13/17 at 16:00 Al Hydroxide/Mg Hydroxide (Mylanta Plus Xs) 15 ml PRN AFTMEALHC PRN PO DYSPEPSIA Last administered on 12/13/17at 21:05; Start 12/13/17 at 16:00 Magnesium Hydroxide (Milk Of Magnesia) 2,400 mg PRN QHS PRN PO CONSTIPATION Last administered on 01/17/18at 14:15; Start 12/13/17 at 16:00 Clozapine (Clozaril) 300 mg DAILY PO Last administered on 12/14/17at 10:03; Start 12/14/17 at 09:00; Stop 12/14/17 at 10:27; Status DC Lorazepam (Ativan) 0.5 mg PRN Q6HRS PRN PO ANXIETY / AGITATION; Start 12/13/17 at 20:45 Atorvastatin Calcium (Lipitor) 20 mg QHS PO Last administered on 12/14/17at 20: 05; Start 12/13/17 at 21:00; Stop 12/15/17 at 15:00; Status DC Bethanechol Chloride (Urecholine) 25 mg QID PO Last administered on 01/31/18 19:29; Start 12/13/17 at 21:00 Losartan Potassium (Cozaar) 50 mg DAILY PO Last administered on 12/29/17 09:25 ; Start 12/14/17 at 09:00; Stop 12/31/17 at 12:28; Status DC Triamcinolone Acetonide (Kenalog) 15 joey BID TP Last administered on 12/25/17 08:19; Start 12/13/17 at 21:00; Stop 12/26/17 at 12:12; Status DC Clotrimazole (Lotrimin) 1 joey BID TP Last administered on 12/25/17 08:20; Start 12/13/17 at 21:00; Stop 12/26/17 at 12:12; Status DC Fenofibrate (Tricor) 48 mg DAILY PO Last administered on 01/31/18at 08:25; Start 12/14/17 at 09:00 Glipizide (Glucotrol Er) 5 mg DAILY08 PO Last administered on 12/15/17at 08:36; Start 12/14/17 at 08:00; Stop 12/15/17 at 14:58; Status DC Levetiracetam (Keppra) 1,000 mg BID PO Last administered on 01/31/18 19:29; Start 12/13/17 at 21:00 Metformin HCl (Glucophage) 1,000 mg BIDWMEALS PO Last administered on at 17:53; Start 12/14/17 at 08:00 Metoprolol Succinate (Toprol Xl) 50 mg DAILY PO Last administered on at 08:24; Start 12/14/17 at 09:00 Pantoprazole Sodium (Protonix) 40 mg PRN DAILY PRN PO HEARTBURN / GAS; Start at 07:30 Phenytoin Sodium (Dilantin) 100 mg Q8HRS PO Last administered on 01/17/18at 13: 56; Start 12/13/17 at 22:00; Stop 01/17/18 at 17:44; Status DC Clozapine (Clozaril) 300 mg QHS PO Last administered on 12/18/17at 20:31; Start 12/14/17 at 21:00; Stop 12/19/17 at 17:05; Status DC Divalproex Sodium (Depakote Er) 500 mg QHS PO Last administered on 12/16/17 20 :29; Start 12/14/17 at 21:00; Stop 12/17/17 at 18:41; Status DC Glipizide (Glucotrol Er) 10 mg DAILY08 PO Last administered on 01/31/18 08:24 ; Start 12/16/17 at 08:00 Vitamin D (Vitamin D3) 50,000 unit WEEKLY PO Last administered on 01/27/18 08 :15; Start 12/16/17 at 09:00 Cephalexin HCl (Keflex) 500 mg BID PO Last administered on 12/25/17 08:13; Start 12/15/17 at 21:00; Stop 12/25/17 at 20:59; Status DC Atorvastatin Calcium (Lipitor) 40 mg QHS PO Last administered on 01/31/18 19: 29; Start 12/15/17 at 21:00 Lactobacillus Rhamnosus (Culturelle) 1 cap BID PO Last administered on 08:42; Start 12/16/17 at 09:00; Stop 12/30/17 at 18:01; Status DC Divalproex Sodium (Depakote Er) 1,000 mg QHS PO Last administered on 19:28; Start 12/17/17 at 21:00 Clozapine (Clozaril) 300 mg QHS PO Last administered on 01/31/18 19:30; Start 12/19/17 at 21:00 Clozapine (Clozaril) 25 mg QHS PO Last administered on 01/31/18 19:30; Start 12/19/17 at 21:00 Ondansetron HCl (Zofran Odt) 4 mg PRN Q8HRS PRN PO NAUSEA/VOMITING Last administered on 12/22/17at 05:50; Start 12/22/17 at 00:30 Docusate Sodium (Colace) 100 mg PRN DAILY PRN PO CONSTIPATION Last administered on 12/30/17 19:25; Start 12/29/17 at 09:30 Influenza Virus Vaccine (Afluria Trivalent [id number] Syringe) 0.5 ml ONCE ONCE VAX IM Last administered on 12/31/17at 11:39; Start 12/31/17 at 09:00; Stop at 09:01; Status DC Losartan Potassium (Cozaar) 25 mg DAILY PO Last administered on 01/31/18at 08: 24; Start 01/01/18 at 09:00 Nystatin (Nystop) 1 joey PRN BID PRN TP RASH Last administered on 01/12/18at 10: 12; Start 01/12/18 at 07:30 Phenytoin Sodium (Dilantin) 200 mg Q12H PO Last administered on 01/22/18at 09: 18; Start 01/18/18 at 02:00; Stop 01/22/18 at 12:04; Status DC Phenytoin Sodium (Dilantin) 200 mg Q12H PO Last administered on 01/31/18at 19: 31; Start 01/22/18 at 21:00 Active Scripts Active Reported Shingrix Vial Kit (Varicella-Zoster Ge/As01b/Pf) 50 Mcg/0.5 Ml Kit 50 Mcg IM Zostavax Vial (Zoster Vaccine Live/Pf) 19,400 Unit/0.65 Ml Vial 19,400 Unit SQ Triamcinolone Acetonide 15 Gm Cream..g. 15 Gm TP BID Pantoprazole Sodium 40 Mg Tablet.dr 40 Mg PO PRN DAILY PRN Losartan Potassium 50 Mg Tablet 50 Mg PO DAILY Glipizide 5 Mg Tablet 5 Mg PO DAILY Tricor (Fenofibrate Nanocrystallized) 48 Mg Tablet 48 Mg PO DAILY Doxazosin Mesylate 4 Mg Tablet 4 Mg PO Lotrimin Af (Clotrimazole) 12 Gm Cream..g. 12 Gm TP BID Bethanechol Chloride 25 Mg Tablet 25 Mg PO QID Metoprolol Succinate ( Xl ) (Metoprolol Succinate) 50 Mg Tab.er.24h 50 Mg PO DAILY Metformin Hcl 1,000 Mg Tablet 1,000 Mg PO BID Clozaril (Clozapine) 100 Mg Tablet 300 Mg PO DAILY Dilantin (Phenytoin Sodium Extended) 100 Mg Capsule 100 Mg PO Q8HRS Lorazepam 0.5 Mg Tablet 0.5 Mg PO PRN Q6HRS PRN MDD 2mg Keppra (Levetiracetam) 1,000 Mg Tablet 1,000 Mg PO BID Lipitor (Atorvastatin Calcium) 20 Mg Tablet 20 Mg PO QHS I have reviewed the current psychotropics carefully including drug interactions. Risk benefit ratio favors no change other than as noted in my dictated progress note. Diagnosis: Problems: (1) Anxiety disorder (2) Bipolar affective, mixed, sev w/ psych (3) Schizoaffective disorder, chronic condition with acute exacerbation MANAS SHANKAR MD Jan 31, 2018 23:28
[2018-02-01 05:50] VITALS: BP 108/73
[2018-02-01] MEDS: PHENYTOIN SODIUM EXTENDED 100 MG CAPSULE PO SCH ×2 (07:54→20:00)
[2018-02-01] MEDS: levETIRAcetam 500 MG TABLET PO SCH ×2 (07:55→19:59)
[2018-02-01] MEDS: metFORMIN 500 MG TABLET PO SCH ×2 (07:55→16:44)
[2018-02-01] MEDS: METOPROLOL SUCC 24HR ER 50 MG TAB.ER.24H. PO SCH (07:55)
[2018-02-01] MEDS: LOSARTAN 25 MG TABLET. PO SCH (07:56)
[2018-02-01] MEDS: BETHANECHOL CHLORIDE 25 MG TABLET PO SCH ×4 (07:58→20:00)
[2018-02-01] MEDS: FENOFIBRATE NANOCRYSTALLIZED 48 MG TABLET PO SCH (07:59)
[2018-02-01 16:14] VITALS: BP 99/65
[2018-02-01] MEDS: cloZAPine 100 MG TABLET PO SCH (20:00)
[2018-02-01] MEDS: cloZAPine 25 MG TABLET PO SCH (20:00)
[2018-02-01] MEDS: DIVALPROEX ER 500 MG TAB.ER.24H PO SCH (20:01)
[2018-02-01] MEDS: ATORVASTATIN CALCIUM 20 MG TABLET PO SCH (20:01)
--- NOTE | 2018-02-01 21:33 | PN ---
DATE: 01/31/2018 PSYCHIATRIC PROGRESS NOTE This late entry 01/31/2018 covers elements not covered in my initial note. SUBJECTIVE: I met with the patient in the evening in her room. She slept 8 hours previous night. Remain somewhat withdrawn, but not psychotic. REVIEW OF SYSTEMS: No CV, , pulmonary, eye, ENT system symptoms on review. MENTAL STATUS EXAM: Reasonably oriented. Speech is coherent, abstraction fair, computation impaired, language function intact. Mood and affect withdrawn at times, but no clear psychotic symptoms. LABORATORY DATA: Reviewed. IMPRESSION: Schizoaffective disorder, bipolar type, mixed anxiety disorder, unspecified. Rest unchanged. PLAN: No change from initial note. I have informed the social service staff that she can be transitioned to a lower level of care as soon as one is arranged for her. MAN Maikel SHANKAR MD DR: ASHLEIGH/cali JOB#: [id number] / [id number]
--- NOTE | 2018-02-01 23:16 | PDOC ---
Exam Note: Arash Note: Please also refer to the separate dictated note~for this date of service dictated separately.~Patient seen individually. Discussed the patient with Nursing staff reviewed the chart.~Reviewed interim history and current functioning. Reviewed vital signs,~Labs/ Radiology~and current medications noted below. Continue current treatment with the changes noted in the dictated addendum note Assessment: Vital Signs: Vital Signs Date Time Temp Pulse Resp B/P (MAP) Pulse Ox O2 Delivery O2 Flow Rate FiO2 02/01/18 16:14 97.2 87 19 99/65 (76) 96 Room Air I&O Intake and Output 02/01/18 07:00 Intake Total 1440 ml Balance 1440 ml Intake Oral 1440 ml Labs: Laboratory Tests Test 02/01/18 07:23 Glucose (Fingerstick) 64 mg/dL (70-99) L Current Medications: Meds: Current Medications Acetaminophen (Tylenol) 650 mg PRN Q6HRS PRN PO PAIN / TEMP; Start 12/13/17 at 16:00 Multi-Ingredient Ointment (Analgesic [place]) 1 joey PRN QID PRN TP MUSCLE PAIN; Start 12/13/17 at 16:00 Al Hydroxide/Mg Hydroxide (Mylanta Plus Xs) 15 ml PRN AFTMEALHC PRN PO DYSPEPSIA Last administered on 12/13/17at 21:05; Start 12/13/17 at 16:00 Magnesium Hydroxide (Milk Of Magnesia) 2,400 mg PRN QHS PRN PO CONSTIPATION Last administered on 01/17/18at 14:15; Start 12/13/17 at 16:00 Clozapine (Clozaril) 300 mg DAILY PO Last administered on 12/14/17at 10:03; Start 12/14/17 at 09:00; Stop 12/14/17 at 10:27; Status DC Lorazepam (Ativan) 0.5 mg PRN Q6HRS PRN PO ANXIETY / AGITATION; Start 12/13/17 at 20:45 Atorvastatin Calcium (Lipitor) 20 mg QHS PO Last administered on 12/14/17at 20: 05; Start 12/13/17 at 21:00; Stop 12/15/17 at 15:00; Status DC Bethanechol Chloride (Urecholine) 25 mg QID PO Last administered on 02/01/18at 20:00; Start 12/13/17 at 21:00 Losartan Potassium (Cozaar) 50 mg DAILY PO Last administered on 12/29/17at 09:25 ; Start 12/14/17 at 09:00; Stop 12/31/17 at 12:28; Status DC Triamcinolone Acetonide (Kenalog) 15 joey BID TP Last administered on 12/25/17at 08:19; Start 12/13/17 at 21:00; Stop 12/26/17 at 12:12; Status DC Clotrimazole (Lotrimin) 1 joey BID TP Last administered on 12/25/17at 08:20; Start 12/13/17 at 21:00; Stop 12/26/17 at 12:12; Status DC Fenofibrate (Tricor) 48 mg DAILY PO Last administered on 02/01/18at 07:59; Start 12/14/17 at 09:00 Glipizide (Glucotrol Er) 5 mg DAILY08 PO Last administered on 12/15/17at 08:36; Start 12/14/17 at 08:00; Stop 12/15/17 at 14:58; Status DC Levetiracetam (Keppra) 1,000 mg BID PO Last administered on 02/01/18at 19:59; Start 12/13/17 at 21:00 Metformin HCl (Glucophage) 1,000 mg BIDWMEALS PO Last administered on at 16:44; Start 12/14/17 at 08:00 Metoprolol Succinate (Toprol Xl) 50 mg DAILY PO Last administered on 02/01/18at 07:55; Start 12/14/17 at 09:00 Pantoprazole Sodium (Protonix) 40 mg PRN DAILY PRN PO HEARTBURN / GAS; Start at 07:30 Phenytoin Sodium (Dilantin) 100 mg Q8HRS PO Last administered on 01/17/18at 13: 56; Start 12/13/17 at 22:00; Stop 01/17/18 at 17:44; Status DC Clozapine (Clozaril) 300 mg QHS PO Last administered on 12/18/17at 20:31; Start 12/14/17 at 21:00; Stop 12/19/17 at 17:05; Status DC Divalproex Sodium (Depakote Er) 500 mg QHS PO Last administered on 12/16/17 20 :29; Start 12/14/17 at 21:00; Stop 12/17/17 at 18:41; Status DC Glipizide (Glucotrol Er) 10 mg DAILY08 PO Last administered on 02/01/18at 07:55 ; Start 12/16/17 at 08:00 Vitamin D (Vitamin D3) 50,000 unit WEEKLY PO Last administered on 01/27/18at 08 :15; Start 12/16/17 at 09:00 Cephalexin HCl (Keflex) 500 mg BID PO Last administered on 12/25/17at 08:13; Start 12/15/17 at 21:00; Stop 12/25/17 at 20:59; Status DC Atorvastatin Calcium (Lipitor) 40 mg QHS PO Last administered on 02/01/18at 20: 01; Start 12/15/17 at 21:00 Lactobacillus Rhamnosus (Culturelle) 1 cap BID PO Last administered on at 08:42; Start 12/16/17 at 09:00; Stop 12/30/17 at 18:01; Status DC Divalproex Sodium (Depakote Er) 1,000 mg QHS PO Last administered on 02/01/18 20:01; Start 12/17/17 at 21:00 Clozapine (Clozaril) 300 mg QHS PO Last administered on 02/01/18at 20:00; Start 12/19/17 at 21:00 Clozapine (Clozaril) 25 mg QHS PO Last administered on 02/01/18at 20:00; Start 12/19/17 at 21:00 Ondansetron HCl (Zofran Odt) 4 mg PRN Q8HRS PRN PO NAUSEA/VOMITING Last administered on 12/22/17at 05:50; Start 12/22/17 at 00:30 Docusate Sodium (Colace) 100 mg PRN DAILY PRN PO CONSTIPATION Last administered on 12/30/17at 19:25; Start 12/29/17 at 09:30 Influenza Virus Vaccine (Afluria Trivalent [id number] Syringe) 0.5 ml ONCE ONCE VAX IM Last administered on 12/31/17at 11:39; Start 12/31/17 at 09:00; Stop at 09:01; Status DC Losartan Potassium (Cozaar) 25 mg DAILY PO Last administered on 02/01/18at 07:56 ; Start 01/01/18 at 09:00 Nystatin (Nystop) 1 joey PRN BID PRN TP RASH Last administered on 01/12/18at 10: 12; Start 01/12/18 at 07:30 Phenytoin Sodium (Dilantin) 200 mg Q12H PO Last administered on 01/22/18at 09: 18; Start 01/18/18 at 02:00; Stop 01/22/18 at 12:04; Status DC Phenytoin Sodium (Dilantin) 200 mg Q12H PO Last administered on 02/01/18at 20:00 ; Start 01/22/18 at 21:00 Active Scripts Active Reported Shingrix Vial Kit (Varicella-Zoster Ge/As01b/Pf) 50 Mcg/0.5 Ml Kit 50 Mcg IM Zostavax Vial (Zoster Vaccine Live/Pf) 19,400 Unit/0.65 Ml Vial 19,400 Unit SQ Triamcinolone Acetonide 15 Gm Cream..g. 15 Gm TP BID Pantoprazole Sodium 40 Mg Tablet.dr 40 Mg PO PRN DAILY PRN Losartan Potassium 50 Mg Tablet 50 Mg PO DAILY Glipizide 5 Mg Tablet 5 Mg PO DAILY Tricor (Fenofibrate Nanocrystallized) 48 Mg Tablet 48 Mg PO DAILY Doxazosin Mesylate 4 Mg Tablet 4 Mg PO Lotrimin Af (Clotrimazole) 12 Gm Cream..g. 12 Gm TP BID Bethanechol Chloride 25 Mg Tablet 25 Mg PO QID Metoprolol Succinate ( Xl ) (Metoprolol Succinate) 50 Mg Tab.er.24h 50 Mg PO DAILY Metformin Hcl 1,000 Mg Tablet 1,000 Mg PO BID Clozaril (Clozapine) 100 Mg Tablet 300 Mg PO DAILY Dilantin (Phenytoin Sodium Extended) 100 Mg Capsule 100 Mg PO Q8HRS Lorazepam 0.5 Mg Tablet 0.5 Mg PO PRN Q6HRS PRN MDD 2mg Keppra (Levetiracetam) 1,000 Mg Tablet 1,000 Mg PO BID Lipitor (Atorvastatin Calcium) 20 Mg Tablet 20 Mg PO QHS I have reviewed the current psychotropics carefully including drug interactions. Risk benefit ratio favors no change other than as noted in my dictated progress note. Diagnosis: Problems: (1) Anxiety disorder (2) Bipolar affective, mixed, sev w/ psych (3) Schizoaffective disorder, chronic condition with acute exacerbation MANAS SHANKAR MD Feb 01, 2018 23:16
[2018-02-02 06:21] VITALS: BP 149/88
[2018-02-02] MEDS: metFORMIN 500 MG TABLET PO SCH ×2 (07:48→17:00)
[2018-02-02] MEDS: levETIRAcetam 500 MG TABLET PO SCH ×2 (07:49→20:32)
[2018-02-02] MEDS: PHENYTOIN SODIUM EXTENDED 100 MG CAPSULE PO SCH ×2 (07:49→20:32)
[2018-02-02] MEDS: FENOFIBRATE NANOCRYSTALLIZED 48 MG TABLET PO SCH (07:49)
[2018-02-02] MEDS: METOPROLOL SUCC 24HR ER 50 MG TAB.ER.24H. PO SCH (07:49)
[2018-02-02] MEDS: BETHANECHOL CHLORIDE 25 MG TABLET PO SCH ×4 (07:49→20:32)
[2018-02-02] MEDS: LOSARTAN 25 MG TABLET. PO SCH (07:50)
[2018-02-02 15:54] VITALS: BP 104/74
[2018-02-02] MEDS: cloZAPine 100 MG TABLET PO SCH (20:31)
[2018-02-02] MEDS: cloZAPine 25 MG TABLET PO SCH (20:31)
[2018-02-02] MEDS: DIVALPROEX ER 500 MG TAB.ER.24H PO SCH (20:32)
[2018-02-02] MEDS: ATORVASTATIN CALCIUM 20 MG TABLET PO SCH (20:32)
--- NOTE | 2018-02-02 22:38 | PN ---
DATE: 02/01/2018 This late entry 02/01/2018 covers elements not covered in my initial note. SUBJECTIVE: I met with the patient in the evening. The patient was also staffed at a treatment team meeting with the entire team in the morning and [id number], Zander, attended the conference. The patient slept 8-1/2 hours previous night, remains withdrawn to her room, more accepting of her placement, but reluctantly so and we addressed this at length with Zander at the treatment team meeting. REVIEW OF SYSTEMS: No CV, , pulmonary, eye, ENT system symptoms on review as I met with her in her room in the evening. MENTAL STATUS EXAM: Reasonably oriented. Speech is coherent, has some latency. Abstraction fair, computation impaired, language function intact. Mood and affect remain somewhat withdrawn. LABORATORY DATA: Reviewed. IMPRESSION: Schizoaffective disorder, bipolar type, mixed with psychotic features, in partial remission. Rest unchanged. PLAN: No change from initial note. Gradually, we adjusted the Clozaril and she is therapeutic on the valproic acid level. MANAS SHANKAR MD DR: ASHLEIGH/cali JOB#: [id number] / [id number]
--- NOTE | 2018-02-02 23:13 | PDOC ---
Exam Note: Arash Note: Please also refer to the separate dictated note~for this date of service dictated separately.~Patient seen individually. Discussed the patient with Nursing staff reviewed the chart.~Reviewed interim history and current functioning. Reviewed vital signs,~Labs/ Radiology~and current medications noted below. Continue current treatment with the changes noted in the dictated addendum note Assessment: Vital Signs: Vital Signs Date Time Temp Pulse Resp B/P (MAP) Pulse Ox O2 Delivery O2 Flow Rate FiO2 02/02/18 15:54 97.6 90 20 104/74 (84) 93 Room Air I&O Intake and Output 02/02/18 07:00 Intake Total 1440 ml Balance 1440 ml Intake Oral 1440 ml # Voids 1 Labs: Laboratory Tests Test 02/02/18 07:09 Glucose (Fingerstick) 76 mg/dL (70-99) Current Medications: Meds: Current Medications Acetaminophen (Tylenol) 650 mg PRN Q6HRS PRN PO PAIN / TEMP; Start 12/13/17 at 16:00 Multi-Ingredient Ointment (Analgesic [place]) 1 joey PRN QID PRN TP MUSCLE PAIN; Start 12/13/17 at 16:00 Al Hydroxide/Mg Hydroxide (Mylanta Plus Xs) 15 ml PRN AFTMEALHC PRN PO DYSPEPSIA Last administered on 12/13/17at 21:05; Start 12/13/17 at 16:00 Magnesium Hydroxide (Milk Of Magnesia) 2,400 mg PRN QHS PRN PO CONSTIPATION Last administered on 01/17/18at 14:15; Start 12/13/17 at 16:00 Clozapine (Clozaril) 300 mg DAILY PO Last administered on 12/14/17at 10:03; Start 12/14/17 at 09:00; Stop 12/14/17 at 10:27; Status DC Lorazepam (Ativan) 0.5 mg PRN Q6HRS PRN PO ANXIETY / AGITATION; Start 12/13/17 at 20:45 Atorvastatin Calcium (Lipitor) 20 mg QHS PO Last administered on 12/14/17at 20: 05; Start 12/13/17 at 21:00; Stop 12/15/17 at 15:00; Status DC Bethanechol Chloride (Urecholine) 25 mg QID PO Last administered on 02/02/18at 20:32; Start 12/13/17 at 21:00 Losartan Potassium (Cozaar) 50 mg DAILY PO Last administered on 12/29/17at 09:25 ; Start 12/14/17 at 09:00; Stop 12/31/17 at 12:28; Status DC Triamcinolone Acetonide (Kenalog) 15 joey BID TP Last administered on 12/25/17at 08:19; Start 12/13/17 at 21:00; Stop 12/26/17 at 12:12; Status DC Clotrimazole (Lotrimin) 1 joey BID TP Last administered on 12/25/17at 08:20; Start 12/13/17 at 21:00; Stop 12/26/17 at 12:12; Status DC Fenofibrate (Tricor) 48 mg DAILY PO Last administered on 02/02/18at 07:49; Start 12/14/17 at 09:00 Glipizide (Glucotrol Er) 5 mg DAILY08 PO Last administered on 12/15/17at 08:36; Start 12/14/17 at 08:00; Stop 12/15/17 at 14:58; Status DC Levetiracetam (Keppra) 1,000 mg BID PO Last administered on 02/02/18at 20:32; Start 12/13/17 at 21:00 Metformin HCl (Glucophage) 1,000 mg BIDWMEALS PO Last administered on at 17:00; Start 12/14/17 at 08:00 Metoprolol Succinate (Toprol Xl) 50 mg DAILY PO Last administered on 02/02/18at 07:49; Start 12/14/17 at 09:00 Pantoprazole Sodium (Protonix) 40 mg PRN DAILY PRN PO HEARTBURN / GAS; Start at 07:30 Phenytoin Sodium (Dilantin) 100 mg Q8HRS PO Last administered on 01/17/18at 13: 56; Start 12/13/17 at 22:00; Stop 01/17/18 at 17:44; Status DC Clozapine (Clozaril) 300 mg QHS PO Last administered on 12/18/17at 20:31; Start 12/14/17 at 21:00; Stop 12/19/17 at 17:05; Status DC Divalproex Sodium (Depakote Er) 500 mg QHS PO Last administered on 12/16/17 20 :29; Start 12/14/17 at 21:00; Stop 12/17/17 at 18:41; Status DC Glipizide (Glucotrol Er) 10 mg DAILY08 PO Last administered on 02/02/18 07:49 ; Start 12/16/17 at 08:00 Vitamin D (Vitamin D3) 50,000 unit WEEKLY PO Last administered on 01/27/18at 08 :15; Start 12/16/17 at 09:00 Cephalexin HCl (Keflex) 500 mg BID PO Last administered on 12/25/17 08:13; Start 12/15/17 at 21:00; Stop 12/25/17 at 20:59; Status DC Atorvastatin Calcium (Lipitor) 40 mg QHS PO Last administered on 02/02/18 20: 32; Start 12/15/17 at 21:00 Lactobacillus Rhamnosus (Culturelle) 1 cap BID PO Last administered on at 08:42; Start 12/16/17 at 09:00; Stop 12/30/17 at 18:01; Status DC Divalproex Sodium (Depakote Er) 1,000 mg QHS PO Last administered on 02/02/18 20:32; Start 12/17/17 at 21:00 Clozapine (Clozaril) 300 mg QHS PO Last administered on 02/02/18 20:31; Start 12/19/17 at 21:00 Clozapine (Clozaril) 25 mg QHS PO Last administered on 02/02/18 20:31; Start 12/19/17 at 21:00 Ondansetron HCl (Zofran Odt) 4 mg PRN Q8HRS PRN PO NAUSEA/VOMITING Last administered on 12/22/17at 05:50; Start 12/22/17 at 00:30 Docusate Sodium (Colace) 100 mg PRN DAILY PRN PO CONSTIPATION Last administered on 12/30/17 19:25; Start 12/29/17 at 09:30 Influenza Virus Vaccine (Afluria Trivalent [id number] Syringe) 0.5 ml ONCE ONCE VAX IM Last administered on 12/31/17at 11:39; Start 12/31/17 at 09:00; Stop at 09:01; Status DC Losartan Potassium (Cozaar) 25 mg DAILY PO Last administered on 02/02/18at 07:50 ; Start 01/01/18 at 09:00 Nystatin (Nystop) 1 joey PRN BID PRN TP RASH Last administered on 01/12/18at 10: 12; Start 01/12/18 at 07:30 Phenytoin Sodium (Dilantin) 200 mg Q12H PO Last administered on 01/22/18at 09: 18; Start 01/18/18 at 02:00; Stop 01/22/18 at 12:04; Status DC Phenytoin Sodium (Dilantin) 200 mg Q12H PO Last administered on 02/02/18at 20:32 ; Start 01/22/18 at 21:00 Active Scripts Active Reported Shingrix Vial Kit (Varicella-Zoster Ge/As01b/Pf) 50 Mcg/0.5 Ml Kit 50 Mcg IM Zostavax Vial (Zoster Vaccine Live/Pf) 19,400 Unit/0.65 Ml Vial 19,400 Unit SQ Triamcinolone Acetonide 15 Gm Cream..g. 15 Gm TP BID Pantoprazole Sodium 40 Mg Tablet.dr 40 Mg PO PRN DAILY PRN Losartan Potassium 50 Mg Tablet 50 Mg PO DAILY Glipizide 5 Mg Tablet 5 Mg PO DAILY Tricor (Fenofibrate Nanocrystallized) 48 Mg Tablet 48 Mg PO DAILY Doxazosin Mesylate 4 Mg Tablet 4 Mg PO Lotrimin Af (Clotrimazole) 12 Gm Cream..g. 12 Gm TP BID Bethanechol Chloride 25 Mg Tablet 25 Mg PO QID Metoprolol Succinate ( Xl ) (Metoprolol Succinate) 50 Mg Tab.er.24h 50 Mg PO DAILY Metformin Hcl 1,000 Mg Tablet 1,000 Mg PO BID Clozaril (Clozapine) 100 Mg Tablet 300 Mg PO DAILY Dilantin (Phenytoin Sodium Extended) 100 Mg Capsule 100 Mg PO Q8HRS Lorazepam 0.5 Mg Tablet 0.5 Mg PO PRN Q6HRS PRN MDD 2mg Keppra (Levetiracetam) 1,000 Mg Tablet 1,000 Mg PO BID Lipitor (Atorvastatin Calcium) 20 Mg Tablet 20 Mg PO QHS I have reviewed the current psychotropics carefully including drug interactions. Risk benefit ratio favors no change other than as noted in my dictated progress note. Diagnosis: Problems: (1) Anxiety disorder (2) Bipolar affective, mixed, sev w/ psych (3) Schizoaffective disorder, chronic condition with acute exacerbation MANAS SHANKAR MD Feb 02, 2018 23:13
[2018-02-03 06:09] VITALS: BP 114/74
[2018-02-03] MEDS: levETIRAcetam 500 MG TABLET PO SCH ×2 (07:41→19:46)
[2018-02-03] MEDS: PHENYTOIN SODIUM EXTENDED 100 MG CAPSULE PO SCH ×2 (07:41→19:48)
[2018-02-03] MEDS: BETHANECHOL CHLORIDE 25 MG TABLET PO SCH ×4 (07:41→19:49)
[2018-02-03] MEDS: METOPROLOL SUCC 24HR ER 50 MG TAB.ER.24H. PO SCH (07:41)
[2018-02-03] MEDS: FENOFIBRATE NANOCRYSTALLIZED 48 MG TABLET PO SCH (07:42)
[2018-02-03] MEDS: metFORMIN 500 MG TABLET PO SCH ×2 (07:42→16:59)
[2018-02-03] MEDS: LOSARTAN 25 MG TABLET. PO SCH (07:42)
[2018-02-03] MEDS: CHOLECALCIFEROL (VITAMIN D3) 50,000 UNIT CAPSULE PO SCH (07:44)
[2018-02-03 15:59] VITALS: BP 137/80
[2018-02-03] MEDS: DIVALPROEX ER 500 MG TAB.ER.24H PO SCH (19:46)
[2018-02-03] MEDS: cloZAPine 25 MG TABLET PO SCH (19:48)
[2018-02-03] MEDS: cloZAPine 100 MG TABLET PO SCH (19:48)
[2018-02-03] MEDS: ATORVASTATIN CALCIUM 20 MG TABLET PO SCH (19:48)
--- NOTE | 2018-02-03 23:16 | PDOC ---
Exam Note: Arash Note: Please also refer to the separate dictated note~for this date of service dictated separately.~Patient seen individually. Discussed the patient with Nursing staff reviewed the chart.~Reviewed interim history and current functioning. Reviewed vital signs,~Labs/ Radiology~and current medications noted below. Continue current treatment with the changes noted in the dictated addendum note Assessment: Vital Signs: Vital Signs Date Time Temp Pulse Resp B/P (MAP) Pulse Ox O2 Delivery O2 Flow Rate FiO2 02/03/18 15:59 97.5 89 20 137/80 (99) 96 Room Air I&O Intake and Output 02/03/18 07:00 Intake Total 1320 ml Balance 1320 ml Intake Oral 1320 ml # Voids 4 Labs: Laboratory Tests Test 02/03/18 07:29 Glucose (Fingerstick) 76 mg/dL (70-99) Current Medications: Meds: Current Medications Acetaminophen (Tylenol) 650 mg PRN Q6HRS PRN PO PAIN / TEMP; Start 12/13/17 at 16:00 Multi-Ingredient Ointment (Analgesic [place]) 1 joey PRN QID PRN TP MUSCLE PAIN; Start 12/13/17 at 16:00 Al Hydroxide/Mg Hydroxide (Mylanta Plus Xs) 15 ml PRN AFTMEALHC PRN PO DYSPEPSIA Last administered on 12/13/17at 21:05; Start 12/13/17 at 16:00 Magnesium Hydroxide (Milk Of Magnesia) 2,400 mg PRN QHS PRN PO CONSTIPATION Last administered on 01/17/18at 14:15; Start 12/13/17 at 16:00 Clozapine (Clozaril) 300 mg DAILY PO Last administered on 12/14/17at 10:03; Start 12/14/17 at 09:00; Stop 12/14/17 at 10:27; Status DC Lorazepam (Ativan) 0.5 mg PRN Q6HRS PRN PO ANXIETY / AGITATION; Start 12/13/17 at 20:45 Atorvastatin Calcium (Lipitor) 20 mg QHS PO Last administered on 12/14/17at 20: 05; Start 12/13/17 at 21:00; Stop 12/15/17 at 15:00; Status DC Bethanechol Chloride (Urecholine) 25 mg QID PO Last administered on 02/03/18at 19:49; Start 12/13/17 at 21:00 Losartan Potassium (Cozaar) 50 mg DAILY PO Last administered on 12/29/17at 09:25 ; Start 12/14/17 at 09:00; Stop 12/31/17 at 12:28; Status DC Triamcinolone Acetonide (Kenalog) 15 joey BID TP Last administered on 12/25/17at 08:19; Start 12/13/17 at 21:00; Stop 12/26/17 at 12:12; Status DC Clotrimazole (Lotrimin) 1 joey BID TP Last administered on 12/25/17at 08:20; Start 12/13/17 at 21:00; Stop 12/26/17 at 12:12; Status DC Fenofibrate (Tricor) 48 mg DAILY PO Last administered on 02/03/18at 07:42; Start 12/14/17 at 09:00 Glipizide (Glucotrol Er) 5 mg DAILY08 PO Last administered on 12/15/17at 08:36; Start 12/14/17 at 08:00; Stop 12/15/17 at 14:58; Status DC Levetiracetam (Keppra) 1,000 mg BID PO Last administered on 02/03/18at 19:46; Start 12/13/17 at 21:00 Metformin HCl (Glucophage) 1,000 mg BIDWMEALS PO Last administered on at 16:59; Start 12/14/17 at 08:00 Metoprolol Succinate (Toprol Xl) 50 mg DAILY PO Last administered on 02/03/18at 07:41; Start 12/14/17 at 09:00 Pantoprazole Sodium (Protonix) 40 mg PRN DAILY PRN PO HEARTBURN / GAS; Start at 07:30 Phenytoin Sodium (Dilantin) 100 mg Q8HRS PO Last administered on 01/17/18at 13: 56; Start 12/13/17 at 22:00; Stop 01/17/18 at 17:44; Status DC Clozapine (Clozaril) 300 mg QHS PO Last administered on 12/18/17at 20:31; Start 12/14/17 at 21:00; Stop 12/19/17 at 17:05; Status DC Divalproex Sodium (Depakote Er) 500 mg QHS PO Last administered on 12/16/17 20 :29; Start 12/14/17 at 21:00; Stop 12/17/17 at 18:41; Status DC Glipizide (Glucotrol Er) 10 mg DAILY08 PO Last administered on 02/03/18 07:41 ; Start 12/16/17 at 08:00 Vitamin D (Vitamin D3) 50,000 unit WEEKLY PO Last administered on 02/03/18 07: 44; Start 12/16/17 at 09:00 Cephalexin HCl (Keflex) 500 mg BID PO Last administered on 12/25/17 08:13; Start 12/15/17 at 21:00; Stop 12/25/17 at 20:59; Status DC Atorvastatin Calcium (Lipitor) 40 mg QHS PO Last administered on 02/03/18 19: 48; Start 12/15/17 at 21:00 Lactobacillus Rhamnosus (Culturelle) 1 cap BID PO Last administered on at 08:42; Start 12/16/17 at 09:00; Stop 12/30/17 at 18:01; Status DC Divalproex Sodium (Depakote Er) 1,000 mg QHS PO Last administered on 02/03/18 19:46; Start 12/17/17 at 21:00 Clozapine (Clozaril) 300 mg QHS PO Last administered on 02/03/18 19:48; Start 12/19/17 at 21:00 Clozapine (Clozaril) 25 mg QHS PO Last administered on 02/03/18 19:48; Start 12/19/17 at 21:00 Ondansetron HCl (Zofran Odt) 4 mg PRN Q8HRS PRN PO NAUSEA/VOMITING Last administered on 12/22/17at 05:50; Start 12/22/17 at 00:30 Docusate Sodium (Colace) 100 mg PRN DAILY PRN PO CONSTIPATION Last administered on 12/30/17 19:25; Start 12/29/17 at 09:30 Influenza Virus Vaccine (Afluria Trivalent [id number] Syringe) 0.5 ml ONCE ONCE VAX IM Last administered on 12/31/17at 11:39; Start 12/31/17 at 09:00; Stop at 09:01; Status DC Losartan Potassium (Cozaar) 25 mg DAILY PO Last administered on 02/03/18at 07:42 ; Start 01/01/18 at 09:00 Nystatin (Nystop) 1 joey PRN BID PRN TP RASH Last administered on 01/12/18at 10: 12; Start 01/12/18 at 07:30 Phenytoin Sodium (Dilantin) 200 mg Q12H PO Last administered on 01/22/18at 09: 18; Start 01/18/18 at 02:00; Stop 01/22/18 at 12:04; Status DC Phenytoin Sodium (Dilantin) 200 mg Q12H PO Last administered on 02/03/18at 19:48 ; Start 01/22/18 at 21:00 Active Scripts Active Reported Shingrix Vial Kit (Varicella-Zoster Ge/As01b/Pf) 50 Mcg/0.5 Ml Kit 50 Mcg IM Zostavax Vial (Zoster Vaccine Live/Pf) 19,400 Unit/0.65 Ml Vial 19,400 Unit SQ Triamcinolone Acetonide 15 Gm Cream..g. 15 Gm TP BID Pantoprazole Sodium 40 Mg Tablet.dr 40 Mg PO PRN DAILY PRN Losartan Potassium 50 Mg Tablet 50 Mg PO DAILY Glipizide 5 Mg Tablet 5 Mg PO DAILY Tricor (Fenofibrate Nanocrystallized) 48 Mg Tablet 48 Mg PO DAILY Doxazosin Mesylate 4 Mg Tablet 4 Mg PO Lotrimin Af (Clotrimazole) 12 Gm Cream..g. 12 Gm TP BID Bethanechol Chloride 25 Mg Tablet 25 Mg PO QID Metoprolol Succinate ( Xl ) (Metoprolol Succinate) 50 Mg Tab.er.24h 50 Mg PO DAILY Metformin Hcl 1,000 Mg Tablet 1,000 Mg PO BID Clozaril (Clozapine) 100 Mg Tablet 300 Mg PO DAILY Dilantin (Phenytoin Sodium Extended) 100 Mg Capsule 100 Mg PO Q8HRS Lorazepam 0.5 Mg Tablet 0.5 Mg PO PRN Q6HRS PRN MDD 2mg Keppra (Levetiracetam) 1,000 Mg Tablet 1,000 Mg PO BID Lipitor (Atorvastatin Calcium) 20 Mg Tablet 20 Mg PO QHS I have reviewed the current psychotropics carefully including drug interactions. Risk benefit ratio favors no change other than as noted in my dictated progress note. Diagnosis: Problems: (1) Anxiety disorder (2) Bipolar affective, mixed, sev w/ psych (3) Schizoaffective disorder, chronic condition with acute exacerbation MANAS SHANKAR MD Feb 03, 2018 23:16
[2018-02-04 06:16] VITALS: BP 121/82
[2018-02-04] MEDS: levETIRAcetam 500 MG TABLET PO SCH ×2 (07:54→19:47)
[2018-02-04] MEDS: BETHANECHOL CHLORIDE 25 MG TABLET PO SCH ×4 (07:54→19:49)
[2018-02-04] MEDS: metFORMIN 500 MG TABLET PO SCH ×2 (07:54→16:51)
[2018-02-04] MEDS: FENOFIBRATE NANOCRYSTALLIZED 48 MG TABLET PO SCH (07:54)
[2018-02-04] MEDS: PHENYTOIN SODIUM EXTENDED 100 MG CAPSULE PO SCH ×2 (07:54→19:47)
[2018-02-04] MEDS: LOSARTAN 25 MG TABLET. PO SCH (07:55)
[2018-02-04] MEDS: METOPROLOL SUCC 24HR ER 50 MG TAB.ER.24H. PO SCH (07:55)
[2018-02-04 15:58] VITALS: BP 103/70
[2018-02-04] MEDS: cloZAPine 25 MG TABLET PO SCH (19:46)
[2018-02-04] MEDS: cloZAPine 100 MG TABLET PO SCH (19:46)
[2018-02-04] MEDS: DIVALPROEX ER 500 MG TAB.ER.24H PO SCH (19:47)
[2018-02-04] MEDS: ATORVASTATIN CALCIUM 20 MG TABLET PO SCH (19:47)
--- NOTE | 2018-02-04 21:30 | PN ---
DATE: 02/02/2018 PSYCHIATRIC PROGRESS NOTE This late entry 02/02/2018 covers elements, not covered in my initial note. SUBJECTIVE: I met with the patient in the evening. The patient slept 8 hours previous night. She remains somewhat withdrawn, spends much time in her room, but little more insightful about accepting placement as I addressed this with her. REVIEW OF SYSTEMS: No CV, , pulmonary, eye, ENT system symptoms on review. Reliability fair. MENTAL STATUS EXAM: Reasonably oriented. Speech is coherent, has some latency. Abstraction fair, computation impaired, language function intact, attention span short. Mood and affect somewhat withdrawn. LABORATORY DATA: Reviewed. IMPRESSION: Schizoaffective disorder, bipolar type, mixed with psychotic features; anxiety disorder, unspecified. Rest unchanged. PLAN: Continue current psychotropics including Clozaril. She remains on Dilantin for seizures, Keppra, Ativan p.r.n., Depakote ER 1000 mg at bedtime, level therapeutic at 64. MANAS SHANKAR MD DR: ASHLEIGH/cali JOB#: [id number] / [id number]
--- NOTE | 2018-02-04 23:17 | PDOC ---
Exam Note: Arash Note: Please also refer to the separate dictated note~for this date of service dictated separately.~Patient seen individually. Discussed the patient with Nursing staff reviewed the chart.~Reviewed interim history and current functioning. Reviewed vital signs,~Labs/ Radiology~and current medications noted below. Continue current treatment with the changes noted in the dictated addendum note Assessment: Vital Signs: Vital Signs Date Time Temp Pulse Resp B/P (MAP) Pulse Ox O2 Delivery O2 Flow Rate FiO2 02/04/18 15:58 97.5 65 16 103/70 (81) 96 Room Air I&O Intake and Output 02/04/18 07:00 Intake Total 1680 ml Balance 1680 ml Intake Oral 1680 ml Labs: Laboratory Tests Test 02/04/18 07:41 Glucose (Fingerstick) 103 mg/dL (70-99) H Current Medications: Meds: Current Medications Acetaminophen (Tylenol) 650 mg PRN Q6HRS PRN PO PAIN / TEMP; Start 12/13/17 at 16:00 Multi-Ingredient Ointment (Analgesic [place]) 1 joey PRN QID PRN TP MUSCLE PAIN; Start 12/13/17 at 16:00 Al Hydroxide/Mg Hydroxide (Mylanta Plus Xs) 15 ml PRN AFTMEALHC PRN PO DYSPEPSIA Last administered on 12/13/17at 21:05; Start 12/13/17 at 16:00 Magnesium Hydroxide (Milk Of Magnesia) 2,400 mg PRN QHS PRN PO CONSTIPATION Last administered on 01/17/18at 14:15; Start 12/13/17 at 16:00 Clozapine (Clozaril) 300 mg DAILY PO Last administered on 12/14/17at 10:03; Start 12/14/17 at 09:00; Stop 12/14/17 at 10:27; Status DC Lorazepam (Ativan) 0.5 mg PRN Q6HRS PRN PO ANXIETY / AGITATION; Start 12/13/17 at 20:45 Atorvastatin Calcium (Lipitor) 20 mg QHS PO Last administered on 12/14/17at 20: 05; Start 12/13/17 at 21:00; Stop 12/15/17 at 15:00; Status DC Bethanechol Chloride (Urecholine) 25 mg QID PO Last administered on 02/04/18at 19:49; Start 12/13/17 at 21:00 Losartan Potassium (Cozaar) 50 mg DAILY PO Last administered on 12/29/17at 09:25 ; Start 12/14/17 at 09:00; Stop 12/31/17 at 12:28; Status DC Triamcinolone Acetonide (Kenalog) 15 joey BID TP Last administered on 12/25/17at 08:19; Start 12/13/17 at 21:00; Stop 12/26/17 at 12:12; Status DC Clotrimazole (Lotrimin) 1 joey BID TP Last administered on 12/25/17at 08:20; Start 12/13/17 at 21:00; Stop 12/26/17 at 12:12; Status DC Fenofibrate (Tricor) 48 mg DAILY PO Last administered on 02/04/18at 07:54; Start 12/14/17 at 09:00 Glipizide (Glucotrol Er) 5 mg DAILY08 PO Last administered on 12/15/17at 08:36; Start 12/14/17 at 08:00; Stop 12/15/17 at 14:58; Status DC Levetiracetam (Keppra) 1,000 mg BID PO Last administered on 02/04/18at 19:47; Start 12/13/17 at 21:00 Metformin HCl (Glucophage) 1,000 mg BIDWMEALS PO Last administered on at 16:51; Start 12/14/17 at 08:00 Metoprolol Succinate (Toprol Xl) 50 mg DAILY PO Last administered on 02/04/18at 07:55; Start 12/14/17 at 09:00 Pantoprazole Sodium (Protonix) 40 mg PRN DAILY PRN PO HEARTBURN / GAS; Start at 07:30 Phenytoin Sodium (Dilantin) 100 mg Q8HRS PO Last administered on 01/17/18at 13: 56; Start 12/13/17 at 22:00; Stop 01/17/18 at 17:44; Status DC Clozapine (Clozaril) 300 mg QHS PO Last administered on 12/18/17at 20:31; Start 12/14/17 at 21:00; Stop 12/19/17 at 17:05; Status DC Divalproex Sodium (Depakote Er) 500 mg QHS PO Last administered on 12/16/17 20 :29; Start 12/14/17 at 21:00; Stop 12/17/17 at 18:41; Status DC Glipizide (Glucotrol Er) 10 mg DAILY08 PO Last administered on 02/04/18 07:54 ; Start 12/16/17 at 08:00 Vitamin D (Vitamin D3) 50,000 unit WEEKLY PO Last administered on 02/03/18 07: 44; Start 12/16/17 at 09:00 Cephalexin HCl (Keflex) 500 mg BID PO Last administered on 12/25/17 08:13; Start 12/15/17 at 21:00; Stop 12/25/17 at 20:59; Status DC Atorvastatin Calcium (Lipitor) 40 mg QHS PO Last administered on 02/04/18 19: 47; Start 12/15/17 at 21:00 Lactobacillus Rhamnosus (Culturelle) 1 cap BID PO Last administered on 08:42; Start 12/16/17 at 09:00; Stop 12/30/17 at 18:01; Status DC Divalproex Sodium (Depakote Er) 1,000 mg QHS PO Last administered on 02/04/18 19:47; Start 12/17/17 at 21:00 Clozapine (Clozaril) 300 mg QHS PO Last administered on 02/04/18 19:46; Start 12/19/17 at 21:00 Clozapine (Clozaril) 25 mg QHS PO Last administered on 02/04/18 19:46; Start 12/19/17 at 21:00 Ondansetron HCl (Zofran Odt) 4 mg PRN Q8HRS PRN PO NAUSEA/VOMITING Last administered on 12/22/17at 05:50; Start 12/22/17 at 00:30 Docusate Sodium (Colace) 100 mg PRN DAILY PRN PO CONSTIPATION Last administered on 12/30/17 19:25; Start 12/29/17 at 09:30 Influenza Virus Vaccine (Afluria Trivalent [id number] Syringe) 0.5 ml ONCE ONCE VAX IM Last administered on 12/31/17at 11:39; Start 12/31/17 at 09:00; Stop at 09:01; Status DC Losartan Potassium (Cozaar) 25 mg DAILY PO Last administered on 02/04/18at 07:55 ; Start 01/01/18 at 09:00 Nystatin (Nystop) 1 joey PRN BID PRN TP RASH Last administered on 01/12/18at 10: 12; Start 01/12/18 at 07:30 Phenytoin Sodium (Dilantin) 200 mg Q12H PO Last administered on 01/22/18at 09: 18; Start 01/18/18 at 02:00; Stop 01/22/18 at 12:04; Status DC Phenytoin Sodium (Dilantin) 200 mg Q12H PO Last administered on 02/04/18at 19:47 ; Start 01/22/18 at 21:00 Active Scripts Active Reported Shingrix Vial Kit (Varicella-Zoster Ge/As01b/Pf) 50 Mcg/0.5 Ml Kit 50 Mcg IM Zostavax Vial (Zoster Vaccine Live/Pf) 19,400 Unit/0.65 Ml Vial 19,400 Unit SQ Triamcinolone Acetonide 15 Gm Cream..g. 15 Gm TP BID Pantoprazole Sodium 40 Mg Tablet.dr 40 Mg PO PRN DAILY PRN Losartan Potassium 50 Mg Tablet 50 Mg PO DAILY Glipizide 5 Mg Tablet 5 Mg PO DAILY Tricor (Fenofibrate Nanocrystallized) 48 Mg Tablet 48 Mg PO DAILY Doxazosin Mesylate 4 Mg Tablet 4 Mg PO Lotrimin Af (Clotrimazole) 12 Gm Cream..g. 12 Gm TP BID Bethanechol Chloride 25 Mg Tablet 25 Mg PO QID Metoprolol Succinate ( Xl ) (Metoprolol Succinate) 50 Mg Tab.er.24h 50 Mg PO DAILY Metformin Hcl 1,000 Mg Tablet 1,000 Mg PO BID Clozaril (Clozapine) 100 Mg Tablet 300 Mg PO DAILY Dilantin (Phenytoin Sodium Extended) 100 Mg Capsule 100 Mg PO Q8HRS Lorazepam 0.5 Mg Tablet 0.5 Mg PO PRN Q6HRS PRN MDD 2mg Keppra (Levetiracetam) 1,000 Mg Tablet 1,000 Mg PO BID Lipitor (Atorvastatin Calcium) 20 Mg Tablet 20 Mg PO QHS I have reviewed the current psychotropics carefully including drug interactions. Risk benefit ratio favors no change other than as noted in my dictated progress note. Diagnosis: Problems: (1) Anxiety disorder (2) Bipolar affective, mixed, sev w/ psych (3) Schizoaffective disorder, chronic condition with acute exacerbation MANAS SHANKAR MD Feb 04, 2018 23:17
[2018-02-05 06:24] VITALS: BP 116/73
[2018-02-05 07:34] LABS: BASO % 0 % (0-3); EOS % 0 % (0-3); HEMATOCRIT 37.7 % (36.0-47.0); HEMOGLOBIN 12.4 g/dL (12.0-15.5); LYMPH # 1.8 x10^3/uL (1.0-4.8); LYMPH % 26 % (24-48); MEAN CORPUSCULAR HEMOGLOBIN 28 pg (25-35); MEAN CORPUSCULAR HGB CONC 33 g/dL (31-37); MEAN CORPUSCULAR VOLUME 86 fL (79-100); MONO # 0.8 x10^3/uL (0.0-1.1); MONO % 11 % (0-9); NEUT # 4.6 x10^3uL (1.8-7.7); NEUT % 64 % (31-73); PLATELET COUNT 227 x10^3/uL (140-400); RED BLOOD COUNT 4.36 x10^6/uL (3.50-5.40); RED CELL DISTRIBUTION WIDTH 16.6 % (11.5-14.5); WHITE BLOOD COUNT 7.2 x10^3/uL (4.0-11.0)
[2018-02-05 07:53] LABS: ALBUMIN/GLOBULIN RATIO 0.9 (1.0-1.7); CALCIUM 8.4 mg/dL (8.5-10.1); CREATININE 0.8 mg/dL (0.6-1.0); GFR 72.9; POTASSIUM 4.6 mmol/L (3.5-5.1); TOTAL BILIRUBIN 0.1 mg/dL (0.2-1.0); TOTAL PROTEIN 6.5 g/dL (6.4-8.2)
[2018-02-05] MEDS: levETIRAcetam 500 MG TABLET PO SCH ×2 (08:06→19:25)
[2018-02-05] MEDS: METOPROLOL SUCC 24HR ER 50 MG TAB.ER.24H. PO SCH (08:07)
[2018-02-05] MEDS: PHENYTOIN SODIUM EXTENDED 100 MG CAPSULE PO SCH ×2 (08:07→19:26)
[2018-02-05] MEDS: DOCUSATE SODIUM 100 MG CAPSULE PO PRN (08:08)
[2018-02-05] MEDS: metFORMIN 500 MG TABLET PO SCH ×2 (08:08→16:12)
[2018-02-05] MEDS: LOSARTAN 25 MG TABLET. PO SCH (08:08)
[2018-02-05] MEDS: FENOFIBRATE NANOCRYSTALLIZED 48 MG TABLET PO SCH (08:09)
[2018-02-05] MEDS: BETHANECHOL CHLORIDE 25 MG TABLET PO SCH ×4 (08:10→19:25)
[2018-02-05] MEDS ORDERED: ACET325T9 PO (14:44)
[2018-02-05] MEDS ORDERED: CHOL500021 PO (14:45)
[2018-02-05] MEDS ORDERED: DOCU-109 PO (14:46)
[2018-02-05] MEDS ORDERED: MAGN2400 PO (15:00)
[2018-02-05] MEDS ORDERED: MAG355OR17 PO (15:00)
[2018-02-05] MEDS ORDERED: METH29OI TP (15:01)
[2018-02-05] MEDS ORDERED: NYST15PO9 TP (15:02)
[2018-02-05] MEDS ORDERED: ONDA4TAB10 SL (15:03)
[2018-02-05] MEDS ORDERED: DIVA500T4 PO (15:08)
[2018-02-05 15:19] VITALS: BP 117/70
[2018-02-05] MEDS: cloZAPine 100 MG TABLET PO SCH (19:24)
[2018-02-05] MEDS: cloZAPine 25 MG TABLET PO SCH (19:24)
[2018-02-05] MEDS: DIVALPROEX ER 500 MG TAB.ER.24H PO SCH (19:25)
[2018-02-05] MEDS: ATORVASTATIN CALCIUM 20 MG TABLET PO SCH (19:25)
--- NOTE | 2018-02-05 19:51 | PN ---
DATE: 02/03/2018 This is a late entry, 02/03/2018, covers the elements not covered in my initial note. SUBJECTIVE: I met with the patient in the evening of 02/03/2018, in her room. The patient slept 8 hours the previous evening. She is somewhat withdrawn, but comes out for her meals. REVIEW OF SYSTEMS: No CV, , pulmonary, eye, ENT system symptoms on review. Reliability fair. MENTAL STATUS EXAM: Oriented to herself. Insight, judgment, and situation. Speech is coherent, has some latency. Abstraction fair, computation somewhat impaired. Reasonably oriented. No active suicidal or homicidal ideation. We discussed her placement at length. She is still resistive to going anyplace other than when she can live independently, but seems more acceptable of more structured setting at times during conversation. LABORATORY DATA: Reviewed. IMPRESSION: Schizoaffective disorder, bipolar type, mixed with psychotic features, in partial remission. PLAN: No change from initial note. Continue Depakote, Keppra, Valproic acid level therapeutic at 64, Clozaril 325 mg at bedtime. She is also on Dilantin for her seizures. MANAS SHANKAR MD DR: ASHLEIGH/cali JOB#: [id number] / [id number]
--- NOTE | 2018-02-05 23:16 | PDOC ---
Exam Note: Arash Note: Please also refer to the separate dictated note~for this date of service dictated separately.~Patient seen individually. Discussed the patient with Nursing staff reviewed the chart.~Reviewed interim history and current functioning. Reviewed vital signs,~Labs/ Radiology~and current medications noted below. Continue current treatment with the changes noted in the dictated addendum note Assessment: Vital Signs: Vital Signs Date Time Temp Pulse Resp B/P (MAP) Pulse Ox O2 Delivery O2 Flow Rate FiO2 02/05/18 15:19 97.2 88 20 117/70 (86) 94 Room Air I&O Intake and Output 02/05/18 07:00 Intake Total 1440 ml Balance 1440 ml Intake Oral 1440 ml # Voids 1 Labs: Laboratory Tests Test 02/05/18 07:13 02/05/18 07:25 White Blood Count 7.2 x10^3/uL (4.0-11.0) Red Blood Count 4.36 x10^6/uL (3.50-5.40) Hemoglobin 12.4 g/dL (12.0-15.5) Hematocrit 37.7 % (36.0-47.0) Mean Corpuscular Volume 86 fL (79-100) Mean Corpuscular Hemoglobin 28 pg (25-35) Mean Corpuscular Hemoglobin Concent 33 g/dL (31-37) Red Cell Distribution Width 16.6 % (11.5-14.5) H Platelet Count 227 x10^3/uL (140-400) Neutrophils (%) (Auto) 64 % (31-73) Lymphocytes (%) (Auto) 26 % (24-48) Monocytes (%) (Auto) 11 % (0-9) H Eosinophils (%) (Auto) 0 % (0-3) Basophils (%) (Auto) 0 % (0-3) Neutrophils # (Auto) 4.6 x10^3uL (1.8-7.7) Lymphocytes # (Auto) 1.8 x10^3/uL (1.0-4.8) Monocytes # (Auto) 0.8 x10^3/uL (0.0-1.1) Eosinophils # (Auto) 0.0 x10^3/uL (0.0-0.7) Basophils # (Auto) 0.0 x10^3/uL (0.0-0.2) Sodium Level 140 mmol/L (136-145) Potassium Level 4.6 mmol/L (3.5-5.1) Chloride Level 104 mmol/L (98-107) Carbon Dioxide Level 30 mmol/L (21-32) Anion Gap 6 (6-14) Blood Urea Nitrogen 18 mg/dL (7-20) Creatinine 0.8 mg/dL (0.6-1.0) Estimated GFR (Cockcroft-Gault) 72.9 BUN/Creatinine Ratio 23 (6-20) H Glucose Level 90 mg/dL (70-99) Calcium Level 8.4 mg/dL (8.5-10.1) L Total Bilirubin 0.1 mg/dL (0.2-1.0) L Aspartate Amino Transferase (AST) 16 U/L (15-37) Alanine Aminotransferase (ALT) 23 U/L (14-59) Alkaline Phosphatase 55 U/L (46-116) Total Protein 6.5 g/dL (6.4-8.2) Albumin 3.0 g/dL (3.4-5.0) L Albumin/Globulin Ratio 0.9 (1.0-1.7) L Glucose (Fingerstick) 88 mg/dL (70-99) Current Medications: Meds: Current Medications Acetaminophen (Tylenol) 650 mg PRN Q6HRS PRN PO PAIN / TEMP; Start 12/13/17 at 16:00 Multi-Ingredient Ointment (Analgesic [place]) 1 kathrine PRN QID PRN TP MUSCLE PAIN; Start 12/13/17 at 16:00 Al Hydroxide/Mg Hydroxide (Mylanta Plus Xs) 15 ml PRN AFTMEALHC PRN PO DYSPEPSIA Last administered on 12/13/17at 21:05; Start 12/13/17 at 16:00 Magnesium Hydroxide (Milk Of Magnesia) 2,400 mg PRN QHS PRN PO CONSTIPATION Last administered on 01/17/18at 14:15; Start 12/13/17 at 16:00 Clozapine (Clozaril) 300 mg DAILY PO Last administered on 12/14/17at 10:03; Start 12/14/17 at 09:00; Stop 12/14/17 at 10:27; Status DC Lorazepam (Ativan) 0.5 mg PRN Q6HRS PRN PO ANXIETY / AGITATION; Start 12/13/17 at 20:45 Atorvastatin Calcium (Lipitor) 20 mg QHS PO Last administered on 12/14/17at 20: 05; Start 12/13/17 at 21:00; Stop 12/15/17 at 15:00; Status DC Bethanechol Chloride (Urecholine) 25 mg QID PO Last administered on 02/05/18 19:25; Start 12/13/17 at 21:00 Losartan Potassium (Cozaar) 50 mg DAILY PO Last administered on 12/29/17at 09:25 ; Start 12/14/17 at 09:00; Stop 12/31/17 at 12:28; Status DC Triamcinolone Acetonide (Kenalog) 15 kathrine BID TP Last administered on 12/25/17at 08:19; Start 12/13/17 at 21:00; Stop 12/26/17 at 12:12; Status DC Clotrimazole (Lotrimin) 1 kathrine BID TP Last administered on 12/25/17at 08:20; Start 12/13/17 at 21:00; Stop 12/26/17 at 12:12; Status DC Fenofibrate (Tricor) 48 mg DAILY PO Last administered on 02/05/18 08:09; Start 12/14/17 at 09:00 Glipizide (Glucotrol Er) 5 mg DAILY08 PO Last administered on 12/15/17at 08:36; Start 12/14/17 at 08:00; Stop 12/15/17 at 14:58; Status DC Levetiracetam (Keppra) 1,000 mg BID PO Last administered on 02/05/18 19:25; Start 12/13/17 at 21:00 Metformin HCl (Glucophage) 1,000 mg BIDWMEALS PO Last administered on 16:12; Start 12/14/17 at 08:00 Metoprolol Succinate (Toprol Xl) 50 mg DAILY PO Last administered on 02/05/18at 08:07; Start 12/14/17 at 09:00 Pantoprazole Sodium (Protonix) 40 mg PRN DAILY PRN PO HEARTBURN / GAS; Start at 07:30 Phenytoin Sodium (Dilantin) 100 mg Q8HRS PO Last administered on 01/17/18 13: 56; Start 12/13/17 at 22:00; Stop 01/17/18 at 17:44; Status DC Clozapine (Clozaril) 300 mg QHS PO Last administered on 12/18/17 20:31; Start 12/14/17 at 21:00; Stop 12/19/17 at 17:05; Status DC Divalproex Sodium (Depakote Er) 500 mg QHS PO Last administered on 12/16/17at 20 :29; Start 12/14/17 at 21:00; Stop 12/17/17 at 18:41; Status DC Glipizide (Glucotrol Er) 10 mg DAILY08 PO Last administered on 02/05/18 08:07 ; Start 12/16/17 at 08:00 Vitamin D (Vitamin D3) 50,000 unit WEEKLY PO Last administered on 02/03/18 07: 44; Start 12/16/17 at 09:00 Cephalexin HCl (Keflex) 500 mg BID PO Last administered on 12/25/17at 08:13; Start 12/15/17 at 21:00; Stop 12/25/17 at 20:59; Status DC Atorvastatin Calcium (Lipitor) 40 mg QHS PO Last administered on 02/05/18 19: 25; Start 12/15/17 at 21:00 Lactobacillus Rhamnosus (Culturelle) 1 cap BID PO Last administered on at 08:42; Start 12/16/17 at 09:00; Stop 12/30/17 at 18:01; Status DC Divalproex Sodium (Depakote Er) 1,000 mg QHS PO Last administered on 02/05/18 19:25; Start 12/17/17 at 21:00 Clozapine (Clozaril) 300 mg QHS PO Last administered on 02/05/18 19:24; Start 12/19/17 at 21:00 Clozapine (Clozaril) 25 mg QHS PO Last administered on 02/05/18 19:24; Start 12/19/17 at 21:00 Ondansetron HCl (Zofran Odt) 4 mg PRN Q8HRS PRN PO NAUSEA/VOMITING Last administered on 12/22/17at 05:50; Start 12/22/17 at 00:30 Docusate Sodium (Colace) 100 mg PRN DAILY PRN PO CONSTIPATION Last administered on 12/30/17at 19:25; Start 12/29/17 at 09:30 Influenza Virus Vaccine (Afluria Trivalent [id number] Syringe) 0.5 ml ONCE ONCE VAX IM Last administered on 12/31/17at 11:39; Start 12/31/17 at 09:00; Stop at 09:01; Status DC Losartan Potassium (Cozaar) 25 mg DAILY PO Last administered on 02/05/18at 08:08 ; Start 01/01/18 at 09:00 Nystatin (Nystop) 1 kathrine PRN BID PRN TP RASH Last administered on 01/12/18at 10: 12; Start 01/12/18 at 07:30 Phenytoin Sodium (Dilantin) 200 mg Q12H PO Last administered on 01/22/18at 09: 18; Start 01/18/18 at 02:00; Stop 01/22/18 at 12:04; Status DC Phenytoin Sodium (Dilantin) 200 mg Q12H PO Last administered on 02/05/18at 19:26 ; Start 01/22/18 at 21:00 Active Scripts Active Reported Depakote Er (Divalproex Sodium) 500 Mg Tab.er.24h 1,000 Mg PO HS Zofran Odt (Ondansetron) 4 Mg Tab.rapdis 1 Tab SL Q8HRS Nystatin 15 Gm Powder 1 Kathrine TP BID PRN Analgesic [place] (Methyl Salicylate/Menthol) 28 Gm Oint...g. 1 Applic TP QID PRN Milk Of Magnesia (Magnesium Hydroxide) 2,400 Mg/10 Ml Oral.susp 2,400 Mg PO HS PRN Advanced Antacid Liquid (Mag Hydrox/Al Hydrox/Simeth) 355 Ml Oral.susp 15 Ml PO QID PRN Colace (Docusate Sodium) 100 Mg Capsule 1 Cap PO DAILY PRN D3-50 (Cholecalciferol (Vitamin D3)) 50,000 Unit Capsule 1 Cap PO WEEKLY Tylenol (Acetaminophen) 325 Mg Tablet 2 Tab PO PRN Q6HRS PRN Pantoprazole Sodium 40 Mg Tablet.dr 40 Mg PO PRN DAILY PRN Losartan Potassium 50 Mg Tablet 25 Mg PO DAILY Glipizide 5 Mg Tablet 10 Mg PO DAILY Tricor (Fenofibrate Nanocrystallized) 48 Mg Tablet 48 Mg PO DAILY Bethanechol Chloride 25 Mg Tablet 25 Mg PO QID Metoprolol Succinate ( Xl ) (Metoprolol Succinate) 50 Mg Tab.er.24h 50 Mg PO DAILY Metformin Hcl 1,000 Mg Tablet 1,000 Mg PO BIDWMEALS Clozaril (Clozapine) 100 Mg Tablet 325 Mg PO HS Dilantin (Phenytoin Sodium Extended) 100 Mg Capsule 200 Mg PO Q12HR Lorazepam 0.5 Mg Tablet 0.5 Mg PO PRN Q6HRS PRN MDD 2mg Keppra (Levetiracetam) 1,000 Mg Tablet 1,000 Mg PO BID Lipitor (Atorvastatin Calcium) 20 Mg Tablet 40 Mg PO QHS I have reviewed the current psychotropics carefully including drug interactions. Risk benefit ratio favors no change other than as noted in my dictated progress note. Diagnosis: Problems: (1) Anxiety disorder (2) Bipolar affective, mixed, sev w/ psych (3) Schizoaffective disorder, chronic condition with acute exacerbation MANAS SHANKAR MD Feb 05, 2018 23:16
--- NOTE | 2018-02-06 00:51 | PN ---
DATE: 02/04/2018 This is a late entry for 02/04/2018 covers elements not covered in my initial note. SUBJECTIVE: I met with the patient in the evening. The patient slept 7-3/4 hours previous night, but generally, she has had a good day. She is withdrawn, met with her in her room, still ambivalent about transition to the nursing facility, wanting to return home, addressed this with her at length. REVIEW OF SYSTEMS: No CV, , pulmonary, eye, ENT system symptoms on review. She states she is having some flu-like symptoms and cough and we will monitor this. MENTAL STATUS EXAM: Reasonably oriented. Speech is coherent, has some latency. Abstraction fair, computation impaired, language function intact. Mood and affect somewhat withdrawn. LABORATORY DATA: Reviewed. IMPRESSION: Unchanged from initial note. PLAN: No change from initial note. She slept 7-3/4 hours previous night. MANAS SHANKAR MD DR: ASHLEIGH/cali JOB#: [id number] / [id number]
[2018-02-06 06:35] VITALS: BP 91/59
[2018-02-06] MEDS: levETIRAcetam 500 MG TABLET PO SCH (08:05)
[2018-02-06] MEDS: PHENYTOIN SODIUM EXTENDED 100 MG CAPSULE PO SCH (08:06)
[2018-02-06] MEDS: metFORMIN 500 MG TABLET PO SCH (08:06)
[2018-02-06] MEDS: FENOFIBRATE NANOCRYSTALLIZED 48 MG TABLET PO SCH (08:09)
[2018-02-06] MEDS: BETHANECHOL CHLORIDE 25 MG TABLET PO SCH (08:09)
[2018-02-06 09:00] VITALS: BP 91/59
[2018-02-06] MEDS: METOPROLOL SUCC 24HR ER 50 MG TAB.ER.24H. PO SCH (09:00)
[2018-02-06] MEDS: LOSARTAN 25 MG TABLET. PO SCH (09:00)
--- NOTE | 2018-02-06 15:06 | PN ---
DATE: 02/05/2018 This is a late entry for date of service 02/05/2018 and covers elements not covered in my initial note. SUBJECTIVE: I met with the patient in the evening in her room at some length. The patient slept 8-1/4 hours previous night. Absolute neutrophil count is clinically insignificant. She remains somewhat withdrawn, more accepting of placement at a facility rather than going home. No CV, , pulmonary, eye, ENT system symptoms on review. MENTAL STATUS EXAM: Reasonably oriented. Speech has some latency, coherent. Abstraction fair, computation impaired, language function intact, attention span short. Mood and affect still somewhat withdrawn, but psychotic symptoms appear to have subsided. LABORATORY DATA: Reviewed. IMPRESSION: Schizoaffective disorder, bipolar type, mixed with psychotic features, in partial remission; anxiety disorder, unspecified; impulse control disorder, unspecified. PLAN: Continue psychotropics from initial note. Maintain Clozaril at current dosage 325 at bedtime. Possible transition to nursing facility on 02/06/2018 and we will have to have a weekly CBC, ANC monitored on Clozaril post-discharge along with every 3 months for chemistry profile, lipid profile. Risperdal will have to be tapered and ultimately discontinued post-discharge once the Clozaril is more therapeutic. MANAS SHANKAR MD DR: ASHLEIGH/cali JOB#: [id number] / [id number]
--- NOTE | 2018-02-06 15:07 | PN ---
DATE: 02/05/2018 ADDENDUM PSYCHIATRIC PROGRESS NOTE This late entry 02/05/2018. This addendum is to clarify for the patient's note as inadvertently dictated in my last note that the patient is on Risperdal, which will have to be tapered post discharge. In fact, the patient is not on Risperdal, just on Clozaril together with Depakote ER 1000 mg at bedtime, level therapeutic at 64. She also remains on Dilantin and Keppra for her seizures. MAN Maikel SHANKAR MD DR: ASHLEIGH/cali JOB#: [id number] / [id number]
--- NOTE | 2018-02-06 19:08 | PDOC ---
Exam Note: Arash Note: Please also refer to the separate dictated note~for this date of service dictated separately.~Patient seen individually. Discussed the patient with Nursing staff reviewed the chart.~Reviewed interim history and current functioning. Reviewed vital signs,~Labs/ Radiology~and current medications noted below. Continue current treatment with the changes noted in the dictated addendum note Assessment: Vital Signs: Vital Signs Date Time Temp Pulse Resp B/P (MAP) Pulse Ox O2 Delivery O2 Flow Rate FiO2 02/06/18 09:00 82 91/59 02/06/18 06:35 98.0 18 92 Room Air I&O Intake and Output 02/06/18 07:00 Intake Total 1440 ml Balance 1440 ml Intake Oral 1440 ml Labs: Laboratory Tests Test 02/06/18 07:51 Glucose (Fingerstick) 83 mg/dL (70-99) Current Medications: Meds: Current Medications Acetaminophen (Tylenol) 650 mg PRN Q6HRS PRN PO PAIN / TEMP; Start 12/13/17 at 16:00; Stop 02/06/18 at 10:55; Status DC Multi-Ingredient Ointment (Analgesic [place]) 1 kathrine PRN QID PRN TP MUSCLE PAIN; Start 12/13/17 at 16:00; Stop 02/06/18 at 10:55; Status DC Al Hydroxide/Mg Hydroxide (Mylanta Plus Xs) 15 ml PRN AFTMEALHC PRN PO DYSPEPSIA Last administered on 12/13/17at 21:05; Start 12/13/17 at 16:00; Stop 02/06/18 at 10:55; Status DC Magnesium Hydroxide (Milk Of Magnesia) 2,400 mg PRN QHS PRN PO CONSTIPATION Last administered on 01/17/18at 14:15; Start 12/13/17 at 16:00; Stop 02/06/18 at 10:55; Status DC Clozapine (Clozaril) 300 mg DAILY PO Last administered on 12/14/17at 10:03; Start 12/14/17 at 09:00; Stop 12/14/17 at 10:27; Status DC Lorazepam (Ativan) 0.5 mg PRN Q6HRS PRN PO ANXIETY / AGITATION; Start 12/13/17 at 20:45; Stop 02/06/18 at 10:55; Status DC Atorvastatin Calcium (Lipitor) 20 mg QHS PO Last administered on 12/14/17at 20: 05; Start 12/13/17 at 21:00; Stop 12/15/17 at 15:00; Status DC Bethanechol Chloride (Urecholine) 25 mg QID PO Last administered on 02/06/18at 08:09; Start 12/13/17 at 21:00; Stop 02/06/18 at 10:55; Status DC Losartan Potassium (Cozaar) 50 mg DAILY PO Last administered on 12/29/17at 09:25 ; Start 12/14/17 at 09:00; Stop 12/31/17 at 12:28; Status DC Triamcinolone Acetonide (Kenalog) 15 kathrine BID TP Last administered on 12/25/17at 08:19; Start 12/13/17 at 21:00; Stop 12/26/17 at 12:12; Status DC Clotrimazole (Lotrimin) 1 kathrine BID TP Last administered on 12/25/17at 08:20; Start 12/13/17 at 21:00; Stop 12/26/17 at 12:12; Status DC Fenofibrate (Tricor) 48 mg DAILY PO Last administered on 02/06/18at 08:09; Start 12/14/17 at 09:00; Stop 02/06/18 at 10:55; Status DC Glipizide (Glucotrol Er) 5 mg DAILY08 PO Last administered on 12/15/17at 08:36; Start 12/14/17 at 08:00; Stop 12/15/17 at 14:58; Status DC Levetiracetam (Keppra) 1,000 mg BID PO Last administered on 02/06/18at 08:05; Start 12/13/17 at 21:00; Stop 02/06/18 at 10:55; Status DC Metformin HCl (Glucophage) 1,000 mg BIDWMEALS PO Last administered on at 08:06; Start 12/14/17 at 08:00; Stop 02/06/18 at 10:55; Status DC Metoprolol Succinate (Toprol Xl) 50 mg DAILY PO Last administered on 02/05/18at 08:07; Start 12/14/17 at 09:00; Stop 02/06/18 at 10:55; Status DC Pantoprazole Sodium (Protonix) 40 mg PRN DAILY PRN PO HEARTBURN / GAS; Start at 07:30; Stop 02/06/18 at 10:55; Status DC Phenytoin Sodium (Dilantin) 100 mg Q8HRS PO Last administered on 01/17/18at 13: 56; Start 12/13/17 at 22:00; Stop 01/17/18 at 17:44; Status DC Clozapine (Clozaril) 300 mg QHS PO Last administered on 12/18/17at 20:31; Start 12/14/17 at 21:00; Stop 12/19/17 at 17:05; Status DC Divalproex Sodium (Depakote Er) 500 mg QHS PO Last administered on 12/16/17at 20 :29; Start 12/14/17 at 21:00; Stop 12/17/17 at 18:41; Status DC Glipizide (Glucotrol Er) 10 mg DAILY08 PO Last administered on 02/06/18at 08:05 ; Start 12/16/17 at 08:00; Stop 02/06/18 at 10:55; Status DC Vitamin D (Vitamin D3) 50,000 unit WEEKLY PO Last administered on 02/03/18at 07: 44; Start 12/16/17 at 09:00; Stop 02/06/18 at 10:55; Status DC Cephalexin HCl (Keflex) 500 mg BID PO Last administered on 12/25/17at 08:13; Start 12/15/17 at 21:00; Stop 12/25/17 at 20:59; Status DC Atorvastatin Calcium (Lipitor) 40 mg QHS PO Last administered on 02/05/18at 19: 25; Start 12/15/17 at 21:00; Stop 02/06/18 at 10:55; Status DC Lactobacillus Rhamnosus (Culturelle) 1 cap BID PO Last administered on at 08:42; Start 12/16/17 at 09:00; Stop 12/30/17 at 18:01; Status DC Divalproex Sodium (Depakote Er) 1,000 mg QHS PO Last administered on 02/05/18 19:25; Start 12/17/17 at 21:00; Stop 02/06/18 at 10:55; Status DC Clozapine (Clozaril) 300 mg QHS PO Last administered on 02/05/18 19:24; Start 12/19/17 at 21:00; Stop 02/06/18 at 10:55; Status DC Clozapine (Clozaril) 25 mg QHS PO Last administered on 02/05/18at 19:24; Start 12/19/17 at 21:00; Stop 02/06/18 at 10:55; Status DC Ondansetron HCl (Zofran Odt) 4 mg PRN Q8HRS PRN PO NAUSEA/VOMITING Last administered on 12/22/17at 05:50; Start 12/22/17 at 00:30; Stop 02/06/18 at 10:55 ; Status DC Docusate Sodium (Colace) 100 mg PRN DAILY PRN PO CONSTIPATION Last administered on 12/30/17at 19:25; Start 12/29/17 at 09:30; Stop 02/06/18 at 10:55 ; Status DC Influenza Virus Vaccine (Afluria Trivalent [id number] Syringe) 0.5 ml ONCE ONCE VAX IM Last administered on 12/31/17at 11:39; Start 12/31/17 at 09:00; Stop at 09:01; Status DC Losartan Potassium (Cozaar) 25 mg DAILY PO Last administered on 02/05/18at 08:08 ; Start 01/01/18 at 09:00; Stop 02/06/18 at 10:55; Status DC Nystatin (Nystop) 1 kathrine PRN BID PRN TP RASH Last administered on 01/12/18at 10: 12; Start 01/12/18 at 07:30; Stop 02/06/18 at 10:55; Status DC Phenytoin Sodium (Dilantin) 200 mg Q12H PO Last administered on 01/22/18at 09: 18; Start 01/18/18 at 02:00; Stop 01/22/18 at 12:04; Status DC Phenytoin Sodium (Dilantin) 200 mg Q12H PO Last administered on 02/06/18at 08:06 ; Start 01/22/18 at 21:00; Stop 02/06/18 at 10:55; Status DC Active Scripts Active Reported Depakote Er (Divalproex Sodium) 500 Mg Tab.er.24h 1,000 Mg PO HS Zofran Odt (Ondansetron) 4 Mg Tab.rapdis 1 Tab SL PRN Q8HRS PRN Nystatin 15 Gm Powder 1 Kathrine TP BID PRN Analgesic [place] (Methyl Salicylate/Menthol) 28 Gm Oint...g. 1 Applic TP QID PRN Milk Of Magnesia (Magnesium Hydroxide) 2,400 Mg/10 Ml Oral.susp 2,400 Mg PO HS PRN Advanced Antacid Liquid (Mag Hydrox/Al Hydrox/Simeth) 355 Ml Oral.susp 15 Ml PO QID PRN Colace (Docusate Sodium) 100 Mg Capsule 1 Cap PO DAILY PRN D3-50 (Cholecalciferol (Vitamin D3)) 50,000 Unit Capsule 1 Cap PO WEEKLY Tylenol (Acetaminophen) 325 Mg Tablet 2 Tab PO PRN Q6HRS PRN Pantoprazole Sodium 40 Mg Tablet.dr 40 Mg PO PRN DAILY PRN Losartan Potassium 50 Mg Tablet 25 Mg PO DAILY Glipizide 5 Mg Tablet 10 Mg PO DAILY Tricor (Fenofibrate Nanocrystallized) 48 Mg Tablet 48 Mg PO DAILY Bethanechol Chloride 25 Mg Tablet 25 Mg PO QID Metoprolol Succinate ( Xl ) (Metoprolol Succinate) 50 Mg Tab.er.24h 50 Mg PO DAILY Metformin Hcl 1,000 Mg Tablet 1,000 Mg PO BIDWMEALS Clozaril (Clozapine) 100 Mg Tablet 325 Mg PO HS Dilantin (Phenytoin Sodium Extended) 100 Mg Capsule 200 Mg PO Q12HR Lorazepam 0.5 Mg Tablet 0.5 Mg PO PRN Q6HRS PRN MDD 2mg Keppra (Levetiracetam) 1,000 Mg Tablet 1,000 Mg PO BID Lipitor (Atorvastatin Calcium) 20 Mg Tablet 40 Mg PO QHS I have reviewed the current psychotropics carefully including drug interactions. Risk benefit ratio favors no change other than as noted in my dictated progress note. Diagnosis: Problems: (1) Anxiety disorder (2) Bipolar affective, mixed, sev w/ psych (3) Schizoaffective disorder, chronic condition with acute exacerbation MANAS SHANKAR MD Feb 06, 2018 19:08
--- NOTE | 2018-02-07 19:10 | DS ---
DATE OF DISCHARGE: 02/06/2018 DISCHARGE SUMMARY/PSYCHIATRIC PROGRESS NOTE This late entry date of service 02/06/2018 covers elements not covered in my initial note. REASON FOR ADMISSION: Please refer to the admission history for details. Briefly, the patient is a 62-year-old female with a very long history of schizoaffective disorder, bipolar type. The patient was living at home, presented to [facility] Emergency Room on account of not taking her psychotropics for about 2 weeks. There is no one to monitor her compliance. She was getting increasingly psychotic, disorganized, paranoid, and tangential. She was noncompliant with her diabetic regimen, was in diabetic ketoacidosis, hospitalized at [facility]. Once medically she was stable, she was still psychotic with marked mood lability, refusing medications in the hospital and transferred to us for psychiatric stabilization. SIGNIFICANT FINDINGS AND CLINICAL COURSE: Following admission, the patient was seen daily individually by myself, followed medically per Dr. Rosario/Dr. Leon. The patient had a very difficult and protracted course during this hospitalization. Some of which was geared towards finding appropriate placement for her rather than her returning home to the same set of circumstances that prompted this admission including noncompliance with medications and diabetic ketoacidosis and relapse of her schizoaffective disorder, bipolar type. She was maintained on Clozaril that she was taking prior to admission and this was adjusted and she seemed to stabilize on a combination of Keppra 1000 mg b.i.d., Dilantin 200 mg q.12 hours for her seizure disorder, Ativan p.r.n., Clozaril 325 mg at bedtime, Depakote ER 1000 mg at bedtime for her schizoaffective disorder, bipolar type with a level of 64. Gradually, mood appeared to improve. She is still withdrawn, much less paranoid. No active suicidal or homicidal ideation. She was insistent on returning home, limited insight into her relapse chances if she were to go home. Her sister is DPOA. Her [id number] worked very diligently with social work associate to get her approved for level 2 placement and ultimately she was transferred. There was quite a bit of time that it took to find appropriate placement for her, for which she had continued to be in the hospital even though the psychotropics had been stabilized somewhat earlier. No suicidal or homicidal ideation at discharge. REVIEW OF SYSTEMS: Prior to discharge on 02/06/2018, no CV, , pulmonary, eye system symptoms on review. MENTAL STATUS EXAM: Reasonably oriented. Speech has some latency, coherent. Abstraction fair, computation impaired, language function intact, attention span short. Mood and affect somewhat withdrawn. LABORATORY DATA: Labs reviewed. CONDITION AT DISCHARGE: Improved. No suicidal or homicidal ideation at discharge. FINAL DIAGNOSES: Schizoaffective disorder, bipolar type, mixed with psychotic features, in partial remission; anxiety disorder, unspecified; impulse control disorder, unspecified. Rest unchanged from admission. DISCHARGE MEDICATIONS: Please refer to the MRAD. Outpatient psychiatric and followup at the nursing facility time and she needs to have CBC, ANC every week on account of the Clozaril and lipid profile, chemistry profile every 3 months and again on account of the Clozaril. Time for discharge day management is greater than 30 minutes. MANAS SHANKAR MD DR: ASHLEIGH/cali JOB#: [id number] / [id number]
== END 2018-02-06 10:30 | DRG 885 ==
LOC: GEROPSY 15:14
PROVIDERS: ADMIT Psychiatry & Neurology Psychiatry; ATTEND Psychiatry & Neurology Psychiatry
DX: F25.0 Schizoaffective disorder, bipolar type (principal); N39.0 Urinary tract infection, site not specified; E78.5 Hyperlipidemia, unspecified; F63.9 Impulse disorder, unspecified; E11.65 Type 2 diabetes mellitus with hyperglycemia; G40.909 Epilepsy, unspecified, not intractable, without status epilepticus; I10 Essential (primary) hypertension; K21.9 Gastro-esophageal reflux disease without esophagitis; Z91.14 Patient's other noncompliance with medication regimen; Z88.5 Allergy status to narcotic agent; Z88.8 Allergy status to other drugs, medicaments and biological substances; Z79.84 Long term (current) use of oral hypoglycemic drugs
CPT/HCPCS: 36415; 80053; 80061; 80164; 80185; 81001; 82140; 82306; 82607; 82947; 83036; 83540; 83550; 83735; 84436; 84443; 84480; 85025; 86592; 87086; 90471; 90756; Q0162; Q2035